=== PATIENT | female | born 1975 | race Caucasian/White ===

== ENCOUNTER 2021-01-15 18:28 | Inpatient (IN) | payer OTHER, SELFPAY ==
[2021-01-15] VITALS (7 sets, daily range): BP systolic 90–118; BP diastolic 48–59; PULSE 102–110; RESP 16–25; TEMP 36.6; O2SAT 89–99; BMI 31.6
--- NOTE | ~2021-01-15 | XR_ITS ---
EXAMINATION: XR CHEST CLINICAL INFORMATION: Cough COMPARISON: CT abdomen pelvis 10/16/2019 TECHNIQUE: 2 views of the chest were obtained. FINDINGS: Patchy infiltration is present in the left lung as well as in the right perihilar region. Unfortunately, no prior chest radiographs are available for comparison. However, on the prior CT abdomen of the upper portion of the chest was included on the exam as well as a vessel liner radiograph which appeared normal at that time. XR/XR chest 2V IMPRESSION: Commonly reported imaging features of Covid 19 or viral pneumonia are present with multifocal infiltrates. Other processes such as influenza pneumonia or organizing pneumonia, as can be seen with drug toxicity and connective tissue disease, can cause a similar imaging pattern.
--- NOTE | ~2021-01-15 | CT_ITS ---
EXAMINATION: CT ANGIOGRAM OF THE CHEST WITH AND WITHOUT CONTRAST (CT PULMONARY ANGIOGRAM FOR PE) CLINICAL INFORMATION: Reason for Exam hypoxia COMPARISON: Same-day chest radiograph. TECHNIQUE: Prior to contrast administration, noncontrast localization images were obtained. Subsequently, multidetector volumetric imaging was performed from the thoracic inlet to below the diaphragms following the administration of 80 mL Omnipaque 350 intravenous contrast. No contrast reaction reported Sagittal, coronal, and MIP oblique sagittal reformatted images were obtained on the CT workstation, uploaded to PACS, and reviewed. This CT examination was performed using dose optimization techniques as appropriate, variously including the following: *Automated exposure control *Adjustment of mA and/or kV according to patient size (this includes techniques or standardized protocols for targeted exams where dose is matched to indication/reason for exam; i.e. extremities or head) *Use of iterative reconstruction technique Total exam dose-length product 423 mGy-cm FINDINGS: QUALITY OF STUDY/CONTRAST BOLUS: Satisfactory. PULMONARY ARTERIES: No central or segmental pulmonary emboli. THORACIC AORTA: No aneurysm or dissection. LUNG: Mild asymmetric hypertrophy of the right lung relative to the left. Ground glass opacification throughout the left upper and left lower lobe and right upper lobe suspicious for infectious process. No nodules or masses. PLEURA: No pleural effusion or pneumothorax. MEDIASTINUM: Normal heart size. No pericardial effusion. No hilar or mediastinal lymphadenopathy. No evidence of septal bowing or right heart strain. CHEST WALL/AXILLA: No axillary or internal mammary lymphadenopathy. OSSEOUS STRUCTURES: No acute or suspicious osseous abnormality. T7 bone island. UPPER ABDOMEN: Unremarkable. No reflux of contrast into the hepatic veins to suggest elevated right heart pressures. Visualized liver, spleen, adrenal glands, and pancreas. Gallbladder is surgically absent. CT/CT angio chest PE protocol IMPRESSION: 1. No pulmonary embolus. 2. Groundglass opacification in the left upper and lower lobe and right upper lobe presumed infectious in etiology. 3. Cholecystectomy. VTE: negative
--- NOTE | 2021-01-15 19:41 | ED_ITS ---
HPI - URI/Sore Throat General Chief Complaint: Upper Respiratory Symptoms Stated Complaint: cough Time Seen by Provider: 01/15/21 18:36 Source: patient Mode of arrival: ambulatory Limitations: no limitations History of Present Illness MD elicited complaint: cough Pertinent past history: asthma Onset (ago): day(s) (2) Consistency: progressively worsening Severity: moderate Able to tolerate fluids by mouth: Yes Exacerbating factors: exertion and speaking Relieving factors: nothing Associated symptoms: chills, myalgias, sore throat, cough and shortness of breath Treatments prior to arrival: other (bactrim for UTI completed 3 day course) Related Data Home Medications Medication Instructions Recorded Confirmed acetaminophen 1 tab PO Q6H PRN 01/15/21 01/15/21 albuterol sulfate INHALATION 01/15/21 albuterol sulfate [ProAir HFA] INHALATION 01/15/21 budesonide-formoterol [Symbicort] 2 puff INHALATION BID 01/15/21 01/15/21 diclofenac sodium TOPICAL 01/15/21 ethynodiol diac-eth estradiol 1 tab PO DAILY 01/15/21 01/15/21 [Kelnor (28)] fluticasone propionate [Flovent 2 puff INHALATION BID 01/15/21 01/15/21 HFA] levothyroxine 1 tab PO DAILY 01/15/21 01/15/21 morphine tab PO 01/15/21 omeprazole 1 cap PO DAILY 01/15/21 01/15/21 oxazepam cap PO 01/15/21 risperidone 1 tab PO BEDTIME 01/15/21 01/15/21 sodium bicarbonate tab PO 01/15/21 tiotropium bromide [Spiriva 2 puff INHALATION DAILY 01/15/21 01/15/21 Respimat] topiramate tab PO 01/15/21 Previous Rx's Medication Instructions Recorded omeprazole magnesium 20 mg 20 mg PO DAILY 90 Days #90 cap 09/13/20 capsule,delayed release Allergies Allergy/AdvReac Type Severity Reaction Status Date / Time wheat [WHEAT] Allergy Intermediate DIARRHEA Unverified 03/11/20 16:09 sulfamethoxazole Allergy Shortness Verified 01/15/21 21:46 [From Bactrim] of Breath trimethoprim [From Bactrim] Allergy Shortness Verified 01/15/21 21:46 of Breath Review of Systems Review of Systems: Constitutional : No Fever, pos Chills ENT/Mouth : No sore throat, No Rhinorrhea, No Swallowing Difficulty Eyes: No Eye Pain, No Swelling, No Redness Cardiovascular : No Chest Pain, positive SOB, No Orthopnea, no Edema Respiratory : pos Cough, No Sputum, No Wheezing, positive dyspnea Gastrointestinal : No Nausea, No Vomiting, No Diarrhea, No abdominal Pain, No Hematochezia, No Melena Genitourinary : No Dysuria, No Urinary Frequency, No Hematuria Musculoskeletal : No joint pain, pos Myalgias Skin : No Skin Lesions, No rash Neuro : pos Weakness, No Numbness, No Dizziness, No Headache Psych : No Anxiety/Panic, No Depression Heme/Lymph: No Bruising, No Lymphadenopathy Endocrine : No Polyuria, No Polydipsia All other systems reviewed and are negative [facility] Past Medical History Attestation statement: The following information was validated with the patient. Medical History Asthma Marcus's thyroiditis Social History Social History (Updated 01/15/21 @ 20:18 by Zoey Russ DO) Alcohol intake: never Patient Tobacco Use Status: Never used Tobacco Use of substances other than those prescribed or required for medical reasons: No Advance Directives: No Patient : No Physical Exam Vital Signs: Vital Signs: Last Vital Signs Temp 97.9 F 01/15/21 18:31 Pulse 100 01/16/21 00:12 Resp 23 H 01/16/21 00:12 BP 106/47 L 01/16/21 00:12 Pulse Ox 96 01/16/21 00:12 Body Mass Index 31.6 Appearance: Alert. Oriented X3. Mild acute distress. Anxious Eyes: Pupils equal, round and reactive to light. ENT: Pharynx normal. Neck: Normal inspection. Neck supple. CVS: Normal heart rate and rhythm. Pulses normal. Respiratory: Mild respiratory distress tachypnea and retractions. Breath sounds diminished and wheezes noted posteriorly Abdomen: Soft and nontender. Skin: Skin warm and dry. Normal skin color. Normal skin turgor. Extremities: No lower extremity edema. No calf ttp Neuro: Oriented X 3. No motor deficit. No sensory deficit. Course Course Course Narrative: 30cc/kg bolus held until COVID status confirmed given possibility of causing ARDS in setting of COVID with fluid resuscitation 93% on RA, placed on 2L NC empiric antibiotics ordered, added on resp pathogen panel and PCR covid 30cc/kg bolus ordered planned admit MDM - URI/Sore Throat MDM Narrative Medical decision making narrative: 45 yo female with hx of GERD, complex regional pain syndrome, bronchial asthma here with c/o 2 to 3 days of cough, diff breathing, feels short of breath - had her Moderna vaccines a few months ago, was just treated for UTI 3 days ago completed bactrim, went camping denies smoke exposure or sick contacts, at this time labs, COVID swab, cultures, neb treatment, IV steroids, dispo per results and findings. Lab Data Result diagrams: 01/15/21 20:15 01/15/21 20:15 Labs: Lab Results 01/15/21 01/15/21 01/15/21 Range/Units 20:15 20:15 20:15 WBC 17.8 H (4.8-10.8) X10*3/uL RBC 3.90 L (4.20-5.50) X10*6/uL Hgb 11.7 L (12.0-16.0) g/dl Hct 34.6 L (37-47) % MCV 88.7 (80-98) fL MCH 30.0 (27.0-33.0) pg MCHC 33.8 (31.0-35.0) g/dl RDW 12.5 (11.0-16.0) % Plt Count 206 (160-400) X10*3/uL MPV 10.1 (9.4-12.3) fL Immature Gran % (Auto) 0.7 H (0.0-0.4) % Neut % (Auto) 88.9 H (45-73) % Lymph % (Auto) 6.0 L (20-40) % [place] % (Auto) 3.9 (2-11) % Eos % (Auto) 0.2 (0-4) % Baso % (Auto) 0.3 (0-2) % Lymph # (Auto) 1.1 L (1.2-4.9) X10*3/uL [place] # (Auto) 0.7 (0.1-1.2) X10*3/uL Eos # (Auto) 0.0 (0.0-0.4) X10*3/uL Baso # (Auto) 0.1 (0.0-0.2) X10*3/uL Abs Immat Gran (auto) 0.13 H (0.00-0.03) X10*3/uL Absolute Neuts (auto) 15.8 H (2.0-8.3) X10*3/uL Absolute Nucleated RBC 0.000 (0.0-0.012) X10*3/uL Nucleated RBC % (auto) 0.0 (0.0-0.2) /100WBC PT 11.9 (9.9-13.0) SEC INR 1.0 (0.9-1.1) APTT 28.2 (24.1-38.0) SEC D-Dimer 631 NG/ML Sodium 131 L (135-145) mmol/L Potassium 3.7 (3.3-5.1) mmol/L Chloride 103 (96-108) mmol/L Carbon Dioxide 18 L (22-29) mmol/L Anion Gap 14 (12-20) BUN 3 L (9-16) mg/dL Creatinine 0.87 (0.5-1.4) mg/dL Estim Creat Clear Calc 87.6 Estimated GFR > 60 Random Glucose 116 H (60-115) mg/dL Lactic Acid (0.5-2.0) mmol/L Calcium 8.5 (8.4-10.2) mg/dL Magnesium 1.8 (1.6-2.6) mg/dL Ferritin 114 (10-250) ng/mL Total Bilirubin 0.5 (0.0-1.0) mg/dL Direct Bilirubin 0.3 (0.0-0.5) mg/dL AST 13 (5-31) U/L ALT 18 (0-31) U/L Alkaline Phosphatase 78 (39-117) U/L Lactate Dehydrogenase 176 (122-220) U/L Total Creatine Kinase 42 (26-140) U/L C-Reactive Protein 19.96 H (< or = 0.50) mg/dL Total Protein 6.5 (6.5-8.0) g/dL Albumin 3.7 (3.5-5.0) g/dL Procalcitonin ng/mL Coronavirus (PCR) (Negative) COVID-19 (MARTINE) (Negative) COVID-19 Clin Com Influenza Type A (PCR) (Negative) Influenza Type B (PCR) (Negative) RSV RNA Qual (PCR) (Negative) 01/15/21 01/15/21 01/15/21 Range/Units 20:15 20:15 20:17 WBC (4.8-10.8) X10*3/uL RBC (4.20-5.50) X10*6/uL Hgb (12.0-16.0) g/dl Hct (37-47) % MCV (80-98) fL MCH (27.0-33.0) pg MCHC (31.0-35.0) g/dl RDW (11.0-16.0) % Plt Count (160-400) X10*3/uL MPV (9.4-12.3) fL Immature Gran % (Auto) (0.0-0.4) % Neut % (Auto) (45-73) % Lymph % (Auto) (20-40) % [place] % (Auto) (2-11) % Eos % (Auto) (0-4) % Baso % (Auto) (0-2) % Lymph # (Auto) (1.2-4.9) X10*3/uL [place] # (Auto) (0.1-1.2) X10*3/uL Eos # (Auto) (0.0-0.4) X10*3/uL Baso # (Auto) (0.0-0.2) X10*3/uL Abs Immat Gran (auto) (0.00-0.03) X10*3/uL Absolute Neuts (auto) (2.0-8.3) X10*3/uL Absolute Nucleated RBC (0.0-0.012) X10*3/uL Nucleated RBC % (auto) (0.0-0.2) /100WBC PT (9.9-13.0) SEC INR (0.9-1.1) APTT (24.1-38.0) SEC D-Dimer NG/ML Sodium (135-145) mmol/L Potassium (3.3-5.1) mmol/L Chloride (96-108) mmol/L Carbon Dioxide (22-29) mmol/L Anion Gap (12-20) BUN (9-16) mg/dL Creatinine (0.5-1.4) mg/dL Estim Creat Clear Calc Estimated GFR Random Glucose (60-115) mg/dL Lactic Acid 0.8 (0.5-2.0) mmol/L Calcium (8.4-10.2) mg/dL Magnesium (1.6-2.6) mg/dL Ferritin (10-250) ng/mL Total Bilirubin (0.0-1.0) mg/dL Direct Bilirubin (0.0-0.5) mg/dL AST (5-31) U/L ALT (0-31) U/L Alkaline Phosphatase (39-117) U/L Lactate Dehydrogenase (122-220) U/L Total Creatine Kinase (26-140) U/L C-Reactive Protein (< or = 0.50) mg/dL Total Protein (6.5-8.0) g/dL Albumin (3.5-5.0) g/dL Procalcitonin 0.04 ng/mL Coronavirus (PCR) (Negative) COVID-19 (MARTINE) Negative (Negative) COVID-19 Clin Com See Note Influenza Type A (PCR) (Negative) Influenza Type B (PCR) (Negative) RSV RNA Qual (PCR) (Negative) 01/15/21 Range/Units 21:00 WBC (4.8-10.8) X10*3/uL RBC (4.20-5.50) X10*6/uL Hgb (12.0-16.0) g/dl Hct (37-47) % MCV (80-98) fL MCH (27.0-33.0) pg MCHC (31.0-35.0) g/dl RDW (11.0-16.0) % Plt Count (160-400) X10*3/uL MPV (9.4-12.3) fL Immature Gran % (Auto) (0.0-0.4) % Neut % (Auto) (45-73) % Lymph % (Auto) (20-40) % [place] % (Auto) (2-11) % Eos % (Auto) (0-4) % Baso % (Auto) (0-2) % Lymph # (Auto) (1.2-4.9) X10*3/uL [place] # (Auto) (0.1-1.2) X10*3/uL Eos # (Auto) (0.0-0.4) X10*3/uL Baso # (Auto) (0.0-0.2) X10*3/uL Abs Immat Gran (auto) (0.00-0.03) X10*3/uL Absolute Neuts (auto) (2.0-8.3) X10*3/uL Absolute Nucleated RBC (0.0-0.012) X10*3/uL Nucleated RBC % (auto) (0.0-0.2) /100WBC PT (9.9-13.0) SEC INR (0.9-1.1) APTT (24.1-38.0) SEC D-Dimer NG/ML Sodium (135-145) mmol/L Potassium (3.3-5.1) mmol/L Chloride (96-108) mmol/L Carbon Dioxide (22-29) mmol/L Anion Gap (12-20) BUN (9-16) mg/dL Creatinine (0.5-1.4) mg/dL Estim Creat Clear Calc Estimated GFR Random Glucose (60-115) mg/dL Lactic Acid (0.5-2.0) mmol/L Calcium (8.4-10.2) mg/dL Magnesium (1.6-2.6) mg/dL Ferritin (10-250) ng/mL Total Bilirubin (0.0-1.0) mg/dL Direct Bilirubin (0.0-0.5) mg/dL AST (5-31) U/L ALT (0-31) U/L Alkaline Phosphatase (39-117) U/L Lactate Dehydrogenase (122-220) U/L Total Creatine Kinase (26-140) U/L C-Reactive Protein (< or = 0.50) mg/dL Total Protein (6.5-8.0) g/dL Albumin (3.5-5.0) g/dL Procalcitonin ng/mL Coronavirus (PCR) NEGATIVE (Negative) COVID-19 (MARTINE) (Negative) COVID-19 Clin Com Influenza Type A (PCR) NEGATIVE (Negative) Influenza Type B (PCR) NEGATIVE (Negative) RSV RNA Qual (PCR) NEGATIVE (Negative) Critical Care Time Critical Care Time Critical Care Time: Yes Total Critical Care Time: 35 Attestation: IVF, neb treatment, IV steroids, IV abx I attest to this time spent taking care of the patient Discharge Plan Discharge Clinical Impression: CRP elevated, Multifocal pneumonia Leukocytosis Qualifiers: Leukocytosis type: unspecified Qualified Code(s): D72.829 - Elevated white blood cell count, unspecified Patient Disposition: Admitted As Inpatient
[2021-01-15] MEDS: Albuterol Sulfate (0.083%) 2.5 MG/3 ML VIAL.NEB INHALE (20:17)
[2021-01-15 20:22] LABS: MANUAL DIFF FLAG NO
[2021-01-15 20:26] LABS: Basophils Absolute Auto 0.1 X10*3/uL (0.0-0.2); Basophils Percent Auto 0.3 % (0-2); Eosinophils Percent Auto 0.2 % (0-4); Hematocrit 34.6 % (37-47); Hemoglobin 11.7 g/dl (12.0-16.0); Imm Gran Abs Auto 0.13 X10*3/uL (0.00-0.03); Imm Gran Pct Auto 0.7 % (0.0-0.4); Lymphocytes Absolute Auto 1.1 X10*3/uL (1.2-4.9); Mean Corpuscular HGB Conc 33.8 g/dl (31.0-35.0); Mean Corpuscular Volume 88.7 fL (80-98); Mean Platelet Volume 10.1 fL (9.4-12.3); Monocytes Absolute Auto 0.7 X10*3/uL (0.1-1.2); Monocytes Percent Auto 3.9 % (2-11); Neutrophils Absolute Auto 15.8 X10*3/uL (2.0-8.3); Neutrophils Percent Auto 88.9 % (45-73); Platelet Count 206 X10*3/uL (160-400); Red Cell Distribution Width 12.5 % (11.0-16.0); White Blood Count 17.8 X10*3/uL (4.8-10.8)
[2021-01-15 20:32] LABS: Prothrombin Time 11.9 SEC (9.9-13.0)
[2021-01-15 20:35] LABS: D Dimer 631 NG/ML; Partial Thromboplastin Time 28.2 SEC (24.1-38.0)
[2021-01-15 20:43] LABS: Lactic Acid 0.8 mmol/L (0.5-2.0)
[2021-01-15 20:46] LABS: COVID-19 Test Negative (Negative); IDNOW Serial# 9DD0AD1C
[2021-01-15 20:52] LABS: Alanine Aminotransferase 18 U/L (0-31); Albumin Level 3.7 g/dL (3.5-5.0); Alkaline Phosphatase 78 U/L (39-117); Anion Gap 14 (12-20); Aspartate Amino Transferase 13 U/L (5-31); Bilirubin Direct 0.3 mg/dL (0.0-0.5); Bilirubin Total 0.5 mg/dL (0.0-1.0); Blood Urea Nitrogen 3 mg/dL (9-16); C Reactive Protein 19.96 mg/dL (< or = 0.50); Calcium 8.5 mg/dL (8.4-10.2); Carbon Dioxide 18 mmol/L (22-29); Chloride 103 mmol/L (96-108); Creatinine Clr Calc Pharmacy 87.6; Estimated Glomerular Filt Rate > 60; Glucose Random 116 mg/dL (60-115); Magnesium 1.8 mg/dL (1.6-2.6); Potassium 3.7 mmol/L (3.3-5.1); Sodium 131 mmol/L (135-145); Total Protein 6.5 g/dL (6.5-8.0)
[2021-01-15 21:02] LABS: Lactate Dehydrogenase 176 U/L (122-220)
[2021-01-15] MEDS: dexAMETHasone sod phosphate 4 MG/ML VIAL 6 MG IVPUSH (21:07)
[2021-01-15] MEDS: Benzonatate 100 MG CAPSULE PO (21:08)
[2021-01-15] MEDS: HYDROcodone/Homat 5/1.5/5 ML 5 ML SYRUP PO (21:08)
[2021-01-15] MEDS: cefTRIAXone sodium 1 GM in 0.9 % Sodium Chloride 50 ML IV (21:08)
[2021-01-15 21:10] LABS: Ferritin 114 ng/mL (10-250)
[2021-01-15] MEDS: 0.9 % Sodium Chloride 1,000 ML 999 ML IVCONT (21:22)
[2021-01-15] MEDS: Azithromycin 500 MG in 0.9 % Sodium Chloride 250 ML 125 MG IV (21:22)
--- NOTE | 2021-01-15 21:26 | P.HPHOSP_ITS ---
History of Present Illness Date of Service: 01/15/21 Chief Complaint: SOB 45-year-old female with a past medical history of GERD, complex regional pain syndrome, history of asthma presented to the hospital with a chief complaint of shortness of breath. Patient reported that over the past 3-4 days she has been having shortness of breath and cough. Dyspnea on exertion. Denies any chest pain or palpitations. Patient reports that she recently went to the [facility]; denies any sick contacts. Denies any excessive smoke inhalation. Denies going into the caves; or bird exposure. Patient denies any GI or symptoms. Patient reported that she recently had UTI and finished a course of Bactrim. Review of all other systems is negative except mentioned above ER course: Per ER team patient noted to be short of breath, saturating 90-92%, placed on supplemental oxygen, noted diffuse wheezing and diminished breath sounds; COVID- 19 was negative chest x-ray showed multifocal pneumonia; patient was given IV antibiotics. Noted to elevated D-dimer, CRP. Admitted to the hospital for further management. [facility] Medical History (Updated 01/17/21 @ 12:46 by Erich Turner MD) Asthma Asthma exacerbation Marcus's thyroiditis Pneumonitis Social History (Updated 01/15/21 @ 20:18 by Zoey Russ DO) Household Members: Spouse Housing: House Do you presently have visiting nurse or other home services: No Alcohol intake: never Patient Tobacco Use Status: Never used Tobacco service: No Current occupational status: unemployed Meds Allergies Allergy/AdvReac Type Severity Reaction Status Date / Time wheat [WHEAT] Allergy Intermediate DIARRHEA Verified 01/16/21 03:14 sulfamethoxazole Allergy Shortness Verified 01/15/21 21:46 [From Bactrim] of Breath trimethoprim [From Bactrim] Allergy Shortness Verified 01/15/21 21:46 of Breath Active Medications: Current Medications Generic Name Dose Route Start Last Admin Trade Name Freq PRN Reason Stop Dose Admin Albuterol/Ipratropium 3 ml 01/15/21 21:18 Albuterol/Iprat 2.5/0.5mg 3 Ml Ampul.Neb INHALE RQ4H PRN Shortness of Breath/Wheezing Azithromycin 500 mg 01/15/21 21:30 Azithromycin 500 Mg Tablet PO Q24H AKIDEN Enoxaparin Sodium 40 mg 01/15/21 21:30 Enoxaparin Sodium 40 Mg/0.4 Ml Syringe SUBCUT Q24H [facility] Azithromycin 500 mg/ Sodium 250 mls @ 125 mls/hr 01/15/21 20:30 01/15/21 21:22 Chloride IV 01/15/21 22:29 125 mls/hr ONCE ONE Administration Sodium Chloride 2,585.49 mls @ 2,585.49 mls/hr 01/15/21 20:53 Ns 30 ml/kg infuse over 1 hr (2585.49 ml) 01/15/21 21:52 IV .Q1H ONE Dextrose/Sodium Chloride 1,000 mls @ 50 mls/hr 01/15/21 21:30 D5ns IVCONT .Q20H [facility] Ceftriaxone Sodium 1 gm/ 100 mls @ 200 mls/hr 01/15/21 21:30 Sodium Chloride IV Q24H [facility] Magnesium Hydroxide 30 ml 01/15/21 21:18 Milk Of Magnesia 30 Ml Oral.Susp PO DAILY PRN Constipation Melatonin 6 mg 01/15/21 21:18 Melatonin 3 Mg Tablet PO BEDTIME PRN Insomnia Methylprednisolone Sodium Succinate 40 mg 01/15/21 21:30 Methylprednisolone Sod Succ 40 Mg/Ml Vial IVPUSH Q6H [facility] Morphine Sulfate 1 mg 01/15/21 21:18 Morphine Sulfate 4 Mg/Ml Cartridge IVPUSH Q6H PRN Shortness of Breath Sodium Chloride 3 ml 01/16/21 00:00 0.9 % Sodium Chloride Flush 3 Ml Syringe IVFLUSH QSHIFT [facility] Home Medications Medication Instructions Recorded Confirmed Last Taken Type acetaminophen 500 mg tablet 1 tab PO Q6H PRN 01/15/21 01/15/21 Unknown History albuterol sulfate 90 mcg/actuation INHALATION 01/15/21 01/15/21 17:00 History aerosol inhaler albuterol sulfate 90 mcg/actuation INHALATION 01/15/21 Unknown History aerosol inhaler (ProAir HFA) budesonide-formoterol HFA 160 2 puff INHALATION BID 01/15/21 01/15/21 Unknown History mcg-4.5 mcg/actuation aerosol inhaler (Symbicort) diclofenac sodium 1 % topical gel TOPICAL 01/15/21 Unknown History ethynodiol diacetate-ethinyl 1 tab PO DAILY 01/15/21 01/15/21 Unknown History estradiol 1 mg-35 mcg tablet (Kelnor) fluticasone propionate 220 2 puff INHALATION BID 01/15/21 01/15/21 Unknown History mcg/actuation HFA aerosol inhaler (Flovent HFA) levothyroxine 88 mcg tablet 1 tab PO DAILY 01/15/21 01/15/21 Unknown History morphine 30 mg immediate release 60 mg PO Q4-5H PRN 01/15/21 01/16/21 Unknown History tablet oxazepam 10 mg capsule 2 - 3 cap PO Q3-4H PRN 01/15/21 01/16/21 Unknown History risperidone 1 mg tablet 1 tab PO BEDTIME 01/15/21 01/15/21 Unknown History sodium bicarbonate 650 mg tablet tab PO 01/15/21 Unknown History tiotropium bromide 2.5 2 puff INHALATION DAILY 01/15/21 01/15/21 Unknown History mcg/actuation mist for inhalation (Spiriva Respimat) topiramate 200 mg tablet tab PO 01/15/21 Unknown History fluticasone propionate 50 2 spray INTRANASAL BID 01/17/21 01/17/21 3 Days Ago History mcg/actuation nasal ~01/14/21 spray,suspension montelukast 10 mg tablet 10 mg PO BEDTIME 01/17/21 01/17/21 3 Days Ago History (Maximeulair) ~01/14/21 Physical Exam Vital Signs and Narrative: Vital Signs: Last Vital Signs Temp 97.9 F 01/15/21 18:31 Pulse 102 H 01/15/21 20:18 Resp 25 H 01/15/21 20:02 BP 103/48 L 01/15/21 20:16 Pulse Ox 91 L 01/15/21 20:02 Body Mass Index 31.6 Gen: Appears be in no acute distress; patient not in respiratory distress. Speaks in full sentences. HEENT: NCAT, Moist mucosa. Pulmonary: Diffuse wheezing noted. Breath sounds are slightly diminished. CVS: Normal S1-S2 Abdomen: BS+, Soft, Nontender Extremities: Warm well perfused Neuro: Alert and awake. Results Labs CBC and Chem 7: 01/16/21 07:17 01/16/21 07:17 Labs: Laboratory Results - last 24 hr 01/15/21 01/15/21 01/15/21 20:15 20:15 20:15 MCV 88.7 MCH 30.0 MCHC 33.8 RDW 12.5 Plt Count 206 MPV 10.1 Immature Gran % (Auto) 0.7 H Neut % (Auto) 88.9 H Lymph % (Auto) 6.0 L [place] % (Auto) 3.9 Eos % (Auto) 0.2 Baso % (Auto) 0.3 Lymph # (Auto) 1.1 L [place] # (Auto) 0.7 Eos # (Auto) 0.0 Baso # (Auto) 0.1 Abs Immat Gran (auto) 0.13 H Absolute Neuts (auto) 15.8 H Absolute Nucleated RBC 0.000 Nucleated RBC % (auto) 0.0 PT 11.9 INR 1.0 APTT 28.2 D-Dimer 631 Anion Gap 14 Estim Creat Clear Calc 87.6 Estimated GFR > 60 Random Glucose 116 H Lactic Acid Calcium 8.5 Magnesium 1.8 Ferritin 114 Total Bilirubin 0.5 Direct Bilirubin 0.3 AST 13 ALT 18 Alkaline Phosphatase 78 Lactate Dehydrogenase 176 Total Creatine Kinase 42 C-Reactive Protein 19.96 H Total Protein 6.5 Albumin 3.7 COVID-19 (MARTINE) COVID-19 Clin Com 01/15/21 01/15/21 20:15 20:17 MCV MCH MCHC RDW Plt Count MPV Immature Gran % (Auto) Neut % (Auto) Lymph % (Auto) [place] % (Auto) Eos % (Auto) Baso % (Auto) Lymph # (Auto) [place] # (Auto) Eos # (Auto) Baso # (Auto) Abs Immat Gran (auto) Absolute Neuts (auto) Absolute Nucleated RBC Nucleated RBC % (auto) PT INR APTT D-Dimer Anion Gap Estim Creat Clear Calc Estimated GFR Random Glucose Lactic Acid 0.8 Calcium Magnesium Ferritin Total Bilirubin Direct Bilirubin AST ALT Alkaline Phosphatase Lactate Dehydrogenase Total Creatine Kinase C-Reactive Protein Total Protein Albumin COVID-19 (MARTINE) Negative COVID-19 Clin Com See Note Imaging Radiologist's Impressions: Impressions Chest X-Ray 01/15/21 18:36 IMPRESSION: Commonly reported imaging features of Covid 19 or viral pneumonia are present with multifocal infiltrates. Other processes such as influenza pneumonia or organizing pneumonia, as can be seen with drug toxicity and connective tissue disease, can cause a similar imaging pattern. Assessment and Plan (1) Multifocal pneumonia: Status: Acute 45-year-old female with a past medical history of GERD, asthma presented to the hospital with a chief complaint of cough and shortness of breath. Noted to have multifocal pneumonia. Multifocal pneumonia: Continue ceftriaxone and azithromycin. Patient COVID-19 negative. Patient received COVID-19 MRNA vaccine. Patient noted to be mildly [id number] positive; CT chest : No PE but noted GGO/PNA Will consult ID and pulmonology for further recommendations Will send for urine Legionella, strep pneumo, mycoplasma; Throat discomfort: Will obtain throat culture Acute asthma exacerbation: Continue DuoNebs standing and p.r.n.. Solu-Medrol 40 mg IV q.6h. Supplemental oxygen p.r.n. History of complex regional pain syndrome: Patient on morphine and Topamax at h ome. History of hypothyroidism: Continue levothyroxine GI prophylaxis: Pepcid DVT prophylaxis: Lovenox Code status: Full code Quality Stroke Does the patient have a stroke diagnosis?: No VTE Prior VTE?: No VTE Risk Level:: Medical - moderate - high VTE Device Contraindication: Treatment Not Indicated VTE Drug Contraindication: N/A - Med Ordered
--- NOTE | 2021-01-15 21:32 | PC.NURSE ---
pt getting first liter fluids, has gotten first antibiotic and second running at this time. She reports pain but states she has a chronic pain condition so her pain is not new.
[2021-01-15 21:53] LABS: Influenza A PCR NEGATIVE (Negative); Influenza B PCR NEGATIVE (Negative); Resp Syncy Virus RNA Qual PCR NEGATIVE (Negative); SARS COV2 PCR INHOUSE NEGATIVE (Negative)
[2021-01-15] MEDS: 0.9 % Sodium Chloride 2,585.49 ML 2585.49 ML IV (22:17)
[2021-01-15 22:19] LABS: Procalcitonin 0.04 ng/mL
--- NOTE | 2021-01-15 22:33 | PC.NURSE ---
pt's IV fluids have been running with interruption for blood draw and for CT scan. Can only use right arm, pt states she cannot have any proceedure to left arm
[2021-01-15] MEDS: iohexoL 350 MG/ML 100 ML INFUS..BTL IV (22:50)
[2021-01-16] VITALS (7 sets, daily range): BP systolic 105–158; BP diastolic 47–76; PULSE 63–100; RESP 18–23; TEMP 36.4–36.6; O2SAT 93–96; BMI 31.6
[2021-01-16] MEDS: Enoxaparin Sodium 40 MG/0.4 ML SYRINGE SUBCUT ×2 (00:06→22:07)
[2021-01-16] MEDS: cefTRIAXone sodium 1 GM in 0.9 % Sodium Chloride 100 ML IV ×2 (00:06→22:20)
[2021-01-16] MEDS: methylPREDNISolone Sod Succ 40 MG/ML VIAL IVPUSH ×5 (00:06→22:09)
[2021-01-16] MEDS: Morphine Sulfate 4 MG/ML CARTRIDGE 1 MG IVPUSH (03:00)
[2021-01-16] MEDS: Dextrose 5 % and 0.9 % NaCl 1,000 ML 50 ML IVCONT ×2 (03:04→16:47)
[2021-01-16] MEDS: HYDROmorphone HCl 2 MG TABLET 1 MG PO (06:17)
--- NOTE | 2021-01-16 07:15 | PC.NURSE ---
Pt sitting in recliner in room eating her breakfast tray at this time. Pt offers no complaints. Awaiting bed assignment. Will continue to monitor.
[2021-01-16 07:26] LABS: Basophils Percent Auto 0.1 % (0-2); Hematocrit 34.9 % (37-47); Hemoglobin 11.6 g/dl (12.0-16.0); Imm Gran Abs Auto 0.08 X10*3/uL (0.00-0.03); Imm Gran Pct Auto 0.8 % (0.0-0.4); Lymphocytes Absolute Auto 0.6 X10*3/uL (1.2-4.9); Lymphocytes Percent Auto 6.1 % (20-40); MANUAL DIFF FLAG SCAN; Mean Corpuscular HGB Conc 33.2 g/dl (31.0-35.0); Mean Corpuscular Hemoglobin 30.1 pg (27.0-33.0); Mean Corpuscular Volume 90.6 fL (80-98); Mean Platelet Volume 10.3 fL (9.4-12.3); Monocytes Absolute Auto 0.2 X10*3/uL (0.1-1.2); Monocytes Percent Auto 1.8 % (2-11); Neutrophils Absolute Auto 9.5 X10*3/uL (2.0-8.3); Neutrophils Percent Auto 91.2 % (45-73); Platelet Count 212 X10*3/uL (160-400); Red Blood Count 3.85 X10*6/uL (4.20-5.50); Red Cell Distribution Width 12.6 % (11.0-16.0); SCAN SMEAR FLAG 1; White Blood Count 10.4 X10*3/uL (4.8-10.8)
[2021-01-16 07:55] LABS: SLIDE REVIEW VERIFIED
[2021-01-16 08:05] LABS: Alanine Aminotransferase 17 U/L (0-31); Albumin Level 3.6 g/dL (3.5-5.0); Alkaline Phosphatase 77 U/L (39-117); Anion Gap 12 (12-20); Aspartate Amino Transferase 11 U/L (5-31); Bilirubin Total 0.2 mg/dL (0.0-1.0); Blood Urea Nitrogen 4 mg/dL (9-16); Calcium 8.1 mg/dL (8.4-10.2); Carbon Dioxide 16 mmol/L (22-29); Chloride 113 mmol/L (96-108); Creatinine Clr Calc Pharmacy 102.9; Estimated Glomerular Filt Rate > 60; Glucose Random 167 mg/dL (60-115); Potassium 3.9 mmol/L (3.3-5.1); Sodium 137 mmol/L (135-145); Total Protein 6.4 g/dL (6.5-8.0)
[2021-01-16] MEDS: Levothyroxine Sodium 88 MCG TABLET PO (08:30)
[2021-01-16] MEDS: Topiramate 100 MG TABLET 200 MG PO (08:30)
[2021-01-16 08:32] LABS: Adenovirus PCR Not Detected (Not Detect.); Bordetella parapertussis PCR Not Detected (Not Detect.); Bordetella pertussis PCR Not Detected (Not Detect.); Chlamydia pneumoniae PCR Not Detected (Not Detect.); Coronavirus 229E PCR Not Detected (Not Detect.); Coronavirus HKU1 PCR Not Detected (Not Detect.); Coronavirus NL63 PCR Not Detected (Not Detect.); Coronavirus OC43 PCR Not Detected (Not Detect.); Human metapneumovirus PCR Not Detected (Not Detect.); Influenza A PCR Not Detected (Not Detect.); Influenza B PCR Not Detected (Not Detect.); Mycoplasma pneumoniae PCR Not Detected (Not Detect.); Parainfluenza 1 PCR Not Detected (Not Detect.); Parainfluenza 2 PCR Not Detected (Not Detect.); Parainfluenza 3 PCR Not Detected (Not Detect.); Parainfluenza 4 PCR Not Detected (Not Detect.); RSV PCR Not Detected (Not Detect.); Rhino/Enterovirus PCR Not Detected (Not Detect.); SARS-CoV-2 PCR Not Detected (Not Detect.)
[2021-01-16] MEDS: Fluticasone/Vilanterol 200/25 BLST.W.DEV 1 PUFF INHALE (09:43)
[2021-01-16] MEDS: Morphine Sulfate Immed Release 15 MG TABLET 60 MG PO ×3 (10:30→22:09)
[2021-01-16] MEDS: Benzonatate 100 MG CAPSULE PO ×2 (11:11→22:13)
--- NOTE | 2021-01-16 12:17 | HO.PM.IMPN ---
Subjective Subjective Date of Service: 01/16/21 Interval History: Seen in f/u for PNA, better than yesterday, but still sob, cough Review of Systems Gen: no fever Resp: + sob, n+cough CV: no chest, no COTTO, no leg edema GI: No n/v, no abd pain Neuro: No confusion Physical Exam Vital Signs: Vital Signs: Last Vital Signs Temp 97.9 F 01/15/21 18:31 Pulse 99 01/16/21 09:48 Resp 23 H 01/16/21 00:12 BP 115/74 01/16/21 01:05 Pulse Ox 96 01/16/21 00:12 Oxygen Flow Rate 3 01/15/21 21:27 Body Mass Index 31.6 Const: Other: General: AO X 3, no acute distress Resp: rhonchi CVS: S1,S2,RRR GI: +BS, NT, no distention Skin: No rash Neuro: motor grossly intact Psych: appropriate affect Objective Data Current Medications Generic Name Dose Route Start Last Admin Trade Name Freq PRN Reason Stop Dose Admin Albuterol/Ipratropium 3 ml 01/15/21 21:18 Albuterol/Iprat 2.5/0.5mg 3 Ml Ampul.Neb INHALE Q4H PRN Shortness of Breath/Wheezing Azithromycin 500 mg 01/16/21 21:00 Azithromycin 500 Mg Tablet PO Q24H KAIDEN Benzonatate 100 mg 01/16/21 02:38 01/16/21 11:11 Benzonatate 100 Mg Capsule PO 100 mg TID PRN Administration Cough Enoxaparin Sodium 40 mg 01/15/21 21:30 01/16/21 00:06 Enoxaparin Sodium 40 Mg/0.4 Ml Syringe SUBCUT 40 mg Q24H KAIDEN Administration Fluticasone Propionate 2 puff 01/16/21 20:00 Fluticasone Propionate 250 Mcg Blst.W.Dev INHALE RBID KAIDEN Fluticasone/Vilanterol 1 puff 01/16/21 09:00 01/16/21 09:43 Fluticasone/Vilanterol 200/25 Blst.W.Dev INHALE 1 puff DAILY KAIDEN Administration Hydromorphone HCl 1 mg 01/16/21 02:38 01/16/21 06:17 Hydromorphone Hcl 2 Mg Tablet PO 1 mg Q6H PRN Administration Breakthrough Pain Dextrose/Sodium Chloride 1,000 mls @ 50 mls/hr 01/15/21 21:30 01/16/21 03:04 D5ns IVCONT 50 mls/hr .Q20H KAIDEN Administration Ceftriaxone Sodium 1 gm/ 100 mls @ 200 mls/hr 01/15/21 22:00 01/16/21 03:18 Sodium Chloride IV Infused Q24H KAIDEN Infusion Levothyroxine Sodium 88 mcg 01/16/21 09:00 01/16/21 08:30 Levothyroxine Sodium 88 Mcg Tablet PO 88 mcg DAILY KAIDEN Administration Magnesium Hydroxide 30 ml 01/15/21 21:18 Milk Of Magnesia 30 Ml Oral.Susp PO DAILY PRN Constipation Melatonin 6 mg 01/15/21 21:18 Melatonin 3 Mg Tablet PO BEDTIME PRN Insomnia Methylprednisolone Sodium Succinate 40 mg 01/15/21 22:00 01/16/21 10:30 Methylprednisolone Sod Succ 40 Mg/Ml Vial IVPUSH 40 mg Q6H KAIDEN Administration Morphine Sulfate 1 mg 01/15/21 21:18 01/16/21 03:00 Morphine Sulfate 4 Mg/Ml Cartridge IVPUSH 1 mg Q6H PRN Administration Shortness of Breath Morphine Sulfate 60 mg 01/16/21 10:10 01/16/21 10:30 Morphine Sulfate Immed Release 15 Mg Tablet PO 60 mg Q4H PRN Administration Pain Non-Formulary Medication 2 - 3 cap 01/16/21 10:01 Oxazepam PO Q3H PRN Pain Risperidone 1 mg 01/16/21 21:00 Risperidone 1 Mg Tablet PO BEDTIME KAIDEN Sodium Chloride 3 ml 01/16/21 00:00 01/16/21 09:14 0.9 % Sodium Chloride Flush 3 Ml Syringe IVFLUSH Not Given QSHIFT [facility] Tiotropium [place] 2 puff 01/17/21 08:00 Tiotropium [place] 18 Mcg Cap.W.Dev INHALE RDAILY [facility] Topiramate 200 mg 01/16/21 09:00 01/16/21 08:30 Topiramate 100 Mg Tablet PO 200 mg DAILY KAIDEN Administration Labs CBC & Chem 7: 01/16/21 07:17 01/16/21 07:17 Quality Stroke Does the patient have a stroke diagnosis?: No VTE Prior VTE?: No VTE Risk Level:: Medical - moderate - high VTE Device Contraindication: Treatment Not Indicated VTE Drug Contraindication: N/A - Med Ordered Assessment and Plan (1) Multifocal pneumonia: Status: Acute Assessment and Plan: 45-year-old female with a past medical history of GERD, asthma presented to the hospital with a chief complaint of cough and shortness of breath. Noted to have multifocal pneumonia. CAP with Multifocal pneumonia with acute hypoxic resp failure now improved, CT showed PE but PNA Continue ceftriaxone and azithromycin. Urine mycoplasma and legionella Abx ID, pulmonary consult Throat discomfort: Will obtain throat culture Acute asthma exacerbation: Continue DuoNebs standing and p.r.n.. Solu-Medrol 40 mg IV q.6h. Supplemental oxygen p.r.n. History of complex regional pain syndrome: Patient on morphine and Topamax at home--continue History of hypothyroidism: Continue levothyroxine GI prophylaxis: Pepcid DVT prophylaxis: Lovenox Code status: Full code
--- NOTE | 2021-01-16 12:52 | MHC.CM.PN ---
Met with pt and spouse to discuss d/c planning: pt resides with spouse: is independent with all care needs: drives, no medical devices used: no services. Pt anxious about hospitalization: worried about needing O2 at home when d/c'd. Explained goals of d/c would be to have weaned off O2 but is this was required at home, [facility] [place] supplier. No HCP on file: pt states she's anxious in the ED and would like to wait until she's settled in a hospital room before she considers one. D/C plan: home: no services - spouse to transport: ? reapproaching for HCP completion when pt more calm
--- NOTE | 2021-01-16 14:28 | PC.NURSE ---
called [facility] [place] nurse [place], floor nurse will call back for report.
[2021-01-16] MEDS: Azithromycin 500 MG TABLET PO (22:07)
[2021-01-16] MEDS: risperiDONE 1 MG TABLET PO (22:07)
[2021-01-16] MEDS: 0.9 % Sodium Chloride Flush 3 ML SYRINGE IVFLUSH (22:09)
[2021-01-16] MEDS: Melatonin 3 MG TABLET 6 MG PO (22:09)
[2021-01-17] VITALS (9 sets, daily range): BP systolic 111–150; BP diastolic 60–70; PULSE 49–88; RESP 18–20; TEMP 36.2–36.9; O2SAT 90–98
[2021-01-17] MEDS: methylPREDNISolone Sod Succ 40 MG/ML VIAL IVPUSH ×2 (02:21→07:50)
[2021-01-17] MEDS: Morphine Sulfate Immed Release 15 MG TABLET 60 MG PO ×3 (02:21→20:58)
[2021-01-17] MEDS: Fluticasone/Vilanterol 200/25 BLST.W.DEV 1 PUFF INHALE (07:31)
[2021-01-17] MEDS: Fluticasone Propionate 250 MCG BLST.W.DEV 2 PUFF INHALE (07:31)
[2021-01-17] MEDS: Topiramate 100 MG TABLET 200 MG PO (07:50)
[2021-01-17] MEDS: Levothyroxine Sodium 88 MCG TABLET PO (07:50)
[2021-01-17] MEDS: 0.9 % Sodium Chloride Flush 3 ML SYRINGE IVFLUSH ×2 (07:50→16:06)
[2021-01-17] MEDS: Docusate Sodium 100 MG CAPSULE PO ×2 (09:19→20:26)
[2021-01-17] MEDS: Benzonatate 100 MG CAPSULE PO ×2 (09:19→14:00)
[2021-01-17] MEDS: methylPREDNISolone Sod Succ 40 MG/ML VIAL 80 MG IVPUSH ×3 (10:56→21:55)
--- NOTE | 2021-01-17 11:03 | P.PNIM_ITS ---
Assessment and Plan (1) Multifocal pneumonia: Status: Acute Assessment and Plan: 45-year-old female with a past medical history of GERD, asthma presented to the hospital with a chief complaint of cough and shortness of breath. Noted to have multifocal pneumonia. CAP with Multifocal pneumonia with acute hypoxic resp failure now resolved, CT showed NO PE but PNA Continue ceftriaxone and azithromycin D3, change to oral Ceftin by tomorrow if better Urine mycoplasma and legionella Abx--pending ID, pulmonary consult--pending Throat discomfort: Culture negative Acute asthma exacerbation: Continue DuoNebs standing and p.r.n.. Solu-Medrol 40 mg IV q.6h. Supplemental oxygen p.r.n. History of complex regional pain syndrome: Patient on morphine and Topamax at home--continue History of hypothyroidism: Continue levothyroxine Constipation: colate, miralax, fiber GI prophylaxis: Pepcid DVT prophylaxis: Lovenox Code status: Full code Subjective Subjective Date of Service: 01/17/21 Interval History: Seen in f/u for PNA, still with cough, sob especially with activity Review of Systems Gen: no fever Resp: + sob, n+cough CV: no chest, no COTTO, no leg edema GI: No n/v, no abd pain Neuro: No confusion Physical Exam Vital Signs: Vital Signs: Last Vital Signs Temp 98.4 F 01/17/21 07:29 Pulse 61 01/17/21 07:36 Resp 20 01/17/21 07:29 BP 131/69 01/17/21 07:29 Pulse Ox 93 01/17/21 07:29 Oxygen Flow Rate 3 01/15/21 21:27 Body Mass Index 31.6 Const: Other: General: AO X 3, no acute distress Resp: rhonchi CVS: S1,S2,RRR GI: +BS, NT, no distention Skin: No rash Neuro: motor grossly intact Psych: appropriate affect Objective Data Current Medications Generic Name Dose Route Start Last Admin Trade Name Freq PRN Reason Stop Dose Admin Albuterol/Ipratropium 3 ml 01/15/21 21:18 Albuterol/Iprat 2.5/0.5mg 3 Ml Ampul.Neb INHALE Q4H PRN Shortness of Breath/Wheezing Azithromycin 500 mg 01/16/21 21:00 01/16/21 22:07 Azithromycin 500 Mg Tablet PO 500 mg Q24H KAIDEN Administration Benzonatate 100 mg 01/16/21 02:38 01/17/21 09:19 Benzonatate 100 Mg Capsule PO 100 mg TID PRN Administration Cough Docusate Sodium 100 mg 01/17/21 09:00 01/17/21 09:19 Docusate Sodium 100 Mg Capsule PO 100 mg BID KAIDEN Administration Enoxaparin Sodium 40 mg 01/15/21 21:30 01/16/21 22:07 Enoxaparin Sodium 40 Mg/0.4 Ml Syringe SUBCUT 40 mg Q24H KAIDEN Administration Fluticasone/Vilanterol 1 puff 01/16/21 09:00 01/17/21 07:31 Fluticasone/Vilanterol 200/25 Blst.W.Dev INHALE 1 puff DAILY KAIDEN Administration Hydromorphone HCl 1 mg 01/16/21 02:38 01/16/21 06:17 Hydromorphone Hcl 2 Mg Tablet PO 1 mg Q6H PRN Administration Breakthrough Pain Dextrose/Sodium Chloride 1,000 mls @ 50 mls/hr 01/15/21 21:30 01/16/21 16:47 D5ns IVCONT 50 mls/hr .Q20H KAIDEN Administration Ceftriaxone Sodium 1 gm/ 100 mls @ 200 mls/hr 01/15/21 22:00 01/16/21 23:31 Sodium Chloride IV Infused Q24H KAIDEN Infusion Levothyroxine Sodium 88 mcg 01/16/21 09:00 01/17/21 07:50 Levothyroxine Sodium 88 Mcg Tablet PO 88 mcg DAILY KAIDEN Administration Magnesium Hydroxide 30 ml 01/15/21 21:18 Milk Of Magnesia 30 Ml Oral.Susp PO DAILY PRN Constipation Melatonin 6 mg 01/15/21 21:18 01/16/21 22:09 Melatonin 3 Mg Tablet PO 6 mg BEDTIME PRN Administration Insomnia Methylprednisolone Sodium Succinate 80 mg 01/17/21 09:54 01/17/21 10:56 Methylprednisolone Sod Succ 40 Mg/Ml Vial IVPUSH 80 mg Q6H KAIDEN Administration Morphine Sulfate 1 mg 01/15/21 21:18 01/16/21 03:00 Morphine Sulfate 4 Mg/Ml Cartridge IVPUSH 1 mg Q6H PRN Administration Shortness of Breath Morphine Sulfate 60 mg 01/16/21 10:10 01/17/21 02:21 Morphine Sulfate Immed Release 15 Mg Tablet PO 60 mg Q4H PRN Administration Pain Patient Own Med ( 2 - 3 each 01/16/21 12:17 01/16/21 22:10 Oxazepam 10mg Cap) PO 2 each Q3H PRN Administration Pain Polyethylene Glycol 17 gm 01/17/21 08:43 Polyethylene Glycol 3350 17 Gm Powd.Pack PO DAILY PRN Constipation Risperidone 1 mg 01/16/21 21:00 01/16/21 22:07 Risperidone 1 Mg Tablet PO 1 mg BEDTIME KAIDEN Administration Sodium Chloride 3 ml 01/16/21 00:00 01/17/21 07:50 0.9 % Sodium Chloride Flush 3 Ml Syringe IVFLUSH 3 ml QSHIFT KAIDEN Administration Tiotropium [place] 1 puff 01/17/21 08:00 01/17/21 07:31 Tiotropium [place] 18 Mcg Cap.W.Dev INHALE 1 puff RDAILY KAIDEN Administration Topiramate 200 mg 01/16/21 09:00 01/17/21 07:50 Topiramate 100 Mg Tablet PO 200 mg DAILY KAIDEN Administration Labs CBC & Chem 7: 01/16/21 07:17 01/16/21 07:17 Microbiology Microbiology Results: Microbiology 01/16/21 09:22 Throat Culture - Preliminary Throat No Group A Beta-hemolytic Streptococci isolated to date. 01/15/21 21:00 Blood Culture - Preliminary Blood - Venous No growth after 24 hours. 01/15/21 20:15 Blood Culture - Preliminary Blood - Venous No growth after 24 hours. Quality Stroke Does the patient have a stroke diagnosis?: No VTE Prior VTE?: No VTE Risk Level:: Medical - moderate - high VTE Device Contraindication: Treatment Not Indicated VTE Drug Contraindication: N/A - Med Ordered
[2021-01-17 11:20] LABS: Adenovirus PCR Not Detected (Not Detect.); Bordetella parapertussis PCR Not Detected (Not Detect.); Bordetella pertussis PCR Not Detected (Not Detect.); Chlamydia pneumoniae PCR Not Detected (Not Detect.); Coronavirus 229E PCR Not Detected (Not Detect.); Coronavirus HKU1 PCR Not Detected (Not Detect.); Coronavirus NL63 PCR Not Detected (Not Detect.); Coronavirus OC43 PCR Not Detected (Not Detect.); Human metapneumovirus PCR Not Detected (Not Detect.); Influenza A PCR Not Detected (Not Detect.); Influenza B PCR Not Detected (Not Detect.); Mycoplasma pneumoniae PCR Not Detected (Not Detect.); Parainfluenza 1 PCR Not Detected (Not Detect.); Parainfluenza 2 PCR Not Detected (Not Detect.); Parainfluenza 3 PCR Not Detected (Not Detect.); Parainfluenza 4 PCR Not Detected (Not Detect.); RSV PCR Not Detected (Not Detect.); Rhino/Enterovirus PCR Not Detected (Not Detect.); SARS-CoV-2 PCR Not Detected (Not Detect.)
--- NOTE | 2021-01-17 11:40 | MHC.CM.PN ---
per multi dis rounds pt to be dcd in 1 to 2 days plan remains home no servceis
[2021-01-17 11:59] LABS: Erythrocyte Sedimentation Rate 32 MM/HR (0-20)
--- NOTE | 2021-01-17 12:39 | PM.CNPUL ---
Assessment and Plan (1) Acute hypoxemic respiratory failure: Status: Acute (2) Multifocal pneumonia: Status: Acute (3) Pneumonitis: Status: Acute (4) Asthma exacerbation: Qualifiers: Asthma severity: moderate Asthma persistence: persistent Qualified Code(s): J45.41 - Moderate persistent asthma with (acute) exacerbation Status: Acute The patient appears to have evidence of pneumonitis in airspace disease in the CT scan. This could be both infectious or noninfectious in etiology. The pattern of distribution is more consistent with a hyper sensitivity reaction. At this point treat the patient with additional steroids in the patient will continue with the broad-spectrum antibiotics. If no better a bronchoscopy to biopsy may be warranted. Of note she has a history wheat allergy bringing up the possibility of celiac disease and pascale-Mendoza syndrome which his a type of vasculitis. Increase Solu-Medrol 80 mg Q 6 Continue nebulized therapy Continue Breo Daily Respiratory viral panel Laboratory data Continue oxygen to maintain a pulse ox above 90% History of Present Illness History of Present Illness Consult date: 01/17/21 Chief complaint: PNA Narrative: 45-year-old female with a past medical history of GERD, complex regional pain syndrome, history of asthma presented to the hospital with a chief complaint of shortness of breath. Patient reported that over the past 3-4 days she has been having shortness of breath and cough. Dyspnea on exertion. Denies any chest pain or palpitations. Patient reports that she recently went to the [facility]; denies any sick contacts. Recently she was placed on Bactrim for UTI. Her respiratory symptoms continued to worsen decided to come into the emergency department. For there she was noted to be hypoxic. Her chest x-ray demonstrated bilateral pneumonia. Therefore, she did have a CT scan of the chest demonstrating ground-glass opacities primarily the left upper lung zone as well as areas of consolidations. The patient is placed on antibiotics and also on Solu-Medrol for her significant wheezing. On further questioning she denies any recreational drugs. [place] is been significantly dust in the area. Review of Systems Constitutional: Constitutional: Denies night sweats ENT: Denies change in voice, Reports dysphagia, Denies lip swelling, Denies mouth pain, Reports nasal congestion, Reports nasal discharge and Denies tongue swelling Cardiovascular: Cardiovascular: Denies chest pain and Reports dyspnea Respiratory: Respiratory: Reports cough, Denies pain with cough, Reports dyspnea and Reports wheezing Gastrointestinal: Gastrointestinal: Reports abdominal pain and Reports dysphagia Musculoskeletal: Musculoskeletal: Denies no additional musculoskeletal complaints Neurologic: Denies Neuro-related abnormal movements Psychiatric: Psychiatric: Denies no additional psychiatric complaints Hematologic/Lymphatic: Hematologic/Lymphatic: Denies easy bleeding and Denies lymphadenopathy Allergic/Immunologic: Allergic/Immunologic: Denies lip swelling, Denies tongue swelling and Reports wheezing PMFSH Past Medical History Medical History (Updated 01/17/21 @ 12:46 by Erich Turner MD) Asthma Asthma exacerbation Marcus's thyroiditis Pneumonitis Social History Social History (Updated 01/15/21 @ 20:18 by Zoey Russ DO) Household Members: Spouse Housing: House Do you presently have visiting nurse or other home services: No Alcohol intake: never Patient Tobacco Use Status: Never used Tobacco Use of substances other than those prescribed or required for medical reasons: No Substance Use Type Other:: CBD edibles Substance Use Frequency: Daily Last Used Substance: Weeks (ago) Currently Displaying Signs/Symptoms of Drug Intoxication Withdrawal: No Any prior treatment program specific to substance use: No Have you been hit, kicked, punched, or otherwise hurt by someone within the past year? If so, by whom?: No Do you feel safe in your current relationship?: Yes Is there a partner from a previous relationship who is making you feel unsafe now?: No Are you made to feel afraid or neglected: No Advance Directives: No Do you have thoughts of harming others: None Do you have a plan to hurt others: No Plan Recently lost weight without trying: No Eating poorly because of decreased appetite: No Nutrition Risks: No Nutritional Risk Patient : No : No Poor oral hygiene: No service: No Current occupational status: unemployed Meds Allergies Allergy/AdvReac Type Severity Reaction Status Date / Time wheat [WHEAT] Allergy Intermediate DIARRHEA Verified 01/16/21 03:14 sulfamethoxazole Allergy Shortness Verified 01/15/21 21:46 [From Bactrim] of Breath trimethoprim [From Bactrim] Allergy Shortness Verified 01/15/21 21:46 of Breath Active Medications: Current Medications Generic Name Dose Route Start Last Admin Trade Name Freq PRN Reason Stop Dose Admin Albuterol/Ipratropium 3 ml 01/15/21 21:18 Albuterol/Iprat 2.5/0.5mg 3 Ml Ampul.Neb INHALE Q4H PRN Shortness of Breath/Wheezing Azithromycin 500 mg 01/16/21 21:00 01/16/21 22:07 Azithromycin 500 Mg Tablet PO 500 mg Q24H KAIDEN Administration Benzonatate 100 mg 01/16/21 02:38 01/17/21 09:19 Benzonatate 100 Mg Capsule PO 100 mg TID PRN Administration Cough Docusate Sodium 100 mg 01/17/21 09:00 01/17/21 09:19 Docusate Sodium 100 Mg Capsule PO 100 mg BID KAIDEN Administration Enoxaparin Sodium 40 mg 01/15/21 21:30 01/16/21 22:07 Enoxaparin Sodium 40 Mg/0.4 Ml Syringe SUBCUT 40 mg Q24H KAIDEN Administration Fluticasone/Vilanterol 1 puff 01/16/21 09:00 01/17/21 07:31 Fluticasone/Vilanterol 200/25 Blst.W.Dev INHALE 1 puff DAILY KAIDEN Administration Hydromorphone HCl 1 mg 01/16/21 02:38 01/16/21 06:17 Hydromorphone Hcl 2 Mg Tablet PO 1 mg Q6H PRN Administration Breakthrough Pain Dextrose/Sodium Chloride 1,000 mls @ 50 mls/hr 01/15/21 21:30 01/16/21 16:47 D5ns IVCONT 50 mls/hr .Q20H KAIDEN Administration Ceftriaxone Sodium 1 gm/ 100 mls @ 200 mls/hr 01/15/21 22:00 01/16/21 23:31 Sodium Chloride IV Infused Q24H KAIDEN Infusion Levothyroxine Sodium 88 mcg 01/16/21 09:00 01/17/21 07:50 Levothyroxine Sodium 88 Mcg Tablet PO 88 mcg DAILY KAIDEN Administration Magnesium Hydroxide 30 ml 01/15/21 21:18 Milk Of Magnesia 30 Ml Oral.Susp PO DAILY PRN Constipation Melatonin 6 mg 01/15/21 21:18 01/16/21 22:09 Melatonin 3 Mg Tablet PO 6 mg BEDTIME PRN Administration Insomnia Methylprednisolone Sodium Succinate 80 mg 01/17/21 09:54 01/17/21 10:56 Methylprednisolone Sod Succ 40 Mg/Ml Vial IVPUSH 80 mg Q6H KAIDEN Administration Morphine Sulfate 1 mg 01/15/21 21:18 01/16/21 03:00 Morphine Sulfate 4 Mg/Ml Cartridge IVPUSH 1 mg Q6H PRN Administration Shortness of Breath Morphine Sulfate 60 mg 01/16/21 10:10 01/17/21 02:21 Morphine Sulfate Immed Release 15 Mg Tablet PO 60 mg Q4H PRN Administration Pain Patient Own Med ( 2 - 3 each 01/16/21 12:17 01/16/21 22:10 Oxazepam 10mg Cap) PO 2 each Q3H PRN Administration Pain Polyethylene Glycol 17 gm 01/17/21 08:43 Polyethylene Glycol 3350 17 Gm Powd.Pack PO DAILY PRN Constipation Risperidone 1 mg 01/16/21 21:00 01/16/21 22:07 Risperidone 1 Mg Tablet PO 1 mg BEDTIME KAIDEN Administration Sodium Chloride 3 ml 01/16/21 00:00 01/17/21 07:50 0.9 % Sodium Chloride Flush 3 Ml Syringe IVFLUSH 3 ml QSHIFT KAIDEN Administration Tiotropium [place] 1 puff 01/17/21 08:00 01/17/21 07:31 Tiotropium [place] 18 Mcg Cap.W.Dev INHALE 1 puff RDAILY KAIDEN Administration Topiramate 200 mg 01/16/21 09:00 01/17/21 07:50 Topiramate 100 Mg Tablet PO 200 mg DAILY KAIDEN Administration Home Medications Medication Instructions Recorded Confirmed Last Taken Type acetaminophen 1 tab PO Q6H PRN 01/15/21 01/15/21 Unknown History albuterol sulfate INHALATION 01/15/21 01/15/21 17:00 History albuterol sulfate [ProAir HFA] INHALATION 01/15/21 Unknown History budesonide-formoterol [Symbicort] 2 puff INHALATION BID 01/15/21 01/15/21 Unknown History diclofenac sodium TOPICAL 01/15/21 Unknown History ethynodiol diac-eth estradiol 1 tab PO DAILY 01/15/21 01/15/21 Unknown History [Kevin (27)] fluticasone propionate [Flovent 2 puff INHALATION BID 01/15/21 01/15/21 Unknown History HFA] levothyroxine 1 tab PO DAILY 01/15/21 01/15/21 Unknown History morphine 60 mg PO Q4-5H PRN 01/15/21 01/16/21 Unknown History omeprazole 1 cap PO DAILY 01/15/21 01/15/21 Unknown History oxazepam 2 - 3 cap PO Q3-4H PRN 01/15/21 01/16/21 Unknown History risperidone 1 tab PO BEDTIME 01/15/21 01/15/21 Unknown History sodium bicarbonate tab PO 01/15/21 Unknown History tiotropium bromide [Spiriva 2 puff INHALATION DAILY 01/15/21 01/15/21 Unknown History Respimat] topiramate tab PO 01/15/21 Unknown History Physical Exam Vital Signs: Vital Signs: Last Vital Signs Temp 97.1 F 01/17/21 11:25 Pulse 65 01/17/21 11:25 Resp 20 01/17/21 11:25 BP 111/66 01/17/21 11:25 Pulse Ox 92 01/17/21 11:25 Oxygen Flow Rate 3 01/15/21 21:27 Body Mass Index 31.6 Const: General: alert HENMT: Mouth: Normal oral and palatal mucosa present Neck: Neck: Yes normal visual inspection, Yes full ROM and Yes no lymphadenopathy Chest: Chest palpation & inspection: normal inspection of the chest Resp: Auscultation: diminished lung sounds Cardio: Rate: regular rate Rhythm: regular rhythm Heart sounds: S1 normal heart sound present and S2 normal heart sound present GI: Palpation (GI): Soft to palpation and nontender Auscultation: normal bowel sounds : General: Yes no CVA tenderness Back/Spine/Pelvis: Back: no CVA tenderness Skin: General skin exam: rashes and/or lesions noted Results Laboratory Findings CBC and BMP: 01/16/21 07:17 01/16/21 07:17 ABG, PT/INR, D-dimer: PT/INR, D-dimer PT 11.9 SEC (9.9-13.0) 01/15/21 20:15 INR 1.0 (0.9-1.1) 01/15/21 20:15 D-Dimer 631 NG/ML 01/15/21 20:15 Abnormal lab findings: Abnormal Labs 01/15/21 01/15/21 01/16/21 20:15 20:15 07:17 WBC 17.8 H RBC 3.90 L 3.85 L Hgb 11.7 L 11.6 L Hct 34.6 L 34.9 L Immature Gran % (Auto) 0.7 H 0.8 H Neut % (Auto) 88.9 H 91.2 H Lymph % (Auto) 6.0 L 6.1 L [place] % (Auto) 1.8 L Lymph # (Auto) 1.1 L 0.6 L Abs Immat Gran (auto) 0.13 H 0.08 H Absolute Neuts (auto) 15.8 H 9.5 H ESR Sodium 131 L Chloride Carbon Dioxide 18 L BUN 3 L Random Glucose 116 H Calcium C-Reactive Protein 19.96 H Total Protein 01/16/21 01/17/21 07:17 10:01 WBC RBC Hgb Hct Immature Gran % (Auto) Neut % (Auto) Lymph % (Auto) [place] % (Auto) Lymph # (Auto) Abs Immat Gran (auto) Absolute Neuts (auto) ESR 32 H Sodium Chloride 113 H Carbon Dioxide 16 L BUN 4 L Random Glucose 167 H D Calcium 8.1 L C-Reactive Protein Total Protein 6.4 L Microbiology: Microbiology 01/15/21 21:27 Sputum - Expectorated Gram Stain - Final 01/15/21 21:27 Sputum - Expectorated Sputum Culture - Final 01/16/21 09:22 Throat Throat Culture - Preliminary No Group A Beta-hemolytic Streptococci isolated to date. 01/15/21 21:00 Blood - Venous Blood Culture - Preliminary No growth after 24 hours. 01/15/21 20:15 Blood - Venous Blood Culture - Preliminary No growth after [address] scan - chest: image reviewed Additional studies: Procedures Date of Service Date of Service: 01/17/21
[2021-01-17] MEDS: Dextrose 5 % and 0.9 % NaCl 1,000 ML 50 ML IVCONT (13:05)
[2021-01-17] MEDS: Omeprazole 20 MG CAPSULE.DR PO (14:00)
[2021-01-17] MEDS: Sodium Bicarbonate 650 MG TABLET 325 MG PO ×2 (14:00→20:26)
[2021-01-17] MEDS: Albuterol/Iprat 2.5/0.5MG 3 ML AMPUL.NEB INHALE ×2 (18:13→22:18)
[2021-01-17] MEDS: risperiDONE 1 MG TABLET PO (20:26)
[2021-01-17] MEDS: Azithromycin 500 MG TABLET PO (20:26)
[2021-01-17] MEDS: cefTRIAXone sodium 1 GM in 0.9 % Sodium Chloride 100 ML IV (21:43)
[2021-01-17] MEDS: Enoxaparin Sodium 40 MG/0.4 ML SYRINGE SUBCUT (21:45)
[2021-01-17] MEDS: Fluticasone Propionate Nasal 16 GM SPRAY 2 SPRAY NOSTRIL-B (21:45)
[2021-01-18] VITALS (9 sets, daily range): BP systolic 143–174; BP diastolic 68–81; PULSE 58–90; RESP 18–20; TEMP 36.4–36.9; O2SAT 92–96
[2021-01-18] MEDS: methylPREDNISolone Sod Succ 40 MG/ML VIAL 80 MG IVPUSH ×4 (03:29→21:12)
[2021-01-18] MEDS: Morphine Sulfate Immed Release 15 MG TABLET 60 MG PO ×3 (06:14→22:04)
[2021-01-18] MEDS: Omeprazole 20 MG CAPSULE.DR PO (06:14)
[2021-01-18] MEDS: Sodium Bicarbonate 650 MG TABLET 325 MG PO ×2 (08:18→21:12)
[2021-01-18] MEDS: Topiramate 100 MG TABLET 200 MG PO (08:18)
[2021-01-18] MEDS: Levothyroxine Sodium 88 MCG TABLET PO (08:18)
[2021-01-18] MEDS: Docusate Sodium 100 MG CAPSULE PO ×2 (08:19→21:14)
[2021-01-18] MEDS: Fluticasone Propionate Nasal 16 GM SPRAY 2 SPRAY NOSTRIL-B ×2 (08:22→21:13)
[2021-01-18] MEDS: Acetaminophen 325 MG TABLET 650 MG PO ×2 (08:22→18:05)
[2021-01-18] MEDS: Fluticasone/Vilanterol 200/25 BLST.W.DEV 1 PUFF INHALE (08:28)
--- NOTE | 2021-01-18 11:55 | P.PNPL_ITS ---
Subjective Subjective Date of Service: 01/18/21 Interval history: The patient was seen on exam. Feeling little better. Trying to wean down the oxygen supplementation. Her respiratory viral panel was negative. Still waiting inflammatory workup. Objective Data Labs CBC & Chem 7: 01/16/21 07:17 01/16/21 07:17 Labs: Laboratory Results - last 24 hr 01/17/21 01/17/21 10:01 10:58 ESR 32 H Respiratory Panel [place] See Note Adenovirus (Rapid PCR) Not Detected B.pert (TEM-PCR) Not Detected B.parapertussis DNA PCR Not Detected C. pneumoniae DNA (PCR) Not Detected Coronavirus OC43 (PCR) Not Detected Coronavirus HKU1 (PCR) Not Detected Coronavirus 229E (PCR) Not Detected Coronavirus NL63 (PCR) Not Detected Human Metapneumovir PCR Not Detected Influenza A (RT-PCR) Not Detected Influenza B (RT-PCR) Not Detected M. pneumoniae (PCR) Not Detected Parainfluenza 1 (PCR) Not Detected Parainfluenza 2 (PCR) Not Detected Parainfluenza 3 (PCR) Not Detected Parainfluenza 4 (PCR) Not Detected RSV (PCR) Not Detected Entero/Rhino (PCR) Not Detected SARS-CoV-2 RNA (RT-PCR) Not Detected Microbiology Microbiology Results: Microbiology 01/16/21 09:22 Throat Throat Culture - Final No Group A Beta-hemolytic Streptococci isolated. 01/15/21 21:00 Blood - Venous Blood Culture - Preliminary No growth after 48 hours. 01/15/21 20:15 Blood - Venous Blood Culture - Preliminary No growth after 48 hours. 01/15/21 21:27 Sputum - Expectorated Gram Stain - Final 01/15/21 21:27 Sputum - Expectorated Sputum Culture - Final Review of Systems Constitutional: Denies night sweats Denies change in voice, Reports dysphagia, Denies lip swelling, Denies mouth kristy n, Reports nasal congestion, Reports nasal discharge and Denies tongue swelling Cardiovascular: Denies chest pain and Reports dyspnea Respiratory: Reports cough, Denies pain with cough, Reports dyspnea and Reports wheezing Gastrointestinal: Reports abdominal pain and Reports dysphagia Musculoskeletal: Denies no additional musculoskeletal complaints Denies Neuro-related abnormal movements Psychiatric: Denies no additional psychiatric complaints Hematologic/Lymphatic: Denies easy bleeding and Denies lymphadenopathy Allergic/Immunologic: Denies lip swelling, Denies tongue swelling and Reports wheezing Physical Exam Vital Signs: Vital Signs: Last Vital Signs Temp 98.2 F 01/18/21 11:25 Pulse 63 01/18/21 11:25 Resp 20 01/18/21 11:25 BP 170/81 H 01/18/21 11:25 Pulse Ox 96 01/18/21 11:25 Oxygen Flow Rate 3 01/15/21 21:27 Body Mass Index 31.6 Const: General: alert Eyes: Pupils: Equal, round and reactive pupils present Neck: Neck: Yes normal visual inspection, Yes full ROM and Yes no lymphadenopathy Chest: Chest palpation & inspection: normal inspection of the chest Resp: Auscultation: diminished lung sounds Cardio: Rate: regular rate Rhythm: regular rhythm Heart sounds: S1 normal heart sound present and S2 normal heart sound present GI: Palpation (GI): Soft to palpation and nontender Auscultation: normal bowel sounds Skin: General skin exam: rashes and/or lesions noted Neuro: Cranial nerves: Yes Equal, round and reactive pupils present Procedures Date of Service Date of Service: 01/18/21 Assessment and Plan Assessment and plan (1) Acute hypoxemic respiratory failure: Status: Acute (2) Asthma exacerbation: Status: Acute (3) Pneumonitis: Status: Acute (4) Multifocal pneumonia: Status: Acute Assessment and Plan: Continue high-dose Solu-Medrol for another day them start weaning Continue respiratory therapy Titrate oxygen supplementation to keep pulse ox above 92% Repeat chest x-ray to more woman Awaiting blood work She will need outpatient follow-up with Pulmonary to address the possibility of a hyper sensitivity reaction versus allergic reactions Time Spent With Patient Time: Total time spent is greater than 50% in coordination of care (as docume nted) at patient's floor/unit and/or counseling patient: Time with patient: 15 - 24 minutes Progress Note: Quality Stroke Does the patient have a stroke diagnosis?: No
[2021-01-18 13:35] LABS: Anti Nuclear Antibody Screen NEGATIVE (NEGATIVE)
[2021-01-18] MEDS: Benzonatate 100 MG CAPSULE PO ×2 (14:31→22:04)
[2021-01-18] MEDS: 0.9 % Sodium Chloride Flush 3 ML SYRINGE IVFLUSH ×2 (14:32→21:12)
[2021-01-18] MEDS: Ondansetron ODT 4 MG TAB.RAPDIS TRANSLINGU (18:05)
[2021-01-18] MEDS: Albuterol/Iprat 2.5/0.5MG 3 ML AMPUL.NEB INHALE (18:10)
[2021-01-18] MEDS: cefTRIAXone sodium 1 GM in 0.9 % Sodium Chloride 100 ML IV (21:11)
[2021-01-18] MEDS: Enoxaparin Sodium 40 MG/0.4 ML SYRINGE SUBCUT (21:12)
[2021-01-18] MEDS: Azithromycin 500 MG TABLET PO (21:12)
[2021-01-18] MEDS: risperiDONE 1 MG TABLET PO (21:13)
[2021-01-18] MEDS: Melatonin 3 MG TABLET 6 MG PO (22:04)
[2021-01-19] VITALS (9 sets, daily range): BP systolic 135–170; BP diastolic 65–80; PULSE 65–75; RESP 18–20; TEMP 36.6–37; O2SAT 92–96
[2021-01-19] MEDS: methylPREDNISolone Sod Succ 40 MG/ML VIAL 80 MG IVPUSH ×4 (02:52→20:22)
[2021-01-19] MEDS: Acetaminophen 325 MG TABLET 650 MG PO (02:52)
[2021-01-19 05:45] LABS: Immunoglobulin E 86 kU/L (<OR=114)
[2021-01-19] MEDS: Omeprazole 20 MG CAPSULE.DR PO (06:14)
[2021-01-19] MEDS: Morphine Sulfate Immed Release 15 MG TABLET 60 MG PO ×4 (06:16→22:47)
[2021-01-19] MEDS: Fluticasone/Vilanterol 200/25 BLST.W.DEV 1 PUFF INHALE (07:25)
[2021-01-19] MEDS: Sodium Bicarbonate 650 MG TABLET 325 MG PO ×2 (08:23→20:22)
[2021-01-19] MEDS: 0.9 % Sodium Chloride Flush 3 ML SYRINGE IVFLUSH ×3 (08:23→20:23)
[2021-01-19] MEDS: Docusate Sodium 100 MG CAPSULE PO ×2 (08:24→20:21)
[2021-01-19] MEDS: Topiramate 100 MG TABLET 200 MG PO (08:24)
[2021-01-19] MEDS: Levothyroxine Sodium 88 MCG TABLET PO (08:24)
[2021-01-19] MEDS: Fluticasone Propionate Nasal 16 GM SPRAY 2 SPRAY NOSTRIL-B ×2 (08:28→20:21)
--- NOTE | 2021-01-19 09:25 | HO.PM.IMPN ---
Subjective Subjective Date of Service: 01/19/21 Interval History: Seen in f/u for PNA, still with cough, sob, better today for sure and weaning off O2 Physical Exam Vital Signs: Vital Signs: Last Vital Signs Temp 98.2 F 01/19/21 07:07 Pulse 65 01/19/21 07:26 Resp 18 01/19/21 07:07 BP 135/65 01/19/21 07:07 Pulse Ox 92 01/19/21 07:07 Oxygen Flow Rate 3 01/15/21 21:27 Body Mass Index 31.6 Const: Other: General: AO X 3, no acute distress Resp: rhonchi CVS: S1,S2,RRR GI: +BS, NT, no distention Skin: No rash Neuro: motor grossly intact Psych: appropriate affect Objective Data Current Medications Generic Name Dose Route Start Last Admin Trade Name Freq PRN Reason Stop Dose Admin Acetaminophen 650 mg 01/17/21 18:16 01/19/21 02:52 Acetaminophen 325 Mg Tablet PO 650 mg Q6H PRN Administration pain Albuterol/Ipratropium 3 ml 01/15/21 21:18 01/18/21 18:10 Albuterol/Iprat 2.5/0.5mg 3 Ml Ampul.Neb INHALE 3 ml Q4H PRN Administration Shortness of Breath/Wheezing Azithromycin 500 mg 01/16/21 21:00 01/18/21 21:12 Azithromycin 500 Mg Tablet PO 500 mg Q24H KAIDEN Administration Benzonatate 100 mg 01/16/21 02:38 01/18/21 22:04 Benzonatate 100 Mg Capsule PO 100 mg TID PRN Administration Cough Docusate Sodium 100 mg 01/17/21 09:00 01/19/21 08:24 Docusate Sodium 100 Mg Capsule PO 100 mg BID KAIDEN Administration Enoxaparin Sodium 40 mg 01/15/21 21:30 01/18/21 21:12 Enoxaparin Sodium 40 Mg/0.4 Ml Syringe SUBCUT 40 mg Q24H KAIDEN Administration Fluticasone Propionate 2 spray 01/17/21 21:00 01/19/21 08:28 Fluticasone Propionate Nasal 16 Gm [place] NOSTRIL-B 2 spray BID KAIDEN Administration Fluticasone/Vilanterol 1 puff 01/16/21 09:00 01/19/21 07:25 Fluticasone/Vilanterol 200/25 Blst.W.Dev INHALE 1 puff DAILY KAIDEN Administration Hydromorphone HCl 1 mg 01/16/21 02:38 01/16/21 06:17 Hydromorphone Hcl 2 Mg Tablet PO 1 mg Q6H PRN Administration Breakthrough Pain Ceftriaxone Sodium 1 gm/ 100 mls @ 200 mls/hr 01/15/21 22:00 01/18/21 22:07 Sodium Chloride IV Infused Q24H KAIDEN Infusion Levothyroxine Sodium 88 mcg 01/16/21 09:00 01/19/21 08:24 Levothyroxine Sodium 88 Mcg Tablet PO 88 mcg DAILY KAIDEN Administration Magnesium Hydroxide 30 ml 01/15/21 21:18 Milk Of Magnesia 30 Ml Oral.Susp PO DAILY PRN Constipation Melatonin 6 mg 01/15/21 21:18 01/18/21 22:04 Melatonin 3 Mg Tablet PO 6 mg BEDTIME PRN Administration Insomnia Methylprednisolone Sodium Succinate 80 mg 01/17/21 09:54 01/19/21 08:25 Methylprednisolone Sod Succ 40 Mg/Ml Vial IVPUSH 80 mg Q6H KAIDEN Administration Morphine Sulfate 1 mg 01/15/21 21:18 01/16/21 03:00 Morphine Sulfate 4 Mg/Ml Cartridge IVPUSH 1 mg Q6H PRN Administration Shortness of Breath Morphine Sulfate 60 mg 01/16/21 10:10 01/19/21 06:16 Morphine Sulfate Immed Release 15 Mg Tablet PO 60 mg Q4H PRN Administration Pain Patient Own Med ( 2 - 3 each 01/16/21 12:17 01/18/21 13:27 Oxazepam 10mg Cap) PO 1 each Q3H PRN Administration Pain Omeprazole 20 mg 01/17/21 13:30 01/19/21 06:14 Omeprazole 20 Mg Capsule.Dr PO 20 mg DAILY@0630 KAIDEN Administration Ondansetron HCl 4 mg 01/18/21 17:43 01/18/21 18:05 Ondansetron Odt 4 Mg Tab.Rapdis TRANSLINGU 4 mg Q8H PRN Administration Nausea and Vomiting Polyethylene Glycol 17 gm 01/17/21 08:43 01/18/21 22:04 Polyethylene Glycol 3350 17 Gm Powd.Pack PO 17 gm DAILY PRN Administration Constipation Risperidone 1 mg 01/16/21 21:00 01/18/21 21:13 Risperidone 1 Mg Tablet PO 1 mg BEDTIME KAIDEN Administration Sodium Bicarbonate 325 mg 01/17/21 13:30 01/19/21 08:23 Sodium Bicarbonate 650 Mg Tablet PO 325 mg BID KAIDEN Administration Sodium Chloride 3 ml 01/16/21 00:00 01/19/21 08:23 0.9 % Sodium Chloride Flush 3 Ml Syringe IVFLUSH 3 ml QSHIFT KAIDEN Administration Tiotropium [place] 1 puff 01/17/21 08:00 01/19/21 07:25 Tiotropium [place] 18 Mcg Cap.W.Dev INHALE 1 puff RDAILY KAIDEN Administration Topiramate 200 mg 01/16/21 09:00 01/19/21 08:24 Topiramate 100 Mg Tablet PO 200 mg DAILY KAIDEN Administration Labs CBC & Chem 7: 01/16/21 07:17 01/16/21 07:17 Labs: Laboratory Results - last 24 hr 01/17/21 01/17/21 14:54 14:54 IgE 86 DARLIN Screen NEGATIVE DARLIN Titer TNP DARLIN Titer 2 TNP DARLIN Titer 3 TNP DARLIN Pattern TNP DALRIN Pattern 2 TNP DARLIN Pattern 3 TNP Microbiology Microbiology Results: Microbiology 01/16/21 09:22 Throat Culture - Final Throat No Group A Beta-hemolytic Streptococci isolated. Assessment and Plan (1) Multifocal pneumonia: Status: Acute Assessment and Plan: 45-year-old female with a past medical history of GERD, asthma presented to the hospital with a chief complaint of cough and shortness of breath. Noted to have multifocal pneumonia. CAP with Multifocal pneumonia with acute hypoxic resp failure now resolved, CT showed NO PE but PNA Continue ceftriaxone and azithromycin D4, change to oral Ceftin and PO Azithro todayu Urine Strep and legionella Abx--pending Pulmonary work up for hypersentivity penumonitis Throat discomfort: Culture negative Acute asthma exacerbation: Continue DuoNebs standing and p.r.n.. Change Solumedrol to Prednisone History of complex regional pain syndrome: Patient on morphine and Topamax at home--continue History of hypothyroidism: Continue levothyroxine Constipation: colate, miralax, fiber GI prophylaxis: Pepcid DVT prophylaxis: Lovenox Code status: Full code Probable discharge tomorrow Quality Stroke Does the patient have a stroke diagnosis?: No VTE Prior VTE?: No VTE Risk Level:: Medical - moderate - high VTE Device Contraindication: Treatment Not Indicated VTE Drug Contraindication: N/A - Med Ordered
--- NOTE | 2021-01-19 12:16 | P.PNPL_ITS ---
Subjective Subjective Date of Service: 01/19/21 Interval history: The patient was seen on exam. Overall the patient is feeling better. I did remove her from the oxygen and while sitting she maintain a pulse ox between 92-93%. The patient will need a 6 minutes walk test prior to discharge. Her respiratory status is better and she is feeling better. The patient will need close follow-up with Pulmonary as an outpatient. I will make arrangements for that. Objective Data Labs CBC & Chem 7: 01/16/21 07:17 01/16/21 07:17 Labs: Laboratory Results - last 24 hr 01/17/21 01/17/21 14:54 14:54 IgE 86 DARLIN Screen NEGATIVE DARLIN Titer TNP DARLIN Titer 2 TNP DARLIN Titer 3 TNP DARLIN Pattern TNP DARLIN Pattern 2 TNP DARLIN Pattern 3 TNP Microbiology Microbiology Results: Microbiology 01/16/21 09:22 Throat Throat Culture - Final No Group A Beta-hemolytic Streptococci isolated. 01/15/21 21:00 Blood - Venous Blood Culture - Preliminary No growth after 48 hours. 01/15/21 20:15 Blood - Venous Blood Culture - Preliminary No growth after 48 hours. 01/15/21 21:27 Sputum - Expectorated Gram Stain - Final 01/15/21 21:27 Sputum - Expectorated Sputum Culture - Final Review of Systems Constitutional: Denies night sweats Denies change in voice, Reports dysphagia, Denies lip swelling, Denies mouth pain, Reports nasal congestion, Reports nasal discharge and Denies tongue swelling Cardiovascular: Denies chest pain and Reports dyspnea Respiratory: Reports cough, Denies pain with cough, Reports dyspnea and Reports wheezing Gastrointestinal: Reports abdominal pain and Reports dysphagia Musculoskeletal: Denies no additional musculoskeletal complaints Denies Neuro-related abnormal movements Psychiatric: Denies no additional psychiatric complaints Hematologic/Lymphatic: Denies easy bleeding and Denies lymphadenopathy Allergic/Immunologic: Denies lip swelling, Denies tongue swelling and Reports wheezing Physical Exam 2 Vital Signs: Vital Signs: Last Vital Signs Temp 98.4 F 01/19/21 11:20 Pulse 70 01/19/21 11:20 Resp 20 01/19/21 11:20 BP 145/70 H 01/19/21 11:20 Pulse Ox 95 01/19/21 11:20 Oxygen Flow Rate 3 01/15/21 21:27 Body Mass Index 31.6 Const: General: alert HENMT: General nose exam: Abnormal external nose present and Nasal discharge present Eyes: Pupils: Equal, round and reactive pupils present Neck: Neck: Yes normal visual inspection, Yes full ROM and Yes no lymphadenopathy Chest: Chest palpation & inspection: normal inspection of the chest Resp: Auscultation: diminished lung sounds Cardio: Rate: regular rate Rhythm: regular rhythm Heart sounds: S1 normal heart sound present and S2 normal heart sound present GI: Palpation (GI): Soft to palpation and nontender Auscultation: normal bowel sounds : General: Yes no CVA tenderness Back/Spine/Pelvis: Back: no CVA tenderness Skin: General skin exam: rashes and/or lesions noted Neuro: Cranial nerves: Yes Equal, round and reactive pupils present Procedures Date of Service Date of Service: 01/19/21 Assessment and Plan Assessment and plan (1) Acute hypoxemic respiratory failure: Status: Acute (2) Asthma exacerbation: Status: Acute (3) Pneumonitis: Status: Acute Assessment and Plan: Okay to switch to p.o. prednisone with slow taper Continue respiratory therapy upon discharge Walking oximetry test prior to discharge make sure she does not qualify for oxygen with activity I will make arrangements for her to have follow-up as an outpatient 1-2 weeks upon discharge Time Spent With Patient Time: Total time spent is greater than 50% in coordination of care (as do cumented) at patient's floor/unit and/or counseling patient: Time with patient: 15 - 24 minutes Progress Note: Quality Stroke Does the patient have a stroke diagnosis?: No
[2021-01-19] MEDS: risperiDONE 1 MG TABLET PO (20:22)
[2021-01-19] MEDS: Enoxaparin Sodium 40 MG/0.4 ML SYRINGE SUBCUT (20:23)
[2021-01-19] MEDS: Azithromycin 500 MG TABLET PO (20:24)
[2021-01-20] VITALS (7 sets, daily range): BP systolic 132–170; BP diastolic 63–76; PULSE 59–88; RESP 18; TEMP 36.3–37; O2SAT 93–98
[2021-01-20 01:31] LABS: Strep Pneumo Ag urine Not Detected (Not Detected)
[2021-01-20] MEDS: methylPREDNISolone Sod Succ 40 MG/ML VIAL 80 MG IVPUSH (02:55)
[2021-01-20] MEDS: Omeprazole 20 MG CAPSULE.DR PO (05:35)
[2021-01-20] MEDS: Fluticasone/Vilanterol 200/25 BLST.W.DEV 1 PUFF INHALE (07:44)
[2021-01-20] MEDS: Sodium Bicarbonate 650 MG TABLET 325 MG PO (07:50)
[2021-01-20] MEDS: 0.9 % Sodium Chloride Flush 3 ML SYRINGE IVFLUSH (07:50)
[2021-01-20] MEDS: Topiramate 100 MG TABLET 200 MG PO (07:52)
[2021-01-20] MEDS: Levothyroxine Sodium 88 MCG TABLET PO (07:52)
[2021-01-20] MEDS: Docusate Sodium 100 MG CAPSULE PO (07:52)
[2021-01-20] MEDS: Fluticasone Propionate Nasal 16 GM SPRAY 2 SPRAY NOSTRIL-B (07:54)
[2021-01-20] MEDS: Morphine Sulfate Immed Release 15 MG TABLET 60 MG PO (07:59)
--- NOTE | 2021-01-20 09:35 | P.DS_ITS ---
DS: Providers Provider Date of Service: 01/20/21 Date of admission: 01/15/21 21:18 Primary care physician: MARITZA Pandey Consults: 01/15/21 21:18 Consult to Pulmonology Routine Consulting Provider: Abimael Hodges Reason for consultation: multifocal pna after camping 01/15/21 21:24 Consult to Infectious Diseases Routine Consulting Provider: Shae Reddy Reason for consultation: multifocal PNA DS: Diagnosis Discharge Diagnosis (1) Acute hypoxemic respiratory failure: Status: Acute (2) Asthma exacerbation: Status: Acute (3) Pneumonitis: Status: Acute DS: Medications Discharge Medications Home Medications: Home Medications Medication Instructions Recorded Confirmed acetaminophen 500 mg tablet 1 tab PO Q6H PRN 01/15/21 01/15/21 albuterol sulfate 90 mcg/actuation INHALATION 01/15/21 aerosol inhaler albuterol sulfate 90 mcg/actuation INHALATION 01/15/21 aerosol inhaler (ProAir HFA) budesonide-formoterol HFA 160 2 puff INHALATION BID 01/15/21 01/15/21 mcg-4.5 mcg/actuation aerosol inhaler (Symbicort) diclofenac sodium 1 % topical gel TOPICAL 01/15/21 ethynodiol diacetate-ethinyl 1 tab PO DAILY 01/15/21 01/15/21 estradiol 1 mg-35 mcg tablet (Kelnor) fluticasone propionate 220 2 puff INHALATION BID 01/15/21 01/15/21 mcg/actuation HFA aerosol inhaler (Flovent HFA) levothyroxine 88 mcg tablet 1 tab PO DAILY 01/15/21 01/15/21 morphine 30 mg immediate release 60 mg PO Q4-5H PRN 01/15/21 01/16/21 tablet oxazepam 10 mg capsule 2 - 3 cap PO Q3-4H PRN 01/15/21 01/16/21 risperidone 1 mg tablet 1 tab PO BEDTIME 01/15/21 01/15/21 sodium bicarbonate 650 mg tablet tab PO 01/15/21 tiotropium bromide 2.5 2 puff INHALATION DAILY 01/15/21 01/15/21 mcg/actuation mist for inhalation (Spiriva Respimat) topiramate 200 mg tablet tab PO 01/15/21 fluticasone propionate 50 2 spray INTRANASAL BID 01/17/21 01/17/21 mcg/actuation nasal spray,suspension montelukast 10 mg tablet 10 mg PO BEDTIME 01/17/21 01/17/21 ([place]) Previous Rx's Medication Instructions Recorded omeprazole magnesium 20 mg 20 mg PO DAILY 90 Days #90 cap 09/13/20 capsule,delayed release DS: Summary Hospital Course Hospital Course: Chief Complaint: SOB 45-year-old female with a past medical history of GERD, complex regional pain syndrome, history of asthma presented to the hospital with a chief complaint of shortness of breath. Patient reported that over the past 3-4 days she has been having shortness of breath and cough.? Dyspnea on exertion.? Denies any chest pain or palpitations. Patient reports that she recently went to the [facility]; denies any sick contacts.? Denies any excessive smoke inhalation. Denies going into the caves; or bird exposure. Patient denies any GI or symptoms. Patient reported that she recently had UTI and finished a course of Bactrim. Review of all other systems is negative except mentioned above ER course: Per ER team patient noted to be short of breath, saturating 90-92%, placed on supplemental oxygen, noted diffuse wheezing and diminished breath sounds; COVID- 19 was negative chest x-ray showed multifocal pneumonia; patient was given IV antibiotics.? Noted to elevated D-dimer, CRP. Admitted to the hospital for further management. Hospital course: Patient was admitted for acute hypoxic respiratory failure and found to have h Multifocal pneumonia as demonstrated on CT and CXR, there was no PE. She has been treated with IV Ceftriaxone and Azithromycin and oxygen and has gradually being weaned of oxgyen. She was seen by Pulmonology Dr. Turner and there is concern for possible hypersentitivity pneumonitis and therefore will have further work up possibly bronchoscopy on outpatient basisi. 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 She qualify for home O2 at 1 L by nasal cannula due to hypoxia. Acute asthma exacerbation:? Treted with IV Corticosteroid and bronchodilators by Neb, she is dong better. Will discharge with Prednisone tierra as above. History of complex regional pain syndrome:? Patient on morphine and Topamax at home--continue History of hypothyroidism:? Continue levothyroxine Final Diagnosis: Acue hypoxic respiratoryh Failure community acquired pneumonia Asthm exacerbation Time Spent with Patient Time attestation: Total time spent providing and/or coordinating discharge services: Discharge coordination time: Greater than 30 minutes Quality: Stroke Does the patient have a stroke diagnosis?: No Physical Exam Vital Signs: Vital Signs: Last Vital Signs Temp 97.4 F 01/20/21 07:25 Pulse 64 01/20/21 07:44 Resp 18 01/20/21 07:25 BP 141/75 H 01/20/21 07:25 Pulse Ox 94 01/20/21 07:25 Oxygen Flow Rate 3 01/15/21 21:27 Body Mass Index 31.6 Const: Other: Constitutional Awake and Alert, No apparent distress Neck Supple, No lymphadenopathy Cardiovascular RRR, No M/R/G, S1 S2, No S3 S4, No pedal edema Respiratory Lungs clear, No respiratory distress Gastrointestinal Non tender, Non-distended Skin No rash Neurological Alert & oriented x3 Psychological Appropriate affect DS: Data Data Completed and Pending Labs on day of discharge: Laboratory Results - last 24 hr 01/16/21 09:05 Ur Strep pneumoniae Ag Not Detected Preliminary micro results at discharge 01/15/21 21:00 Blood Culture - Preliminary Blood - Venous No growth after 48 hours. 01/15/21 20:15 Blood Culture - Preliminary Blood - Venous No growth after 48 hours. Discharge Plan Discharge Anticipated Discharge Date/Time: 01/20/21 11:32 Patient Disposition: Home, Self-Care Discharge Diagnosis: Acute Hypoxic respiratory failure due to pneumo Referrals: Sreedhar Sharma PA [Primary Care Provider] - 1 Week Discharge Medications: New cefuroxime axetil 500 mg Tablet 500 mg PO BID Qty: 10 RF: 0 prednisone 10 mg tablet See Taper mg PO DAILY Qty: 20 RF: 0 Continued omeprazole magnesium 20 mg capsule,delayed release(DR/EC) 20 mg PO DAILY 90 Days Qty: 90 RF: 3 oxazepam 10 mg capsule 2 - 3 cap PO Q3-4H PRN (Reason: Pain) RF: 0 ethynodiol diac-eth estradiol [Kelnor ()] 1-35 mg-mcg tablet 1 tab PO DAILY RF: 0 acetaminophen 500 mg tablet 1 tab PO Q6H PRN (Reason: pain) RF: 0 levothyroxine 88 mcg tablet 1 tab PO DAILY RF: 0 sodium bicarbonate 650 mg tablet PO RF: 0 morphine 30 mg tablet 60 mg PO Q4-5H PRN (Reason: Pain) RF: 0 Flovent HFA 220 mcg/actuation HFA aerosol inhaler 2 puff inhalation BID RF: 0 topiramate 200 mg tablet PO RF: 0 albuterol sulfate 90 mcg/actuation HFA aerosol inhaler inhalation RF: 0 albuterol sulfate [ProAir HFA] 90 mcg/actuation HFA aerosol inhaler inhalation RF: 0 risperidone 1 mg tablet 1 tab PO BEDTIME RF: 0 budesonide-formoterol [Symbicort] 160-4.5 mcg/actuation HFA aerosol inhaler 2 puff inhalation BID RF: 0 diclofenac sodium 1 % gel topical RF: 0 Spiriva Respimat 2.5 mcg/actuation mist 2 puff inhalation DAILY RF: 0 montelukast [Singulair] 10 mg Tablet 10 mg PO BEDTIME RF: 0 fluticasone propionate 50 mcg/actuation [place],Suspension 2 spray INTRANASAL BID RF: 0 Discharge Orders: Discharge Order (Routine); Ordered 01/20/21 Ordered By: Francisco Medellin Diet: advance to usual diet Activity on Discharge: As tolerated Stand Alone Forms: Patient Portal Discharge page Care Plan Goals: Full recovery from pneumonia. Health Concerns: Pneumonia, pneumonitis, asthma. Plan of Treatment: Take cefuroxime, prednisone as recommended and follow up with Dr. Chuck Turner Use oxygen as recommended. Assessment: as above
--- NOTE | 2021-01-20 12:03 | P.PNPL_ITS ---
Subjective Subjective Date of Service: 01/20/21 Interval history: The the patient was seen on exam. She was fine during the day on room air. However during the nighttime she started having shortness of breath and was noted to be hypoxic. She has been on oxygen ever since. At this point the patient is on oral medications. Will make arrangements for her to go home on the oral medications and the prednisone taper as well as the oxygen to take home with her. Will make her an appointment to be seen at the pulmonary clinic in the next week or so. 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 In addition to that the patient continues to have changes of pneumonitis with unclear etiology then we will discuss further semi-invasive or invasive diagnostic interventions. Objective Data Labs CBC & Chem 7: 01/16/21 07:17 01/16/21 07:17 Labs: Laboratory Results - last 24 hr 01/16/21 09:05 Ur Strep pneumoniae Ag Not Detected Microbiology Microbiology Results: Microbiology 01/16/21 09:22 Throat Throat Culture - Final No Group A Beta-hemolytic Streptococci isolated. 01/15/21 21:00 Blood - Venous Blood Culture - Preliminary No growth after 48 hours. 01/15/21 20:15 Blood - Venous Blood Culture - Preliminary No growth after 48 hours. 01/15/21 21:27 Sputum - Expectorated Gram Stain - Final 01/15/21 21:27 Sputum - Expectorated Sputum Culture - Final Review of Systems Constitutional: Denies night sweats Denies change in voice, Reports dysphagia, Denies lip swelling, Denies mouth pain, Reports nasal congestion, Reports nasal discharge and Denies tongue swelling Cardiovascular: Denies chest pain and Reports dyspnea Respiratory: Reports cough, Denies pain with cough, Reports dyspnea and Reports wheezing Gastrointestinal: Reports abdominal pain and Reports dysphagia Musculoskeletal: Denies no additional musculoskeletal complaints Denies Neuro-related abnormal movements Psychiatric: Denies no additional psychiatric complaints Hematologic/Lymphatic: Denies easy bleeding and Denies lymphadenopathy Allergic/Immunologic: Denies lip swelling, Denies tongue swelling and Reports wheezing Physical Exam Vital Signs: Vital Signs: Last Vital Signs Temp 97.3 F 01/20/21 10:56 Pulse 62 01/20/21 10:56 Resp 18 01/20/21 10:56 BP 135/63 01/20/21 10:56 Pulse Ox 94 01/20/21 10:56 Oxygen Flow Rate 3 01/15/21 21:27 Body Mass Index 31.6 Const: General: alert Eyes: Pupils: Equal, round and reactive pupils present Neck: Neck: Yes normal visual inspection, Yes full ROM and Yes no lymphade nopathy Chest: Chest palpation & inspection: normal inspection of the chest Resp: Auscultation: diminished lung sounds Cardio: Rate: regular rate Rhythm: regular rhythm Heart sounds: S1 normal heart sound present and S2 normal heart sound present GI: Palpation (GI): Soft to palpation and nontender Auscultation: normal bowel sounds : General: Yes no CVA tenderness Back/Spine/Pelvis: Back: no CVA tenderness Skin: General skin exam: rashes and/or lesions noted Neuro: Cranial nerves: Yes Equal, round and reactive pupils present Procedures Date of Service Date of Service: 01/20/21 Assessment and Plan Assessment and plan (1) Acute hypoxemic respiratory failure: Status: Acute (2) Asthma exacerbation: Status: Acute (3) Pneumonitis: Status: Acute (4) Multifocal pneumonia: Status: Acute Assessment and Plan: Okay to go home on oxygen 2 L Prednisone taper Continue with her home respiratory regimen: Symbicort, Spiriva and albuterol Continue nebulized therapy as needed Follow-up with Pulmonary in 1-2 weeks Time Spent With Patient Time: Total time spent is greater than 50% in coordination of care (as documented) at patient's floor/unit and/or counseling patient: Time with patient: 15 - 24 minutes Progress Note: Quality Stroke Does the patient have a stroke diagnosis?: No
--- NOTE | 2021-01-20 12:14 | MHC.CM.PN ---
PT CLEARED TO DC HOME TODAY WITH NO SERVICES. SPOUSE TO TRANSPORT
[2021-01-20 13:01] LABS: Mycoplasma Pneumoniae - IgG 2.45 (<=0.90); Mycoplasma Pneumoniae - IgM 104 U/mL (<770)
[2021-01-25 04:02] LABS: Legionella Ag Urine Not Detected (Not Detected)
== END 2021-01-20 12:47 | disposition home or self-care (01) | DRG 139 ==
LOC: HO.ED 20:56 → HO.EDOVER 21:30 → HO.IMC 01-16 14:13
PROVIDERS: Hospitalist; Admitting Provider Hospitalist; Emergency Provider Emergency Medicine; PCP Physician Assistant; Visit Provider Internal Medicine
DX: J18.9 Pneumonia, unspecified organism (principal); J96.01 Acute respiratory failure with hypoxia; G56.40 Causalgia of unspecified upper limb; E03.9 Hypothyroidism, unspecified; J45.41 Moderate persistent asthma with (acute) exacerbation; D72.829 Elevated white blood cell count, unspecified; K59.00 Constipation, unspecified; K21.9 Gastro-esophageal reflux disease without esophagitis; Z20.822 Contact with and (suspected) exposure to COVID-19; Z88.2 Allergy status to sulfonamides; Z79.51 Long term (current) use of inhaled steroids; Z79.890 Hormone replacement therapy; Z79.891 Long term (current) use of opiate analgesic; Z79.899 Other long term (current) drug therapy
CPT/HCPCS: 0241U; 11104; 36415; 71046; 71275; 80048; 80053; 80076; 82550; 82728; 82785; 83605; 83615; 83735; 84145; 85025; 85379; 85610; 85652; 85730; 86038; 86039; 86140; 86738; 87040; 87071; 87449; 87633; 87635; 87899; 94640; 99285; J0456; J0696; J1100; J1650; J2270; J2920; Q9967

== ENCOUNTER 2021-02-07 10:44 | Outpatient (REF) | payer OTHER, SELFPAY ==
[2021-02-07 13:17] LABS: Baso%MD 1.1 %; Eos%MD 2.8 %; Hematocrit 42.1 % (37-47); Hemoglobin 13.6 g/dl (12.0-16.0); IG%MD 0.3 %; Lymph%MD 30.7 %; Mean Corpuscular HGB Conc 32.3 g/dl (31.0-35.0); Mean Corpuscular Hemoglobin 29.4 pg (27.0-33.0); Mean Corpuscular Volume 91.1 fL (80-98); Mean Platelet Volume 10.7 fL (9.4-12.3); Mono%MD 8.3 %; Neut%MD 56.8 %; Platelet Count 286 X10*3/uL (160-400); Red Blood Count 4.62 X10*6/uL (4.20-5.50); Red Cell Distribution Width 12.4 % (11.0-16.0)
[2021-02-07 15:38] LABS: Basophils Abs Manual 0.1 X10*3/uL (0.0-0.3); Basophils Percent Manual 2 % (0-1); Eosinophils Absolute Manual 0.2 X10*3/UL (0.0-0.8); Eosinophils Percent Manual 3 % (0-4); Lymphocytes Absolute Manual 1.2 X10*3/uL (0.6-4.8); Lymphocytes Percent Manual 17 % (20-40); Monocytes Absolute Manual 0.3 X10*3/uL (0.0-1.2); Monocytes Percent Manual 4 % (2-11); Neutrophils Percent Manual 74 % (45-73)
[2021-02-07 15:39] LABS: Neutrophils Absolute Manual 5.2 X10*3/uL (2.2-7.9); Platelet Estimate NORMAL (NORMAL); Platelet Morphology Comment NORMAL; RBC Morphology NORMAL
[2021-02-09 03:11] LABS: Immunoglobulin E 46 kU/L (<OR=114)
[2021-02-09 13:47] LABS: IgA 166 mg/dL (47-310); IgG 1178 mg/dL (600-1640); IgM 199 mg/dL (50-300)
== END 2021-02-07 10:45 | disposition home or self-care (01) ==
LOC: HO.LAB 10:44
PROVIDERS: PCP Physician Assistant; Visit Provider Internal Medicine
DX: J96.01 Acute respiratory failure with hypoxia (principal); J18.9 Pneumonia, unspecified organism; J45.909 Unspecified asthma, uncomplicated; Z79.899 Other long term (current) drug therapy; Z87.891 Personal history of nicotine dependence
CPT/HCPCS: 36415; 82784; 82785; 85007; 85027

== ENCOUNTER → 2021-03-10 14:02 | Outpatient (BNVA) | payer OTHER, SELFPAY | PROVIDERS: PCP Physician Assistant; Visit Provider Internal Medicine ==

== ENCOUNTER 2021-03-23 11:54 | Outpatient (REF) | payer OTHER, SELFPAY ==
--- NOTE | ~2021-03-23 | XR_ITS ---
EXAMINATION: XR CHEST CLINICAL INFORMATION: History of pneumonia. COMPARISON: CT chest dated from 01/15/2021. Chest radiograph dated from 01/15/2021. TECHNIQUE: 2 views of the chest were obtained. FINDINGS: Normal appearance of the cardiomediastinal silhouette. Previously described patchy airspace opacities are resolved. No new focal airspace opacities, pleural effusions or pneumothorax. No acute osseous findings. Right upper quadrant surgical clips. XR/XR chest 2V IMPRESSION: Multifocal patchy airspace opacities visualized in December are resolved. No acute cardiopulmonary findings.
== END 2021-03-23 11:55 | disposition home or self-care (01) ==
LOC: HO.XRAY 11:54
PROVIDERS: PCP Physician Assistant; Visit Provider Internal Medicine
DX: J18.9 Pneumonia, unspecified organism (principal)
CPT/HCPCS: 71046

== ENCOUNTER 2021-04-15 13:27 | Inpatient (IN) | payer OTHER, SELFPAY ==
[2021-04-15] VITALS (7 sets, daily range): BP systolic 94–115; BP diastolic 59–76; PULSE 76–108; RESP 12–20; TEMP 36.7–37.3; O2SAT 94–98; BMI 32.3
--- NOTE | ~2021-04-15 | CT_ITS ---
EXAMINATION: CT ANGIOGRAM OF THE CHEST WITH AND WITHOUT CONTRAST (CT PULMONARY ANGIOGRAM FOR PE) CLINICAL INFORMATION: Reason for Exam SOB, cough, fever, recent long travel r/o PE COMPARISON: None TECHNIQUE: Prior to contrast administration, noncontrast localization images were obtained. Subsequently, multidetector volumetric imaging was performed from the thoracic inlet to below the diaphragms following the administration of 71 mL Omnipaque 350 intravenous contrast. No contrast reaction reported Sagittal, coronal, and MIP oblique sagittal reformatted images were obtained on the CT workstation, uploaded to PACS, and reviewed. This CT examination was performed using dose optimization techniques as appropriate, variously including the following: *Automated exposure control *Adjustment of mA and/or kV according to patient size (this includes techniques or standardized protocols for targeted exams where dose is matched to indication/reason for exam; i.e. extremities or head) *Use of iterative reconstruction technique Total exam dose-length product 312 mGy-cm FINDINGS: QUALITY OF STUDY/CONTRAST BOLUS: Satisfactory. PULMONARY ARTERIES: No central or segmental pulmonary emboli. THORACIC AORTA: No aneurysm or dissection. LUNG: Central airways are patent. No significant bronchial wall thickening is seen. No bronchiectasis. No changes to suggest emphysema. No confluent parenchymal disease identified. There are a few sub-4 mm densities present. There are noted to be some dependent bibasilar densities which may be related to atelectasis. PLEURA: No pleural effusion or pneumothorax. MEDIASTINUM: Normal heart size. No pericardial effusion. No hilar or mediastinal lymphadenopathy. No evidence of septal bowing or right heart strain. CHEST WALL/AXILLA: No axillary or internal mammary lymphadenopathy. OSSEOUS STRUCTURES: There is a bone island on the left side of the T7 vertebral body. No destructive bony lesion is appreciated. There is a bone island within the left second rib. UPPER ABDOMEN: Unremarkable. No reflux of contrast into the hepatic veins to suggest elevated right heart pressures. CT/CT angio chest PE protocol IMPRESSION: No acute pulmonary artery embolus. No thoracic aortic aneurysm or dissection. VTE: negative
--- NOTE | ~2021-04-15 | XR_ITS ---
EXAMINATION: XR CHEST CLINICAL INFORMATION: Shortness of breath COMPARISON: March 23, 2021 TECHNIQUE: AP portable view of the chest was obtained. FINDINGS: No significant abnormality is noted involving the heart, lungs, mediastinum, bony thorax or soft tissues. XR/XR chest 1V IMPRESSION: No acute disease.
--- NOTE | 2021-04-15 14:08 | ECG_ITS ---
Test Reason : SHORTNESS OF BREATH Blood Pressure : / mmHG Vent. Rate : 085 BPM Atrial Rate : 085 BPM P-R Int : 146 ms QRS Dur : 076 ms QT Int : 370 ms P-R-T Axes : 022 006 016 degrees QTc Int : 440 ms Normal sinus rhythm Normal ECG No significant changes seen Referred By: Angelica Cantrell Electronically Signed By:TOBY HARRIS MD
--- NOTE | 2021-04-15 14:28 | PHA.MEDREC ---
Pharmacy Consult ? Medication Reconciliation Pharmacy has completed the medication reconciliation. There are no remarkable issues for provider's attention. Pt reports her pain medications was switch from morphine to hydromorphone. She reports using all her inhalers Flovent, Symbicort and Sprivia. Jessica Soto, AdebayoD
[2021-04-15 14:32] LABS: MANUAL DIFF FLAG NO
[2021-04-15 14:34] LABS: Basophils Percent Auto 0.3 % (0-2); Eosinophils Percent Auto 0.2 % (0-4); Hemoglobin 13.5 g/dl (12.0-16.0); Imm Gran Abs Auto 0.08 X10*3/uL (0.00-0.03); Imm Gran Pct Auto 0.7 % (0.0-0.4); Lymphocytes Percent Auto 9.2 % (20-40); Mean Corpuscular HGB Conc 32.1 g/dl (31.0-35.0); Mean Corpuscular Hemoglobin 29.7 pg (27.0-33.0); Mean Corpuscular Volume 92.3 fL (80-98); Mean Platelet Volume 9.6 fL (9.4-12.3); Monocytes Absolute Auto 0.5 X10*3/uL (0.1-1.2); Monocytes Percent Auto 4.6 % (2-11); Neutrophils Absolute Auto 9.3 X10*3/uL (2.0-8.3); Platelet Count 273 X10*3/uL (160-400); Red Blood Count 4.55 X10*6/uL (4.20-5.50); Red Cell Distribution Width 13.5 % (11.0-16.0)
--- NOTE | 2021-04-15 14:37 | ED.SOB ---
HPI - SOB/Dyspnea General Chief Complaint: Upper Respiratory Symptoms Stated Complaint: SOB Time Seen by Provider: 04/15/21 13:48 Source: patient and family Mode of arrival: ambulatory Limitations: no limitations History of Present Illness HPI Narrative: 46 y/o female history of eosinophilic asthma, multifocal pneumonia in December 2020 on chronic prednisone 10 mg daily, history of Marcus's thyroiditis, history of chronic pain syndrome on chronic opiates for the last twenty years, who presents to the ER with worsening shortness of breath and chest pains for the last 1 day. She reports driving to [place] on April 02 for a camping trip and just returned 2 days ago. While she was in [place] she started having increased cough and shortness of breath with difficulty breathing. She was using her oxygen more frequently there. At baseline she only uses oxygen as needed. She reports yesterday her breathing got significantly worse. She is having difficult time talking and has recurrent coughing fits. She is bringing up clear sputum which is new for her. She has been compliant with all of her pulmonary medications using her nebulizers every 4 hours at home. She has been taking her prednisone as directed. She saw Dr. Hodges from pulmonology about 1 month ago, plan is to repeat CT scan and possible bronchoscopy for evaluation of possible hypersensitivity pneumonitis. MD elicited complaint: shortness of breath, cough and chest pain Pertinent past history: asthma Onset (ago): day(s) (1) Context: recent illness Timing: constant Severity: moderate Exacerbating factors: exertion, coughing, talking and deep breaths Relieving factors: oxygen, rest and bronchodilators Known history of: asthma Associated symptoms: chest pain, pain with inspiration, cough, wheezing and sputum production Related Data Home oxygen amount: other (As needed 2 L) Home Medications Medication Instructions Recorded Confirmed acetaminophen 500 mg tablet 1 tab PO Q6H PRN 01/15/21 04/15/21 albuterol sulfate 90 mcg/actuation 2 puff INHALATION Q4H PRN 01/15/21 04/15/21 aerosol inhaler (ProAir HFA) budesonide-formoterol HFA 160 2 puff INHALATION BID 01/15/21 04/15/21 mcg-4.5 mcg/actuation aerosol inhaler (Symbicort) diclofenac sodium 1 % topical gel 4 g TOPICAL DAILY PRN 01/15/21 04/15/21 ethynodiol diacetate-ethinyl 1 tab PO DAILY 01/15/21 04/15/21 estradiol 1 mg-35 mcg tablet (Kelnor) fluticasone propionate 220 2 puff INHALATION BID 01/15/21 04/15/21 mcg/actuation HFA aerosol inhaler (Flovent HFA) levothyroxine 88 mcg tablet 1 tab PO DAILY 01/15/21 04/15/21 oxazepam 10 mg capsule 2 - 3 cap PO Q3-4H PRN 01/15/21 04/15/21 risperidone 1 mg tablet 1 tab PO BEDTIME 01/15/21 04/15/21 sodium bicarbonate 650 mg tablet 1 tab PO TID 01/15/21 04/15/21 tiotropium bromide 2.5 2 puff INHALATION DAILY 01/15/21 04/15/21 mcg/actuation mist for inhalation (Spiriva Respimat) topiramate 200 mg tablet 300 mg PO DAILY 01/15/21 04/15/21 fluticasone propionate 50 2 spray INTRANASAL BID 01/17/21 04/15/21 mcg/actuation nasal spray,suspension guaifenesin 600 mg tablet, 600 mg PO BID 02/07/21 04/15/21 extended release 12 hr (Mucinex) magnesium 250 mg tablet 500 mg PO DAILY tab 02/07/21 04/15/21 hydromorphone 8 mg tablet 8 mg PO Q4H 04/15/21 04/15/21 psyllium husk 0.4 gram capsule 0.4 g PO BID 04/15/21 04/15/21 (Metamucil) topiramate 200 mg tablet 200 mg PO BEDTIME 04/15/21 04/15/21 Previous Rx's Medication Instructions Recorded omeprazole magnesium 20 mg 20 mg PO DAILY 90 Days #90 cap 09/13/20 capsule,delayed release albuterol sulfate 2.5 mg INHALATION Q4H PRN 30 Days 01/20/21 #360 ml montelukast 10 mg tablet 10 mg PO BEDTIME #30 tab 03/30/21 (Singulair) prednisone 10 mg tablet 10 mg PO DAILY 30 Days #30 tab 04/11/21 Allergies Allergy/AdvReac Type Severity Reaction Status Date / Time sulfamethoxazole Allergy Severe Shortness Verified 03/10/21 14:21 [From Bactrim] of Breath trimethoprim [From Bactrim] Allergy Severe Shortness Verified 03/10/21 14:21 of Breath wheat [WHEAT] Allergy Intermediate DIARRHEA Verified 03/10/21 14:21 Review of Systems Review of Systems: Constitutional: + Fever (99 here, reports baseline temp is 95), + Chills ENT/Mouth: No sore throat, No Rhinorrhea, No Swallowing Difficulty Eyes: No Eye Pain, No Swelling, No Redness Cardiovascular: + Chest Pain, + SOB, + Orthopnea, + Edema Respiratory: + Cough, + Sputum, + Wheezing, + dyspnea Gastrointestinal: + Nausea, No Vomiting, No Diarrhea, No abdominal Pain, No Hematochezia, No Melena Genitourinary: No Dysuria, No Urinary Frequency, No Hematuria Musculoskeletal: No joint pain, No Myalgias Skin: No Skin Lesions, No rash Neuro: No Weakness, No Numbness, No Dizziness, No Headache Psych: No Anxiety/Panic, No Depression Heme/Lymph: No Bruising, No Lymphadenopathy Endocrine: No Polyuria, No Polydipsia [facility] Past Medical History Medical History Asthma Asthma Asthma exacerbation Marcus's thyroiditis Pneumonitis Social History Social History Household Members: Spouse Housing: House Do you presently have visiting nurse or other home services: No Alcohol intake: never Patient Tobacco Use Status: Former Tobacco user Cigarette Packs Per Day: 1.5 Cigarettes Per Day: 30 Years Smoked: 12 Use of substances other than those prescribed or required for medical reasons: No Advance Directives: Yes Advance Directives Information Provided: Yes Advance Directives on File: No service: No Current occupational status: unemployed Physical Exam Vital Signs: Vital Signs: Last Vital Signs Temp 99.2 F 04/15/21 14:01 Pulse 76 04/15/21 16:40 Resp 16 04/15/21 14:01 BP 114/76 04/15/21 14:01 Pulse Ox 98 04/15/21 14:05 Body Mass Index 32.3 Appearance: Alert. Oriented X3. No acute distress. Eyes: Pupils equal, round and reactive to light. ENT: Pharynx normal. Left external auditory canal with mild erythema and swelling. Normal tympanic membranes bilaterally. Neck: Normal inspection. Neck supple. No lymphadenopathy. CVS: Normal heart rate and rhythm. Pulses normal. Respiratory: Mild respiratory distress with dry coughing episodes. Right lung is clear throughout left lung is coarse, diminished at the left base. No wheezing or rhonchi. Abdomen: Soft and nontender. +BS x4 Skin: Skin warm and dry. Normal skin color. Normal skin turgor. No rashes. Extremities: No lower extremity edema. Mild edema of the bilateral feet. No calf tenderness. Neuro: Oriented X 3. No motor deficit. No sensory deficit. Course Course Course Narrative: 46-year-old female with longstanding pulmonary history including is eosinophilic asthma, multifocal pneumonia, possible hypersensitivity pneumonitis, on chronic prednisone and as needed oxygen presents to the ER with worsening shortness of breath and chest pains in addition to productive cough after another camping trip. She drove to and from [place]. She has chest pains and shortness of breath. Will need to rule out PE. She was due for CT scan as an outpatient any how but was having insurance issues. Will get a CTA of the chest for further evaluation. She is requiring 3 L nasal cannula while in the ER with sats in the mid to high 90s. She is otherwise hemodynamically stable with a low-grade fever of 99. Labs and cultures ordered, including sputum culture. Anticipate admission. Reevaluation(s) Reevaluation #1: Chest x-ray is unremarkable. Mild leukocytosis noted however she is on chronic steroids. She is not on Bactrim for PCP prophylaxis, she is allergic to sulfa. CT scan is pending, doubt PCP at this time with normal chest x-ray. Reevaluation #2: CT a did not show any PE, some subcentimeter scattered pulmonary nodules and mild bibasilar atelectasis, however there is no focal infiltrate or ground-glass opacities to suggest pneumonitis at this time. Spoke with Dr. Turner from Pulmonology, he will see the patient when she is admitted and perform a bronchoscopy. Consultations Consultation #1: Dr. Turner - Pulmonology. MDM - SOB/Dyspnea Lab Data Result diagrams: 04/15/21 14:26 04/15/21 14:26 Labs: Lab Results 04/15/21 04/15/21 04/15/21 Range/Units 14:26 14:26 14:26 WBC 11.0 H (4.8-10.8) X10*3/uL RBC 4.55 (4.20-5.50) X10*6/uL Hgb 13.5 (12.0-16.0) g/dl Hct 42.0 (37-47) % MCV 92.3 (80-98) fL MCH 29.7 (27.0-33.0) pg MCHC 32.1 (31.0-35.0) g/dl RDW 13.5 (11.0-16.0) % Plt Count 273 (160-400) X10*3/uL MPV 9.6 (9.4-12.3) fL Immature Gran % (Auto) 0.7 H (0.0-0.4) % Neut % (Auto) 85.0 H (45-73) % Lymph % (Auto) 9.2 L (20-40) % Grady % (Auto) 4.6 (2-11) % Eos % (Auto) 0.2 (0-4) % Baso % (Auto) 0.3 (0-2) % Lymph # (Auto) 1.0 L (1.2-4.9) X10*3/uL Grady # (Auto) 0.5 (0.1-1.2) X10*3/uL Eos # (Auto) 0.0 (0.0-0.4) X10*3/uL Baso # (Auto) 0.0 (0.0-0.2) X10*3/uL Abs Immat Gran (auto) 0.08 H (0.00-0.03) X10*3/uL Absolute Neuts (auto) 9.3 H (2.0-8.3) X10*3/uL Absolute Nucleated RBC 0.000 (0.0-0.012) X10*3/uL Nucleated RBC % (auto) 0.0 (0.0-0.2) /100WBC Sodium 138 (135-145) mmol/L Potassium 3.9 (3.3-5.1) mmol/L Chloride 110 H (96-108) mmol/L Carbon Dioxide 20 L (22-29) mmol/L Anion Gap 12 (12-20) BUN 11 D (9-16) mg/dL Creatinine 0.77 (0.5-1.4) mg/dL Estim Creat Clear Calc 102.4 Estimated GFR > 60 Random Glucose 109 (60-115) mg/dL Lactic Acid 1.1 (0.5-2.0) mmol/L Calcium 8.9 D (8.4-10.2) mg/dL Magnesium 2.1 (1.6-2.6) mg/dL Total Bilirubin 0.2 (0.0-1.0) mg/dL Direct Bilirubin < 0.2 (0.0-0.5) mg/dL AST 12 (5-31) U/L ALT 12 (0-31) U/L Alkaline Phosphatase 58 D (39-117) U/L Lactate Dehydrogenase 198 (122-220) U/L Troponin I High Sens (<3.5-17.0) ng/L B-Natriuretic Peptide (<100) pg/mL Total Protein 7.1 (6.5-8.0) g/dL Albumin 4.1 (3.5-5.0) g/dL Procalcitonin ng/mL Urine Color Urine Appearance Urine pH (5.0-8.0) Ur Specific [place] (1.005-1.025) Urine Protein (NEG-TRACE) MG/DL Urine Glucose (UA) (NEG) MG/DL Urine Ketones (NEG) MG/DL Urine Blood (NEG) Urine Nitrite (NEG) Ur Leukocyte Esterase (NEG) Urine RBC (0) /HPF Urine WBC (0-4) /HPF Ur Squamous Epith Cells /LPF Urine Bacteria /LPF COVID-19 ([facility]INE) (Negative) COVID-19 Clin Com 04/15/21 04/15/21 04/15/21 Range/Units 14:26 14:26 15:06 WBC (4.8-10.8) X10*3/uL RBC (4.20-5.50) X10*6/uL Hgb (12.0-16.0) g/dl Hct (37-47) % MCV (80-98) fL MCH (27.0-33.0) pg MCHC (31.0-35.0) g/dl RDW (11.0-16.0) % Plt Count (160-400) X10*3/uL MPV (9.4-12.3) fL Immature Gran % (Auto) (0.0-0.4) % Neut % (Auto) (45-73) % Lymph % (Auto) (20-40) % Grady % (Auto) (2-11) % Eos % (Auto) (0-4) % Baso % (Auto) (0-2) % Lymph # (Auto) (1.2-4.9) X10*3/uL Grady # (Auto) (0.1-1.2) X10*3/uL Eos # (Auto) (0.0-0.4) X10*3/uL Baso # (Auto) (0.0-0.2) X10*3/uL Abs Immat Gran (auto) (0.00-0.03) X10*3/uL Absolute Neuts (auto) (2.0-8.3) X10*3/uL Absolute Nucleated RBC (0.0-0.012) X10*3/uL Nucleated RBC % (auto) (0.0-0.2) /100WBC Sodium (135-145) mmol/L Potassium (3.3-5.1) mmol/L Chloride (96-108) mmol/L Carbon Dioxide (22-29) mmol/L Anion Gap (12-20) BUN (9-16) mg/dL Creatinine (0.5-1.4) mg/dL Estim Creat Clear Calc Estimated GFR Random Glucose (60-115) mg/dL Lactic Acid (0.5-2.0) mmol/L Calcium (8.4-10.2) mg/dL Magnesium (1.6-2.6) mg/dL Total Bilirubin (0.0-1.0) mg/dL Direct Bilirubin (0.0-0.5) mg/dL AST (5-31) U/L ALT (0-31) U/L Alkaline Phosphatase (39-117) U/L Lactate Dehydrogenase (122-220) U/L Troponin I High Sens < 3.5 (<3.5-17.0) ng/L B-Natriuretic Peptide 40 (<100) pg/mL Total Protein (6.5-8.0) g/dL Albumin (3.5-5.0) g/dL Procalcitonin < 0.02 ng/mL Urine Color Urine Appearance Urine pH (5.0-8.0) Ur Specific [place] (1.005-1.025) Urine Protein (NEG-TRACE) MG/DL Urine Glucose (UA) (NEG) MG/DL Urine Ketones (NEG) MG/DL Urine Blood (NEG) Urine Nitrite (NEG) Ur Leukocyte Esterase (NEG) Urine RBC (0) /HPF Urine WBC (0-4) /HPF Ur Squamous Epith Cells /LPF Urine Bacteria /LPF COVID-19 ([facility]INE) Negative (Negative) COVID-19 Clin Com See Note 04/15/21 Range/Units 15:06 WBC (4.8-10.8) X10*3/uL RBC (4.20-5.50) X10*6/uL Hgb (12.0-16.0) g/dl Hct (37-47) % MCV (80-98) fL MCH (27.0-33.0) pg MCHC (31.0-35.0) g/dl RDW (11.0-16.0) % Plt Count (160-400) X10*3/uL MPV (9.4-12.3) fL Immature Gran % (Auto) (0.0-0.4) % Neut % (Auto) (45-73) % Lymph % (Auto) (20-40) % Grady % (Auto) (2-11) % Eos % (Auto) (0-4) % Baso % (Auto) (0-2) % Lymph # (Auto) (1.2-4.9) X10*3/uL Grady # (Auto) (0.1-1.2) X10*3/uL Eos # (Auto) (0.0-0.4) X10*3/uL Baso # (Auto) (0.0-0.2) X10*3/uL Abs Immat Gran (auto) (0.00-0.03) X10*3/uL Absolute Neuts (auto) (2.0-8.3) X10*3/uL Absolute Nucleated RBC (0.0-0.012) X10*3/uL Nucleated RBC % (auto) (0.0-0.2) /100WBC Sodium (135-145) mmol/L Potassium (3.3-5.1) mmol/L Chloride (96-108) mmol/L Carbon Dioxide (22-29) mmol/L Anion Gap (12-20) BUN (9-16) mg/dL Creatinine (0.5-1.4) mg/dL Estim Creat Clear Calc Estimated GFR Random Glucose (60-115) mg/dL Lactic Acid (0.5-2.0) mmol/L Calcium (8.4-10.2) mg/dL Magnesium (1.6-2.6) mg/dL Total Bilirubin (0.0-1.0) mg/dL Direct Bilirubin (0.0-0.5) mg/dL AST (5-31) U/L ALT (0-31) U/L Alkaline Phosphatase (39-117) U/L Lactate Dehydrogenase (122-220) U/L Troponin I High Sens (<3.5-17.0) ng/L B-Natriuretic Peptide (<100) pg/mL Total Protein (6.5-8.0) g/dL Albumin (3.5-5.0) g/dL Procalcitonin ng/mL Urine Color STRAW Urine Appearance CLEAR Urine pH 7.0 (5.0-8.0) Ur Specific [place] <= 1.005 (1.005-1.025) Urine Protein NEG (NEG-TRACE) MG/DL Urine Glucose (UA) NEG (NEG) MG/DL Urine Ketones NEG (NEG) MG/DL Urine Blood NEG (NEG) Urine Nitrite NEG (NEG) Ur Leukocyte Esterase TRACE H (NEG) Urine RBC 0-2 (0) /HPF Urine WBC 0-2 (0-4) /HPF Ur Squamous Epith Cells TRACE /LPF Urine Bacteria TRACE /LPF COVID-19 ([facility]) (Negative) COVID-19 Clin Com Critical Care Time Critical Care Time Critical Care Time: Yes Total Critical Care Time: 38 Attestation: I have personally provided critical care time exclusive of time spent on separately billable procedures. Time includes review of lab data, radiology results, discussion with consultants, and monitoring for potential decompensation. Intervention performed as documented. Discharge Plan Discharge Clinical Impression: Asthma, Bronchitis, Acute respiratory failure with hypoxia Patient Disposition: Admitted As Inpatient
[2021-04-15 14:47] LABS: Lactic Acid 1.1 mmol/L (0.5-2.0)
[2021-04-15 14:51] LABS: Alanine Aminotransferase 12 U/L (0-31); Albumin Level 4.1 g/dL (3.5-5.0); Alkaline Phosphatase 58 U/L (39-117); Anion Gap 12 (12-20); Aspartate Amino Transferase 12 U/L (5-31); Bilirubin Direct < 0.2 mg/dL (0.0-0.5); Bilirubin Total 0.2 mg/dL (0.0-1.0); Blood Urea Nitrogen 11 mg/dL (9-16); Calcium 8.9 mg/dL (8.4-10.2); Carbon Dioxide 20 mmol/L (22-29); Chloride 110 mmol/L (96-108); Creatinine Clr Calc Pharmacy 102.4; Estimated Glomerular Filt Rate > 60; Glucose Random 109 mg/dL (60-115); Lactate Dehydrogenase 198 U/L (122-220); Magnesium 2.1 mg/dL (1.6-2.6); Potassium 3.9 mmol/L (3.3-5.1); Sodium 138 mmol/L (135-145); Total Protein 7.1 g/dL (6.5-8.0)
[2021-04-15 14:56] LABS: B Type Natriuretic Peptide 40 pg/mL (<100); Troponin-I High Sensitivity < 3.5 ng/L (<3.5-17.0)
[2021-04-15 15:12] LABS: Procalcitonin < 0.02 ng/mL
[2021-04-15 15:15] LABS: Appearance Urine CLEAR; Color Urine STRAW; Glucose Urine UA NEG (NEG); Leukocyte Esterase Urine TRACE (NEG); Nitrite Urine NEG (NEG); Specific Gravity - Urine <= 1.005 (1.005-1.025); UACC Culture Trigger YES; Urine Blood NEG (NEG); Urine Ketones NEG (NEG); Urine Protein NEG (NEG-TRACE)
[2021-04-15 15:27] LABS: Bacteria Urine TRACE /LPF; RBC Urine 0-2 /HPF (0); Squamous Epithelial Cell Urine TRACE /LPF; WBC Urine 0-2 /HPF (0-4)
[2021-04-15 15:30] LABS: COVID-19 Test Negative (Negative)
[2021-04-15] MEDS: iohexoL 350 MG/ML 100 ML INFUS..BTL IV (15:38)
[2021-04-15] MEDS: cefTRIAXone sodium 1 GM in 0.9 % Sodium Chloride 50 ML IV (15:45)
[2021-04-15] MEDS: Azithromycin 500 MG in 0.9 % Sodium Chloride 250 ML 125 MG IV (16:25)
[2021-04-15] MEDS: Albuterol Sulfate (0.083%) 2.5 MG/3 ML VIAL.NEB 5 MG INHALE (16:37)
[2021-04-15] MEDS: guaiFEN/Codeine SF 200/20/10ML 10 ML LIQUID PO (16:59)
[2021-04-15] MEDS: NeoMYCIN/Polymyxin/HC Otic Sol BOTTLE 4 DROP EAR-LEFT (16:59)
[2021-04-15] MEDS: methylPREDNISolone Sod Succ 40 MG/ML VIAL IVPUSH ×2 (16:59→20:41)
--- NOTE | 2021-04-15 17:32 | PM.IMHP ---
History of Present Illness Date of Service: 04/15/21 Attending physician on admission: Joon Jurado Chief Complaint: asthma /pneumonitis 46-year-old female who has history of acute hypoxemic respiratory failure secondary to multifocal pneumonia/possible hypersensitivity pneumonitis for which she she was treated with antibiotics and steroids in December 2020: And outpatient follows up with Dr. Hodges. She said she went to camping on [place] a week back-she started having shortness of breath and worsening cough over there and she came few days back since then she is having progressive worsening of shortness of breath and cough and has pleuritic discomfort when she coughs. She said her shortness of breath worsen with exertion now also. She tried her home medications inhalers, nebs-which did not help so decided to come to the hospital. Cough centeno she brings up clear thick sputum. At baseline she uses oxygen only as needed but she said she was bumped up to 3 L even with little activity. She is also on p.o. prednisone 10 mg at baseline. ?She saw Dr. Hodges from pulmonology about 1 month ago, plan is to repeat CT scan and possible bronchoscopy for evaluation of possible hypersensitivity pneumonitis. She denies any sick contacts. She feels little nauseous. Generalized weak. Denies any new complaint of chest pain or abdominal pain or fever or chills or vomiting Denies any weakness or numbness. pmhx:asthma, multifocal pneumonia in December 2020 on chronic prednisone 10 mg daily, history of Marcus's thyroiditis, history of chronic pain syndrome on chronic opiates for the last twenty years. Past surgical history: Has history of cholecystectomy and appendectomy. Social history: She said she quit smoking 20 years ago, no recreational drugs or alcohol use. Review of Systems Review of Systems: As above. Yes all other systems are reviewed and are negative [facility] Medical History Asthma Asthma Asthma exacerbation Marcus's thyroiditis Pneumonitis Pertinent family history: Denies any similar symptoms or disease in the family. Said her mother has diabetes. Social History Household Members: Spouse Housing: House Do you presently have visiting nurse or other home services: No Alcohol intake: never Patient Tobacco Use Status: Former Tobacco user Cigarette Packs Per Day: 1.5 Cigarettes Per Day: 30 Years Smoked: 12 Use of substances other than those prescribed or required for medical reasons: No Advance Directives: Yes Advance Directives Information Provided: Yes Advance Directives on File: No service: No Current occupational status: unemployed Meds Allergies Allergy/AdvReac Type Severity Reaction Status Date / Time sulfamethoxazole Allergy Severe Shortness Verified 03/10/21 14:21 [From Bactrim] of Breath trimethoprim [From Bactrim] Allergy Severe Shortness Verified 03/10/21 14:21 of Breath wheat [WHEAT] Allergy Intermediate DIARRHEA Verified 03/10/21 14:21 Active Medications: Current Medications Albuterol/Ipratropium (Albuterol/Iprat 2.5/0.5mg 3 Ml Ampul.Neb) 3 ml INHALE Q3H PRN PRN Reason: sob Albuterol/Ipratropium (Albuterol/Iprat 2.5/0.5mg 3 Ml Ampul.Neb) 3 ml INHALE RQ4H [facility] Docusate Sodium (Docusate Sodium 100 Mg Capsule) 100 mg PO BEDTIME [facility] Fluticasone Propionate (Fluticasone Propionate Nasal 16 Gm Jud) 2 spray NOSTRIL-B BID [facility] Guaifenesin (Guaifenesin La 600 Mg Tab.Er.12h) 600 mg PO BID [facility] Ceftriaxone Sodium 1 gm/ (Sodium Chloride) 50 mls @ 100 mls/hr IV Q24H [facility] Azithromycin 500 mg/ Sodium (Chloride) 250 mls @ 125 mls/hr IV Q24H [facility] Levothyroxine Sodium (Levothyroxine Sodium 88 Mcg Tablet) 88 mcg PO DAILY [facility] Methylprednisolone Sodium Succinate (Methylprednisolone Sod Succ 40 Mg/Ml Vial) 40 mg IVPUSH BID [facility] Montelukast Sodium (Montelukast Sodium 10 Mg Tablet) 10 mg PO BEDTIME [facility] Neomycin/Polymyxin/Hydrocortisone (Neomycin/Polymyxin/Hc Otic Terri Bottle) 4 drop EAR-LEFT BID [facility] Last Admin: 04/15/21 16:59 Dose: 4 drop Documented by: Non-Formulary Medication (Diclofenac Sodium) 4 gm TOPICAL DAILY PRN PRN Reason: Pain Non-Formulary Medication (Acetaminophen) 1 tab PO Q6H PRN PRN Reason: pain Non-Formulary Medication (Budesonide-Formoterol [Symbicort]) 2 puff INHALE BID [facility] Non-Formulary Medication (Fluticasone Propionate [Flovent Hfa]) 2 puff INHALE BID [facility] Non-Formulary Medication (Hydromorphone) 8 mg PO Q4H [facility] Non-Formulary Medication (Magnesium) 500 mg PO DAILY [facility] Non-Formulary Medication (Oxazepam) 2 - 3 cap PO Q3-4H PRN PRN Reason: Pain Non-Formulary Medication (Tiotropium [place] [Spiriva Respimat]) 2 puff INHALE DAILY [facility] Omeprazole (Omeprazole 20 Mg Capsule.Dr) 20 mg PO DAILY [facility] Pharmacy Consult (Consult Rx Perform Med Rec) 1 each MISCELLANE ONCE PRN PRN Reason: Consult order Prednisone (Prednisone 10 Mg Tablet) 10 mg PO DAILY [facility] Risperidone (Risperidone 1 Mg Tablet) 1 mg PO BEDTIME [facility] Senna (Sennosides 8.6 Mg Tablet) 17.2 mg PO BEDTIME [facility] Sodium Bicarbonate (Sodium Bicarbonate 650 Mg Tablet) 650 mg PO TID [facility] Sodium Chloride (0.9 % Sodium Chloride Flush 3 Ml Syringe) 3 ml IVFLUSH QSHIFT [facility] Topiramate (Topiramate 100 Mg Tablet) 200 mg PO BEDTIME [facility] Topiramate (Topiramate 100 Mg Tablet) 300 mg PO DAILY [facility] Home Medications Medication Instructions Recorded Confirmed Last Taken Type acetaminophen 500 mg tablet 1 tab PO Q6H PRN 01/15/21 04/15/21 Unknown History albuterol sulfate 90 mcg/actuation 2 puff INHALATION Q4H PRN 01/15/21 04/15/21 Unknown History aerosol inhaler (ProAir HFA) budesonide-formoterol HFA 160 2 puff INHALATION BID 01/15/21 04/15/21 04/15/21 History mcg-4.5 mcg/actuation aerosol inhaler (Symbicort) diclofenac sodium 1 % topical gel 4 g TOPICAL DAILY PRN 01/15/21 04/15/21 Unknown History ethynodiol diacetate-ethinyl 1 tab PO DAILY 01/15/21 04/15/21 04/15/21 History estradiol 1 mg-35 mcg tablet ([place]) fluticasone propionate 220 2 puff INHALATION BID 01/15/21 04/15/21 04/15/21 History mcg/actuation HFA aerosol inhaler (Flovent HFA) levothyroxine 88 mcg tablet 1 tab PO DAILY 01/15/21 04/15/21 04/15/21 History oxazepam 10 mg capsule 2 - 3 cap PO Q3-4H PRN 01/15/21 04/15/21 04/15/21 History risperidone 1 mg tablet 1 tab PO BEDTIME 01/15/21 04/15/21 04/14/21 History sodium bicarbonate 650 mg tablet 1 tab PO TID 01/15/21 04/15/21 04/15/21 History tiotropium bromide 2.5 2 puff INHALATION DAILY 01/15/21 04/15/21 04/15/21 History mcg/actuation mist for inhalation (Spiriva Respimat) topiramate 200 mg tablet 300 mg PO DAILY 01/15/21 04/15/21 04/15/21 History fluticasone propionate 50 2 spray INTRANASAL BID 01/17/21 04/15/21 04/15/21 History mcg/actuation nasal spray,suspension guaifenesin 600 mg tablet, 600 mg PO BID 02/07/21 04/15/21 04/15/21 History extended release 12 hr (Mucinex) magnesium 250 mg tablet 500 mg PO DAILY tab 02/07/21 04/15/21 04/15/21 History hydromorphone 8 mg tablet 8 mg PO Q4H 04/15/21 04/15/21 04/15/21 History psyllium husk 0.4 gram capsule 0.4 g PO BID 04/15/21 04/15/21 04/15/21 History (Metamucil) topiramate 200 mg tablet 200 mg PO BEDTIME 04/15/21 04/15/21 04/14/21 History Physical Exam Vital Signs and Narrative: Vital Signs: Last Vital Signs Temp 99.2 F 04/15/21 14:01 Pulse 76 04/15/21 16:40 Resp 16 04/15/21 14:01 BP 114/76 04/15/21 14:01 Pulse Ox 98 04/15/21 14:05 Body Mass Index 32.3 Results Labs CBC and Chem 7: 04/15/21 14:26 04/15/21 14:26 Labs: Laboratory Results - last 24 hr 04/15/21 04/15/21 04/15/21 14:26 14:26 14:26 MCV 92.3 MCH 29.7 MCHC 32.1 RDW 13.5 Plt Count 273 MPV 9.6 Immature Gran % (Auto) 0.7 H Neut % (Auto) 85.0 H Lymph % (Auto) 9.2 L [place] % (Auto) 4.6 Eos % (Auto) 0.2 Baso % (Auto) 0.3 Lymph # (Auto) 1.0 L [place] # (Auto) 0.5 Eos # (Auto) 0.0 Baso # (Auto) 0.0 Abs Immat Gran (auto) 0.08 H Absolute Neuts (auto) 9.3 H Absolute Nucleated RBC 0.000 Nucleated RBC % (auto) 0.0 Anion Gap 12 Estim Creat Clear Calc 102.4 Estimated GFR > 60 Random Glucose 109 Lactic Acid 1.1 Calcium 8.9 D Magnesium 2.1 Total Bilirubin 0.2 Direct Bilirubin < 0.2 AST 12 ALT 12 Alkaline Phosphatase 58 D Lactate Dehydrogenase 198 Troponin I High Sens B-Natriuretic Peptide Total Protein 7.1 Albumin 4.1 Procalcitonin Urine Color Urine Appearance Urine pH Ur Specific [place] Urine Protein Urine Glucose (UA) Urine Ketones Urine Blood Urine Nitrite Ur Leukocyte Esterase Urine RBC Urine WBC Ur Squamous Epith Cells Urine Bacteria COVID-19 (MARTINE) COVID-19 Clin Com 04/15/21 04/15/21 04/15/21 14:26 14:26 15:06 MCV MCH MCHC RDW Plt Count MPV Immature Gran % (Auto) Neut % (Auto) Lymph % (Auto) [place] % (Auto) Eos % (Auto) Baso % (Auto) Lymph # (Auto) [place] # (Auto) Eos # (Auto) Baso # (Auto) Abs Immat Gran (auto) Absolute Neuts (auto) Absolute Nucleated RBC Nucleated RBC % (auto) Anion Gap Estim Creat Clear Calc Estimated GFR Random Glucose Lactic Acid Calcium Magnesium Total Bilirubin Direct Bilirubin AST ALT Alkaline Phosphatase Lactate Dehydrogenase Troponin I High Sens < 3.5 B-Natriuretic Peptide 40 Total Protein Albumin Procalcitonin < 0.02 Urine Color Urine Appearance Urine pH Ur Specific [place] Urine Protein Urine Glucose (UA) Urine Ketones Urine Blood Urine Nitrite Ur Leukocyte Esterase Urine RBC Urine WBC Ur Squamous Epith Cells Urine Bacteria COVID-19 (MARTINE) Negative COVID-19 Clin Com See Note 04/15/21 15:06 MCV MCH MCHC RDW Plt Count MPV Immature Gran % (Auto) Neut % (Auto) Lymph % (Auto) [place] % (Auto) Eos % (Auto) Baso % (Auto) Lymph # (Auto) [place] # (Auto) Eos # (Auto) Baso # (Auto) Abs Immat Gran (auto) Absolute Neuts (auto) Absolute Nucleated RBC Nucleated RBC % (auto) Anion Gap Estim Creat Clear Calc Estimated GFR Random Glucose Lactic Acid Calcium Magnesium Total Bilirubin Direct Bilirubin AST ALT Alkaline Phosphatase Lactate Dehydrogenase Troponin I High Sens B-Natriuretic Peptide Total Protein Albumin Procalcitonin Urine Color STRAW Urine Appearance CLEAR Urine pH 7.0 Ur Specific [place] <= 1.005 Urine Protein NEG Urine Glucose (UA) NEG Urine Ketones NEG Urine Blood NEG Urine Nitrite NEG Ur Leukocyte Esterase TRACE H Urine RBC 0-2 Urine WBC 0-2 Ur Squamous Epith Cells TRACE Urine Bacteria TRACE COVID-19 (MARTINE) COVID-19 Clin Com Imaging Radiologist's Impressions: Impressions Chest X-Ray 04/15/21 13:48 IMPRESSION: No acute disease. Chest CTA 04/15/21 14:34 IMPRESSION: No acute pulmonary artery embolus. No thoracic aortic aneurysm or dissection. VTE: negative Assessment and Plan (1) Acute respiratory failure with hypoxia: Status: Acute (2) Asthma: Qualifiers: Asthma complication type: unspecified Asthma persistence: unspecified Asthma severity: unspecified severity Qualified Code(s): J45.909 - Unspecified asthma, uncomplicated Status: Acute (3) Pneumonitis: Status: Acute (4) Bronchitis: Status: Acute 45-year-old female with a past medical history of GERD, asthma presented to the hospital with a chief complaint of cough and shortness of breath.? Noted to have multifocal pneumonia. Acute hypoxemic respiratory failure secondary to possible hypersensitivity pneumonitis, ? possible acute bronchitis Lab imaging reviewed and personally interpreted-WBC count of 11, mild tachycardia, lactic acid normal CT showed? NO PE but PNA Blood cultures sent Procalcitonin level Strep and Legionella antigen Continue ceftriaxone and azithromycin ED physician discussed the case with Dr. Turner- Pulmonary evaluation for possible bronchoscopy. Acute asthma exacerbation:? Continue DuoNebs standing and p.r.n.,iv Solumedrol History of complex regional pain syndrome:? Patient on dilaudid and Topamax at home--continue History of hypothyroidism:? Continue levothyroxine Constipation: colate, miralax, fiber obesity: Encouraged for weight lost, nutrition, consider outpatient bariatric evaluation. GI prophylaxis:? pepcid DVT prophylaxis:? Lovenox Quality Stroke Does the patient have a stroke diagnosis?: No VTE Prior VTE?: No VTE Risk Level:: Medical - moderate - high VTE Device Contraindication: N/A - Device Ordered VTE Drug Contraindication: N/A - Med Ordered
[2021-04-15] MEDS: Enoxaparin Sodium 40 MG/0.4 ML SYRINGE SUBCUT (18:24)
--- NOTE | 2021-04-15 18:52 | MHC.CM.PN ---
CM met with admitted patient with bed assignment pending. A&Ox3. Independent. IMM not necessary. Lives with . Pt has home oxygen provided by [facility]. Home O2 at 2L prn normally. Fully vaccinated with Moderna. No HCP on file. Copy requested. HCP/ Matty Ríos ([phone]) and alternate Wendy Boomjonnafelixroxana (mother) ([phone]). D/C plan is home without services. Transportation provided by family. CM to follow for d/c needs.
[2021-04-15] MEDS: Benzonatate 100 MG CAPSULE PO (19:11)
--- NOTE | 2021-04-15 19:35 | PC.NURSE ---
nurse to nurse report given to Sosa SANTANA
[2021-04-15] MEDS: Docusate Sodium 100 MG CAPSULE PO (20:41)
[2021-04-15] MEDS: Sodium Bicarbonate 650 MG TABLET PO (20:41)
[2021-04-15] MEDS: polyethylene glycoL 3350 17 GM POWD.PACK PO (20:41)
[2021-04-15] MEDS: guaiFENesin LA 600 MG TAB.ER.12H PO (20:42)
[2021-04-15] MEDS: Montelukast Sodium 10 MG TABLET PO (20:42)
[2021-04-15] MEDS: Famotidine 20 MG TABLET PO (20:42)
[2021-04-15] MEDS: risperiDONE 1 MG TABLET PO (20:42)
[2021-04-15] MEDS: 0.9 % Sodium Chloride Flush 3 ML SYRINGE IVFLUSH (20:44)
[2021-04-15] MEDS: Topiramate 100 MG TABLET 200 MG PO (20:44)
[2021-04-15] MEDS: Fluticasone Propionate Nasal 16 GM SPRAY 2 SPRAY NOSTRIL-B (22:40)
[2021-04-15] MEDS: Acetaminophen 325 MG TABLET 650 MG PO (22:42)
[2021-04-15] MEDS: Albuterol/Iprat 2.5/0.5MG 3 ML AMPUL.NEB INHALE (23:02)
[2021-04-15] MEDS: Fluticasone Propionate 250 MCG BLST.W.DEV 2 PUFF INHALE (23:02)
[2021-04-16] VITALS (8 sets, daily range): BP systolic 96–121; BP diastolic 52–70; PULSE 71–94; RESP 18–20; TEMP 35.5–36.6; O2SAT 5–98
[2021-04-16 04:00] LABS: Glucose, Whole Blood 122 mg/dL (60-115)
[2021-04-16] MEDS: Levothyroxine Sodium 88 MCG TABLET PO (06:01)
[2021-04-16] MEDS: Benzonatate 100 MG CAPSULE PO ×2 (06:01→17:58)
[2021-04-16 06:58] LABS: Estimated Average Glucose 105 mg/dL; Hemoglobin A1c % 5.3 %
[2021-04-16 07:23] LABS: MANUAL DIFF FLAG NO
[2021-04-16 07:32] LABS: Basophils Percent Auto 0.1 % (0-2); Hematocrit 41.6 % (37-47); Hemoglobin 13.2 g/dl (12.0-16.0); Imm Gran Abs Auto 0.09 X10*3/uL (0.00-0.03); Imm Gran Pct Auto 0.6 % (0.0-0.4); Lymphocytes Absolute Auto 1.8 X10*3/uL (1.2-4.9); Lymphocytes Percent Auto 11.7 % (20-40); Mean Corpuscular HGB Conc 31.7 g/dl (31.0-35.0); Mean Corpuscular Hemoglobin 29.1 pg (27.0-33.0); Mean Corpuscular Volume 91.8 fL (80-98); Mean Platelet Volume 10.3 fL (9.4-12.3); Monocytes Absolute Auto 0.7 X10*3/uL (0.1-1.2); Monocytes Percent Auto 4.6 % (2-11); Neutrophils Absolute Auto 12.8 X10*3/uL (2.0-8.3); Platelet Count 315 X10*3/uL (160-400); Red Blood Count 4.53 X10*6/uL (4.20-5.50); Red Cell Distribution Width 13.4 % (11.0-16.0); White Blood Count 15.4 X10*3/uL (4.8-10.8)
[2021-04-16 07:53] LABS: Anion Gap 14 (12-20); Blood Urea Nitrogen 8 mg/dL (9-16); Calcium 9.2 mg/dL (8.4-10.2); Carbon Dioxide 19 mmol/L (22-29); Chloride 108 mmol/L (96-108); Creatinine Clr Calc Pharmacy 114.3; Estimated Glomerular Filt Rate > 60; Glucose Random 95 mg/dL (60-115); Sodium 137 mmol/L (135-145)
[2021-04-16] MEDS: Albuterol/Iprat 2.5/0.5MG 3 ML AMPUL.NEB INHALE ×4 (08:01→20:08)
[2021-04-16] MEDS: Fluticasone/Vilanterol 200/25 BLST.W.DEV 1 PUFF INHALE ×3 (08:01→08:07)
[2021-04-16] MEDS: Acetaminophen 325 MG TABLET 650 MG PO (09:24)
[2021-04-16] MEDS: 0.9 % Sodium Chloride Flush 3 ML SYRINGE IVFLUSH ×2 (10:18→16:08)
[2021-04-16] MEDS: LORazepam 1 MG TABLET PO ×2 (10:19→22:11)
[2021-04-16] MEDS: Famotidine 20 MG TABLET PO ×2 (10:19→21:02)
[2021-04-16] MEDS: Magnesium Oxide 400 MG TABLET PO (10:19)
[2021-04-16] MEDS: Topiramate 100 MG TABLET 300 MG PO (10:19)
[2021-04-16] MEDS: guaiFENesin LA 600 MG TAB.ER.12H PO ×2 (10:20→21:02)
[2021-04-16] MEDS: Sodium Bicarbonate 650 MG TABLET PO ×3 (10:20→21:01)
[2021-04-16] MEDS: methylPREDNISolone Sod Succ 40 MG/ML VIAL IVPUSH ×2 (10:21→21:01)
[2021-04-16] MEDS: NeoMYCIN/Polymyxin/HC Otic Sol BOTTLE 4 DROP EAR-LEFT ×2 (10:23→21:01)
[2021-04-16] MEDS: Fluticasone Propionate Nasal 16 GM SPRAY 2 SPRAY NOSTRIL-B ×2 (10:24→21:01)
--- NOTE | 2021-04-16 10:31 | HO.PM.IMPN ---
Subjective Subjective Date of Service: 04/16/21 Interval History: Acute hypoxemic respiratory failure secondary to possible hypersensitivity pneumonitis, bronchitis. Review of Systems Shortness of breath is somewhat better than yesterday. Still has cough Denies any new complaint of chest pain or abdominal pain or fever or chills or nausea or vomiting Denies any cough Denies any weakness or numbness. Physical Exam Vital Signs: Vital Signs: Last Vital Signs Temp 96 F L 04/16/21 07:11 Pulse 75 04/16/21 08:05 Resp 20 04/16/21 07:11 BP 115/62 04/16/21 07:11 Pulse Ox 98 04/16/21 07:11 Body Mass Index 32.3 Physical exam: Appearance: Alert.? Oriented X3.? not in distress.? Eyes: Pupils equal, round and reactive to light.? Sclera nonicteric.? ENT: Pharynx normal.? Moist mucous membranes. cvs: rrr, [id number] , no murmur res: has b/l wheezing abd: no rebound or guarding ,nt, bs present. ext pulses present , no cyanosis ,Gait well balanced well coordinated.trace edema neuro: axo3 , nonfocal. Objective Data Active Medications Acetaminophen (Acetaminophen 325 Mg Tablet) 650 mg PO Q6H PRN PRN Reason: Pain, Moderate (Pain Scale 4-6 Last Admin: 04/16/21 09:24 Dose: 650 mg Documented by: NATASHA Albuterol/Ipratropium (Albuterol/Iprat 2.5/0.5mg 3 Ml Ampul.Neb) 3 ml INHALE Q3H PRN PRN Reason: sob Albuterol/Ipratropium (Albuterol/Iprat 2.5/0.5mg 3 Ml Ampul.Neb) 3 ml INHALE RQ4H [facility] Last Admin: 04/16/21 08:20 Dose: Not Given Documented by: NATASHA Non-Admin Reason: Patient Asleep Benzonatate (Benzonatate 100 Mg Capsule) 100 mg PO TID PRN PRN Reason: Cough Last Admin: 04/16/21 06:01 Dose: 100 mg Documented by: MICHAEL Docusate Sodium (Docusate Sodium 100 Mg Capsule) 100 mg PO BEDTIME [facility] Last Admin: 04/15/21 20:41 Dose: 100 mg Documented by: MICHAEL Enoxaparin Sodium (Enoxaparin Sodium 40 Mg/0.4 Ml Syringe) 40 mg SUBCUT Q24H [facility] Last Admin: 04/15/21 18:24 Dose: 40 mg Documented by: TJ Famotidine (Famotidine 20 Mg Tablet) 20 mg PO BID [facility] Last Admin: 04/16/21 10:19 Dose: 20 mg Documented by: NATASHA Fluticasone Propionate (Fluticasone Propionate 250 Mcg Blst.W.Dev) 2 puff INHALE RBID [facility] Last Admin: 04/16/21 08:08 Dose: Not Given Documented by: QUAN Non-Admin Reason: wrong dose Fluticasone Propionate (Fluticasone Propionate Nasal 16 Gm [place]) 2 spray NOSTRIL-B BID [facility] Last Admin: 04/16/21 10:24 Dose: 2 spray Documented by: NATASHA Fluticasone/Vilanterol (Fluticasone/Vilanterol 200/25 Blst.W.Dev) 1 puff INHALE RDAILY [facility] Last Admin: 04/16/21 08:07 Dose: 1 puff Documented by: QUAN Guaifenesin (Guaifenesin [place] 600 Mg Tab.Er.12h) 600 mg PO BID [facility] Last Admin: 04/16/21 10:20 Dose: 600 mg Documented by: NATASHA Hydromorphone HCl (Hydromorphone Hcl 4 Mg Tablet) 8 mg PO Q4H PRN PRN Reason: pain Last Admin: 04/16/21 06:01 Dose: 8 mg Documented by: MICHAEL Ceftriaxone Sodium 1 gm/ (Sodium Chloride) 50 mls @ 100 mls/hr IV Q24H [facility] Azithromycin 500 mg/ Sodium (Chloride) 250 mls @ 125 mls/hr IV Q24H [facility] Levothyroxine Sodium (Levothyroxine Sodium 88 Mcg Tablet) 88 mcg PO DAILY@0600 [facility] Last Admin: 04/16/21 06:01 Dose: 88 mcg Documented by: MICHAEL Magnesium Oxide (Magnesium Oxide 400 Mg Tablet) 400 mg PO DAILY [facility] Last Admin: 04/16/21 10:19 Dose: 400 mg Documented by: NATASHA Methylprednisolone Sodium Succinate (Methylprednisolone Sod Succ 40 Mg/Ml Vial) 40 mg IVPUSH BID [facility] Last Admin: 04/16/21 10:21 Dose: 40 mg Documented by: NATASHA Montelukast Sodium (Montelukast Sodium 10 Mg Tablet) 10 mg PO BEDTIME [facility] Last Admin: 04/15/21 20:42 Dose: 10 mg Documented by: MICHAEL Neomycin/Polymyxin/Hydrocortisone (Neomycin/Polymyxin/Hc Otic Terri Bottle) 4 drop EAR-LEFT BID [facility] Last Admin: 04/16/21 10:23 Dose: 4 drop Documented by: NATASHA Pharmacy Consult (Consult Rx Perform Med Rec) 1 each MISCELLANE ONCE PRN PRN Reason: Consult order Polyethylene Glycol (Polyethylene Glycol 3350 17 Gm Powd.Pack) 17 gm PO BID [facility] Last Admin: 04/16/21 10:20 Dose: Not Given Documented by: NATASHA Non-Admin Reason: Patient Refused Risperidone (Risperidone 1 Mg Tablet) 1 mg PO BEDTIME [facility] Last Admin: 04/15/21 20:42 Dose: 1 mg Documented by: MICHAEL Sodium Bicarbonate (Sodium Bicarbonate 650 Mg Tablet) 650 mg PO TID [facility] Last Admin: 04/16/21 10:20 Dose: 650 mg Documented by: NATASHA Sodium Chloride (0.9 % Sodium Chloride Flush 3 Ml Syringe) 3 ml IVFLUSH QSHIFT [facility] Last Admin: 04/16/21 10:18 Dose: 3 ml Documented by: NATASHA Tiotropium [place] (Tiotropium [place] 18 Mcg Cap.W.Dev) 2 puff INHALE RDAILY [facility] Last Admin: 04/16/21 08:07 Dose: 2 puff Documented by: QUAN Topiramate (Topiramate 100 Mg Tablet) 200 mg PO BEDTIME [facility] Last Admin: 04/15/21 20:44 Dose: 200 mg Documented by: MICHAEL Topiramate (Topiramate 100 Mg Tablet) 300 mg PO DAILY [facility] Last Admin: 04/16/21 10:19 Dose: 300 mg Documented by: NATASHA Labs CBC & Chem 7: 04/16/21 06:19 04/16/21 06:19 Labs: Laboratory Results - last 24 hr 10/22/21 10/22/21 10/22/21 14:22 14:26 14:26 MCV 92.3 MCH 29.7 MCHC 32.1 RDW 13.5 Plt Count 273 MPV 9.6 Immature Gran % (Auto) 0.7 H Neut % (Auto) 85.0 H Lymph % (Auto) 9.2 L [place] % (Auto) 4.6 Eos % (Auto) 0.2 Baso % (Auto) 0.3 Lymph # (Auto) 1.0 L [place] # (Auto) 0.5 Eos # (Auto) 0.0 Baso # (Auto) 0.0 Abs Immat Gran (auto) 0.08 H Absolute Neuts (auto) 9.3 H Absolute Nucleated RBC 0.000 Nucleated RBC % (auto) 0.0 Anion Gap 12 Estim Creat Clear Calc 102.4 Estimated GFR > 60 POC Glucose Random Glucose 109 Estimat Average Glucose 105 Hemoglobin A1c % 5.3 Lactic Acid Calcium 8.9 D Magnesium 2.1 Total Bilirubin 0.2 Direct Bilirubin < 0.2 AST 12 ALT 12 Alkaline Phosphatase 58 D Lactate Dehydrogenase 198 Troponin I High Sens B-Natriuretic Peptide Total Protein 7.1 Albumin 4.1 Procalcitonin Urine Color Urine Appearance Urine pH Ur Specific [place] Urine Protein Urine Glucose (UA) Urine Ketones Urine Blood Urine Nitrite Ur Leukocyte Esterase Urine RBC Urine WBC Ur Squamous Epith Cells Urine Bacteria COVID-19 (MARTINE) COVID-19 Clin Com 04/15/21 04/15/21 04/15/21 14:26 14:26 14:26 MCV MCH MCHC RDW Plt Count MPV Immature Gran % (Auto) Neut % (Auto) Lymph % (Auto) [place] % (Auto) Eos % (Auto) Baso % (Auto) Lymph # (Auto) [place] # (Auto) Eos # (Auto) Baso # (Auto) Abs Immat Gran (auto) Absolute Neuts (auto) Absolute Nucleated RBC Nucleated RBC % (auto) Anion Gap Estim Creat Clear Calc Estimated GFR POC Glucose Random Glucose Estimat Average Glucose Hemoglobin A1c % Lactic Acid 1.1 Calcium Magnesium Total Bilirubin Direct Bilirubin AST ALT Alkaline Phosphatase Lactate Dehydrogenase Troponin I High Sens < 3.5 B-Natriuretic Peptide 40 Total Protein Albumin Procalcitonin < 0.02 Urine Color Urine Appearance Urine pH Ur Specific [place] Urine Protein Urine Glucose (UA) Urine Ketones Urine Blood Urine Nitrite Ur Leukocyte Esterase Urine RBC Urine WBC Ur Squamous Epith Cells Urine Bacteria COVID-19 (MARTINE) COVID-19 Clin Com 04/15/21 04/15/21 04/16/21 15:06 15:06 03:55 MCV MCH MCHC RDW Plt Count MPV Immature Gran % (Auto) Neut % (Auto) Lymph % (Auto) [place] % (Auto) Eos % (Auto) Baso % (Auto) Lymph # (Auto) [place] # (Auto) Eos # (Auto) Baso # (Auto) Abs Immat Gran (auto) Absolute Neuts (auto) Absolute Nucleated RBC Nucleated RBC % (auto) Anion Gap Estim Creat Clear Calc Estimated GFR POC Glucose 122 H Random Glucose Estimat Average Glucose Hemoglobin A1c % Lactic Acid Calcium Magnesium Total Bilirubin Direct Bilirubin AST ALT Alkaline Phosphatase Lactate Dehydrogenase Troponin I High Sens B-Natriuretic Peptide Total Protein Albumin Procalcitonin Urine Color STRAW Urine Appearance CLEAR Urine pH 7.0 Ur Specific [place] <= 1.005 Urine Protein NEG Urine Glucose (UA) NEG Urine Ketones NEG Urine Blood NEG Urine Nitrite NEG Ur Leukocyte Esterase TRACE H Urine RBC 0-2 Urine WBC 0-2 Ur Squamous Epith Cells TRACE Urine Bacteria TRACE COVID-19 (MARTINE) Negative COVID-19 Clin Com See Note 04/16/21 04/16/21 06:19 06:19 MCV 91.8 MCH 29.1 MCHC 31.7 RDW 13.4 Plt Count 315 MPV 10.3 Immature Gran % (Auto) 0.6 H Neut % (Auto) 83.0 H Lymph % (Auto) 11.7 L [place] % (Auto) 4.6 Eos % (Auto) 0.0 Baso % (Auto) 0.1 Lymph # (Auto) 1.8 [place] # (Auto) 0.7 Eos # (Auto) 0.0 Baso # (Auto) 0.0 Abs Immat Gran (auto) 0.09 H Absolute Neuts (auto) 12.8 H Absolute Nucleated RBC 0.000 Nucleated RBC % (auto) 0.0 Anion Gap 14 Estim Creat Clear Calc 114.3 Estimated GFR > 60 POC Glucose Random Glucose 95 Estimat Average Glucose Hemoglobin A1c % Lactic Acid Calcium 9.2 Magnesium Total Bilirubin Direct Bilirubin AST ALT Alkaline Phosphatase Lactate Dehydrogenase Troponin I High Sens B-Natriuretic Peptide Total Protein Albumin Procalcitonin Urine Color Urine Appearance Urine pH Ur Specific [place] Urine Protein Urine Glucose (UA) Urine Ketones Urine Blood Urine Nitrite Ur Leukocyte Esterase Urine RBC Urine WBC Ur Squamous Epith Cells Urine Bacteria COVID-19 (MARTINE) COVID-19 Clin Com Assessment and Plan (1) Acute respiratory failure with hypoxia: Status: Acute (2) Pneumonitis: Status: Acute Assessment and Plan: ?45-year-old female with a past medical history of GERD, asthma presented to the hospital with a chief complaint of cough and shortness of breath.? Noted to have multifocal pneumonia. Acute hypoxemic respiratory failure secondary to possible hypersensitivity pneumonitis, ? possible acute? bronchitis Lab imaging reviewed and personally interpreted-WBC count of 11, mild tachycardia, lactic acid normal CT showed? NO PE or clear cut pneumonia Procalcitonin level low 0.02,Blood cultures pending,Strep and Legionella antigen, res panel sob some improving Continue ceftriaxone and azithromycin day2, Pulmonary evaluation for possible bronchoscopy. Acute asthma exacerbation:? Continue DuoNebs standing and p.r.n.,iv? Solumedrol History of complex regional pain syndrome:? Patient on dilaudid and Topamax at home--continue History of hypothyroidism:? Continue levothyroxine Constipation: colate, miralax, fiber obesity:? Encouraged for weight lost, nutrition, consider outpatient bariatric evaluation. GI prophylaxis:? pepcid DVT prophylaxis:? Lovenox Quality Stroke Does the patient have a stroke diagnosis?: No VTE Prior VTE?: No VTE Risk Level:: Medical - moderate - high VTE Device Contraindication: N/A - Device Ordered VTE Drug Contraindication: N/A - Med Ordered
[2021-04-16 12:05] LABS: Adenovirus PCR Not Detected (Not Detect.); Bordetella parapertussis PCR Not Detected (Not Detect.); Bordetella pertussis PCR Not Detected (Not Detect.); Chlamydia pneumoniae PCR Not Detected (Not Detect.); Coronavirus 229E PCR Not Detected (Not Detect.); Coronavirus HKU1 PCR Not Detected (Not Detect.); Coronavirus NL63 PCR Not Detected (Not Detect.); Coronavirus OC43 PCR Not Detected (Not Detect.); Human metapneumovirus PCR Not Detected (Not Detect.); Influenza A PCR Not Detected (Not Detect.); Influenza B PCR Not Detected (Not Detect.); Mycoplasma pneumoniae PCR Not Detected (Not Detect.); Parainfluenza 1 PCR Not Detected (Not Detect.); Parainfluenza 2 PCR Not Detected (Not Detect.); Parainfluenza 3 PCR Not Detected (Not Detect.); Parainfluenza 4 PCR Not Detected (Not Detect.); RSV PCR Not Detected (Not Detect.); Rhino/Enterovirus PCR Not Detected (Not Detect.); SARS-CoV-2 PCR Not Detected (Not Detect.)
[2021-04-16] MEDS: cefTRIAXone sodium 1 GM in 0.9 % Sodium Chloride 50 ML IV (16:07)
[2021-04-16] MEDS: Azithromycin 500 MG in 0.9 % Sodium Chloride 250 ML 125 MG IV (17:02)
[2021-04-16] MEDS: ondansetron HCL 4 MG/2 ML VIAL IVPUSH (17:57)
[2021-04-16] MEDS: Enoxaparin Sodium 40 MG/0.4 ML SYRINGE SUBCUT (17:57)
[2021-04-16] MEDS: Fluticasone Propionate 250 MCG BLST.W.DEV 2 PUFF INHALE (20:09)
[2021-04-16] MEDS: Topiramate 100 MG TABLET 200 MG PO (21:01)
[2021-04-16] MEDS: risperiDONE 1 MG TABLET PO (21:01)
[2021-04-16] MEDS: Docusate Sodium 100 MG CAPSULE PO (21:02)
[2021-04-16] MEDS: Montelukast Sodium 10 MG TABLET PO (21:02)
[2021-04-17] VITALS (15 sets, daily range): BP systolic 102–118; BP diastolic 57–63; PULSE 64–140; RESP 18–20; TEMP 35.5–37.2; O2SAT 87–98
[2021-04-17] MEDS: Levothyroxine Sodium 88 MCG TABLET PO (05:46)
[2021-04-17] MEDS: Fluticasone Propionate 250 MCG BLST.W.DEV 2 PUFF INHALE ×2 (07:47→20:01)
[2021-04-17] MEDS: Albuterol/Iprat 2.5/0.5MG 3 ML AMPUL.NEB INHALE ×4 (07:47→20:01)
--- NOTE | 2021-04-17 08:30 | PC.NURSE ---
In am took pt off o2 as was 98% on 2L, when pt was up and moving desat to 84% , mild SOB with activity. Pt placed back on her 2L o2 now sating 91% at this time. MD treviño
[2021-04-17] MEDS: methylPREDNISolone Sod Succ 40 MG/ML VIAL IVPUSH ×2 (08:50→21:20)
[2021-04-17] MEDS: ondansetron HCL 4 MG/2 ML VIAL IVPUSH (08:51)
[2021-04-17] MEDS: LORazepam 1 MG TABLET PO ×3 (08:51→21:20)
[2021-04-17] MEDS: Sodium Bicarbonate 650 MG TABLET PO ×3 (08:51→21:20)
[2021-04-17] MEDS: NeoMYCIN/Polymyxin/HC Otic Sol BOTTLE 4 DROP EAR-LEFT ×2 (08:51→21:17)
[2021-04-17] MEDS: Magnesium Oxide 400 MG TABLET PO (08:51)
[2021-04-17] MEDS: Fluticasone Propionate Nasal 16 GM SPRAY 2 SPRAY NOSTRIL-B ×2 (08:51→21:17)
[2021-04-17] MEDS: guaiFENesin LA 600 MG TAB.ER.12H PO ×2 (08:51→21:19)
[2021-04-17] MEDS: 0.9 % Sodium Chloride Flush 3 ML SYRINGE IVFLUSH ×2 (08:51→14:19)
[2021-04-17] MEDS: Famotidine 20 MG TABLET PO ×2 (08:52→21:19)
[2021-04-17] MEDS: Topiramate 100 MG TABLET 300 MG PO (08:52)
[2021-04-17] MEDS: polyethylene glycoL 3350 17 GM POWD.PACK PO ×2 (09:41→21:17)
--- NOTE | 2021-04-17 10:43 | P.CONPL_ITS ---
History of Present Illness History of Present Illness Consult date: 04/16/21 Chief complaint: pneumonitis/asthma exacerbation Narrative: 46-year-old female who has history of acute hypoxemic respiratory failure secondary to multifocal pneumonia/possible hypersensitivity pneumonitis for which she she was treated with antibiotics and steroids in December 2020:? And outpatient follows up with Dr. Hodges. She said she went to camping on [place] a week back-she started having shortness of breath and worsening cough over there and she came few days back since then she is having progressive worsening of shortness of breath and cough and has pleuritic discomfort when she coughs. She said her shortness of breath worsen with exertion now also.? She tried her home medications inhalers, nebs-which did not help so decided to come to the hospital. At baseline she uses oxygen only as needed but she said she was bumped up to 3 L even with little activity.? She is also on p.o. prednisone 10 mg at baseline. ?She saw Dr. Hodges from pulmonology about 1 month ago, plan is to repeat CT scan and possible bronchoscopy for evaluation of possible hypersensitivity pneumonitis. pmhx:asthma, multifocal pneumonia in December 2020 on chronic prednisone 10 mg daily, history of Marcus's thyroiditis, history of chronic pain syndrome on chronic opiates for the last twenty years. Past surgical history:? Has history of cholecystectomy and appendectomy. Social history:? She said she quit smoking 20 years ago, no recreational drugs or alcohol use. Review of Systems Constitutional: Constitutional: Denies body ache(s), Denies chills, Denies fever(s) and Denies night sweats ENT: Denies change in voice, Denies lip swelling, Denies mouth pain, Reports nasal congestion, Reports nasal discharge and Denies tongue swelling Cardiovascular: Cardiovascular: Denies chest pain and Reports dyspnea Respiratory: Respiratory: Reports cough, Reports dyspnea and Reports wheezing Gastrointestinal: Gastrointestinal: Denies abdominal pain Musculoskeletal: Musculoskeletal: Denies no additional musculoskeletal complaints Neurologic: Denies Neuro-related abnormal movements Psychiatric: Psychiatric: Denies no additional psychiatric complaints Hematologic/Lymphatic: Hematologic/Lymphatic: Denies easy bleeding and Denies lymphadenopathy Allergic/Immunologic: Allergic/Immunologic: Denies lip swelling, Denies tongue swelling and Reports wheezing PMFSH Past Medical History Medical History Asthma Asthma Asthma exacerbation Marcus's thyroiditis Pneumonitis Social History Social History Household Members: Spouse Housing: House Do you presently have visiting nurse or other home services: No Alcohol intake: never Patient Tobacco Use Status: Former Tobacco user Cigarette Packs Per Day: 1.5 Cigarettes Per Day: 30 Years Smoked: 12 Advance Directives Date on File: 04/15/21 service: No Current occupational status: unemployed Meds Allergies Allergy/AdvReac Type Severity Reaction Status Date / Time sulfamethoxazole Allergy Severe Shortness Verified 03/10/21 14:21 [From Bactrim] of Breath trimethoprim [From Bactrim] Allergy Severe Shortness Verified 03/10/21 14:21 of Breath wheat [WHEAT] Allergy Intermediate DIARRHEA Verified 03/10/21 14:21 Active Medications: Current Medications Acetaminophen (Acetaminophen 325 Mg Tablet) 650 mg PO Q6H PRN PRN Reason: Pain, Moderate (Pain Scale 4-6 Last Admin: 04/16/21 09:24 Dose: 650 mg Documented by: Albuterol/Ipratropium (Albuterol/Iprat 2.5/0.5mg 3 Ml Ampul.Neb) 3 ml INHALE Q3H PRN PRN Reason: sob Albuterol/Ipratropium (Albuterol/Iprat 2.5/0.5mg 3 Ml Ampul.Neb) 3 ml INHALE RQ4H [facility] Last Admin: 04/17/21 07:47 Dose: 3 ml Documented by: Benzonatate (Benzonatate 100 Mg Capsule) 100 mg PO TID PRN PRN Reason: Cough Last Admin: 04/16/21 17:58 Dose: 100 mg Documented by: Docusate Sodium (Docusate Sodium 100 Mg Capsule) 100 mg PO BEDTIME [facility] Last Admin: 04/16/21 21:02 Dose: 100 mg Documented by: Enoxaparin Sodium (Enoxaparin Sodium 40 Mg/0.4 Ml Syringe) 40 mg SUBCUT Q24H [facility] Last Admin: 04/16/21 17:57 Dose: 40 mg Documented by: Famotidine (Famotidine 20 Mg Tablet) 20 mg PO BID [facility] Last Admin: 04/17/21 08:52 Dose: 20 mg Documented by: Fluticasone Propionate (Fluticasone Propionate 250 Mcg Blst.W.Dev) 2 puff INHALE RBID [facility] Last Admin: 04/17/21 07:47 Dose: 2 puff Documented by: Fluticasone Propionate (Fluticasone Propionate Nasal 16 Gm [place]) 2 spray NOSTRIL-B BID [facility] Last Admin: 04/17/21 08:51 Dose: 2 spray Documented by: Fluticasone/Vilanterol (Fluticasone/Vilanterol 200/25 Blst.W.Dev) 1 puff INHALE RDAILY [facility] Last Admin: 04/16/21 08:07 Dose: 1 puff Documented by: Guaifenesin (Guaifenesin [place] 600 Mg Tab.Er.12h) 600 mg PO BID [facility] Last Admin: 04/17/21 08:51 Dose: 600 mg Documented by: Hydromorphone HCl (Hydromorphone Hcl 4 Mg Tablet) 8 mg PO Q4H PRN PRN Reason: pain Last Admin: 04/17/21 05:46 Dose: 8 mg Documented by: Ceftriaxone Sodium 1 gm/ (Sodium Chloride) 50 mls @ 100 mls/hr IV Q24H [facility] Last Infusion: 04/16/21 17:32 Dose: Infused Documented by: Azithromycin 500 mg/ Sodium (Chloride) 250 mls @ 125 mls/hr IV Q24H [facility] Last Infusion: 04/16/21 19:53 Dose: Infused Documented by: Levothyroxine Sodium (Levothyroxine Sodium 88 Mcg Tablet) 88 mcg PO DAILY@0600 [facility] Last Admin: 04/17/21 05:46 Dose: 88 mcg Documented by: Lorazepam (Lorazepam 1 Mg Tablet) 1 mg PO Q6H PRN PRN Reason: Anxiety Last Admin: 04/17/21 08:51 Dose: 1 mg Documented by: Magnesium Oxide (Magnesium Oxide 400 Mg Tablet) 400 mg PO DAILY [facility] Last Admin: 04/17/21 08:51 Dose: 400 mg Documented by: Methylprednisolone Sodium Succinate (Methylprednisolone Sod Succ 40 Mg/Ml Vial) 40 mg IVPUSH BID [facility] Last Admin: 04/17/21 08:50 Dose: 40 mg Documented by: Montelukast Sodium (Montelukast Sodium 10 Mg Tablet) 10 mg PO BEDTIME [facility] Last Admin: 04/16/21 21:02 Dose: 10 mg Documented by: Neomycin/Polymyxin/Hydrocortisone (Neomycin/Polymyxin/Hc Otic Terri Bottle) 4 drop EAR-LEFT BID [facility] Last Admin: 04/17/21 08:51 Dose: 4 drop Documented by: Ondansetron HCl (Ondansetron Hcl 4 Mg/2 Ml Vial) 4 mg IVPUSH Q8H PRN PRN Reason: Nausea Last Admin: 04/17/21 08:51 Dose: 4 mg Documented by: Pharmacy Consult (Consult Rx Perform Med Rec) 1 each MISCELLANE ONCE PRN PRN Reason: Consult order Polyethylene Glycol (Polyethylene Glycol 3350 17 Gm Powd.Pack) 17 gm PO BID [facility] Last Admin: 04/17/21 09:41 Dose: 17 gm Documented by: Risperidone (Risperidone 1 Mg Tablet) 1 mg PO BEDTIME [facility] Last Admin: 04/16/21 21:01 Dose: 1 mg Documented by: Sodium Bicarbonate (Sodium Bicarbonate 650 Mg Tablet) 650 mg PO TID [facility] Last Admin: 04/17/21 08:51 Dose: 650 mg Documented by: Sodium Chloride (0.9 % Sodium Chloride Flush 3 Ml Syringe) 3 ml IVFLUSH QSHIFT [facility] Last Admin: 04/17/21 08:51 Dose: 3 ml Documented by: Tiotropium [place] (Tiotropium [place] 18 Mcg Cap.W.Dev) 2 puff INHALE RDAILY [facility] Last Admin: 04/17/21 07:48 Dose: 2 puff Documented by: Topiramate (Topiramate 100 Mg Tablet) 200 mg PO BEDTIME [facility] Last Admin: 04/16/21 21:01 Dose: 200 mg Documented by: Topiramate (Topiramate 100 Mg Tablet) 300 mg PO DAILY [facility] Last Admin: 04/17/21 08:52 Dose: 300 mg Documented by: Home Medications Medication Instructions Recorded Confirmed Last Taken Type acetaminophen 500 mg tablet 1 tab PO Q6H PRN 01/15/21 04/15/21 Unknown History albuterol sulfate 90 mcg/actuation 2 puff INHALATION Q4H PRN 01/15/21 04/15/21 Unknown History aerosol inhaler (ProAir HFA) budesonide-formoterol HFA 160 2 puff INHALATION BID 01/15/21 04/15/21 04/15/21 History mcg-4.5 mcg/actuation aerosol inhaler (Symbicort) diclofenac sodium 1 % topical gel 4 g TOPICAL DAILY PRN 01/15/21 04/15/21 Unknown History ethynodiol diacetate-ethinyl 1 tab PO DAILY 01/15/21 04/15/21 04/15/21 History estradiol 1 mg-35 mcg tablet ([place]) fluticasone propionate 220 2 puff INHALATION BID 01/15/21 04/15/21 04/15/21 History mcg/actuation HFA aerosol inhaler (Flovent HFA) levothyroxine 88 mcg tablet 1 tab PO DAILY 01/15/21 04/15/21 04/15/21 History oxazepam 10 mg capsule 2 - 3 cap PO Q3-4H PRN 01/15/21 04/15/21 04/15/21 History risperidone 1 mg tablet 1 tab PO BEDTIME 01/15/21 04/15/21 04/14/21 History sodium bicarbonate 650 mg tablet 1 tab PO TID 01/15/21 04/15/21 04/15/21 History tiotropium bromide 2.5 2 puff INHALATION DAILY 01/15/21 04/15/21 04/15/21 History mcg/actuation mist for inhalation (Spiriva Respimat) topiramate 200 mg tablet 300 mg PO DAILY 01/15/21 04/15/21 04/15/21 History fluticasone propionate 50 2 spray INTRANASAL BID 01/17/21 04/15/21 04/15/21 History mcg/actuation nasal spray,suspension guaifenesin 600 mg tablet, 600 mg PO BID 02/07/21 04/15/21 04/15/21 History extended release 12 hr (Mucinex) magnesium 250 mg tablet 500 mg PO DAILY tab 02/07/21 04/15/21 04/15/21 History hydromorphone 8 mg tablet 8 mg PO Q4H 04/15/21 04/15/21 04/15/21 History psyllium husk 0.4 gram capsule 0.4 g PO BID 04/15/21 04/15/21 04/15/21 History (Metamucil) topiramate 200 mg tablet 200 mg PO BEDTIME 04/15/21 04/15/21 04/14/21 History Physical Exam Vital Signs: Vital Signs: Last Vital Signs Temp 98 F 04/17/21 07:02 Pulse 75 04/17/21 07:49 Resp 18 04/17/21 07:02 BP 115/59 L 04/17/21 07:02 Pulse Ox 96 04/17/21 07:02 Body Mass Index 32.3 Const: General: alert Neck: Neck: Yes normal visual inspection, Yes full ROM and Yes no lymphadenopathy Chest: Chest palpation & inspection: normal inspection of the chest Resp: Auscultation: wheezes and diminished lung sounds Cardio: Rate: regular rate Rhythm: regular rhythm Heart sounds: S1 normal heart sound present and S2 normal heart sound present GI: Palpation (GI): Soft to palpation and nontender Auscultation: normal bowel sounds Skin: General skin exam: rashes and/or lesions noted Results Laboratory Findings CBC and BMP: 04/16/21 06:19 04/16/21 06:19 Abnormal lab findings: Abnormal Labs 04/15/21 04/15/21 04/15/21 14:26 14:26 15:06 WBC 11.0 H Immature Gran % (Auto) 0.7 H Neut % (Auto) 85.0 H Lymph % (Auto) 9.2 L Lymph # (Auto) 1.0 L Abs Immat Gran (auto) 0.08 H Absolute Neuts (auto) 9.3 H Chloride 110 H Carbon Dioxide 20 L BUN POC Glucose Ur Leukocyte Esterase TRACE H 04/16/21 04/16/21 04/16/21 03:55 06:19 06:19 WBC 15.4 H Immature Gran % (Auto) 0.6 H Neut % (Auto) 83.0 H Lymph % (Auto) 11.7 L Lymph # (Auto) Abs Immat Gran (auto) 0.09 H Absolute Neuts (auto) 12.8 H Chloride Carbon Dioxide 19 L BUN 8 L POC Glucose 122 H Ur Leukocyte Esterase Microbiology: Microbiology 04/15/21 15:06 Urine clean catch - Urine andrews top Urine Culture - Final 04/16/21 08:08 Sputum - Expectorated Gram Stain - Final 04/16/21 08:08 Sputum - Expectorated Sputum Culture - Final 04/15/21 15:06 Blood - Venous Blood Culture - Preliminary No growth after 24 hours. 04/15/21 14:26 Blood - Venous Blood Culture - Preliminary No growth after [address] scan - chest: image reviewed Assessment and Plan (1) Acute respiratory failure with hypoxia: Status: Acute (2) Asthma: Qualifiers: Asthma complication type: unspecified Asthma persistence: unspecified Asthma severity: unspecified severity Qualified Code(s): J45.909 - Unspecified asthma, uncomplicated Status: Acute The patient is presenting with an asthma exacerbation. No evidence of pneumonitis or pneumonia on most recent CT chest. Therefore no need for bronchocopy at this time. REC: OK to de-escalate antibiotics to PO Continue IV solumedrol until better Awaiting bloodwork Titrate oxygen to keep pox >90% CPT with flutter valve add mucinex Likely will go home soon, will need f/u 1-2 weeks with outpt pulmonary Procedures Date of Service Date of Service: 04/16/21
--- NOTE | 2021-04-17 11:55 | P.PNIM_ITS ---
Subjective Subjective Date of Service: 04/17/21 Interval History: Possible hypersensitivity pneumonitis Review of Systems Patient still short of breath and has significant cough but otherwise breathing seems improving than yesterday. Denies any fever or chills or abdominal pain or nausea or vomiting. Physical Exam Vital Signs: Vital Signs: Last Vital Signs Temp 96 F L 04/17/21 11:12 Pulse 93 04/17/21 11:12 Resp 18 04/17/21 11:12 BP 118/57 L 04/17/21 11:12 Pulse Ox 96 04/17/21 11:12 Body Mass Index 32.3 Alert.? Oriented X3.? not in distress.? Eyes: Pupils equal, round and reactive to light.? Sclera nonicteric.? ENT: Pharynx normal.? Moist mucous membranes. cvs: rrr, [id number] , no murmur res: has b/l wheezing abd: no rebound or guarding ,nt, bs present. ext pulses present , no cyanosis ,Gait well balanced well coordinated.trace edema neuro: axo3 , nonfocal. Objective Data Active Medications Acetaminophen (Acetaminophen 325 Mg Tablet) 650 mg PO Q6H PRN PRN Reason: Pain, Moderate (Pain Scale 4-6 Last Admin: 04/16/21 09:24 Dose: 650 mg Documented by: NATASHA Albuterol/Ipratropium (Albuterol/Iprat 2.5/0.5mg 3 Ml Ampul.Neb) 3 ml INHALE Q3H PRN PRN Reason: sob Albuterol/Ipratropium (Albuterol/Iprat 2.5/0.5mg 3 Ml Ampul.Neb) 3 ml INHALE RQ4H [facility] Last Admin: 04/17/21 10:54 Dose: 3 ml Documented by: BLANAGI Benzonatate (Benzonatate 100 Mg Capsule) 100 mg PO TID PRN PRN Reason: Cough Last Admin: 04/16/21 17:58 Dose: 100 mg Documented by: NATASHA Docusate Sodium (Docusate Sodium 100 Mg Capsule) 100 mg PO BEDTIME [facility] Last Admin: 04/16/21 21:02 Dose: 100 mg Documented by: ARNULFO Enoxaparin Sodium (Enoxaparin Sodium 40 Mg/0.4 Ml Syringe) 40 mg SUBCUT Q24H [facility] Last Admin: 04/16/21 17:57 Dose: 40 mg Documented by: NATASHA Famotidine (Famotidine 20 Mg Tablet) 20 mg PO BID [facility] Last Admin: 04/17/21 08:52 Dose: 20 mg Documented by: NATASHA Fluticasone Propionate (Fluticasone Propionate 250 Mcg Blst.W.Dev) 2 puff INHALE RBID [facility] Last Admin: 04/17/21 07:47 Dose: 2 puff Documented by: QUAN Fluticasone Propionate (Fluticasone Propionate Nasal 16 Gm [place]) 2 spray NOSTRIL-B BID [facility] Last Admin: 04/17/21 08:51 Dose: 2 spray Documented by: NATASHA Fluticasone/Vilanterol (Fluticasone/Vilanterol 200/25 Blst.W.Dev) 1 puff INHALE RDAILY [facility] Last Admin: 04/16/21 08:07 Dose: 1 puff Documented by: QUAN Guaifenesin (Guaifenesin [place] 600 Mg Tab.Er.12h) 600 mg PO BID [facility] Last Admin: 04/17/21 08:51 Dose: 600 mg Documented by: NATASHA Hydromorphone HCl (Hydromorphone Hcl 4 Mg Tablet) 8 mg PO Q4H PRN PRN Reason: pain Last Admin: 04/17/21 11:25 Dose: 8 mg Documented by: NATASHA Ceftriaxone Sodium 1 gm/ (Sodium Chloride) 50 mls @ 100 mls/hr IV Q24H [facility] Last Infusion: 04/16/21 17:32 Dose: 0 mls/hr Documented by: VERONICA Azithromycin 500 mg/ Sodium (Chloride) 250 mls @ 125 mls/hr IV Q24H [facility] Last Infusion: 04/16/21 19:53 Dose: 0 mls/hr Documented by: ARNULFO Levothyroxine Sodium (Levothyroxine Sodium 88 Mcg Tablet) 88 mcg PO DAILY@0600 [facility] Last Admin: 04/17/21 05:46 Dose: 88 mcg Documented by: ARNULFO Lorazepam (Lorazepam 1 Mg Tablet) 1 mg PO Q6H PRN PRN Reason: Anxiety Last Admin: 04/17/21 08:51 Dose: 1 mg Documented by: NATASHA Magnesium Oxide (Magnesium Oxide 400 Mg Tablet) 400 mg PO DAILY [facility] Last Admin: 04/17/21 08:51 Dose: 400 mg Documented by: NATASHA Methylprednisolone Sodium Succinate (Methylprednisolone Sod Succ 40 Mg/Ml Vial) 40 mg IVPUSH BID [facility] Last Admin: 04/17/21 08:50 Dose: 40 mg Documented by: NATASHA Montelukast Sodium (Montelukast Sodium 10 Mg Tablet) 10 mg PO BEDTIME [facility] Last Admin: 04/16/21 21:02 Dose: 10 mg Documented by: ARNULFO Neomycin/Polymyxin/Hydrocortisone (Neomycin/Polymyxin/Hc Otic Terri Bottle) 4 d rop EAR-LEFT BID [facility] Last Admin: 04/17/21 08:51 Dose: 4 drop Documented by: NATASHA Ondansetron HCl (Ondansetron Hcl 4 Mg/2 Ml Vial) 4 mg IVPUSH Q8H PRN PRN Reason: Nausea Last Admin: 04/17/21 08:51 Dose: 4 mg Documented by: NATASHA Pharmacy Consult (Consult Rx Perform Med Rec) 1 each MISCELLANE ONCE PRN PRN Reason: Consult order Polyethylene Glycol (Polyethylene Glycol 3350 17 Gm Powd.Pack) 17 gm PO BID [facility] Last Admin: 04/17/21 09:41 Dose: 17 gm Documented by: NATASHA Risperidone (Risperidone 1 Mg Tablet) 1 mg PO BEDTIME [facility] Last Admin: 04/16/21 21:01 Dose: 1 mg Documented by: ARNULFO Sodium Bicarbonate (Sodium Bicarbonate 650 Mg Tablet) 650 mg PO TID [facility] Last Admin: 04/17/21 08:51 Dose: 650 mg Documented by: NATASHA Sodium Chloride (0.9 % Sodium Chloride Flush 3 Ml Syringe) 3 ml IVFLUSH QSHIFT [facility] Last Admin: 04/17/21 08:51 Dose: 3 ml Documented by: NATASHA Tiotropium [place] (Tiotropium [place] 18 Mcg Cap.W.Dev) 2 puff INHALE RDAILY [facility] Last Admin: 04/17/21 07:48 Dose: 2 puff Documented by: QUAN Topiramate (Topiramate 100 Mg Tablet) 200 mg PO BEDTIME [facility] Last Admin: 10/23/21 21:01 Dose: 200 mg Documented by: ARNULFO Topiramate (Topiramate 100 Mg Tablet) 300 mg PO DAILY [facility] Last Admin: 04/17/21 08:52 Dose: 300 mg Documented by: NATASHA Labs CBC & Chem 7: 04/16/21 06:19 04/16/21 06:19 Labs: Laboratory Results - last 24 hr 04/16/21 04/16/21 09:05 11:36 Respiratory Panel [place] See Note Adenovirus (Rapid PCR) Not Detected B.pert (TEM-PCR) Not Detected B.parapertussis DNA PCR Not Detected C. pneumoniae DNA (PCR) Not Detected Coronavirus OC43 (PCR) Not Detected Coronavirus HKU1 (PCR) Not Detected Coronavirus 229E (PCR) Not Detected Coronavirus NL63 (PCR) Not Detected Human Metapneumovir PCR Not Detected Influenza A (RT-PCR) Not Detected Influenza B (RT-PCR) Not Detected Ur L.pneumophila Ag Cancelled M. pneumoniae (PCR) Not Detected Parainfluenza 1 (PCR) Not Detected Parainfluenza 2 (PCR) Not Detected Parainfluenza 3 (PCR) Not Detected Parainfluenza 4 (PCR) Not Detected RSV (PCR) Not Detected Entero/Rhino (PCR) Not Detected SARS-CoV-2 RNA (RT-PCR) Not Detected Microbiology Microbiology Results: Microbiology 04/15/21 15:06 Urine Culture - Final Urine clean catch - Urine andrews top 04/16/21 08:08 Gram Stain - Final Sputum - Expectorated Sputum Culture - Final 04/15/21 15:06 Blood Culture - Preliminary Blood - Venous No growth after 24 hours. 04/15/21 14:26 Blood Culture - Preliminary Blood - Venous No growth after 24 hours. Assessment and Plan (1) Bronchitis: Status: Acute (2) Acute respiratory failure with hypoxia: Status: Acute Assessment and Plan: 45-year-old female with a past medical history of GERD, asthma presented to the hospital with a chief complaint of cough and shortness of breath.? Noted to have multifocal pneumonia. Acute hypoxemic respiratory failure secondary to possible hypersensitivity pneumonitis, ? possible acute? bronchitis Lab imaging reviewed and personally interpreted-WBC count of 11, mild tachycardia, lactic acid normal CT showed? NO PE or clear cut pneumonia Procalcitonin level low 0.02,Blood cultures preliminaries negative at 24 hour, sputum culture resent, thought culture also pending., and Legionella antigen, res panel neg T. candidius, T. vulgaris, aspergillosis, microscope serology pending sob some improving Continue ceftriaxone and azithromycin day2, Pulmonary evaluation for possible bronchoscopy. Acute asthma exacerbation:? Continue DuoNebs standing and p.r.n.,iv? Solumedrol History of complex regional pain syndrome:? Patient on dilaudid and Topamax at home--continue History of hypothyroidism:? Continue levothyroxine Constipation: colate, miralax, fiber obesity:? Encouraged for weight lost, nutrition, consider outpatient bariatric evaluation. GI prophylaxis:? pepcid DVT prophylaxis:? Lovenox Quality Stroke Does the patient have a stroke diagnosis?: No VTE Prior VTE?: No VTE Risk Level:: Medical - moderate - high VTE Device Contraindication: N/A - Device Ordered VTE Drug Contraindication: N/A - Med Ordered
[2021-04-17] MEDS: Azithromycin 500 MG TABLET PO (12:30)
[2021-04-17] MEDS: Lactated Ringers 1,000 ML 80 ML IVCONT (14:10)
[2021-04-17] MEDS: Acetaminophen 325 MG TABLET 650 MG PO (14:55)
[2021-04-17] MEDS: Enoxaparin Sodium 40 MG/0.4 ML SYRINGE SUBCUT (16:17)
[2021-04-17] MEDS: Docusate Sodium 100 MG CAPSULE PO (21:19)
[2021-04-17] MEDS: Topiramate 100 MG TABLET 200 MG PO (21:19)
[2021-04-17] MEDS: risperiDONE 1 MG TABLET PO (21:19)
[2021-04-17] MEDS: Montelukast Sodium 10 MG TABLET PO (21:19)
[2021-04-18] VITALS (10 sets, daily range): BP systolic 110–123; BP diastolic 57–75; PULSE 71–129; RESP 18; TEMP 36.6–37.1; O2SAT 94–100
[2021-04-18] MEDS: Lactated Ringers 1,000 ML 80 ML IVCONT ×2 (03:19→14:03)
[2021-04-18] MEDS: Levothyroxine Sodium 88 MCG TABLET PO (05:15)
[2021-04-18 07:43] LABS: Anion Gap 13 (12-20); Blood Urea Nitrogen 10 mg/dL (9-16); Calcium 9.3 mg/dL (8.4-10.2); Carbon Dioxide 21 mmol/L (22-29); Chloride 110 mmol/L (96-108); Creatinine Clr Calc Pharmacy 112.7; Estimated Glomerular Filt Rate > 60; Glucose Random 105 mg/dL (60-115); Potassium 4.2 mmol/L (3.3-5.1); Sodium 140 mmol/L (135-145)
[2021-04-18] MEDS: Albuterol/Iprat 2.5/0.5MG 3 ML AMPUL.NEB INHALE ×4 (07:43→19:09)
[2021-04-18] MEDS: Fluticasone Propionate 250 MCG BLST.W.DEV 2 PUFF INHALE ×2 (07:44→19:09)
[2021-04-18] MEDS: Fluticasone/Vilanterol 200/25 BLST.W.DEV 1 PUFF INHALE (07:44)
[2021-04-18 07:45] LABS: Thyroid Stimulating Hormone 0.27 uIU/mL (0.32-4.0)
[2021-04-18] MEDS: polyethylene glycoL 3350 17 GM POWD.PACK PO ×2 (08:34→22:04)
[2021-04-18] MEDS: 0.9 % Sodium Chloride Flush 3 ML SYRINGE IVFLUSH (08:34)
[2021-04-18] MEDS: Famotidine 20 MG TABLET PO ×2 (08:35→22:03)
[2021-04-18] MEDS: Magnesium Oxide 400 MG TABLET PO (08:35)
[2021-04-18] MEDS: Topiramate 100 MG TABLET 300 MG PO (08:35)
[2021-04-18] MEDS: Fluticasone Propionate Nasal 16 GM SPRAY 2 SPRAY NOSTRIL-B ×2 (08:35→22:11)
[2021-04-18] MEDS: guaiFENesin LA 600 MG TAB.ER.12H PO ×2 (08:35→22:03)
[2021-04-18] MEDS: NeoMYCIN/Polymyxin/HC Otic Sol BOTTLE 4 DROP EAR-LEFT ×2 (08:35→22:11)
[2021-04-18] MEDS: Sodium Bicarbonate 650 MG TABLET PO ×3 (08:35→22:03)
[2021-04-18] MEDS: methylPREDNISolone Sod Succ 40 MG/ML VIAL IVPUSH ×2 (08:35→22:04)
[2021-04-18] MEDS: ondansetron HCL 4 MG/2 ML VIAL IVPUSH ×2 (09:39→17:39)
--- NOTE | 2021-04-18 11:14 | HO.PM.IMPN ---
Subjective Subjective Date of Service: 04/18/21 Interval History: Possible hypersensitivity pneumonitis Review of Systems still sob but seems imptoving , has cough Denies any new complaint of chest pain or abdominal pain or fever or chills or nausea or vomiting Denies any weakness or numbness. Physical Exam Vital Signs: Vital Signs: Last Vital Signs Temp 98.0 F 04/18/21 07:59 Pulse 79 04/18/21 07:59 Resp 18 04/18/21 07:59 BP 119/75 04/18/21 07:59 Pulse Ox 96 04/18/21 07:59 Body Mass Index 32.3 Alert.? Oriented X3.? not in distress.? Eyes: Pupils equal, round and reactive to light.? Sclera nonicteric.? ENT: Pharynx normal.? Moist mucous membranes. cvs: rrr, [id number] , no murmur res: has b/l wheezing abd: no rebound or guarding ,nt, bs present. ext pulses present , no cyanosis ,Gait well balanced well coordinated.trace edema neuro: axo3 , nonfocal. Objective Data Active Medications Acetaminophen/Butalbital/Caffeine (Butalb/Acetamin/Caff 50/325/40 Tablet) 1 tab PO Q4H PRN PRN Reason: Headache Albuterol/Ipratropium (Albuterol/Iprat 2.5/0.5mg 3 Ml Ampul.Neb) 3 ml INHALE Q3H PRN PRN Reason: sob Albuterol/Ipratropium (Albuterol/Iprat 2.5/0.5mg 3 Ml Ampul.Neb) 3 ml INHALE RQ4H [facility] Last Admin: 04/18/21 11:14 Dose: 3 ml Documented by: NOÉ Azithromycin (Azithromycin 500 Mg Tablet) 500 mg PO Q24H [facility] Last Admin: 04/17/21 12:30 Dose: 500 mg Documented by: NATASHA Benzonatate (Benzonatate 100 Mg Capsule) 100 mg PO TID PRN PRN Reason: Cough Last Admin: 04/16/21 17:58 Dose: 100 mg Documented by: NATASHA Cefuroxime Axetil (Cefuroxime Axetil 500 Mg Tablet) 500 mg PO Q12H [facility] Last Admin: 04/18/21 00:30 Dose: 500 mg Documented by: SANIYA Docusate Sodium (Docusate Sodium 100 Mg Capsule) 100 mg PO BEDTIME [facility] Last Admin: 04/17/21 21:19 Dose: 100 mg Documented by: SANIYA Enoxaparin Sodium (Enoxaparin Sodium 40 Mg/0.4 Ml Syringe) 40 mg SUBCUT Q24H [facility] Last Admin: 04/17/21 16:17 Dose: 40 mg Documented by: NATASHA Famotidine (Famotidine 20 Mg Tablet) 20 mg PO BID [facility] Last Admin: 04/18/21 08:35 Dose: 20 mg Documented by: LORRI Fluticasone Propionate (Fluticasone Propionate 250 Mcg Blst.W.Dev) 2 puff INHALE RBID [facility] Last Admin: 04/18/21 07:44 Dose: 2 puff Documented by: NOÉ Fluticasone Propionate (Fluticasone Propionate Nasal 16 Gm [place]) 2 spray NOSTRIL-B BID [facility] Last Admin: 04/18/21 08:35 Dose: 2 spray Documented by: LORRI Fluticasone/Vilanterol (Fluticasone/Vilanterol 200/25 Blst.W.Dev) 1 puff INHALE RDAILY [facility] Last Admin: 04/18/21 07:44 Dose: 1 puff Documented by: NOÉ Guaifenesin (Guaifenesin [place] 600 Mg Tab.Er.12h) 600 mg PO BID [facility] Last Admin: 04/18/21 08:35 Dose: 600 mg Documented by: LORRI Hydromorphone HCl (Hydromorphone Hcl 4 Mg Tablet) 8 mg PO Q4H PRN PRN Reason: pain Last Admin: 04/18/21 08:37 Dose: 8 mg Documented by: LORRI Lactated Ringer's (Lr) 1,000 mls @ 80 mls/hr IVCONT .[id number] [facility] Last Admin: 04/18/21 03:19 Dose: 80 mls/hr Documented by: SANIYA Levothyroxine Sodium (Levothyroxine Sodium 88 Mcg Tablet) 88 mcg PO DAILY@0600 [facility] Last Admin: 04/18/21 05:15 Dose: 88 mcg Documented by: SANIYA Lorazepam (Lorazepam 1 Mg Tablet) 1 mg PO Q6H PRN PRN Reason: Anxiety Last Admin: 04/17/21 21:20 Dose: 1 mg Documented by: SANIYA Magnesium Oxide (Magnesium Oxide 400 Mg Tablet) 400 mg PO DAILY [facility] Last Admin: 04/18/21 08:35 Dose: 400 mg Documented by: LORRI Methylprednisolone Sodium Succinate (Methylprednisolone Sod Succ 40 Mg/Ml Vial) 40 mg IVPUSH BID [facility] Last Admin: 04/18/21 08:35 Dose: 40 mg Documented by: LORRI Montelukast Sodium (Montelukast Sodium 10 Mg Tablet) 10 mg PO BEDTIME [facility] Last Admin: 04/17/21 21:19 Dose: 10 mg Documented by: SANIYA Neomycin/Polymyxin/Hydrocortisone (Neomycin/Polymyxin/Hc Otic [place] Bottle) 4 drop EAR-LEFT BID [facility] Last Admin: 04/18/21 08:35 Dose: 4 drop Documented by: LORRI Ondansetron HCl (Ondansetron Hcl 4 Mg/2 Ml Vial) 4 mg IVPUSH Q8H PRN PRN Reason: Nausea Last Admin: 04/18/21 09:39 Dose: 4 mg Documented by: LORRI Pharmacy Consult (Consult Rx Perform Med Rec) 1 each MISCELLANE ONCE PRN PRN Reason: Consult order Polyethylene Glycol (Polyethylene Glycol 3350 17 Gm Powd.Pack) 17 gm PO BID [facility] Last Admin: 04/18/21 08:34 Dose: 17 gm Documented by: LORRI Risperidone (Risperidone 1 Mg Tablet) 1 mg PO BEDTIME [facility] Last Admin: 04/17/21 21:19 Dose: 1 mg Documented by: SANIYA Sodium Bicarbonate (Sodium Bicarbonate 650 Mg Tablet) 650 mg PO TID [facility] Last Admin: 04/18/21 08:35 Dose: 650 mg Documented by: LORRI Sodium Chloride (0.9 % Sodium Chloride Flush 3 Ml Syringe) 3 ml IVFLUSH QSHIFT [facility] Last Admin: 04/18/21 08:34 Dose: 3 ml Documented by: LORRI Tiotropium [place] (Tiotropium [place] 18 Mcg Cap.W.Dev) 2 puff INHALE RDAILY [facility] Last Admin: 04/18/21 07:43 Dose: 2 puff Documented by: NOÉ Topiramate (Topiramate 100 Mg Tablet) 200 mg PO BEDTIME [facility] Last Admin: 04/17/21 21:19 Dose: 200 mg Documented by: SANIYA Topiramate (Topiramate 100 Mg Tablet) 300 mg PO DAILY [facility] Last Admin: 04/18/21 08:35 Dose: 300 mg Documented by: LUCASL Labs CBC & Chem 7: 04/16/21 06:19 04/18/21 06:09 Labs: Laboratory Results - last 24 hr 04/18/21 06:09 Anion Gap 13 Estim Creat Clear Calc 112.7 Estimated GFR > 60 Random Glucose 105 Calcium 9.3 TSH 0.27 L Microbiology Microbiology Results: Microbiology 04/17/21 17:22 Gram Stain - Final Sputum - Expectorated Sputum Culture - Final 04/16/21 08:08 Throat Culture - Final Throat No Group A Beta-hemolytic Streptococci isolated. 04/15/21 15:06 Blood Culture - Preliminary Blood - Venous No growth after 48 hours. 04/15/21 14:26 Blood Culture - Preliminary Blood - Venous No growth after 48 hours. 04/15/21 15:06 Urine Culture - Final Urine clean catch - Urine andrews top 04/16/21 08:08 Gram Stain - Final Sputum - Expectorated Sputum Culture - Final Assessment and Plan (1) Acute respiratory failure with hypoxia: Status: Acute (2) Bronchitis: Status: Acute (3) Tachycardia: Status: Acute Assessment and Plan: 45-year-old female with a past medical history of GERD, asthma presented to the hospital with a chief complaint of cough and shortness of breath.? Noted to have multifocal pneumonia. Acute hypoxemic respiratory failure secondary to possible hypersensitivity pneumonitis, ? possible acute? bronchitis Lab imaging reviewed and personally interpreted-WBC count of 11, mild tachycardia, lactic acid normal CT showed? NO PE or clear cut pneumonia Procalcitonin level low 0.02,Blood cultures preliminaries negative at 48 hour, sputum culture resent, thought culture also pending., ? and Legionella antigen, res panel neg T. candidius, T. vulgaris, aspergillosis, microscope serology pending sob some improving Continue ceftriaxone and azithromycin day3, Pulmonary evaluation for possible bronchoscopy. Acute asthma exacerbation:? Continue DuoNebs standing and p.r.n.,iv? Solumedrol History of complex regional pain syndrome:? Patient on dilaudid and Topamax at home--continue History of hypothyroidism:? Continue levothyroxine Constipation: colate, miralax, fiber obesity:? Encouraged for weight lost, nutrition, consider outpatient bariatric evaluation. Tachycardia : sinus tachy,seems multifactorial -sob, dehydration anxiety: Added TSH pending seems improvinf , continue gentle hydration , anxiety meds GI prophylaxis:? pepcid DVT prophylaxis:? Lovenox Quality Stroke Does the patient have a stroke diagnosis?: No VTE Prior VTE?: No VTE Risk Level:: Medical - moderate - high VTE Device Contraindication: N/A - Device Ordered VTE Drug Contraindication: N/A - Med Ordered
[2021-04-18 11:36] LABS: Alanine Aminotransferase 15 U/L (0-31); Alkaline Phosphatase 53 U/L (39-117); Aspartate Amino Transferase 10 U/L (5-31); Bilirubin Direct < 0.2 mg/dL (0.0-0.5); Bilirubin Total 0.3 mg/dL (0.0-1.0); Total Protein 6.8 g/dL (6.5-8.0)
[2021-04-18 11:56] LABS: Free T4 (Free Thyroxine) 1.01 ng/dL (0.71-1.85)
[2021-04-18] MEDS: Azithromycin 500 MG TABLET PO (12:04)
[2021-04-18] MEDS: Butalb/Acetamin/Caff 50/325/40 TABLET 1 TAB PO (12:08)
[2021-04-18] MEDS: Enoxaparin Sodium 40 MG/0.4 ML SYRINGE SUBCUT (16:46)
[2021-04-18] MEDS: LORazepam 1 MG TABLET PO (17:49)
[2021-04-18] MEDS: Montelukast Sodium 10 MG TABLET PO (22:03)
[2021-04-18] MEDS: risperiDONE 1 MG TABLET PO (22:03)
[2021-04-18] MEDS: Docusate Sodium 100 MG CAPSULE PO (22:03)
[2021-04-18] MEDS: Topiramate 100 MG TABLET 200 MG PO (22:03)
[2021-04-19] MEDS: LORazepam 1 MG TABLET PO
[2021-04-19] MEDS: Lactated Ringers 1,000 ML 80 ML IVCONT (02:31)
[2021-04-19 04:00] VITALS: BP 106/59; PULSE 108; RESP 20; TEMP 37.1; O2SAT 91
[2021-04-19] MEDS: Levothyroxine Sodium 88 MCG TABLET PO (05:03)
[2021-04-19 06:54] LABS: Hematocrit 41.5 % (37-47); Hemoglobin 13.4 g/dl (12.0-16.0); Mean Corpuscular HGB Conc 32.3 g/dl (31.0-35.0); Mean Corpuscular Hemoglobin 29.9 pg (27.0-33.0); Mean Corpuscular Volume 92.6 fL (80-98); Mean Platelet Volume 10.1 fL (9.4-12.3); Platelet Count 285 X10*3/uL (160-400); Red Blood Count 4.48 X10*6/uL (4.20-5.50); Red Cell Distribution Width 13.4 % (11.0-16.0)
[2021-04-19 07:06] LABS: Anion Gap 13 (12-20); Blood Urea Nitrogen 9 mg/dL (9-16); Calcium 8.9 mg/dL (8.4-10.2); Carbon Dioxide 20 mmol/L (22-29); Chloride 109 mmol/L (96-108); Creatinine Clr Calc Pharmacy 106.6; Estimated Glomerular Filt Rate > 60; Glucose Random 109 mg/dL (60-115); Sodium 138 mmol/L (135-145)
[2021-04-19] MEDS: NeoMYCIN/Polymyxin/HC Otic Sol BOTTLE 4 DROP EAR-LEFT (07:49)
[2021-04-19] MEDS: Fluticasone Propionate Nasal 16 GM SPRAY 2 SPRAY NOSTRIL-B (07:49)
[2021-04-19] MEDS: methylPREDNISolone Sod Succ 40 MG/ML VIAL IVPUSH (07:51)
[2021-04-19] MEDS: Sodium Bicarbonate 650 MG TABLET PO (07:52)
[2021-04-19] MEDS: Topiramate 100 MG TABLET 300 MG PO (07:52)
[2021-04-19] MEDS: Famotidine 20 MG TABLET PO (07:52)
[2021-04-19] MEDS: Magnesium Oxide 400 MG TABLET PO (07:53)
[2021-04-19] MEDS: guaiFENesin LA 600 MG TAB.ER.12H PO (07:53)
[2021-04-19 07:55] VITALS: BP 109/62; PULSE 82; RESP 20; TEMP 36.9; O2SAT 95
[2021-04-19] MEDS: Albuterol/Iprat 2.5/0.5MG 3 ML AMPUL.NEB INHALE ×2 (08:13→11:10)
[2021-04-19] MEDS: Fluticasone Propionate 250 MCG BLST.W.DEV 2 PUFF INHALE (08:13)
[2021-04-19 08:17] VITALS: PULSE 107; O2SAT 99
[2021-04-19 11:13] VITALS: PULSE 12; O2SAT 98
--- NOTE | 2021-04-19 11:25 | MHC.CM.PN ---
pt dcd home no skilled servdsies ordered by
[2021-04-19] MEDS: Azithromycin 500 MG TABLET PO (12:14)
--- NOTE | 2021-04-19 14:21 | PM.DS ---
DS: Providers Provider Date of Service: 04/19/21 Date of admission: 04/15/21 17:19 Primary care physician: MARITZA Pandey Consults: 04/15/21 17:06 Consult to Pulmonology Stat Consulting Provider: Erich Turner Reason for consultation: pneumonitis, asthma 04/15/21 18:47 Consult to Pulmonology Routine Consulting Provider: Erich Turner Reason for consultation: Acute hypoxemic respiratory failure secondary to possible hypersensitivity Has provider been notified: No DS: Diagnosis Discharge Diagnosis (1) Acute respiratory failure with hypoxia: Status: Acute (2) Bronchitis: Status: Acute (3) Tachycardia: Status: Acute DS: Summary Hospital Course Hospital Course: Chief Complaint: asthma /pneumonitis 46-year-old female who has history of acute hypoxemic respiratory failure secondary to multifocal pneumonia/possible hypersensitivity pneumonitis for which she she was treated with antibiotics and steroids in December 2020:? And outpatient follows up with Dr. Hodges. She said she went to camping on [address] a week back-she started having shortness of breath and worsening cough over there and she came few days back since then she is having progressive worsening of shortness of breath and cough and has pleuritic discomfort when she coughs. She said her shortness of breath worsen with exertion now also.? She tried her home medications inhalers, nebs-which did not help so decided to come to the hospital. Cough centeno she brings up clear thick sputum. At baseline she uses oxygen only as needed but she said she was bumped up to 3 L even with little activity.? She is also on p.o. prednisone 10 mg at baseline. ?She saw Dr. Hodges from pulmonology about 1 month ago, plan is to repeat CT scan and possible bronchoscopy for evaluation of possible hypersensitivity pneumonitis. She denies any sick contacts. She feels little nauseous.? Generalized weak. Denies any new complaint of chest pain? or abdominal pain or fever or chills or vomiting Denies any weakness or numbness. 45-year-old female with a past medical history of GERD, asthma presented to the hospital with a chief complaint of cough and shortness of breath and diagnosed to have acute hypoxic respiratory failure secondary to asthma exacerbation ,CT chest showed?no PE or pneumonia, Procalcitonin level low 0.02,Blood cultures negative x 48 hour, respiratory viral panel neg. Patient treated with steroids, updraft treatment and antibiotics with good response, shortness of breath has improved she complains of chest pain with coughing recommended cough syrup and Deep breathing. Patient seen by Dr. Turner he reviewed imaging studies and found no evidence of pneumonitis or pneumonia therefore no further intervention was required. She noted to have tachycardia likely related to updraft treatment and low TSH therefore dose of Synthroid has been lowered to 75 mcg daily. In regard to chronic medical issues including history of complex regional pain syndrome she has been recommended to continue home medication In regard to obesity encourage weight loss/low-calorie diet Time Spent with Patient Time attestation: Total time spent providing and/or coordinating discharge services: Discharge coordination time: Greater than 30 minutes Quality: Stroke Does the patient have a stroke diagnosis?: No Physical Exam Vital Signs: Vital Signs: Last Vital Signs Temp 98.4 F 04/19/21 07:55 Pulse 12 L 04/19/21 11:13 Resp 20 04/19/21 07:55 BP 109/62 04/19/21 07:55 Pulse Ox 95 04/19/21 07:55 Body Mass Index 32.3 General alert oriented x3,no acute distress. Neck supple, no JVD. CVS regular rate rhythm, Respiratory lungs clear to auscultation, no respiratory distress, no wheeze, no rhonchi. Gastrointestinal abdomen soft, nontender, bowel sounds audible, no guarding , no rigidity. Extremities no edema. Neuro nonfocal ,speech clear. Skin no rash Psych appropriate affect DS: Data Data Completed and Pending Labs on day of discharge: Laboratory Results - last 24 hr 04/19/21 04/19/21 05:59 05:59 WBC 11.0 H RBC 4.48 Hgb 13.4 Hct 41.5 MCV 92.6 MCH 29.9 MCHC 32.3 RDW 13.4 Plt Count 285 MPV 10.1 Absolute Nucleated RBC 0.000 Nucleated RBC % (auto) 0.0 Sodium 138 Potassium 4.0 Chloride 109 H Carbon Dioxide 20 L Anion Gap 13 BUN 9 Creatinine 0.74 Estim Creat Clear Calc 106.6 Estimated GFR > 60 Random Glucose 109 Calcium 8.9 Preliminary micro results at discharge 04/15/21 15:06 Blood Culture - Preliminary Blood - Venous No growth after 48 hours. 04/15/21 14:26 Blood Culture - Preliminary Blood - Venous No growth after 48 hours. Discharge Plan Discharge Patient Disposition: Home, Self-Care Discharge Diagnosis: Acute asthma exacerbation Acute on chronic respiratory failure Referrals: Sreedhar Sharma PA [Primary Care Provider] - 1 Week Discharge Medications: New levothyroxine 75 mcg capsule 75 mcg PO DAILY Qty: 30 RF: 0 azithromycin 500 mg Tablet 500 mg PO Q24H Qty: 2 RF: 0 Continued omeprazole magnesium 20 mg capsule,delayed release(DR/EC) 20 mg PO DAILY 90 Days Qty: 90 RF: 3 albuterol sulfate 2.5 mg /3 mL (0.083 %) solution for nebulization 2.5 mg inhalation Q4H PRN (Reason: shortness of breath or wheezing) 30 Days Qty: 360 RF: 11 montelukast [Singulair] 10 mg tablet 10 mg PO BEDTIME Qty: 30 RF: 3 prednisone 10 mg tablet 10 mg PO DAILY 30 Days Qty: 30 RF: 3 oxazepam 10 mg capsule 2 - 3 cap PO Q3-4H PRN (Reason: Pain) RF: 0 ethynodiol diac-eth estradiol [[place] (28)] 1-35 mg-mcg tablet 1 tab PO DAILY RF: 0 acetaminophen 500 mg tablet 1 tab PO Q6H PRN (Reason: pain) RF: 0 sodium bicarbonate 650 mg tablet 1 tab PO TID RF: 0 topiramate 200 mg tablet 300 mg PO DAILY RF: 0 albuterol sulfate [ProAir HFA] 90 mcg/actuation HFA aerosol inhaler 2 puff inhalation Q4H PRN (Reason: Wheezing) RF: 0 risperidone 1 mg tablet 1 tab PO BEDTIME RF: 0 budesonide-formoterol [Symbicort] 160-4.5 mcg/actuation HFA aerosol inhaler 2 puff inhalation BID RF: 0 diclofenac sodium 1 % gel 4 g topical DAILY PRN (Reason: Pain) RF: 0 Spiriva Respimat 2.5 mcg/actuation mist 2 puff inhalation DAILY RF: 0 fluticasone propionate 50 mcg/actuation [place],Suspension 2 spray INTRANASAL BID RF: 0 hydromorphone 8 mg tablet 8 mg PO Q4H RF: 0 topiramate 200 mg tablet 200 mg PO BEDTIME RF: 0 psyllium husk [Metamucil] 0.4 gram Capsule 0.4 g PO BID RF: 0 magnesium 250 mg tablet 500 mg PO DAILY RF: 0 guaifenesin [Mucinex] 600 mg tablet extended release 12hr 600 mg PO BID RF: 0 Discontinued levothyroxine 88 mcg tablet 1 tab PO DAILY RF: 0 Flovent HFA 220 mcg/actuation HFA aerosol inhaler 2 puff inhalation BID RF: 0 Discharge Orders: Discharge Order (Routine); Ordered 04/19/21 Ordered By: Nathan Ramirez Diet: low fat, low cholesterol Activity on Discharge: As tolerated Stand Alone Forms: Patient Portal Discharge page Care Plan Goals: stop Flovent since on Symbicort, reduce dose of Synthroid to 75 mcg likely contributing to tachycardia, take DuoNeb updraft 4 times a day for next couple days, and then as needed as before continue home oxygen as before Health Concerns: Wean narcotics Plan of Treatment: Outpatient follow-up with primary care physician and pulmonology in 1-2 weeks Assessment: As above Discharge Date/Time: 04/19/21 12:56
[2021-04-20 20:26] LABS: Strep Pneumo Ag urine Not Detected (Not Detected)
[2021-04-21 11:47] LABS: Legionella Ag Urine Not Detected (Not Detected)
[2021-04-21 11:47] LABS: Legionella Ag Urine Not Detected (Not Detected)
[2021-04-22 20:05] LABS: Asperg fumigatus Precip Abs NEGATIVE (NEGATIVE); Micropoly faeni Abs NEGATIVE (NEGATIVE); Pigeon serum Abs NEGATIVE (NEGATIVE); Saccharo pora viridis Abs NEGATIVE (NEGATIVE); Thermo candidus Abs NEGATIVE (NEGATIVE); Thermoa vulgaris #1 NEGATIVE (NEGATIVE)
== END 2021-04-19 12:56 | disposition home or self-care (01) | DRG 142 ==
LOC: HO.ED 14:15 → HO.EDOVER 17:25 → HO.IMC 19:23
PROVIDERS: Hospitalist; Physician Assistant; Admitting Provider Internal Medicine; Emergency Provider Emergency Medicine; PCP Physician Assistant; Visit Provider Hospitalist
DX: J67.9 Hypersensitivity pneumonitis due to unspecified organic dust (principal); J96.01 Acute respiratory failure with hypoxia; J45.901 Unspecified asthma with (acute) exacerbation; J20.9 Acute bronchitis, unspecified; Z20.822 Contact with and (suspected) exposure to COVID-19; E66.9 Obesity, unspecified; K21.9 Gastro-esophageal reflux disease without esophagitis; Z68.32 Body mass index [BMI] 32.0-32.9, adult; R00.0 Tachycardia, unspecified; G89.4 Chronic pain syndrome; E03.9 Hypothyroidism, unspecified; K59.00 Constipation, unspecified; Z79.51 Long term (current) use of inhaled steroids; Z87.891 Personal history of nicotine dependence; Z88.2 Allergy status to sulfonamides; Z79.890 Hormone replacement therapy; Z79.899 Other long term (current) drug therapy
CPT/HCPCS: 36415; 71045; 71275; 80048; 80076; 81001; 82947; 83036; 83605; 83615; 83735; 83880; 84145; 84439; 84443; 84484; 85025; 85027; 86331; 86606; 86609; 87040; 87070; 87071; 87086; 87205; 87449; 87633; 87635; 87899; 93005; 94640; 94644; 96365; 96367; 96375; 99285; 99291; J0456; J0696; J1650; J2405; J2920; Q9967

== ENCOUNTER → 2021-04-27 13:51 | Outpatient (BNVA) | payer OTHER, SELFPAY | PROVIDERS: PCP Physician Assistant; Visit Provider Internal Medicine ==

== ENCOUNTER → 2021-06-28 14:26 | Outpatient (BNVA) | payer OTHER, SELFPAY | PROVIDERS: PCP Physician Assistant; Visit Provider Internal Medicine ==

== ENCOUNTER 2021-07-22 12:41 | Outpatient (REF) | payer OTHER, SELFPAY ==
--- NOTE | 2021-07-22 17:38 | PFT_ITS ---
Forced vital capacity 82%, FEV1 of 82%, FEV1/FVC ratio is 80%, FEF 25-75 is 77% and MVV 76%. Postbronchodilator therapy, there is a slight improvement in FEF 25-75 and MVV. Total lung capacity 96 and residual volume 109, both normal. Diffusion capacity 75%, normal. IMPRESSION: Normal pulmonary function test. There is no evidence of any obstructive or restrictive pulmonary disorder. MD OLYA Bray/[place] / [id number]
== END 2021-07-22 12:42 | disposition home or self-care (01) ==
LOC: HO.RESP 12:41
PROVIDERS: PCP Physician Assistant; Visit Provider Internal Medicine
DX: J44.9 Chronic obstructive pulmonary disease, unspecified (principal); R06.00 Dyspnea, unspecified
CPT/HCPCS: 94060; 94727; 94729

== ENCOUNTER → 2021-08-09 13:54 | Outpatient (BNVA) | payer OTHER, SELFPAY | PROVIDERS: PCP Physician Assistant; Visit Provider Internal Medicine ==

== ENCOUNTER 2021-11-18 14:59 | Inpatient (IN) | payer OTHER, SELFPAY ==
--- NOTE | ~2021-11-18 | XR_ITS ---
EXAMINATION: XR CHEST CLINICAL INFORMATION: Cough, shortness of breath, rule out pneumonia COMPARISON: Chest CT on 04/15/21 TECHNIQUE: 2 views of the chest were obtained. FINDINGS: The cardiac silhouette is normal. There is mild diffuse bronchial wall thickening. There are no areas of consolidation. There are no pleural effusions or pneumothoraces. The bones and soft tissues are unremarkable for the patient's age. XR/XR chest 2V IMPRESSION: Bronchial wall thickening which may be infectious/inflammatory in etiology.
[2021-11-18 15:52] VITALS: BP 123/49; PULSE 92; RESP 22; TEMP 36.9; O2SAT 98
--- NOTE | 2021-11-18 16:54 | ED.SOB ---
HPI - SOB/Dyspnea General Chief Complaint: Dyspnea Stated Complaint: SOB/on oxygen Time Seen by Provider: 11/18/21 16:52 Source: patient Mode of arrival: ambulatory Limitations: no limitations History of Present Illness HPI Narrative: 46-year-old female who presents emergency department for evaluation shortness of breath, dyspnea on exertion, chest pain and a nonproductive cough. The patient states that she went to [place] for vacation and return 3 days prior. She states that they broke up the return car trip into 2 legs, the 1st leg was 9 hours and the 2nd leg was 7 hours. She states that they stopped every 2 hours to move around since she has chronic right-sided body pain secondary to reflex sympathetic dystrophy and cannot stand car for more than 2 hours. She states that approximately 5 days ago, while she was in [place], she started to feel short of breath. She does have a history of asthma and COPD and has oxygen to 3 L p.r.n. She states that 5 days prior she had to wear her oxygen continually. She states that it was very hot and humid in [place]. She states that over the past 5 days she has had intermittent chest pressure, she points to her anterior chest, she states that the pain is 5/10 at its worst, the pain is worse with breathing with lying down flat. She states that she is short of breath at rest. She also has significant dyspnea on exertion and can walk only about 10-15 feet before she gets winded. She has a persistent, dry, nonproductive cough that causes her to vomit. She did have a subjective fever at home but did not take her temperature. She denied chills. She states that she has noted symmetric swelling of her lower extremities but she states this is not unusual for her. She states that she has significant viral mental allergies and this is caused her to have rhinorrhea. The patient had a similar presentation and was hospitalized 04/15/21 until 04/19/2021 with shortness of breath, dyspnea exertion cough after returning from [place]. She was diagnosed with acute respiratory failure with hypoxia, bronchitis and tachycardia. At that time was felt that she had either acute hypersensitivity pneumonitis versus acute bronchitis is the cause for symptoms. She is currently not taking steroids. MD elicited complaint: shortness of breath, cough, pain with inspiration and chest pain Pertinent past history: COPD and asthma Onset (ago): day(s) (5) Context: occurred during exertion, allergen exposure and recent travel Timing: intermittent and progressively worsening Severity: severe Exacerbating factors: lying flat, exertion, coughing, inspiration, warm air and humidity Relieving factors: nothing Known history of: COPD and asthma Associated symptoms: chest pain, pain with inspiration, cough, nausea/vomiting and other (Rhinorrhea) Treatment prior to arrival: oxygen and bronchodilator Related Data Home oxygen amount: 3 liters (Usually p.r.n. but is now wearing 3 L continuously) Home Medications Medication Instructions Recorded Confirmed acetaminophen 500 mg tablet 1 tab PO Q6H PRN 01/15/21 04/27/21 albuterol sulfate 90 mcg/actuation 2 puff INHALATION Q4H PRN 01/15/21 04/27/21 aerosol inhaler (ProAir HFA) diclofenac sodium 1 % topical gel 4 g TOPICAL DAILY PRN 01/15/21 04/27/21 ethynodiol diacetate-ethinyl 1 tab PO DAILY 01/15/21 04/27/21 estradiol 1 mg-35 mcg tablet (Kelnor) oxazepam 10 mg capsule 2 - 3 cap PO Q3-4H PRN 01/15/21 04/27/21 risperidone 1 mg tablet 1 tab PO BEDTIME 01/15/21 04/27/21 sodium bicarbonate 650 mg tablet 1 tab PO TID 01/15/21 04/27/21 topiramate 200 mg tablet 300 mg PO DAILY 01/15/21 04/27/21 fluticasone propionate 50 2 spray INTRANASAL BID 01/17/21 04/27/21 mcg/actuation nasal spray,suspension guaifenesin 600 mg tablet, 600 mg PO BID 02/07/21 04/27/21 extended release 12 hr (Mucinex) magnesium 250 mg tablet 500 mg PO DAILY tab 02/07/21 04/27/21 psyllium husk 0.4 gram capsule 0.4 g PO BID 04/15/21 04/27/21 (Metamucil) topiramate 200 mg tablet 200 mg PO BEDTIME 04/15/21 04/27/21 morphine 30 mg immediate release 30 mg PO Q4H PRN tab 06/28/21 tablet fluticasone fur. 200 mcg-umeclid 1 inh INHALATION DAILY 08/09/21 62.5 mcg-vilant 25 mcg inhalat.powder (Trelegy Ellipta) Previous Rx's Medication Instructions Recorded omeprazole magnesium 20 mg 20 mg PO DAILY 90 Days #90 cap 09/13/20 capsule,delayed release levothyroxine 75 mcg capsule 75 mcg PO DAILY #30 cap 04/19/21 montelukast 10 mg tablet 10 mg PO BEDTIME #90 tab 06/27/21 albuterol sulfate 2.5 mg (3 mL) INHALATION Q4H PRN 06/28/21 30 Days #360 ml Allergies Allergy/AdvReac Type Severity Reaction Status Date / Time sulfamethoxazole Allergy Severe Shortness Verified 11/18/21 15:52 [From Bactrim] of Breath trimethoprim [From Bactrim] Allergy Severe Shortness Verified 11/18/21 15:52 of Breath wheat [WHEAT] Allergy Intermediate DIARRHEA Verified 11/18/21 15:52 Review of Systems Review of Systems: Yes all other systems are reviewed and are negative FORMERLY [facility], [facility] Past Medical History FOR[facility]LY [facility], [facility] Narrative: Social history: She denies tobacco use. She is a former smoker. She stop smoking in 1998. She smoked up to 2 packs per day for 20 years. She states she rarely drinks alcohol. She denies drug use. Medical History Allergic rhinitis Asthma Asthma Asthma Asthma exacerbation COPD (chronic obstructive pulmonary disease) Marcus's thyroiditis Hypoxemia Social History Social History Household Members: Spouse Housing: House Do you presently have visiting nurse or other home services: No Alcohol intake: never Patient Tobacco Use Status: Former Tobacco user Cigarette Packs Per Day: 1.5 Cigarettes Per Day: 30 Years Smoked: 12 Advance Directives: Yes Advance Directives on File: Yes Advance Directives Date on File: 04/15/21 service: No Current occupational status: unemployed Physical Exam Vital Signs: Vital Signs: Last Vital Signs Temp 98 F 11/18/21 20:06 Pulse 126 H 11/18/21 20:06 Resp 16 11/18/21 20:06 BP 103/55 L 11/18/21 18:00 Pulse Ox 99 11/18/21 20:06 BMI result Body Mass Index 30.0 Course Course Course Narrative: 46-year-old female who presents emergency department for evaluation of pleuritic chest pressure, dry, nonproductive cough shortness of breath dyspnea on exertion, rhinorrhea and lower extremity swelling. The patient's symptoms started 5 days prior while she was vacationing in [place]. She returned 3 days later (this was a 16 hour trip broken up to 2 legs). The patient had similar symptoms 04/15/2021 when she went to [place] and was hospitalized for 4 days with respiratory failure with hypoxia, pneumonitis verses acute bronchitis. Initial vital signs did reveal an elevated respiratory rate of 22 otherwise was unremarkable. Lung exam was clear to auscultation. I did order laboratory evaluation to include CBC, CMP, CRP, ESR, procalcitonin, blood cultures x2, PT/INR, PTT and D-dimer. Based on the D-dimer I will either obtain a CT pulmonary angiogram PE protocol or a chest x-ray. Patient was ordered to get Solu-Medrol 125 mg IV and morphine 4 mg IV for pain. 1844: CBC was normal. Chemistries need to be redrawn secondary to hemolysis. D-dimer was not elevated therefore I will obtain a chest x-ray. The patient was ordered to get an albuterol nebulizer 5 mg and I will treat the patient with antibiotics-ceftriaxone 1 g IV and azithromycin 5 mg IV. 2048: I did discuss the patient over tiger text with the covering hospitalist, Dr. Teran and the patient will be admitted for further management. MDM - SOB/Dyspnea Lab Data Result diagrams: 11/18/21 17:46 11/18/21 19:20 Labs: Lab Results 11/18/21 11/18/21 11/18/21 Range/Units 17:45 17:45 17:45 WBC (4.8-10.8) X10*3/uL RBC (4.20-5.50) X10*6/uL Hgb (12.0-16.0) g/dl Hct (37.0-47.0) % MCV (80.0-98.0) fL MCH (27.0-33.0) pg MCHC (31.0-35.0) g/dl RDW (11.0-16.0) % Plt Count (160-400) X10*3/uL MPV (9.4-12.3) fL Immature Gran % (Auto) (0.0-0.4) % Neut % (Auto) (45-73) % Lymph % (Auto) (20-40) % [place] % (Auto) (2-11) % Eos % (Auto) (0-4) % Baso % (Auto) (0-2) % Lymph # (Auto) (1.2-4.9) X10*3/uL [place] # (Auto) (0.1-1.2) X10*3/uL Eos # (Auto) (0.0-0.4) X10*3/uL Baso # (Auto) (0.0-0.2) X10*3/uL Abs Immat Gran (auto) (0.00-0.03) X10*3/uL Absolute Neuts (auto) (2.0-8.3) x10*3/uL Absolute Nucleated RBC (0.0-0.012) X10*3/uL Nucleated RBC % (auto) (0.0-0.2) /100WBC ESR (0-20) MM/HR PT 10.8 (9.9-13.0) SEC INR 1.0 (0.9-1.1) APTT 32.3 (24.1-38.0) SEC D-Dimer High Sensitivty 194 NG/ML Sodium (135-145) mmol/L Potassium (3.3-5.1) mmol/L Chloride (96-108) mmol/L Carbon Dioxide (22-29) mmol/L Anion Gap (12-20) BUN (9-16) mg/dL Creatinine (0.5-1.4) mg/dL Estim Creat Clear Calc Estimated GFR Random Glucose (60-115) mg/dL Calcium (8.4-10.2) mg/dL Total Bilirubin (0.0-1.0) mg/dL AST (5-31) U/L ALT (0-31) U/L Alkaline Phosphatase (39-117) U/L Troponin I High Sens < 3.5 (<3.5-17.0) ng/L C-Reactive Protein (< or = 0.50) mg/dL B-Natriuretic Peptide 32 (<100) pg/mL Total Protein (6.5-8.0) g/dL Albumin (3.5-5.0) g/dL Procalcitonin ng/mL COVID-19 (MARTINE) (Negative) COVID-19 Clin Com Influenza Type A (MAIN) Negative (Negative) Influenza Type B (MAIN) Negative (Negative) Influenza A & B Note See Note 11/18/21 11/18/21 11/18/21 Range/Units 17:45 17:46 17:46 WBC 5.1 (4.8-10.8) X10*3/uL RBC 4.46 (4.20-5.50) X10*6/uL Hgb 12.9 (12.0-16.0) g/dl Hct 39.7 (37.0-47.0) % MCV 89.0 (80.0-98.0) fL MCH 28.9 (27.0-33.0) pg MCHC 32.5 (31.0-35.0) g/dl RDW 13.2 (11.0-16.0) % Plt Count 229 (160-400) X10*3/uL MPV 10.1 (9.4-12.3) fL Immature Gran % (Auto) 0.4 (0.0-0.4) % Neut % (Auto) 57.1 (45-73) % Lymph % (Auto) 28.8 (20-40) % [place] % (Auto) 13.3 H (2-11) % Eos % (Auto) 0.0 (0-4) % Baso % (Auto) 0.4 (0-2) % Lymph # (Auto) 1.5 (1.2-4.9) X10*3/uL [place] # (Auto) 0.7 (0.1-1.2) X10*3/uL Eos # (Auto) 0.0 (0.0-0.4) X10*3/uL Baso # (Auto) 0.0 (0.0-0.2) X10*3/uL Abs Immat Gran (auto) 0.02 (0.00-0.03) X10*3/uL Absolute Neuts (auto) 2.9 (2.0-8.3) x10*3/uL Absolute Nucleated RBC 0.000 (0.0-0.012) X10*3/uL Nucleated RBC % (auto) 0.0 (0.0-0.2) /100WBC ESR 10 (0-20) MM/HR PT (9.9-13.0) SEC INR (0.9-1.1) APTT (24.1-38.0) SEC D-Dimer High Sensitivty NG/ML Sodium (135-145) mmol/L Potassium (3.3-5.1) mmol/L Chloride (96-108) mmol/L Carbon Dioxide (22-29) mmol/L Anion Gap (12-20) BUN (9-16) mg/dL Creatinine (0.5-1.4) mg/dL Estim Creat Clear Calc Estimated GFR Random Glucose (60-115) mg/dL Calcium (8.4-10.2) mg/dL Total Bilirubin (0.0-1.0) mg/dL AST (5-31) U/L ALT (0-31) U/L Alkaline Phosphatase (39-117) U/L Troponin I High Sens (<3.5-17.0) ng/L C-Reactive Protein (< or = 0.50) mg/dL B-Natriuretic Peptide (<100) pg/mL Total Protein (6.5-8.0) g/dL Albumin (3.5-5.0) g/dL Procalcitonin ng/mL COVID-19 (MARTINE) Negative (Negative) COVID-19 Clin Com See Note Influenza Type A (MAIN) (Negative) Influenza Type B (MAIN) (Negative) Influenza A & B Note 11/18/21 11/18/21 Range/Units 19:20 19:20 WBC (4.8-10.8) X10*3/uL RBC (4.20-5.50) X10*6/uL Hgb (12.0-16.0) g/dl Hct (37.0-47.0) % MCV (80.0-98.0) fL MCH (27.0-33.0) pg MCHC (31.0-35.0) g/dl RDW (11.0-16.0) % Plt Count (160-400) X10*3/uL MPV (9.4-12.3) fL Immature Gran % (Auto) (0.0-0.4) % Neut % (Auto) (45-73) % Lymph % (Auto) (20-40) % [place] % (Auto) (2-11) % Eos % (Auto) (0-4) % Baso % (Auto) (0-2) % Lymph # (Auto) (1.2-4.9) X10*3/uL [place] # (Auto) (0.1-1.2) X10*3/uL Eos # (Auto) (0.0-0.4) X10*3/uL Baso # (Auto) (0.0-0.2) X10*3/uL Abs Immat Gran (auto) (0.00-0.03) X10*3/uL Absolute Neuts (auto) (2.0-8.3) x10*3/uL Absolute Nucleated RBC (0.0-0.012) X10*3/uL Nucleated RBC % (auto) (0.0-0.2) /100WBC ESR (0-20) MM/HR PT (9.9-13.0) SEC INR (0.9-1.1) APTT (24.1-38.0) SEC D-Dimer High Sensitivty NG/ML Sodium 135 (135-145) mmol/L Potassium 3.8 (3.3-5.1) mmol/L Chloride 107 (96-108) mmol/L Carbon Dioxide 20 L (22-29) mmol/L Anion Gap 12 (12-20) BUN 5 L (9-16) mg/dL Creatinine 0.76 (0.5-1.4) mg/dL Estim Creat Clear Calc 93.2 Estimated GFR > 60 Random Glucose 98 (60-115) mg/dL Calcium 9.2 (8.4-10.2) mg/dL Total Bilirubin 0.5 (0.0-1.0) mg/dL AST 22 D (5-31) U/L ALT 24 (0-31) U/L Alkaline Phosphatase 75 D (39-117) U/L Troponin I High Sens (<3.5-17.0) ng/L C-Reactive Protein 2.72 H (< or = 0.50) mg/dL B-Natriuretic Peptide (<100) pg/mL Total Protein 7.0 (6.5-8.0) g/dL Albumin 3.9 (3.5-5.0) g/dL Procalcitonin 0.11 ng/mL COVID-19 (MARTINE) (Negative) COVID-19 Clin Com Influenza Type A (MAIN) (Negative) Influenza Type B (MAIN) (Negative) Influenza A & B Note ECG Data Attestation: I personally reviewed and interpreted this ECG as follows: Interpretation: 1814: Normal sinus rhythm with a rate of 83, normal MO, QRS and QTC intervals, no ST segment elevation, no ST segment depression, no PACs, no PVCs, no significant T-wave abnormalities, this is a normal EKG. Discharge Plan Discharge Clinical Impression: Acute exacerbation of chronic obstructive pulmonary disease Acute bronchitis Qualifiers: Bronchitis organism: unspecified organism Qualified Code(s): J20.9 - Acute bronchitis, unspecified Prescriptions: No Action omeprazole magnesium 20 mg capsule,delayed release(DR/EC) 20 mg PO DAILY 90 Days Qty: 90 3RF montelukast 10 mg tablet 10 mg PO BEDTIME Qty: 90 1RF oxazepam 10 mg capsule 2 - 3 cap PO Q3-4H PRN (Reason: Pain) 0RF ethynodiol diac-eth estradiol [Kelnor (28)] 1-35 mg-mcg tablet 1 tab PO DAILY 0RF acetaminophen 500 mg tablet 1 tab PO Q6H PRN (Reason: pain) 0RF sodium bicarbonate 650 mg tablet 1 tab PO TID 0RF topiramate 200 mg tablet 300 mg PO DAILY 0RF albuterol sulfate [ProAir HFA] 90 mcg/actuation HFA aerosol inhaler 2 puff inhalation Q4H PRN (Reason: Wheezing) 0RF risperidone 1 mg tablet 1 tab PO BEDTIME 0RF diclofenac sodium 1 % gel 4 g topical DAILY PRN (Reason: Pain) 0RF fluticasone propionate 50 mcg/actuation [place],Suspension 2 spray INTRANASAL BID 0RF topiramate 200 mg tablet 200 mg PO BEDTIME 0RF psyllium husk [Metamucil] 0.4 gram Capsule 0.4 g PO BID 0RF levothyroxine 75 mcg capsule 75 mcg PO DAILY Qty: 30 0RF magnesium 250 mg tablet 500 mg PO DAILY 0RF guaifenesin [Mucinex] 600 mg tablet extended release 12hr 600 mg PO BID 0RF morphine 30 mg tablet 30 mg PO Q4H PRN0RF Rx Instructions: 1-2 tabs every 4 hours albuterol sulfate 2.5 mg /3 mL (0.083 %) solution for nebulization 2.5 mg inhalation Q4H PRN (Reason: shortness of breath or wheezing) 30 Days Qty: 360 2RF Trelegy Ellipta 200-62.5-25 mcg blister with device 1 inh inhalation DAILY 0RF
--- NOTE | 2021-11-18 17:11 | ECG_ITS ---
Test Reason : SOB Blood Pressure : / mmHG Vent. Rate : 083 BPM Atrial Rate : 083 BPM P-R Int : 154 ms QRS Dur : 080 ms QT Int : 372 ms P-R-T Axes : 014 009 000 degrees QTc Int : 437 ms Normal sinus rhythm Normal ECG When compared with ECG of 15-APR-2021 15:01, No significant change was found Referred By: Huey Fan Electronically Signed By:Luis Miguel Ochoa
[2021-11-18] MEDS: methylPREDNISolone Sod Succ 125 MG/2 ML VIAL IVPUSH (17:52)
[2021-11-18] MEDS: Morphine Sulfate 4 MG/ML CARTRIDGE IVPUSH (17:52)
[2021-11-18 17:53] LABS: MANUAL DIFF FLAG NO
[2021-11-18 17:55] LABS: Basophils Percent Auto 0.4 % (0-2); Hematocrit 39.7 % (37.0-47.0); Hemoglobin 12.9 g/dl (12.0-16.0); Imm Gran Abs Auto 0.02 X10*3/uL (0.00-0.03); Imm Gran Pct Auto 0.4 % (0.0-0.4); Lymphocytes Absolute Auto 1.5 X10*3/uL (1.2-4.9); Lymphocytes Percent Auto 28.8 % (20-40); Mean Corpuscular HGB Conc 32.5 g/dl (31.0-35.0); Mean Corpuscular Hemoglobin 28.9 pg (27.0-33.0); Mean Platelet Volume 10.1 fL (9.4-12.3); Monocytes Absolute Auto 0.7 X10*3/uL (0.1-1.2); Monocytes Percent Auto 13.3 % (2-11); Neutrophils Absolute Auto 2.9 x10*3/uL (2.0-8.3); Neutrophils Percent Auto 57.1 % (45-73); Platelet Count 229 X10*3/uL (160-400); Red Blood Count 4.46 X10*6/uL (4.20-5.50); Red Cell Distribution Width 13.2 % (11.0-16.0); White Blood Count 5.1 X10*3/uL (4.8-10.8)
[2021-11-18 18:00] VITALS: BP 103/55; PULSE 84; RESP 81; O2SAT 99
[2021-11-18 18:04] LABS: Prothrombin Time 10.8 SEC (9.9-13.0)
[2021-11-18 18:06] LABS: D Dimer High Sensitivity 194 NG/ML; Partial Thromboplastin Time 32.3 SEC (24.1-38.0)
[2021-11-18 18:15] LABS: Influenza A Negative (Negative); Influenza B2 Negative (Negative)
[2021-11-18 18:16] LABS: COVID-19 Test Negative (Negative); IDNOW Serial# 55D5AD1C
[2021-11-18 18:26] LABS: B Type Natriuretic Peptide 32 pg/mL (<100); Troponin-I High Sensitivity < 3.5 ng/L (<3.5-17.0)
[2021-11-18 18:30] LABS: Erythrocyte Sedimentation Rate 10 MM/HR (0-20)
[2021-11-18] MEDS: Albuterol Sulfate (0.083%) 2.5 MG/3 ML VIAL.NEB 5 MG INHALE (18:58)
[2021-11-18] MEDS: cefTRIAXone sodium 1 GM in 0.9 % Sodium Chloride 50 ML IV (19:08)
[2021-11-18 19:15] VITALS: PULSE 90; RESP 14; O2SAT 100
[2021-11-18 19:45] LABS: Alanine Aminotransferase 24 U/L (0-31); Albumin Level 3.9 g/dL (3.5-5.0); Alkaline Phosphatase 75 U/L (39-117); Anion Gap 12 (12-20); Aspartate Amino Transferase 22 U/L (5-31); Bilirubin Total 0.5 mg/dL (0.0-1.0); Blood Urea Nitrogen 5 mg/dL (9-16); C Reactive Protein 2.72 mg/dL (< or = 0.50); Calcium 9.2 mg/dL (8.4-10.2); Carbon Dioxide 20 mmol/L (22-29); Chloride 107 mmol/L (96-108); Creatinine Clr Calc Pharmacy 93.2; Estimated Glomerular Filt Rate > 60; Glucose Random 98 mg/dL (60-115); Potassium 3.8 mmol/L (3.3-5.1); Sodium 135 mmol/L (135-145)
[2021-11-18] MEDS: Azithromycin 500 MG in 0.9 % Sodium Chloride 250 ML 125 MG IV (19:48)
[2021-11-18] MEDS: LORazepam 2 MG/ML VIAL 1 MG IVPUSH (20:04)
[2021-11-18 20:06] VITALS: PULSE 126; RESP 16; TEMP 36.6; O2SAT 99
--- NOTE | 2021-11-18 20:28 | PM.IMHP ---
History of Present Illness Date of Service: 11/18/21 Chief Complaint: SOB [id number] with a past medical history of asthma / COPD on home oxygen as needed, Marcus's thyroiditis, anxiety, depression presented to the hospital today with a chief complaint of shortness of breath. patient reported that she has been having shortness of breath for the past 3 days, also noted worsening shortness of breath on exertion; reports cough with no sputum production. Denies any fevers. Mentioned that she recently came back from [place]; Patient reports that her chest pain worsens on coughing. denies any numbness tingling or focal weakness. Denies any GI symptoms. Review of all other systems is negative except mentioned above ER course: Per ER team patient noted to have bilateral wheezing; concern for COPD exacerbation; given nebulizations and steroids. Patient also received azithromycin. D-dimer was negative. EKG was nonischemic. Admitted to the hospital for further management. FORMERLY [facility] Medical History Allergic rhinitis Asthma Asthma Asthma Asthma exacerbation COPD (chronic obstructive pulmonary disease) Marcus's thyroiditis Hypoxemia Social History Household Members: Spouse Housing: House Do you presently have visiting nurse or other home services: No Alcohol intake: never Patient Tobacco Use Status: Former Tobacco user Cigarette Packs Per Day: 1.5 Cigarettes Per Day: 30 Years Smoked: 12 Advance Directives: Yes Advance Directives on File: Yes Advance Directives Date on File: 04/15/21 service: No Current occupational status: unemployed Meds Allergies Allergy/AdvReac Type Severity Reaction Status Date / Time sulfamethoxazole Allergy Severe Shortness Verified 11/18/21 15:52 [From Bactrim] of Breath trimethoprim [From Bactrim] Allergy Severe Shortness Verified 11/18/21 15:52 of Breath wheat [WHEAT] Allergy Intermediate DIARRHEA Verified 11/18/21 15:52 Active Medications: Current Medications Azithromycin 500 mg/ Sodium (Chloride) 250 mls @ 125 mls/hr IV ONCE STA Stop: 11/18/21 20:41 Last Admin: 11/18/21 19:48 Dose: 125 mls/hr Documented by: Azithromycin 500 mg/ Sodium (Chloride) 250 mls @ 125 mls/hr IV ONCE STA Stop: 11/18/21 22:04 Home Medications Medication Instructions Recorded Confirmed Last Taken Type acetaminophen 500 mg tablet 1 tab PO Q6H PRN 01/15/21 11/18/21 Unknown History albuterol sulfate 90 mcg/actuation 2 puff INHALATION Q4H PRN 01/15/21 11/18/21 Unknown History aerosol inhaler (ProAir HFA) diclofenac sodium 1 % topical gel 4 g TOPICAL DAILY PRN 01/15/21 11/18/21 Unknown History ethynodiol diacetate-ethinyl 1 tab PO DAILY 01/15/21 11/18/21 04/15/21 History estradiol 1 mg-35 mcg tablet (Kelnor) oxazepam 10 mg capsule 1 cap PO Q3-4H PRN 01/15/21 11/18/21 04/15/21 History sodium bicarbonate 650 mg tablet 1 tab PO TID 01/15/21 11/18/21 04/15/21 History topiramate 200 mg tablet 300 mg PO DAILY 01/15/21 11/18/21 04/15/21 History fluticasone propionate 50 2 spray INTRANASAL BID 01/17/21 11/18/21 04/15/21 History mcg/actuation nasal spray,suspension magnesium 250 mg tablet 500 mg PO DAILY tab 02/07/21 11/18/21 04/15/21 History topiramate 200 mg tablet 200 mg PO BEDTIME 04/15/21 11/18/21 04/14/21 History morphine 30 mg immediate release 60 mg PO 5XD PRN tab 06/28/21 11/18/21 Unknown History tablet fluticasone fur. 200 mcg-umeclid 1 inh INHALATION DAILY 08/09/21 11/18/21 Unknown History 62.5 mcg-vilant 25 mcg inhalat.powder (Trelegy Ellipta) levothyroxine 88 mcg tablet 1 tab PO DAILY 11/18/21 11/18/21 Unknown History Physical Exam Vital Signs and Narrative: Vital Signs: Last Vital Signs Temp 98 F 11/18/21 20:06 Pulse 126 H 11/18/21 20:06 Resp 16 11/18/21 20:06 BP 103/55 L 11/18/21 18:00 Pulse Ox 99 11/18/21 20:06 BMI result Body Mass Index 30.0 Gen: Appears be in no acute distress HEENT: NCAT, Moist mucosa. Pulmonary: Bilateral wheezing present, on supplemental oxygen, speaks in full sentences CVS: Normal S1-S2 Abdomen: BS+, Soft, Nontender Extremities: Warm well perfused Neuro: Alert and awake. Results Labs CBC and Chem 7: 11/18/21 17:46 11/18/21 19:20 Labs: Laboratory Results - last 24 hr 11/18/21 11/18/21 11/18/21 17:45 17:45 17:45 MCV MCH MCHC RDW Plt Count MPV Immature Gran % (Auto) Neut % (Auto) Lymph % (Auto) [place] % (Auto) Eos % (Auto) Baso % (Auto) Lymph # (Auto) [place] # (Auto) Eos # (Auto) Baso # (Auto) Abs Immat Gran (auto) Absolute Neuts (auto) Absolute Nucleated RBC Nucleated RBC % (auto) ESR PT 10.8 INR 1.0 APTT 32.3 D-Dimer High Sensitivty 194 Anion Gap Estim Creat Clear Calc Estimated GFR Random Glucose Calcium Total Bilirubin AST ALT Alkaline Phosphatase Troponin I High Sens < 3.5 C-Reactive Protein B-Natriuretic Peptide 32 Total Protein Albumin COVID-19 (MARTINE) COVID-19 Clin Com Influenza Type A (MAIN) Negative Influenza Type B (MAIN) Negative Influenza A & B Note See Note 11/18/21 11/18/21 11/18/21 17:45 17:46 17:46 MCV 89.0 MCH 28.9 MCHC 32.5 RDW 13.2 Plt Count 229 MPV 10.1 Immature Gran % (Auto) 0.4 Neut % (Auto) 57.1 Lymph % (Auto) 28.8 [place] % (Auto) 13.3 H Eos % (Auto) 0.0 Baso % (Auto) 0.4 Lymph # (Auto) 1.5 [place] # (Auto) 0.7 Eos # (Auto) 0.0 Baso # (Auto) 0.0 Abs Immat Gran (auto) 0.02 Absolute Neuts (auto) 2.9 Absolute Nucleated RBC 0.000 Nucleated RBC % (auto) 0.0 ESR 10 PT INR APTT D-Dimer High Sensitivty Anion Gap Estim Creat Clear Calc Estimated GFR Random Glucose Calcium Total Bilirubin AST ALT Alkaline Phosphatase Troponin I High Sens C-Reactive Protein B-Natriuretic Peptide Total Protein Albumin COVID-19 (MARTINE) Negative COVID-19 Clin Com See Note Influenza Type A (MAIN) Influenza Type B (MAIN) Influenza A & B Note 11/18/21 19:20 MCV MCH MCHC RDW Plt Count MPV Immature Gran % (Auto) Neut % (Auto) Lymph % (Auto) [place] % (Auto) Eos % (Auto) Baso % (Auto) Lymph # (Auto) [place] # (Auto) Eos # (Auto) Baso # (Auto) Abs Immat Gran (auto) Absolute Neuts (auto) Absolute Nucleated RBC Nucleated RBC % (auto) ESR PT INR APTT D-Dimer High Sensitivty Anion Gap 12 Estim Creat Clear Calc 93.2 Estimated GFR > 60 Random Glucose 98 Calcium 9.2 Total Bilirubin 0.5 AST 22 D ALT 24 Alkaline Phosphatase 75 D Troponin I High Sens C-Reactive Protein 2.72 H B-Natriuretic Peptide Total Protein 7.0 Albumin 3.9 COVID-19 (MARTINE) COVID-19 Clin Com Influenza Type A (MAIN) Influenza Type B (MAIN) Influenza A & B Note Imaging Radiologist's Impressions: Impressions Chest X-Ray 11/18/21 18:50 IMPRESSION: Bronchial wall thickening which may be infectious/inflammatory in etiology. Assessment and Plan (1) COPD (chronic obstructive pulmonary disease): Status: Acute Plan [id number] with a past medical history of asthma / COPD on home oxygen as needed, Marcus's thyroiditis,anxiety, depression presented to the hospital today with a chief complaint of shortness of breath/ dyspnea on exertion/ chest pain chest pain: Atypical in nature. Chest pain is reproducible. EKG nonischemic. Troponin negative. Repeat troponin pending COPD exacerbation: Will give the patient Solu-Medrol IV q.i.d. Nebulizations standing and p.r.n. Azithromycin Supplemental oxygen with goal oxygen saturation 93% History of anxiety / depression: Continue home medications History of hypothyroidism: Continue home levothyroxine DVT prophylaxis: Lovenox Code status: Full code Quality Stroke Does the patient have a stroke diagnosis?: No VTE Prior VTE?: No VTE Risk Level:: Medical - moderate - high VTE Device Contraindication: Treatment Not Indicated VTE Drug Contraindication: N/A - Med Ordered
[2021-11-18 20:29] LABS: Procalcitonin 0.11 ng/mL
--- NOTE | 2021-11-18 21:19 | PHA.MEDREC ---
Pharmacy Consult ? Medication Reconciliation Pharmacy has completed the medication reconciliation. PT no longer on risperidone. Morphine up to 10 tabs a day, and oxazepam up to 6/day
[2021-11-18 21:54] LABS: Troponin-I High Sensitivity < 3.5 ng/L (<3.5-17.0)
[2021-11-18 22:26] VITALS: BP 118/58; PULSE 111; RESP 18; TEMP 37.1; O2SAT 98
[2021-11-18] MEDS: Enoxaparin Sodium 40 MG/0.4 ML SYRINGE SUBCUT (23:00)
[2021-11-18] MEDS: Famotidine 20 MG TABLET PO (23:00)
[2021-11-18] MEDS: methylPREDNISolone Sod Succ 40 MG/ML VIAL IVPUSH (23:00)
[2021-11-18] MEDS: 0.9 % Sodium Chloride Flush 3 ML SYRINGE IVFLUSH (23:00)
[2021-11-18] MEDS: Acetaminophen 325 MG TABLET 650 MG PO (23:17)
[2021-11-18] MEDS: Melatonin 3 MG TABLET 6 MG PO (23:17)
[2021-11-19] VITALS (10 sets, daily range): BP systolic 100–127; BP diastolic 55–69; PULSE 82–103; RESP 16–19; TEMP 36.2–36.9; O2SAT 94–100
[2021-11-19] MEDS: methylPREDNISolone Sod Succ 40 MG/ML VIAL IVPUSH ×2 (05:53→17:47)
[2021-11-19] MEDS: Acetaminophen 325 MG TABLET 650 MG PO ×2 (05:56→15:43)
[2021-11-19 06:07] LABS: Hematocrit 39.9 % (37.0-47.0); Hemoglobin 12.8 g/dl (12.0-16.0); Red Blood Count 4.47 X10*6/uL (4.20-5.50)
[2021-11-19 06:08] LABS: Basophils Percent Auto 0.4 % (0-2); Imm Gran Abs Auto 0.01 X10*3/uL (0.00-0.03); Imm Gran Pct Auto 0.4 % (0.0-0.4); Lymphocytes Absolute Auto 0.4 X10*3/uL (1.2-4.9); Lymphocytes Percent Auto 17.7 % (20-40); MANUAL DIFF FLAG SCAN; Mean Corpuscular HGB Conc 32.1 g/dl (31.0-35.0); Mean Corpuscular Hemoglobin 28.6 pg (27.0-33.0); Mean Corpuscular Volume 89.3 fL (80.0-98.0); Mean Platelet Volume 10.2 fL (9.4-12.3); Monocytes Absolute Auto 0.1 X10*3/uL (0.1-1.2); Monocytes Percent Auto 2.8 % (2-11); Neutrophils Percent Auto 78.7 % (45-73); Platelet Count 259 X10*3/uL (160-400); Red Cell Distribution Width 13.1 % (11.0-16.0); SCAN SMEAR FLAG 1
[2021-11-19 06:10] LABS: White Blood Count 2.5 X10*3/uL (4.8-10.8)
[2021-11-19 06:29] LABS: Anion Gap 11 (12-20); Blood Urea Nitrogen 5 mg/dL (9-16); Calcium 9.4 mg/dL (8.4-10.2); Carbon Dioxide 19 mmol/L (22-29); Chloride 110 mmol/L (96-108); Creatinine Clr Calc Pharmacy 102.7; Estimated Glomerular Filt Rate > 60; Glucose Random 151 mg/dL (60-115); Potassium 4.1 mmol/L (3.3-5.1); Sodium 136 mmol/L (135-145)
[2021-11-19 06:44] LABS: SLIDE REVIEW VERIFIED
[2021-11-19] MEDS: Albuterol/Iprat 2.5/0.5MG 3 ML AMPUL.NEB INHALE ×4 (08:59→19:38)
[2021-11-19] MEDS: Loratadine 10 MG TABLET PO (10:42)
[2021-11-19] MEDS: Morphine Sulfate Immed Release 15 MG TABLET 60 MG PO ×3 (10:42→22:02)
[2021-11-19] MEDS: Omeprazole 20 MG CAPSULE.DR PO (10:42)
[2021-11-19] MEDS: Loperamide HCl 2 MG CAPSULE PO (10:42)
[2021-11-19] MEDS: Topiramate 100 MG TABLET 300 MG PO (10:42)
[2021-11-19] MEDS: Magnesium Oxide 400 MG TABLET PO (10:43)
[2021-11-19] MEDS: Levothyroxine Sodium 88 MCG TABLET PO (10:43)
[2021-11-19] MEDS: 0.9 % Sodium Chloride Flush 3 ML SYRINGE IVFLUSH ×3 (10:43→21:31)
--- NOTE | 2021-11-19 11:24 | P.PNIM_ITS ---
Subjective Subjective Date of Service: 11/19/21 Interval History: cc: sob interval history:diarrhea Cardiovascular Cardiovascular: Reports no additional cardiovascular complaints Respiratory Respiratory: Reports no additional respiratory complaints Physical Exam Vital Signs: Vital Signs: Last Vital Signs Temp 97.4 F 11/19/21 07:52 Pulse 82 11/19/21 09:00 Resp 16 11/19/21 09:00 BP 127/69 11/19/21 07:52 Pulse Ox 99 11/19/21 07:52 BMI result Body Mass Index 30.0 General: AO X 3, no acute distress Resp: CTA bilateral, no accessory muscles used CVS: S1,S2,RRR GI: soft, non tender, non distended Neuro: motor grossly intact, alert Psych: appropriate affect, appropriate insight Objective Data Active Medications Acetaminophen (Acetaminophen 325 Mg Tablet) 650 mg PO Q6H PRN PRN Reason: Pain, Mild (Pain Scale 1-3) Last Admin: 11/19/21 05:56 Dose: 650 mg Documented by: BEKAH Albuterol/Ipratropium (Albuterol/Iprat 2.5/0.5mg 3 Ml Ampul.Neb) 3 ml INHALE RQ4H WHILE AWAKE [facility] Last Admin: 11/19/21 08:59 Dose: 3 ml Documented by: VIKY Albuterol/Ipratropium (Albuterol/Iprat 2.5/0.5mg 3 Ml Ampul.Neb) 3 ml INHALE Q4H PRN PRN Reason: Shortness of Breath/Wheezing Enoxaparin Sodium (Enoxaparin Sodium 40 Mg/0.4 Ml Syringe) 40 mg SUBCUT Q24H [facility] Last Admin: 11/18/21 23:00 Dose: 40 mg Documented by: BEKAH Fluticasone Propionate (Fluticasone Propionate Nasal 16 Gm [place]) 2 spray NOSTRIL-B BID [facility] Levothyroxine Sodium (Levothyroxine Sodium 88 Mcg Tablet) 88 mcg PO DAILY@0600 [facility] Last Admin: 11/19/21 10:43 Dose: 88 mcg Documented by: ZHANE Loperamide HCl (Loperamide Hcl 2 Mg Capsule) 2 mg PO Q4H PRN PRN Reason: diarrhea Last Admin: 11/19/21 10:42 Dose: 2 mg Documented by: ZHANE Loratadine (Loratadine 10 Mg Tablet) 10 mg PO DAILY [facility] Last Admin: 11/19/21 10:42 Dose: 10 mg Documented by: ZHANE Magnesium Oxide (Magnesium Oxide 400 Mg Tablet) 400 mg PO DAILY [facility] Last Admin: 11/19/21 10:43 Dose: 400 mg Documented by: ZHANE Methylprednisolone Sodium Succinate (Methylprednisolone Sod Succ 40 Mg/Ml Vial) 40 mg IVPUSH Q12H KAIDEN Montelukast Sodium (Montelukast Sodium 10 Mg Tablet) 10 mg PO BEDTIME [facility] Morphine Sulfate (Morphine Sulfate 4 Mg/Ml Cartridge) 1 mg IVPUSH Q4H PRN; Protocol PRN Reason: Pain, SOB Morphine Sulfate (Morphine Sulfate Immed Release 15 Mg Tablet) 60 mg PO 5XD PRN PRN Reason: moderate Pain Last Admin: 11/19/21 10:42 Dose: 60 mg Documented by: ZHANE Non-Formulary Medication (Kzcheqofmat-Kpavxglbl-Dyifxtps [Trelegy Ellipta]) 1 inhalation INHALE DAILY [facility] Non-Formulary Medication (Ethynodiol Diac-Eth Estradiol [Kelnor ()]) 1 tab PO DAILY [facility] Non-Formulary Medication (Oxazepam) 1 cap PO Q3-4H PRN PRN Reason: anxiety Omeprazole (Omeprazole 20 Mg Capsule.Dr) 20 mg PO DAILY@0630 [facility] Last Admin: 11/19/21 10:42 Dose: 20 mg Documented by: ZHANE Pharmacy Consult (Consult Rx Perform Med Rec) 1 each MISCELLANE ONCE PRN PRN Reason: Consult order Senna (Sennosides 8.6 Mg Tablet) 17.2 mg PO BEDTIME PRN PRN Reason: Constipation Sodium Bicarbonate (Sodium Bicarbonate 650 Mg Tablet) 650 mg PO TID [facility] Sodium Chloride (0.9 % Sodium Chloride Flush 3 Ml Syringe) 3 ml IVFLUSH QSHIFT [facility] Last Admin: 11/19/21 10:43 Dose: 3 ml Documented by: ZHANE Topiramate (Topiramate 100 Mg Tablet) 300 mg PO DAILY [facility] Last Admin: 11/19/21 10:42 Dose: 300 mg Documented by: ZHANE Topiramate (Topiramate 100 Mg Tablet) 200 mg PO BEDTIME [facility] Labs CBC & Chem 7: 11/19/21 05:35 11/19/21 05:35 Labs: Laboratory Results - last 24 hr 11/18/21 11/18/21 11/18/21 17:45 17:45 17:45 MCV MCH MCHC RDW Plt Count MPV Immature Gran % (Auto) Neut % (Auto) Lymph % (Auto) [place] % (Auto) Eos % (Auto) Baso % (Auto) Lymph # (Auto) [place] # (Auto) Eos # (Auto) Baso # (Auto) Abs Immat Gran (auto) Absolute Neuts (auto) Absolute Nucleated RBC Nucleated RBC % (auto) Smear Tech's Comments ESR PT 10.8 INR 1.0 APTT 32.3 D-Dimer High Sensitivty 194 Anion Gap Estim Creat Clear Calc Estimated GFR Random Glucose Calcium Total Bilirubin AST ALT Alkaline Phosphatase Troponin I High Sens < 3.5 C-Reactive Protein B-Natriuretic Peptide 32 Total Protein Albumin Procalcitonin COVID-19 (MARTINE) COVID-19 Clin Com Influenza Type A (MAIN) Negative Influenza Type B (MAIN) Negative Influenza A & B Note See Note 11/18/21 11/18/21 11/18/21 17:45 17:46 17:46 MCV 89.0 MCH 28.9 MCHC 32.5 RDW 13.2 Plt Count 229 MPV 10.1 Immature Gran % (Auto) 0.4 Neut % (Auto) 57.1 Lymph % (Auto) 28.8 [place] % (Auto) 13.3 H Eos % (Auto) 0.0 Baso % (Auto) 0.4 Lymph # (Auto) 1.5 [place] # (Auto) 0.7 Eos # (Auto) 0.0 Baso # (Auto) 0.0 Abs Immat Gran (auto) 0.02 Absolute Neuts (auto) 2.9 Absolute Nucleated RBC 0.000 Nucleated RBC % (auto) 0.0 Smear Tech's Comments ESR 10 PT INR APTT D-Dimer High Sensitivty Anion Gap Estim Creat Clear Calc Estimated GFR Random Glucose Calcium Total Bilirubin AST ALT Alkaline Phosphatase Troponin I High Sens C-Reactive Protein B-Natriuretic Peptide Total Protein Albumin Procalcitonin COVID-19 (MARTINE) Negative COVID-19 Clin Com See Note Influenza Type A (MAIN) Influenza Type B (MAIN) Influenza A & B Note 11/18/21 11/18/21 11/18/21 19:20 19:20 21:29 MCV MCH MCHC RDW Plt Count MPV Immature Gran % (Auto) Neut % (Auto) Lymph % (Auto) [place] % (Auto) Eos % (Auto) Baso % (Auto) Lymph # (Auto) [place] # (Auto) Eos # (Auto) Baso # (Auto) Abs Immat Gran (auto) Absolute Neuts (auto) Absolute Nucleated RBC Nucleated RBC % (auto) Smear Tech's Comments ESR PT INR APTT D-Dimer High Sensitivty Anion Gap 12 Estim Creat Clear Calc 93.2 Estimated GFR > 60 Random Glucose 98 Calcium 9.2 Total Bilirubin 0.5 AST 22 D ALT 24 Alkaline Phosphatase 75 D Troponin I High Sens < 3.5 C-Reactive Protein 2.72 H B-Natriuretic Peptide Total Protein 7.0 Albumin 3.9 Procalcitonin 0.11 COVID-19 (MARTINE) COVID-19 Clin Com Influenza Type A (MAIN) Influenza Type B (MAIN) Influenza A & B Note 11/19/21 11/19/21 05:35 05:35 MCV 89.3 MCH 28.6 MCHC 32.1 RDW 13.1 Plt Count 259 MPV 10.2 Immature Gran % (Auto) 0.4 Neut % (Auto) 78.7 H Lymph % (Auto) 17.7 L [place] % (Auto) 2.8 Eos % (Auto) 0.0 Baso % (Auto) 0.4 Lymph # (Auto) 0.4 L [place] # (Auto) 0.1 Eos # (Auto) 0.0 Baso # (Auto) 0.0 Abs Immat Gran (auto) 0.01 Absolute Neuts (auto) 2.0 Absolute Nucleated RBC 0.000 Nucleated RBC % (auto) 0.0 Smear Tech's Comments VERIFIED ESR PT INR APTT D-Dimer High Sensitivty Anion Gap 11 L Estim Creat Clear Calc 102.7 Estimated GFR > 60 Random Glucose 151 H Calcium 9.4 Total Bilirubin AST ALT Alkaline Phosphatase Troponin I High Sens C-Reactive Protein B-Natriuretic Peptide Total Protein Albumin Procalcitonin COVID-19 (MARTINE) COVID-19 Clin Com Influenza Type A (MAIN) Influenza Type B (MAIN) Influenza A & B Note Assessment and Plan (1) Asthma: Status: Acute Plan 46F presented with sob severe persistent asthma with acute decompensation with chronic hypoxic respiratory failure solumedrol, bronchodilators dc azithro diarrhea azithro vs opiate withdrawal imodium, restart chornic opiates, dc azithro CRPS continue home pain meds hypothyroid synthroid dvt prophylaxis - lovenox full code reason for continued hospitalization: significant sob, diarrhea Quality Stroke Does the patient have a stroke diagnosis?: No VTE Prior VTE?: No VTE Risk Level:: Medical - moderate - high VTE Device Contraindication: Treatment Not Indicated VTE Drug Contraindication: N/A - Med Ordered
[2021-11-19] MEDS: Sodium Bicarbonate 650 MG TABLET PO ×2 (15:42→21:26)
[2021-11-19] MEDS: Enoxaparin Sodium 40 MG/0.4 ML SYRINGE SUBCUT (21:26)
[2021-11-19] MEDS: Topiramate 100 MG TABLET 200 MG PO (21:26)
[2021-11-19] MEDS: Montelukast Sodium 10 MG TABLET PO (21:26)
[2021-11-19] MEDS: Fluticasone Propionate Nasal 16 GM SPRAY 2 SPRAY NOSTRIL-B (22:02)
[2021-11-20] VITALS: BP 110/61; PULSE 98; RESP 18; TEMP 37.2; O2SAT 95
[2021-11-20 03:42] VITALS: BP 123/67; PULSE 87; RESP 18; TEMP 36.9; O2SAT 95
[2021-11-20] MEDS: Levothyroxine Sodium 88 MCG TABLET PO (05:59)
[2021-11-20] MEDS: Omeprazole 20 MG CAPSULE.DR PO (05:59)
[2021-11-20] MEDS: methylPREDNISolone Sod Succ 40 MG/ML VIAL IVPUSH (05:59)
[2021-11-20] MEDS: Morphine Sulfate Immed Release 15 MG TABLET 60 MG PO ×2 (06:03→11:07)
[2021-11-20 07:04] LABS: Hematocrit 39.6 % (37.0-47.0); Hemoglobin 12.9 g/dl (12.0-16.0); Mean Corpuscular HGB Conc 32.6 g/dl (31.0-35.0); Mean Corpuscular Hemoglobin 29.1 pg (27.0-33.0); Mean Corpuscular Volume 89.2 fL (80.0-98.0); Mean Platelet Volume 10.6 fL (9.4-12.3); Platelet Count 290 X10*3/uL (160-400); Red Blood Count 4.44 X10*6/uL (4.20-5.50); Red Cell Distribution Width 13.4 % (11.0-16.0); White Blood Count 11.5 X10*3/uL (4.8-10.8)
[2021-11-20 07:05] LABS: Anion Gap 11 (12-20); Blood Urea Nitrogen 5 mg/dL (9-16); Calcium 9.5 mg/dL (8.4-10.2); Carbon Dioxide 20 mmol/L (22-29); Chloride 110 mmol/L (96-108); Creatinine Clr Calc Pharmacy 101.2; Estimated Glomerular Filt Rate > 60; Glucose Fasting 100 mg/dL (60-99); Potassium 3.7 mmol/L (3.3-5.1); Sodium 137 mmol/L (135-145)
[2021-11-20 08:00] VITALS: BP 109/55; PULSE 65; RESP 17; TEMP 36.4; O2SAT 96
[2021-11-20] MEDS: Albuterol/Iprat 2.5/0.5MG 3 ML AMPUL.NEB INHALE (08:02)
[2021-11-20 08:05] VITALS: PULSE 67; RESP 18; O2SAT 96
[2021-11-20] MEDS: Loratadine 10 MG TABLET PO (09:16)
[2021-11-20] MEDS: Topiramate 100 MG TABLET 300 MG PO (09:16)
[2021-11-20] MEDS: Magnesium Oxide 400 MG TABLET PO (09:16)
[2021-11-20] MEDS: Acetaminophen 325 MG TABLET 650 MG PO (09:16)
[2021-11-20] MEDS: Sodium Bicarbonate 650 MG TABLET PO (09:16)
[2021-11-20] MEDS: 0.9 % Sodium Chloride Flush 3 ML SYRINGE IVFLUSH (09:17)
--- NOTE | 2021-11-20 09:20 | P.DS_ITS ---
DS: Providers Provider Date of Service: 11/20/21 Date of admission: 11/18/21 20:25 Primary care physician: MARITZA Pandey DS: Diagnosis Discharge Diagnosis (1) Asthma: Status: Acute DS: Summary Hospital Course Hospital Course: from initial hpi: Chief Complaint: SOB ? 46-year-old female with a past medical history of asthma / COPD on home oxygen as needed,? Marcus's thyroiditis, anxiety, depression presented to the hospital today with a chief complaint of shortness of breath. ?patient reported that she has been having shortness of breath for the past 3 days, also noted worsening shortness of breath on exertion; reports cough with no sputum production.? Denies any fevers.? Mentioned that she recently came back? from [place]; ? Patient reports that her chest pain worsens on coughing. ?denies any numbness tingling or focal weakness.? Denies any GI symptoms.? Review of all other systems is negative except mentioned above ER course: Per ER team? patient noted to have bilateral wheezing; concern for COPD exacerbation; given nebulizations and steroids.? Patient also received azithromycin.? D-dimer was negative.? EKG was nonischemic.? Admitted to the hospital for further management. hospital course: Patient was admitted for acute decompensation of severe persistent asthma with chronic hypoxic respiratory failure (she does not actually have COPD, as her pulmonary function tests are normal.) She was treated with steroids and broncho dilators. She was not hypoxic and her lung sounds are clear, patient is talking full sentences without use of accessory muscles. Course was complicated by diarrhea, this was either due to azithromycin versus opiate withdrawal. It resolved with discontinuing azithromycin and restarting chronic opiates. Patient has complex regional pain syndrome and is on high doses of opiates with opiate dependence, she should continue to follow with pain management as outpatient. For hypothyroidism she was continued on Synthroid. Patient is medically stable will be discharged on 5 more days of prednisone. Time Spent with Patient Time attestation: Total time spent providing and/or coordinating discharge services: Discharge coordination time: Greater than 30 minutes Quality: Safe Use of Opioids Does Pt have an Active Cancer Diagnosis on the Problem List?: No Quality: Stroke Does the patient have a stroke diagnosis?: No Physical Exam Vital Signs: Vital Signs: Last Vital Signs Temp 97.5 F 11/20/21 08:00 Pulse 67 11/20/21 08:05 Resp 18 11/20/21 08:05 BP 109/55 L 11/20/21 08:00 Pulse Ox 96 11/20/21 08:00 BMI result Body Mass Index 30.0 General: AO X 3, no acute distress Resp: CTA bilateral, no accessory muscles used CVS: S1,S2,RRR GI: soft, non tender, non distended Neuro: motor grossly intact, alert Psych: appropriate affect, appropriate insight DS: Data Data Completed and Pending Labs on day of discharge: Laboratory Results - last 24 hr 11/20/21 11/20/21 06:07 06:07 WBC 11.5 H RBC 4.44 Hgb 12.9 Hct 39.6 MCV 89.2 MCH 29.1 MCHC 32.6 RDW 13.4 Plt Count 290 MPV 10.6 Absolute Nucleated RBC 0.000 Nucleated RBC % (auto) 0.0 Sodium 137 Potassium 3.7 Chloride 110 H Carbon Dioxide 20 L Anion Gap 11 L BUN 5 L Creatinine 0.70 Estim Creat Clear Calc 101.2 Estimated GFR > 60 Fasting Glucose 100 H Calcium 9.5 Preliminary micro results at discharge 11/18/21 18:04 Blood Culture - Preliminary Blood - Venous No growth after 24 hours. 11/18/21 18:04 Blood Culture - Preliminary Blood - Venous No growth after 24 hours. Discharge Plan Discharge Patient Disposition: Home, Self-Care Discharge Diagnosis: asthma exacerbation Referrals: Sreedhar Sharma PA [Primary Care Provider] - 1 Week Discharge Medications: New prednisone 20 mg tablet 40 mg PO DAILY Qty: 10 0RF Continued omeprazole magnesium 20 mg capsule,delayed release(DR/EC) 20 mg PO DAILY 90 Days Qty: 90 3RF montelukast 10 mg tablet 10 mg PO BEDTIME Qty: 90 1RF oxazepam 10 mg capsule 1 cap PO Q3-4H PRN (Reason: Pain) 0RF ethynodiol diac-eth estradiol [Kelnor (28)] 1-35 mg-mcg tablet 1 tab PO DAILY 0RF acetaminophen 500 mg tablet 1 tab PO Q6H PRN (Reason: pain) 0RF sodium bicarbonate 650 mg tablet 1 tab PO TID 0RF topiramate 200 mg tablet 300 mg PO DAILY 0RF albuterol sulfate [ProAir HFA] 90 mcg/actuation HFA aerosol inhaler 2 puff inhalation Q4H PRN (Reason: Wheezing) 0RF diclofenac sodium 1 % gel 4 g topical DAILY PRN (Reason: Pain) 0RF fluticasone propionate 50 mcg/actuation [place],Suspension 2 spray INTRANASAL BID 0RF topiramate 200 mg tablet 200 mg PO BEDTIME 0RF levothyroxine 88 mcg tablet 1 tab PO DAILY 0RF magnesium 250 mg tablet 500 mg PO DAILY 0RF morphine 30 mg tablet 60 mg PO 5XD PRN (Reason: Pain) 0RF albuterol sulfate 2.5 mg /3 mL (0.083 %) solution for nebulization 2.5 mg inhalation Q4H PRN (Reason: shortness of breath or wheezing) 30 Days Qty: 360 2RF Trelegy Ellipta 200-62.5-25 mcg blister with device 1 inh inhalation DAILY 0RF Discharge Orders: Discharge Order (Routine); Ordered 11/20/21 Ordered By: Brandon Rader Diet: advance to usual diet Activity on Discharge: As tolerated Stand Alone Forms: Patient Portal Discharge page Care Plan Goals: recovery Health Concerns: asthma Plan of Treatment: 5 more days of prednisone Assessment: see above
--- NOTE | 2021-11-20 09:22 | MHC.CM.PN ---
PATIENT LIVES WITH SPOUSE/NEW HCP AGENT COPY TO BE PLACED IN CHART SHE USES HOME O2 (2-3 L) SUPPLIED BY [employer] PATIENT ALSO HAS A CANE IN THE HOME FAMILY PROVIDES MAJORITY OF TRANSPORT NEEDS. SHE HAS BEEN COVID VACCINATED X 2, DEVELOPED COVID-19 IN JUNE 2021, AND THEN RECEIVED ANTIBODY INFUSION APPROXIMATELY 1 WEEK AFTER WARDS. PATIENT REPORTS BEING NERVOUS ABOUT GOING BACK HOME AND IS CONSDERING VNA AND/OR PULOMONARY REHAB PLACEMENT. NO VNA CURRENTLY IN THE HOME CASE MANAGEMENT FOLLOWING
== END 2021-11-20 11:37 | disposition home or self-care (01) | DRG 141 ==
LOC: HO.ED 20:51 → HO.EDOVER 21:15 → HO.S3 21:26
PROVIDERS: Admitting Provider Hospitalist; Emergency Provider Emergency Medicine Emergency Medical Services; PCP Physician Assistant; Visit Provider Internal Medicine
DX: J45.51 Severe persistent asthma with (acute) exacerbation (principal); G90.522 Complex regional pain syndrome I of left lower limb; J96.11 Chronic respiratory failure with hypoxia; E06.3 Autoimmune thyroiditis; F41.9 Anxiety disorder, unspecified; R19.7 Diarrhea, unspecified; F32.A Depression, unspecified; F11.20 Opioid dependence, uncomplicated; Z20.822 Contact with and (suspected) exposure to COVID-19; Z87.891 Personal history of nicotine dependence; Z88.1 Allergy status to other antibiotic agents; Z88.2 Allergy status to sulfonamides; Z79.3 Long term (current) use of hormonal contraceptives; Z79.51 Long term (current) use of inhaled steroids; Z79.52 Long term (current) use of systemic steroids; Z79.890 Hormone replacement therapy; Z79.899 Other long term (current) drug therapy
CPT/HCPCS: 36415; 71046; 80048; 80053; 83880; 84145; 84484; 85025; 85027; 85379; 85610; 85652; 85730; 86140; 87040; 87502; 87635; 93005; 94640; 96365; 96367; 96375; 99285; J0456; J0696; J1650; J2060; J2270; J2920; J2930

== ENCOUNTER 2022-04-13 06:11 | Day surgery (SDC) | payer OTHER, SELFPAY ==
--- NOTE | 2022-04-12 09:54 | HO.ANESPROP2 ---
Documented by User: Cherrie Garcia NP 04/12/22 09:57 HPI - Anesthesia Eval Consult details Narrative: 47yo F for Bronchoscopy Fiberoptic Chronic high dose opioids ? Home O2 PMFSH Active Problems Active Problems: All Active Problems (Updated 04/09/22 @ 20:59 by Erich Turner MD) Pneumonitis (Acute) Complex regional pain syndrome i of left lower limb (Acute) Acute bronchitis (Acute) Asthma (Acute) Allergic rhinitis (Acute) Hypoxemia (Acute) Tachycardia (Acute) Past Medical History Medical History Allergic rhinitis Asthma Complex regional pain syndrome i of left lower limb COPD (chronic obstructive pulmonary disease) Marcus's thyroiditis Hypoxemia Surgical History Surgical History (Updated 04/13/22 @ 06:48 by Leonie Ramirez RN) Hx of appendectomy Hx of cholecystectomy Hx of colonoscopy Hx of laparoscopy Hx of tympanostomy tubes Social History Social History Household Members: Spouse Housing: House Do you presently have visiting nurse or other home services: No Alcohol intake: never Patient Tobacco Use Status: Former Tobacco user Quit Date: in ' Cigarette Packs Per Day: 1.5 Cigarettes Per Day: 30 Years Smoked: 12 Use of substances other than those prescribed or required for medical reasons: Yes Substance Use Frequency: Occasionally Are you DNR?: No Advance Directives: No Advance Directives Information Provided: Yes Advance Directives Date on File: 04/15/21 service: No Current occupational status: unemployed Meds Allergies Allergy/AdvReac Type Severity Reaction Status Date / Time sulfamethoxazole Allergy Severe Shortness Verified 04/07/22 14:03 [From Bactrim] of Breath trimethoprim [From Bactrim] Allergy Severe Shortness Verified 04/07/22 14:03 of Breath wheat [WHEAT] Allergy Intermediate DIARRHEA Verified 04/07/22 14:03 latex AdvReac Rash Verified 04/13/22 06:49 Home Medications Medication Instructions Recorded Confirmed Last Taken Type acetaminophen 500 mg tablet 1 tab PO Q6H PRN pain 01/15/21 11/18/21 Unknown History albuterol sulfate 90 mcg/actuation 2 puff inhalation Q4H PRN Wheezing 01/15/21 11/18/21 Unknown History aerosol inhaler (ProAir HFA) diclofenac sodium 1 % topical gel 4 g topical DAILY PRN Pain 01/15/21 11/18/21 Unknown History ethynodiol diacetate-ethinyl 1 tab PO DAILY 01/15/21 11/18/21 04/15/21 History estradiol 1 mg-35 mcg tablet (Kelnor) sodium bicarbonate 650 mg tablet 1 tab PO TID 01/15/21 11/18/21 04/15/21 History topiramate 200 mg tablet 300 mg PO DAILY 01/15/21 11/18/21 04/15/21 History fluticasone propionate 50 2 spray intranasal BID 01/17/21 11/18/21 04/15/21 History mcg/actuation nasal spray,suspension magnesium 250 mg tablet 500 mg PO DAILY 02/07/21 11/18/21 04/15/21 History topiramate 200 mg tablet 200 mg PO BEDTIME 04/15/21 11/18/21 04/14/21 History morphine 30 mg immediate release 60 mg PO 5XD PRN Pain 06/28/21 11/18/21 Unknown History tablet fluticasone fur. 200 mcg-umeclid 1 inh inhalation DAILY 08/09/21 11/18/21 Unknown History 62.5 mcg-vilant 25 mcg inhalat.powder (Trelegy Ellipta) levothyroxine 88 mcg tablet 1 tab PO DAILY 11/18/21 11/18/21 Unknown History lhrfwvx-aianlyeekjybf-ikszhrab 250 1 tab PO Q4-6H PRN Migraine 04/13/22 04/13/22 Unknown History mg-250 mg-65 mg tablet (Excedrin Headache Migraine) dhdrsgrqok-enprjemrwysla-ibhppwdq 2 tab PO Q4-6H PRN Migraine 04/13/22 04/13/22 Unknown History 50 mg-325 mg-40 mg tablet Headache diazepam 2 mg tablet tab PO 04/13/22 Unknown History fluticasone propionate 220 2 puff inhalation BID 04/13/22 04/13/22 Unknown History mcg/actuation HFA aerosol inhaler (Flovent HFA) guaifenesin 600 mg tablet, 600 mg PO BID 04/13/22 04/13/22 Unknown History extended release 12 hr hydromorphone 8 mg tablet tab PO 04/13/22 04/13/22 Unknown History lorazepam 0.5 mg tablet 1 tab PO BID-TID PRN anxiety 04/13/22 04/13/22 Unknown History meclizine 12.5 mg tablet 12.5 mg PO TID PRN Dizziness 04/13/22 04/13/22 Unknown History mupirocin 2 % topical ointment topical DAILY 04/13/22 Unknown History naloxone 4 mg/actuation nasal spray 1 spray intranasal Q2M PRN Opiate 04/13/22 04/13/22 Unknown History Reversal sumatriptan succinate 100 mg 100 mg PO Q2-4H PRN Migraine 04/13/22 04/13/22 Unknown History tablet (Imitrex) Headache Exam Exam Date and Time: April 12, 2022 0954 Pertinent Lab Results Pertinent Lab Results: Laboratory Tests 11/20/21 11/20/21 06:07 06:07 WBC 11.5 H Hgb 12.9 Hct 39.6 Plt Count 290 Sodium 137 Potassium 3.7 Chloride 110 H Carbon Dioxide 20 L BUN 5 L Creatinine 0.70 Assessment and Plan Assessment Anesthesia Assessment: Chart Reviewed Documented by User: Gary Pastrana MD 04/13/22 08:47 PMFSH Past Medical History Medical History Allergic rhinitis Asthma Complex regional pain syndrome i of left lower limb COPD (chronic obstructive pulmonary disease) Marcus's thyroiditis Hypoxemia Family History Family history of problems with anesthesia: No Surgical History Surgical History (Updated 04/13/22 @ 06:48 by Leonie Ramirez RN) Hx of appendectomy Hx of cholecystectomy Hx of colonoscopy Hx of laparoscopy Hx of tympanostomy tubes History of Problems with Anesthesia: No Social History Social History Household Members: Spouse Housing: House Do you presently have visiting nurse or other home services: No Alcohol intake: never Patient Tobacco Use Status: Former Tobacco user Quit Date: in Cigarette Packs Per Day: 1.5 Cigarettes Per Day: 30 Years Smoked: 12 Use of substances other than those prescribed or required for medical reasons: Yes Substance Use Frequency: Occasionally Are you DNR?: No Advance Directives: No Advance Directives Information Provided: Yes Advance Directives Date on File: 04/15/21 service: No Current occupational status: unemployed Meds Allergies Allergy/AdvReac Type Severity Reaction Status Date / Time sulfamethoxazole Allergy Severe Shortness Verified 04/07/22 14:03 [From Bactrim] of Breath trimethoprim [From Bactrim] Allergy Severe Shortness Verified 04/07/22 14:03 of Breath wheat [WHEAT] Allergy Intermediate DIARRHEA Verified 04/07/22 14:03 latex AdvReac Rash Verified 04/13/22 06:49 Home Medications Medication Instructions Recorded Confirmed Last Taken Type acetaminophen 500 mg tablet 1 tab PO Q6H PRN pain 01/15/21 11/18/21 Unknown History albuterol sulfate 90 mcg/actuation 2 puff inhalation Q4H PRN Wheezing 01/15/21 11/18/21 Unknown History aerosol inhaler (ProAir HFA) diclofenac sodium 1 % topical gel 4 g topical DAILY PRN Pain 01/15/21 11/18/21 Unknown History ethynodiol diacetate-ethinyl 1 tab PO DAILY 01/15/21 11/18/21 04/15/21 History estradiol 1 mg-35 mcg tablet (Kelnor) sodium bicarbonate 650 mg tablet 1 tab PO TID 01/15/21 11/18/21 04/15/21 History topiramate 200 mg tablet 300 mg PO DAILY 01/15/21 11/18/21 04/15/21 History fluticasone propionate 50 2 spray intranasal BID 01/17/21 11/18/21 04/15/21 History mcg/actuation nasal spray,suspension magnesium 250 mg tablet 500 mg PO DAILY 02/07/21 11/18/21 04/15/21 History topiramate 200 mg tablet 200 mg PO BEDTIME 04/15/21 11/18/21 04/14/21 History morphine 30 mg immediate release 60 mg PO 5XD PRN Pain 06/28/21 11/18/21 Unknown History tablet fluticasone fur. 200 mcg-umeclid 1 inh inhalation DAILY 08/09/21 11/18/21 Unknown History 62.5 mcg-vilant 25 mcg inhalat.powder (Trelegy Ellipta) levothyroxine 88 mcg tablet 1 tab PO DAILY 11/18/21 11/18/21 Unknown History vgppxhs-mcueeqjhwjirr-xaeqnnuj 250 1 tab PO Q4-6H PRN Migraine 04/13/22 04/13/22 Unknown History mg-250 mg-65 mg tablet (Excedrin Headache Migraine) fqdnztatsl-opwimnakpahtz-znjtgfjz 2 tab PO Q4-6H PRN Migraine 04/13/22 04/13/22 Unknown History 50 mg-325 mg-40 mg tablet Headache diazepam 2 mg tablet tab PO 04/13/22 Unknown History fluticasone propionate 220 2 puff inhalation BID 04/13/22 04/13/22 Unknown History mcg/actuation HFA aerosol inhaler (Flovent HFA) guaifenesin 600 mg tablet, 600 mg PO BID 04/13/22 04/13/22 Unknown History extended release 12 hr hydromorphone 8 mg tablet tab PO 04/13/22 04/13/22 Unknown History lorazepam 0.5 mg tablet 1 tab PO BID-TID PRN anxiety 04/13/22 04/13/22 Unknown History meclizine 12.5 mg tablet 12.5 mg PO TID PRN Dizziness 04/13/22 04/13/22 Unknown History mupirocin 2 % topical ointment topical DAILY 04/13/22 Unknown History naloxone 4 mg/actuation nasal spray 1 spray intranasal Q2M PRN Opiate 04/13/22 04/13/22 Unknown History Reversal sumatriptan succinate 100 mg 100 mg PO Q2-4H PRN Migraine 04/13/22 04/13/22 Unknown History tablet (Imitrex) Headache Exam Airway Mallampati Class: II TM Dist: >3cm Neck ROM: Full Loose/Missing/Broken Teeth: Yes Other: oral thrush and pharyngeal erythema - c/w baseline per patient Assessment and Plan Assessment Anesthesia Assessment: Anesthesia Plan Discussed Final Anesthetic Review Family History of Problems with Anesthesia: No History of Problems with Anesthesia: No NPO: Yes ASA Class: III Final Preanesthetic Review: No Changes in Pt Med Stat, Meds/Allgs Chart Reviewed, Consent Obtained/Reviewed and Anes Risks/Benef Reviewed Patient Risk: Intermediate Procedure Risk: Low Anesthetic Plan Anesthetic Plan: GA Disposition: Standard PACU
[2022-04-13] VITALS (8 sets, daily range): BP systolic 89–104; BP diastolic 48–58; PULSE 59–85; RESP 16–18; TEMP 36.1–36.3; O2SAT 92–98; BMI 29.2
--- NOTE | ~2022-04-13 | XR_ITS ---
EXAMINATION: XR CHEST CLINICAL INFORMATION: Post right lung biopsy COMPARISON: Previous chest x-ray October 2021 chest CTA March 2021 TECHNIQUE: Frontal view of the chest was obtained. FINDINGS: The cardiac and mediastinal contours are stable. The lungs are clear. There is no pleural effusion or pneumothorax. There is slight elevation of the right hemidiaphragm similar to previous exams. XR/XR chest 1V IMPRESSION: No evidence for acute disease in the chest.
[2022-04-13 06:38] LABS: UPreg QC Valid YES; Urine Pregnancy NEGATIVE (NEGATIVE)
[2022-04-13] MEDS: Lactated Ringers 1,000 ML 100 ML IVCONT (07:13)
--- NOTE | 2022-04-13 07:57 | MHC.SHP ---
Pre-Procedural Eval Section A Date of Service: 04/13/22 The patient is an INPATIENT: No Changes since office visit: No Cold of Flu in the past 2 weeks, No New Medical Problems, No Changes in Medication and No Patient answered all questions The History & Physical has been completed within 30 days and I have reviewed it.: Yes Section B Chief Complaint: Pneumonia, unspecified organism Allergies: Allergies Allergy/AdvReac Type Severity Reaction Status Date / Time sulfamethoxazole Allergy Severe Shortness Verified 04/07/22 14:03 [From Bactrim] of Breath trimethoprim [From Bactrim] Allergy Severe Shortness Verified 04/07/22 14:03 of Breath wheat [WHEAT] Allergy Intermediate DIARRHEA Verified 04/07/22 14:03 latex AdvReac Rash Verified 04/13/22 06:49 Plan I have reviewed the history and physical and performed a pertinent physical examination on my patient. No changes have occurred unless specified.
[2022-04-13] MEDS: Mag&Al/Sim/Diphenhyd/Lidocaine 10 ML ORAL.SUSP PO (09:42)
--- NOTE | 2022-04-13 10:09 | P.BOP_ITS ---
Brief Operative Note Date of Service: 04/13/22 Pre-op diagnosis: pneumonitis Post-op diagnosis: other (pneumonitis, pneumonia, thrush, tracheatis) Procedure: Bronchoscopy with BAL, brushings and RLL transbronchial biopsies Implants: Surgeon: Erich Turner MD Anesthesia: GLMA Was an Grassland Conservationist used for this Procedure?: No Estimated blood loss (mL): 0 Pathology: other (RLL transbronchial biopsies) Condition: stable Disposition: same day
[2022-04-13 11:53] LABS: Basophils Bronchial 0 %; Eosinophils Bronchial 0 %; Lymphocytes Bronchial 2 %; Monocytes Bronchial 5 %; Neutrophils Bronchial 78 %; Other Bronchial 15 %; RBC Bronchial Washing 4976 MM*3; WBC Bronchial Washing 398 MM*3
--- NOTE | 2022-04-13 14:22 | OP_ITS ---
SURGEON: Erich Turner MD PREOPERATIVE DIAGNOSIS: Pneumonitis. POSTOPERATIVE DIAGNOSIS: Pneumonitis, pneumonia, tracheitis, and thrush. PROCEDURE PERFORMED: Bronchoscopy with BAL, brushings, and right lower lobe transbronchial biopsies. ESTIMATED BLOOD LOSS: COMPLICATIONS: No apparent complications at this time. ANESTHESIA: LMA. ASSISTANTS: SPECIMENS: ASA CLASSIFICATION: 3. IMPRESSIONS: 1. Successful transbronchial biopsies of the right lower lobe, [address]. 2. BAL from the lingula. 3. Bilateral lung washings. 4. Brushings from the right lower lobe. BUMP GRADER OPERATOR: None. DESCRIPTION OF PROCEDURE: After the patient was adequately sedated, the flexible digital bronchoscope was inserted via the LMA to the level of the larynx. There was some thrush and some inflammation of the larynx. The patient also had some thick mucus colored brownish in color, also around the larynx in the vocal cords. After instilling lidocaine, a total of 12 mL. The bronchoscope was then navigated to the entire tracheobronchial tree, which is examined up to the subsegmental level. The patient also had inflammation of the trachea. It was friable also with some thick mucus, and furthermore there were increased friable airways. The left upper lobe in the lingula and the left mainstem bronchus along with some purulent secretions from the left lower lobe and also the left upper lobe, the right-sided airways were less inflamed, although there still has some purulent secretions, they were easily suctioned. No endobronchial lesions or masses noted. It was friable mucosa. The bronchoscope was navigated to the lingula where BAL was attempted with 50 cc of normal saline. The airways were very floppy and minimal return was collected. The sample was sent for cell count differential. Bilateral lung washings were collected and those were sent for both cytology and microbiology specimens. The bronchoscope was navigated to the right lower lobe were microscopic brush was introduced into the right lower lobe and also the nearby areas. Using forceps, the bronchoscope was brought to the right lower lobe where transbronchial biopsies were done in both the lateral and the posterior segments of the right lower lobe. Multiple specimens were collected and placed in formalin and no evidence of any bleeding, therefore epinephrine was not administered. Iced saline was used with good hemostasis. The bronchoscope was then removed. There was no active bleeding. At the end of the procedure, the LMA was removed. The patient was then transferred to PACU. There in the PACU, she did have a chest x-ray demonstrating no evidence of any pneumothorax. MD TORY Reynoso/[place] / [id number]
== END 2022-04-13 10:40 | disposition home or self-care (01) ==
PROVIDERS: Nurse Practitioner; PCP Physician Assistant; Visit Provider Hospitalist
PROC: 0BJ08ZZ Inspection of Tracheobronchial Tree, Via Natural or Artificial Opening Endoscopic (ICD-10-PCS; CPT 31622; principal; 2022-04-13 08:00)
DX: J18.9 Pneumonia, unspecified organism (principal); J04.10 Acute tracheitis without obstruction; B37.9 Candidiasis, unspecified; J30.9 Allergic rhinitis, unspecified; J44.9 Chronic obstructive pulmonary disease, unspecified; R09.02 Hypoxemia; E06.3 Autoimmune thyroiditis; G90.522 Complex regional pain syndrome I of left lower limb; Z88.2 Allergy status to sulfonamides; Z87.891 Personal history of nicotine dependence
CPT/HCPCS: 31628; 31624; 31623; 71045; 81025; 87070; 87102; 87106; 87116; 87205; 88112; 88305; 89051; J0171; J2250; J3010

== ENCOUNTER 2022-04-20 10:13 | Outpatient (REF) | payer OTHER, SELFPAY ==
--- NOTE | ~2022-04-20 | XR_ITS ---
EXAMINATION: XR CHEST CLINICAL INFORMATION: Uncomplicated asthma. COMPARISON: 04/13/2022 TECHNIQUE: 2 views of the chest were obtained. FINDINGS: The lungs are well expanded. No focal consolidation. No pleural effusion. Cardiac silhouette is within normal limits. Surgical clips project over the right upper quadrant. XR/XR chest 2V IMPRESSION: No acute abnormality.
== END 2022-04-20 10:14 | disposition home or self-care (01) ==
LOC: HO.XRAY 10:13
PROVIDERS: PCP Physician Assistant; Visit Provider Hospitalist
DX: J45.909 Unspecified asthma, uncomplicated (principal)
CPT/HCPCS: 71046

== ENCOUNTER 2022-05-04 11:38 | Outpatient (REF) | payer OTHER, SELFPAY ==
[2022-05-04 13:19] LABS: Erythrocyte Sedimentation Rate 2 MM/HR (0-20)
[2022-05-08 08:27] LABS: Anti Nuclear Antibody Screen NEGATIVE (NEGATIVE)
[2022-05-08 15:11] LABS: Cyclic Citrullinated Peptide <16 UNITS
[2022-05-10 05:27] LABS: Myeloperoxidase Antibody <1.0 AI; Proteinase 3 PR3 Antibodies <1.0 AI
[2022-05-10 05:31] LABS: Angiotensin Converting Enzyme 9 U/L (9-67)
[2022-05-11 11:55] LABS: Immunoglobulin E 77 kU/L (<OR=114)
[2022-05-15 16:02] LABS: Asperg fumigatus Precip Abs NEGATIVE (NEGATIVE); Micropoly faeni Abs NEGATIVE (NEGATIVE); Pigeon serum Abs NEGATIVE (NEGATIVE); Saccharo pora viridis Abs NEGATIVE (NEGATIVE); Thermo candidus Abs NEGATIVE (NEGATIVE); Thermoa vulgaris #1 NEGATIVE (NEGATIVE)
== END 2022-05-04 11:39 | disposition home or self-care (01) ==
LOC: HO.LAB 11:38
PROVIDERS: PCP Physician Assistant; Visit Provider Hospitalist
DX: Z23 Encounter for immunization (principal); R09.02 Hypoxemia; R91.8 Other nonspecific abnormal finding of lung field; J18.9 Pneumonia, unspecified organism
CPT/HCPCS: 36415; 82164; 82785; 85652; 86021; 86038; 86039; 86200; 86331; 86606; 86609; 90471; 90686

== ENCOUNTER → 2022-05-25 09:50 | Outpatient (BNVA) | payer OTHER, SELFPAY | PROVIDERS: PCP Physician Assistant; Visit Provider Hospitalist | DX: Z23 Encounter for immunization (principal); J45.909 Unspecified asthma, uncomplicated; J18.9 Pneumonia, unspecified organism | CPT/HCPCS: 90471; 90677 ==

== ENCOUNTER 2022-06-09 12:50 | Outpatient (REF) | payer OTHER, SELFPAY ==
--- NOTE | ~2022-06-09 | CT_ITS ---
EXAMINATION: CT CHEST WITHOUT CONTRAST CLINICAL INFORMATION: Pneumonia. COMPARISON: CTA chest 04/15/2021. TECHNIQUE: Multidetector volumetric CT imaging of the chest was done. Axial MIP volume rendering provided. Sagittal and coronal reformatted images were obtained. This CT examination was performed using dose optimization techniques as appropriate, variously including the following: *Automated exposure control *Adjustment of mA and/or kV according to patient size (this includes techniques or standardized protocols for targeted exams where dose is matched to indication/reason for exam; i.e. extremities or head) *Use of iterative reconstruction technique DLP: 156 mGy-cm FINDINGS: HANGER OFF: Unremarkable. LUNGS: The lungs are well expanded and clear of acute pneumonic process. There is a 3 mm nodular thickening along the right superior major fissure axial image 175/5 and axial image 182/5. There is a 2 mm nodule left upper lobe laterally on axial image 205/5. 2 mm calcified granuloma left lower lobe axial image 395/5. No additional nodules, mass or consolidation seen. There is trace atelectatic changes left lung base. MEDIASTINUM: The thyroid lobes are symmetrical and normal. The central trachea and the bronchi are widely patent. Heart size and the great vessels are normal caliber. No pericardial effusion seen. CORONARY ARTERY CALCIFICATION: None visualized on this study. PLEURA: There is no pleural effusion. No pleural mass or thickening. AXILLA: No lymphadenopathy. UPPER ABDOMEN: The visualized liver, spleen, pancreas, and bilateral adrenal glands are unremarkable. There are no radiopaque gallstones. OSSEOUS STRUCTURES: There is a sclerotic density mid T7 vertebra, likely a small bone island. There is mild superior endplate deformity of T7 vertebra. CT/CT chest wo IV con IMPRESSION: Nonspecific focal thickening left major fissure and calcified granuloma left lower lobe. No abnormal mediastinal or axillary adenopathy. Mild deformity of superior endplate T7 vertebra with central sclerotic lesion, question bone island. The sclerotic density is unchanged to previous CTA chest 04/15/2021. Guidelines were followed.
== END 2022-06-09 12:51 | disposition home or self-care (01) ==
LOC: HO.CT 12:50
PROVIDERS: PCP Physician Assistant; Visit Provider Hospitalist
DX: J18.9 Pneumonia, unspecified organism (principal)
CPT/HCPCS: 71250

== ENCOUNTER → 2022-07-21 10:10 | Outpatient (BNVA) | payer OTHER, SELFPAY | PROVIDERS: PCP Physician Assistant; Visit Provider Hospitalist | DX: Z13.89 Encounter for screening for other disorder (principal) ==

== ENCOUNTER → 2022-09-08 14:40 | Outpatient (BNVA) | payer OTHER, SELFPAY | PROVIDERS: PCP Physician Assistant; Visit Provider Hospitalist | DX: Z13.89 Encounter for screening for other disorder (principal) ==

== ENCOUNTER 2023-01-11 13:57 | Outpatient (AMB) | payer OTHER, SELFPAY ==
[2023-01-11 14:03] VITALS: BP 108/70; PULSE 94; O2SAT 99; BMI 26.1
--- NOTE | 2023-01-11 14:03 | A.OFFVIS_ITS ---
Intake Vital Signs 01/11/23 14:03 Height 5 ft 4 in Weight 152 lb 1.903 oz BMI 26.1 BP 108/70 Blood Pressure Location Rt brachial Position Sitting Pulse 94 Pulse Source Pulse Oximeter Pulse Oximetry (%) 99 Oxygen Delivery Method Room Air Intake Visit Reasons: Dyspnea Allergies sulfamethoxazole [From Bactrim] Allergy (Severe, Verified 09/08/22 14:45) Shortness of Breath trimethoprim [From Bactrim] Allergy (Severe, Verified 09/08/22 14:45) Shortness of Breath wheat [WHEAT] Allergy (Intermediate, Verified 09/08/22 14:45) DIARRHEA latex Adverse Reaction (Verified 09/08/22 14:45) Rash HPI HPI Comments History of Present Illness Details The patient is a 47 y/o woman with severe asthma. The patient apparently has been struggling with her breathing now for the last 4-6 weeks. She has started developing worsening cough and shortness of breath. She was evaluated by Allergy immunology do start her on a course of antibiotics. The patient was Also provided prednisone. However, the couple weeks of therapy she did not improved. Subsequently she was started on a 2nd course of steroids and did request a CT scan of the chest. The CT scan was done at [facility] which I personally reviewed. Extensive ground-glass opacities bilaterally concerning for significant amount of pneumonitis. 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 the patient had been admitted to [facility] in the past. During that admission she had an extensive workup for pneumonitis including a negative workup for connective tissue conditions, vasculitis in hypersensitivity pneumonitis. Therefore some clear the etiology of her pneumonitis. We talked about consider bronchoscopy to further assess for deep cultures for smoldering infections and also to potentially get some biopsies to try to the knee the etiology of the pneumonitis. Explained to her that the bronchoscopy biopsies were not always 100% specially because the size of the biopsies were small and sometimes does not provide enough architecture to make a proper that was a do believe is good option though at this time to further evaluate her recurrent symptoms. In the meantime explained to the patient that if she takes the Solu-Medrol may interact or interfere with the year with biopsies. She is going to try to hold off on it for now. I will send her course of doxycycline just to treat for atypical organisms in the meantime. If the patient's symptoms worsened and she needs to go back on the prednisone then that is okay. 04/20/2022 the patient is here for a pulmonary follow-up visit. She is status post bronchoscopy. The patient tolerated procedure well. She did have some post bronchoscopy hemoptysis from her transbronchial biopsies. Now she has had some scant blood in the sputum. For the most part start blood. No evidence of any active bleeding. She continues to have the pleuritic discomfort. She had the symptoms even prior to the bronchoscopy. We did review her microbiology only positive for Angela. Although she did have oral candidiasis on initial examination. Indeed the patient could have some further lower respiratory candidiasis well. Bronchial washings also demonstrated can the in high amounts. The rest of the cultures have been negative. During the bronchoscopy we did perform a bronchoalveolar lavage demonstrating a predominant amount of neutrophils. In addition to that her transbronchial biopsies demonstrated acute and chronic inflammation with some evidence of some eosinophils. I will review the biopsies with pathology to see the setting disease pattern. The patient was given a dose of Solu-Medrol yesterday at the suture winder hand. Will restart her on her Medrol to treat underlying pneumonitis. No evidence of any wheezing right now on examination. In view of her hemoptysis and chest discomfort I will have her get a chest x-ray as well. She continues use her oxygen regularly. Has been having hard time we discontinue the oxygen due to hypoxia. 05/04/2022 the patient is here for a pulmonary follow-up visit. She has recovered well after the bronchoscopy. She completed fluconazole for the Angela infection. She continues on the small dose of Medrol. Overall the patient is feeling better. However, she still requiring the oxygen supplementation. She also continues on her respiratory therapy. Denies any further hemoptysis. We did review her chest x-ray demonstrated no acute disease. The ground-glass opacities appear to have improved. All her cultures are negative except for the fungal infection. I will request additional blood work to assess for hypersensitivity reactions in addition to vasculitis and other inflammatory conditions. We did again talk about her biopsy results. It demonstrated some degree of eosinophilia bringing up the question of eosinophilic pneumonia. This may be also seen with hypersensitivity reactions. Patient has been on Fasenra. I will be reviewing the pathology results with the pathologist next week. 05/25/2022 the patient is here for a pulmonary follow-up visit. She is starting to feel better. Although she still has some shortness of breath. Does not feel like he has any wheezing at this time. Hard time exhaling overall. Moderate severity. She has been able to be off the oxygen for little bit more time which is reassuring. She does continue to take the Medrol at the 4 mg dose. In addition to that she did start the budesonide. I did review the pathology with the pathologist. Again, demonstrating the acute on chronic inflammatory changes with evidence of neutrophils and lymphocytes. She also has some scant eosinophils. Which is interesting because she has been on the Fasenra. Although she has only been a Fasenra for about 7 months. It may be that is already improving. No clear etiology for the inflammation. although, hypersensitivity pneumonitis due to mold is suspected. Will plan to repeat the CT scan at this time to assess her response to the Medrol. in the meantime will also try to titrate down her Medrol to 1 tablet every other day until she gets her CT scan. 07/21/2022 the patient is here for a pulmonary follow-up visit. The patient has been having more issues with difficulty sleeping and irritability. Likely the results of the Medrol. Will going to go ahead and see if we can wean her off. She did have a repeat CT scan demonstrating interval resolution of the ground-glass opacities completely. She has been having issues with reflux disease. Also some coughing. Likely does having some degree of pharyngeal laryngeal penetration from her gastric secretions. The patient also has a productive cough. Patient will benefit from starting azithromycin as a promotility agent and also to treat her chronic bronchitis. She continues on biologic therapy. I believe she was switched over to Nucala. Today in the office she is very drowsy and she is here with her . Apparently she did not sleep well last night and she took an additional melatonin. Patient is not driving and the patient's has been will be monitoring her closely. 09/08/2022 the patient is here for a pulmonary follow-up visit. Overall the patient is doing alot better. She is off the medrol. She did have a repeat CT scan demonstrating interval resolution of the ground-glass opacities completely. She has been having issues with reflux disease. Also some coughing. Likely does having some degree of pharyngeal laryngeal penetration from her gastric secretions. The patient also has a productive cough. Patient responding well to the azithromycin as a promotility agent and also to treat her chronic bronchitis. She continues on biologic therapy, back on Nucala. We need to simplify her respiratory therapy on multiple corticosteroids. 01/11/2023 the patient is here for a pulmonary follow-up visit. The patient recently went to the ER with chest pains and shortness of breath. She has also been having increasing heart rate daily. She did have an EKG in addition to a chest x-ray. Her blood work was reassuring. From a respiratory status the patient appears to be doing well on her current respiratory regimen. She is off all steroids which is reassuring. She does have chronic pain issues but did chest pain seemed to be worse. Appear to be epigastric in nature. Will go ahead and request a barium swallow to assess for any GI disease. Specially s gifty her pulmonary issues have been stabilized on the current regimen. In addition to that she does need to follow-up with cardiology for full cardiology evaluation including stress test and further evaluation for her palpitations and tachycardia. in the meantime the patient will continue her PPI in addition to her Pepcid and we cannot start sucralfate as needed for any worsening discomfort. Although she understands she needs to be careful to sucralfate not to take along with her other medications. [facility] Medical History (Updated 01/11/23 @ 14:34 by Erich Turner MD) Allergic rhinitis Asthma Chest pain Complex regional pain syndrome i of left lower limb COPD (chronic obstructive pulmonary disease) GERD (gastroesophageal reflux disease) Marcus's thyroiditis Hypoxemia Surgical History (Updated 04/13/22 @ 06:48 by Leonie Ramirez RN) Hx of appendectomy Hx of cholecystectomy Hx of colonoscopy Hx of laparoscopy Hx of tympanostomy tubes Social History Household Members: Spouse Housing: House Do you presently have visiting nurse or other home services: No Alcohol intake: never Patient Tobacco Use Status: Former Tobacco user Quit Date: in Cigarette Packs Per Day: 1.5 Cigarettes Per Day: 30 Years Smoked: 12 Advance Directives Date on File: 04/15/21 service: No Current occupational status: unemployed Review of Systems Const All systems reviewed & are unremarkable except as noted in HPI and below Denies fatigue and Denies fever(s) Eyes Reports no additional complaints ENT Reports nasal congestion (Mild intermittent) Card Reports no additional complaints, Reports chest pain and Reports dyspnea on exertion Resp Reports as per HPI, Reports cough, Denies hemoptysis, Reports dyspnea on exertion and Denies wheezing GI Reports dyspepsia and Reports heartburn Reports no additional complaints Musc Reports no additional complaints Skin/Breast Reports system reviewed and no additional complaints, except as documented Neuro Reports no additional complaints Psych Reports anxiety Endo Denies fatigue Aller/Immun Denies wheezing Physical Exam Vital Signs: Last Vital Signs Pulse 94 01/11/23 14:03 BP 108/70 01/11/23 14:03 Pulse Ox 99 01/11/23 14:03 Oxygen Delivery Method Room Air 01/11/23 14:03 BMI result Body Mass Index 26.1 Const General: comfortable, no acute distress and tired appearing HEENT Head: Yes normal to inspection Neck Neck: Yes supple Chest Chest palpation & inspection: normal inspection of the chest, localized rib tenderness with anteroposterior compression and tenderness Resp Effort & Inspection: normal respiratory effort Auscultation: no rales, no wheezes and diminished lung sounds Cardio Rate: regular rate Rhythm: regular rhythm Heart sounds: S1 normal heart sound present and S2 normal heart sound present GI Palpation (GI): Tenderness to palpation present (GI) in the epigastrum Auscultation: normal bowel sounds Extrem General: Yes no clubbing, cyanosis or edema Assessment & Plan Assessment & Plan (1) Asthma: Code(s): J45.909 - Unspecified asthma, uncomplicated (2) Allergic rhinitis: Code(s): J30.9 - Allergic rhinitis, unspecified (3) Pneumonitis: Comment: resolved Code(s): J18.9 - Pneumonia, unspecified organism (4) GERD (gastroesophageal reflux disease): Code(s): K21.9 - Gastro-esophageal reflux disease without esophagitis (5) Tachycardia: Code(s): R00.0 - Tachycardia, unspecified Plan continue Trelegy continue budesonide astelin nasal spray SHAY as needed. Continue Nucala continue Azithromycin MWF barium swallow reflux diet PPI Pepcid sucrafate as needed Cardiology evaluation for tachycardia Follow-up in 10-12 weeks Orders: Orders [place] barium swallow 01/11/23 K21.9 - Gastro-esophageal reflux disease without esophagitis Referrals Cardiology Referral R00.0 - Tachycardia, unspecified, R07.9 - Chest pain, unspecified Medications: New omeprazole 40 mg PO BID 30 caps 11RF famotidine (Pepcid) 40 mg PO BEDTIME 30 tabs 11RF 30 days sucralfate 1 g PO BID 60 tabs 3RF Discontinued omeprazole magnesium Discontinued Reason: Doctor's Order 20 mg PO DAILY 90 days 90 caps 3RF Coding Level of Care Code Est Pt Level 4 (44542) Diagnoses Asthma J45.909 Allergic rhinitis J30.9 Pneumonitis J18.9 GERD (gastroesophageal reflux disease) K21.9 Tachycardia R00.0 Time Spent (min) 19
== END 2023-01-11 14:33 | disposition home or self-care (01) ==
PROVIDERS: PCP Physician Assistant; Visit Provider Hospitalist
DX: J45.909 Unspecified asthma, uncomplicated (principal); J18.9 Pneumonia, unspecified organism; K21.9 Gastro-esophageal reflux disease without esophagitis; R00.0 Tachycardia, unspecified
CPT/HCPCS: 99214

== ENCOUNTER → 2023-01-11 13:57 | Outpatient (BNVA) | payer OTHER, SELFPAY | PROVIDERS: PCP Physician Assistant; Visit Provider Hospitalist ==

== ENCOUNTER 2023-03-22 14:15 | Outpatient (AMB) | payer OTHER, SELFPAY ==
[2023-03-22 14:37] VITALS: PULSE 92; O2SAT 96; BMI 27.5
--- NOTE | 2023-03-22 14:37 | MHC.OFFVIS ---
Intake Vital Signs 03/22/23 14:37 Height 5 ft 4 in Weight 160 lb BMI 27.5 Pulse 92 Pulse Source Pulse Oximeter Pulse Oximetry (%) 96 Oxygen Delivery Method Room Air Intake Visit Reasons: Dyspnea Scarifier Operator Required: No Allergies sulfamethoxazole [From Bactrim] Allergy (Severe, Verified 03/22/23 14:38) Shortness of Breath trimethoprim [From Bactrim] Allergy (Severe, Verified 03/22/23 14:38) Shortness of Breath wheat [WHEAT] Allergy (Intermediate, Verified 03/22/23 14:38) DIARRHEA latex Adverse Reaction (Verified 03/22/23 14:38) Rash HPI HPI Comments History of Present Illness Details The patient is a 47 y/o woman with severe asthma. The patient apparently has been struggling with her breathing now for the last 4-6 weeks. She has started developing worsening cough and shortness of breath. She was evaluated by Allergy immunology do start her on a course of antibiotics. The patient was Also provided prednisone. However, the couple weeks of therapy she did not improved. Subsequently she was started on a 2nd course of steroids and did request a CT scan of the chest. The CT scan was done at [facility] which I personally reviewed. Extensive ground-glass opacities bilaterally concerning for significant amount of pneumonitis. Therefore her usability strategist at call our office for an urgent visit. the patient had been admitted to [facility] in the past. During that admission she had an extensive workup for pneumonitis including a negative workup for connective tissue conditions, vasculitis in hypersensitivity pneumonitis. Therefore some clear the etiology of her pneumonitis. We talked about consider bronchoscopy to further assess for deep cultures for smoldering infections and also to potentially get some biopsies to try to the knee the etiology of the pneumonitis. Explained to her that the bronchoscopy biopsies were not always 100% specially because the size of the biopsies were small and sometimes does not provide enough architecture to make a proper that was a do believe is good option though at this time to further evaluate her recurrent symptoms. In the meantime explained to the patient that if she takes the Solu-Medrol may interact or interfere with the year with biopsies. She is going to try to hold off on it for now. I will send her course of doxycycline just to treat for atypical organisms in the meantime. If the patient's symptoms worsened and she needs to go back on the prednisone then that is okay. 04/20/2022 the patient is here for a pulmonary follow-up visit. She is status post bronchoscopy. The patient tolerated procedure well. She did have some post bronchoscopy hemoptysis from her transbronchial biopsies. Now she has had some scant blood in the sputum. For the most part start blood. No evidence of any active bleeding. She continues to have the pleuritic discomfort. She had the symptoms even prior to the bronchoscopy. We did review her microbiology only positive for Angela. Although she did have oral candidiasis on initial examination. Indeed the patient could have some further lower respiratory candidiasis well. Bronchial washings also demonstrated can the in high amounts. The rest of the cultures have been negative. During the bronchoscopy we did perform a bronchoalveolar lavage demonstrating a predominant amount of neutrophils. In addition to that her transbronchial biopsies demonstrated acute and chronic inflammation with some evidence of some eosinophils. I will review the biopsies with pathology to see the setting disease pattern. The patient was given a dose of Solu-Medrol yesterday at the usability strategist. Will restart her on her Medrol to treat underlying pneumonitis. No evidence of any wheezing right now on examination. In view of her hemoptysis and chest discomfort I will have her get a chest x-ray as well. She continues use her oxygen regularly. Has been having hard time we discontinue the oxygen due to hypoxia. 05/04/2022 the patient is here for a pulmonary follow-up visit. She has recovered well after the bronchoscopy. She completed fluconazole for the Angela infection. She continues on the small dose of Medrol. Overall the patient is feeling better. However, she still requiring the oxygen supplementation. She also continues on her respiratory therapy. Denies any further hemoptysis. We did review her chest x-ray demonstrated no acute disease. The ground-glass opacities appear to have improved. All her cultures are negative except for the fungal infection. I will request additional blood work to assess for hypersensitivity reactions in addition to vasculitis and other inflammatory conditions. We did again talk about her biopsy results. It demonstrated some degree of eosinophilia bringing up the question of eosinophilic pneumonia. This may be also seen with hypersensitivity reactions. Patient has been on Fasenra. I will be reviewing the pathology results with the pathologist next week. 05/25/2022 the patient is here for a pulmonary follow-up visit. She is starting to feel better. Although she still has some shortness of breath. Does not feel like he has any wheezing at this time. Hard time exhaling overall. Moderate severity. She has been able to be off the oxygen for little bit more time which is reassuring. She does continue to take the Medrol at the 4 mg dose. In addition to that she did start the budesonide. I did review the pathology with the pathologist. Again, demonstrating the acute on chronic inflammatory changes with evidence of neutrophils and lymphocytes. She also has some scant eosinophils. Which is interesting because she has been on the Fasenra. Although she has only been a Fasenra for about 7 months. It may be that is already improving. No clear etiology for the inflammation. although, hypersensitivity pneumonitis due to mold is suspected. Will plan to repeat the CT scan at this time to assess her response to the Medrol. in the meantime will also try to titrate down her Medrol to 1 tablet every other day until she gets her CT scan. 07/21/2022 the patient is here for a pulmonary follow-up visit. The patient has been having more issues with difficulty sleeping and irritability. Likely the results of the Medrol. Will going to go ahead and see if we can wean her off. She did have a repeat CT scan demonstrating interval resolution of the ground-glass opacities completely. She has been having issues with reflux disease. Also some coughing. Likely does having some degree of pharyngeal laryngeal penetration from her gastric secretions. The patient also has a productive cough. Patient will benefit from starting azithromycin as a promotility agent and also to treat her chronic bronchitis. She continues on biologic therapy. I believe she was switched over to Nucala. Today in the office she is very drowsy and she is here with her . Apparently she did not sleep well last night and she took an additional melatonin. Patient is not driving and the patient's has been will be monitoring her closely. 09/08/2022 the patient is here for a pulmonary follow-up visit. Overall the patient is doing alot better. She is off the medrol. She did have a repeat CT scan demonstrating interval resolution of the ground-glass opacities completely. She has been having issues with reflux disease. Also some coughing. Likely does having some degree of pharyngeal laryngeal penetration from her gastric secretions. The patient also has a productive cough. Patient responding well to the azithromycin as a promotility agent and also to treat her chronic bronchitis. She continues on biologic therapy, back on Nucala. We need to simplify her respiratory therapy on multiple corticosteroids. 01/11/2023 the patient is here for a pulmonary follow-up visit. The patient recently went to the ER with chest pains and shortness of breath. She has also been having increasing heart rate daily. She did have an EKG in addition to a chest x-ray. Her blood work was reassuring. From a respiratory status the patient appears to be doing well on her current respiratory regimen. She is off all steroids which is reassuring. She does have chronic pain issues but did chest pain seemed to be worse. Appear to be epigastric in nature. Will go ahead and request a barium swallow to assess for any GI disease. Specially since her pulmonary issues have been stabilized on the current regimen. In addition to that she does need to follow-up with cardiology for full cardiology evaluation including stress test and further evaluation for her palpitations and tachycardia. in the meantime the patient will continue her PPI in addition to her Pepcid and we cannot start sucralfate as needed for any worsening discomfort. Although she understands she needs to be careful to sucralfate not to take along with her other medications. 03/22/2023 the patient is here for a pulmonary follow-up. the patient overall is doing better. She is responding well to the current respiratory regimen. She got concerned because her pharmacy told her that the budesonide was not back order. I did send to different pharmacy in order for her to get it. She should continue but is okay for her to cut down to 1 treatment a day. The patient continues on the Nucala. She continues to have the chest discomfort but seems to be little bit more tolerable. She is already on pain medications. She continues with her GI therapy and will be undergoing a barium swallow soon. We have referred her to Cardiology during the last visit. She has not had the appointment yet but is pending. She continues to have tachycardia issues. Otherwise patient is doing well. Will follow-up in 4-6 months. She continue with current respiratory therapy. [facility] Medical History (Updated 03/22/23 @ 21:52 by Erich Turner MD) Chest pain GERD (gastroesophageal reflux disease) Complex regional pain syndrome i of left lower limb Allergic rhinitis Hypoxemia COPD (chronic obstructive pulmonary disease) Asthma Marcus's thyroiditis Surgical History (Updated 04/13/22 @ 06:48 by Leonie Ramirez RN) Hx of tympanostomy tubes Hx of colonoscopy Hx of appendectomy Hx of laparoscopy Hx of cholecystectomy Social History Household Members: Spouse Housing: House Do you presently have visiting nurse or other home services: No Alcohol intake: never Patient Tobacco Use Status: Former Tobacco user Quit Date: in ' Cigarette Packs Per Day: 1.5 Cigarettes Per Day: 30 Years Smoked: 12 Advance Directives Date on File: 04/15/21 service: No Current occupational status: unemployed Review of Systems Const All systems reviewed & are unremarkable except as noted in HPI and below Denies fatigue and Denies fever(s) Eyes Reports no additional complaints ENT Reports nasal congestion (Mild intermittent) Card Reports no additional complaints, Reports chest pain and Reports dyspnea on exertion Resp Reports as per HPI, Reports cough, Denies hemoptysis, Reports dyspnea on exertion and Denies wheezing GI Reports dyspepsia and Reports heartburn Reports no additional complaints Musc Reports no additional complaints Skin/Breast Reports system reviewed and no additional complaints, except as documented Neuro Reports no additional complaints Psych Reports anxiety Endo Denies fatigue Aller/Immun Denies wheezing Physical Exam Vital Signs: Last Vital Signs Pulse 92 03/22/23 14:37 Pulse Ox 96 03/22/23 14:37 Oxygen Delivery Method Room Air 03/22/23 14:37 BMI result Body Mass Index 27.5 Const General: comfortable, no acute distress and tired appearing HEENT Head: Yes normal to inspection Neck Neck: Yes supple Chest Chest palpation & inspection: normal inspection of the chest, localized rib tenderness with anteroposterior compression and tenderness Resp Effort & Inspection: normal respiratory effort Auscultation: no rales, no wheezes and diminished lung sounds Cardio Rate: regular rate Rhythm: regular rhythm Heart sounds: S1 normal heart sound present and S2 normal heart sound present GI Palpation (GI): Tenderness to palpation present (GI) in the epigastrum Auscultation: normal bowel sounds Extrem General: Yes no clubbing, cyanosis or edema Assessment & Plan Assessment & Plan (1) Asthma: Code(s): J45.909 - Unspecified asthma, uncomplicated Qualifiers: Asthma severity: severe Asthma persistence: persistent Asthma complication type: uncomplicated Qualified Code(s): J45.50 - Severe persistent asthma, uncomplicated (2) Allergic rhinitis: Code(s): J30.9 - Allergic rhinitis, unspecified Qualifiers: Allergic rhinitis trigger: other Allergic rhinitis seasonality: non-seasonal Qualified Code(s): J30.89 - Other allergic rhinitis (3) Pneumonitis: Comment: resolved Code(s): J18.9 - Pneumonia, unspecified organism (4) GERD (gastroesophageal reflux disease): Code(s): K21.9 - Gastro-esophageal reflux disease without esophagitis Qualifiers: Esophagitis presence: without esophagitis Qualified Code(s): K21.9 - Gastro-esophageal reflux disease without esophagitis (5) Tachycardia: Code(s): R00.0 - Tachycardia, unspecified Plan continue Trelegy continue budesonide astelin nasal spray SHAY as needed. Continue Nucala continue Azithromycin MWF barium swallow pending reflux diet PPI Pepcid sucrafate as needed Cardiology evaluation for tachycardia Follow-up in 4-6 months Medications: Refilled albuterol sulfate 2.5 mg (3 mL) inhalation Q4H 30 days PRN 360 mL 11RF shortness of breath or wheezing budesonide 0.5 mg (2 mL) inhalation BID 30 days 120 mL 11RF J44.9 - Chronic obstructive pulmonary disease, unspecified nystatin 500,000 units PO TID 14 days 42 tabs 2RF Coding Level of Care Code Est Pt Level 4 (90755) Diagnoses Severe persistent asthma without complication J45.50 Asthma severity: severe Asthma persistence: persistent Asthma complication type: uncomplicated Non-seasonal allergic rhinitis due to other allergic trigger J30.89 Allergic rhinitis trigger: other Allergic rhinitis seasonality: non-seasonal Pneumonitis J18.9 Gastroesophageal reflux disease without esophagitis K21.9 Esophagitis presence: without esophagitis Tachycardia R00.0 Time Spent (min) 17
== END 2023-03-22 14:56 | disposition home or self-care (01) ==
PROVIDERS: PCP Physician Assistant; Visit Provider Hospitalist
DX: J45.50 Severe persistent asthma, uncomplicated (principal); J30.89 Other allergic rhinitis; J18.9 Pneumonia, unspecified organism; K21.9 Gastro-esophageal reflux disease without esophagitis; R00.0 Tachycardia, unspecified
CPT/HCPCS: 99214

== ENCOUNTER → 2023-03-22 14:15 | Outpatient (BNVA) | payer OTHER, SELFPAY | PROVIDERS: PCP Physician Assistant; Visit Provider Hospitalist | DX: K21.9 Gastro-esophageal reflux disease without esophagitis (principal) ==

== ENCOUNTER 2023-04-10 14:43 | Outpatient (AMB) | payer OTHER, SELFPAY ==
[2023-04-10 14:58] VITALS: BP 104/64; PULSE 74; BMI 28.1
--- NOTE | 2023-04-10 14:58 | A.OFFVIS_ITS ---
Intake Vital Signs 04/10/23 14:58 Height 5 ft 4 in Weight 163 lb 9.328 oz BMI 28.1 BP 104/64 Blood Pressure Location Rt brachial Position Sitting Pulse 74 Intake Visit Reasons: IMAGING SCHEDULER/RANJITH/TACHYCARDIA+CP Intake Note: NPV w/ EKG Clinical Unit Coordinator Required: No Accompanied by: Spouse Allergies sulfamethoxazole [From Bactrim] Allergy (Severe, Verified 04/10/23 14:58) Shortness of Breath trimethoprim [From Bactrim] Allergy (Severe, Verified 04/10/23 14:58) Shortness of Breath wheat [WHEAT] Allergy (Intermediate, Verified 04/10/23 14:58) DIARRHEA latex Adverse Reaction (Verified 04/10/23 14:58) Rash Medication List - Last Reconciled 04/10/23 by Shane Tavera MD acetaminophen 1 tab PO Q6H PRN albuterol sulfate 90 mcg/actuation (ProAir HFA) 2 puffs inhalation Q4H PRN albuterol sulfate 2.5 mg (3 mL) inhalation Q4H PRN 30 days ycotpom-ergzfyzsvlbki-xyyieuii 250-250-65 mg (Excedrin Migraine) 1 tab PO Q4-6H PRN azelastine 2 sprays intranasal BID 30 days azithromycin 250 mg PO 3XW benzonatate 200 mg PO BID PRN 30 days budesonide 0.5 mg (2 mL) inhalation BID 30 days sbxhctklgf-izehxqulxdldm-ygvl 50-325-40 mg 2 tabs PO Q4-6H PRN diclofenac sodium 1% 4 grams topical DAILY PRN famotidine 40 mg PO BEDTIME fluconazole 100 mg PO DAILY 7 days fluticasone propionate 50 mcg/actuation 2 sprays intranasal BID fluticasone propionate 220 mcg/actuation (Flovent HFA) 2 puffs inhalation BID yxtejpdngai-jwaejjodd-hbsbojua 200-62.5-25 mcg (Trelegy Ellipta) 1 inh inhalation DAILY guaifenesin ER 600 mg PO BID PRN levothyroxine 1 tab PO DAILY magnesium 500 mg PO DAILY meclizine 12.5 mg PO TID PRN mepolizumab (Nucala) mg subcut montelukast 10 mg PO BEDTIME morphine 60 mg PO 5XD PRN mupirocin 2% topical DAILY naloxone 4 mg/actuation 1 spray intranasal Q2M PRN nebulizers As directed nystatin 1 mL PO BID 30 days nystatin 500,000 units PO TID 14 days omeprazole 40 mg PO BID oxazepam 10 mg PO sodium bicarbonate 1 tab PO TID sucralfate 1 g PO BID 90 days sumatriptan succinate (Imitrex) 100 mg PO Q2-4H PRN topiramate 200 mg PO BEDTIME topiramate 300 mg PO DAILY triamcinolone acetonide 0.1% 1 appl topical BID-TID HPI HPI Comments History of Present Illness Details Jo Ann is here for consultation regarding tachycardia. She seems to have asthma and other pulmonary issues and she states she has had issues going back since she was a child. However, no known cardiac issues. No history of any coronary disease, myocardial infarction or cardiomyopathy or in fact anything cardiac sounding. She states that she frequently feels her heart pounding and this can happen any time. With or without exertion. Sometimes when she is resting she can feel her heart racing. She also has random chest pains across the chest. These are rather pleuritic in nature and gets worse with breathing. Also has local tenderness to touch. Hence rather musculoskeletal/pleuritic but not cardiac. At times, she feels as though her lips turn blue. [facility] Medical History (Updated 04/10/23 @ 16:58 by Shane Tavera MD) Chest pain GERD (gastroesophageal reflux disease) Complex regional pain syndrome i of left lower limb Allergic rhinitis Hypoxemia COPD (chronic obstructive pulmonary disease) Asthma Marcus's thyroiditis Surgical History Hx of tympanostomy tubes Hx of colonoscopy Hx of appendectomy Hx of laparoscopy Hx of cholecystectomy Family History (Updated 04/10/23 @ 15:02 by Jania Sparks) Maternal Grandfather Heart problem Father Heart problem Mother HTN (hypertension) Hypercholesterolemia Social History Household Members: Spouse Housing: House Do you presently have visiting nurse or other home services: No Alcohol intake: never Patient Tobacco Use Status: Former Tobacco user Quit Date: in 's Cigarette Packs Per Day: 1.5 Cigarettes Per Day: 30 Years Smoked: 12 Advance Directives Date on File: 04/15/21 service: No Current occupational status: unemployed Review of Systems Const All systems reviewed & are unremarkable except as noted in HPI and below Reports as per HPI and Reports no additional complaints Eyes Reports as per HPI and Denies no additional complaints ENT Denies no additional complaints and Reports as per HPI Card Reports as per HPI, Reports no additional complaints, Denies acrocyanosis, Denies chest pain, Denies leg edema, Denies lightheadedness, Reports palpitations and Reports dyspnea Resp Reports as per HPI, Denies no additional complaints, Reports pain on inspiration and Reports dyspnea GI Reports as per HPI and Denies no additional complaints Reports as per HPI Musc Reports no additional complaints and Reports as per HPI Skin/Breast Reports system reviewed and no additional complaints, except as documented Neuro Reports no additional complaints and Reports as per HPI Psych Reports no additional complaints and Reports as per HPI Endo Reports no additional complaints, Reports as per HPI and Reports palpitations Ike/Lymph Reports no additional complaints and Reports as per HPI Aller/Immun Reports no additional complaints and Reports as per HPI Physical Exam Vital Signs: Last Vital Signs Pulse 74 04/10/23 14:58 BP 104/64 04/10/23 14:58 BMI result Body Mass Index 28.1 Const General: comfortable and no acute distress Orientation/consciousness: patient oriented x3 HEENT Other: Unremarkable Head: Yes normal to inspection Neck Neck: Yes normal visual inspection Chest Chest palpation & inspection: normal inspection of the chest Resp Auscultation: clear to auscultation bilaterally Cardio Palpation: normal PMI Heart sounds: S1 normal heart sound present, S2 normal heart sound present, no gallops, no murmurs and no rubs GI Palpation (GI): Soft to palpation Back/Spine/Pelvis Other: unremarkable Skin General skin exam: no rashes or lesions noted Neuro General: patient oriented x3 Extrem General: Yes normal to inspection Psych Mental Status: mental status grossly normal Office Procedures EKG Details: EKG shows sinus rhythm at 74/Min; no significant ST-T changes and otherwise unremarkable[place] [id number], Complete Assessment & Plan Assessment & Plan (1) Chest pain: Code(s): R07.9 - Chest pain, unspecified Qualifiers: Chest pain type: precordial pain Qualified Code(s): R07.2 - Precordial pain (2) Asthma: Code(s): J45.909 - Unspecified asthma, uncomplicated Qualifiers: Asthma complication type: uncomplicated Asthma persistence: persistent Asthma severity: severe Qualified Code(s): J45.50 - Severe persistent asthma, uncomplicated (3) Tachycardia: Code(s): R00.0 - Tachycardia, unspecified Plan In the chest CT scan from few months ago, heart size/great vessels described to be of normal caliber and no pericardial effusion. No coronary artery calcifications noted. The tachycardia she is describing could be all compensated tachycardia due to compromised respiratory status. In that regard, we will get a Holter monitor to ensure there is no other arrhythmia like atrial tachycardia, fibrillation extra. With regard to chest pain, likely or pleuritic or musculoskeletal as she is describing endurance even now while she touches her chest. Highly doubt that to be anginal. We will get echocardiogram anyway to ensure there is no cardiomyopathy or other significant structural findings. Because of her description of lips turning blue at times, will get a bubble study as well during the echo to look for shunting. However, there is still more likely to be a pulmonary issue. Discussed with significant other who came for appointment. Follow-up after testing. Orders: Orders 2 CA echo transthoracic complete Today R07.9 - Chest pain, unspecified ECG 14 day holter monitor Today R00.0 - Tachycardia, unspecified, R00.2 - Pal pitations Coding Level of Care Code New Pt Level 4 (85504) Diagnoses Precordial pain R07.2 Chest pain type: precordial pain Severe persistent asthma without complication J45.50 Asthma complication type: uncomplicated Asthma persistence: persistent Asthma severity: severe Tachycardia R00.0 CPT Codes EKG - CPT: 30399-[id number], Complete ([id number])
== END 2023-04-10 15:24 | disposition home or self-care (01) ==
PROVIDERS: PCP Physician Assistant; Visit Provider Internal Medicine
DX: R07.2 Precordial pain (principal); J45.50 Severe persistent asthma, uncomplicated; R00.0 Tachycardia, unspecified
CPT/HCPCS: 93010; 99204

== ENCOUNTER → 2023-04-10 14:43 | Outpatient (BNVA) | payer OTHER, SELFPAY | PROVIDERS: PCP Physician Assistant; Visit Provider Internal Medicine | DX: R07.2 Precordial pain (principal); J45.50 Severe persistent asthma, uncomplicated; R00.0 Tachycardia, unspecified | CPT/HCPCS: 93005 ==

== ENCOUNTER → 2023-05-09 08:50 | Outpatient (REF) | payer OTHER, SELFPAY ==
--- NOTE | 2023-05-09 08:59 | CA_ITS ---
Transthoracic Echocardiogram Patient (Last, First, Middle): Jo Ann Ríos, Gender: Female Date of : 1975 Age: 48 Procedure Date: 05/09/2023 Procedure Type: Transthoracic Echocardiogram Location: OP Height: 162.56 cm Weight: 72.58 kg BSA: 1.78 m2 Heart Rate: bpm BP: 115 / 70 mmHg Dope Maintenance Worker: DESTINY/IVÁN Referring MD: Shane Tavera MD Symptoms: R07.9 - Chest pain, unspecified Study Quality: Adequate ECG Rhythm: Sinus Conclusions: - The left ventricular systolic function is normal. The visually estimated ejection fraction is between 55-60%. - No obvious valvular pathology seen on this study. - There is no evidence of interatrial shunt by agitated saline. Findings Left Ventricle Normal left ventricular cavity size. There is normal left ventricular wall thickness. The left ventricular systolic function is normal. The visually estimated ejection fraction is between 55-60%. There is no evidence of regional wall motion abnormalities. Diastolic function is normal for age. LV peak GLS -19.9%. Right Ventricle Normal right ventricular cavity size and systolic function. Atria Both atria are normal in size. There is no evidence of interatrial shunt by agitated saline. (with rest and valsalva). Aortic Valve There is a normal trileaflet aortic valve. There is no aortic valve stenosis. There is no aortic valve regurgitation. Mitral Valve The mitral valve appears normal. There is trace mitral valve regurgitation. There is no mitral valve stenosis. Pulmonic Valve The pulmonic valve is likely normal. Tricuspid Valve There is mild tricuspid valve regurgitation. There is no evidence of pulmonary hypertension. Great Vessels The asc aorta is normal in size. Pericardium/Pleural There is no evidence of pericardial effusion. Prior Study Comparison No prior study available for comparison. Recommendations, Care & Conclusions No obvious valvular pathology seen on this study. Measurements 2D Linear Measurements IVSd: 0.75 0.6-0.9/0.6-1.0 cm LVIDd: 4.46 3.9-5.3/4.2-5.9 cm LVIDd Index: 2.51 2.4-3.2/2.2-3.1 cm/m2 LVIDs: 3.28 2.0-3.6 cm LVPWd: 0.87 0.7-1.1 cm LA Diam: 3.10 2.7-3.8/3.0-4.0 cm LAIDs Index: 1.74 1.5-2.3 cm/m2 LV Mass: 141.60 67-162/88-224 g LV Mass Index: 79.55 43-95/49-115 g/m2 LVOT Diam: 1.90 3.0+(-)1.3 cm 2D Systolic Function EF 4C: 63.70 >55% EF 2C: 63.40 >55% EF BiP: 62.70 >55% Mitral Valve MV Pk E: 1.05 MV PK A: 0.92 MV Decel Time: 172.00 E/A: 1.10 E'Lateral: 15.90 E'Medial: 8.38 E/E' Med: 12.50 E/E' Lat: 6.60 PHT: 51.00 MVA PHT: 4.31 Decel Darke: 6.10 Aortic Valve AoV Pk Ye: 1.45 AoV Mn Ye: 0.98 AoV VTI: 0.30 AoV Pk Grad: 8.00 Aov Mn Grad: 4.00 KYRA Cont.VTI: 2.11 LVOT LVOT Pk Ye: 0.93 LVOT Mn Ye: 0.63 LVOT VTI: 0.22 LVOT Pk Grad: 3.00 LVOT Mn Grad: 2.00 LVOT Diam: 1.90 LVOT Area: 2.84 Diastolic Function MV Pk E: 1.05 MV Pk A: 0.92 E/A: 1.10 E'Medial: 8.38 E/E' Med: 12.50 E' Laterial: 15.90 E/E' Lat: 6.60 Right Ventricle TAPSE (mm): 21.70 TVS' Ye: 11.20 Tricuspid Valve TR Pk Ye: 2.18 TR Pk Grad: 19.00 RA Press: 3.00 RVSP: 22.00 Great Vessels Aorta Sinus of Valsalva: 3.12 2.0-3.5 cm Ao Asc: 3.00 2.1-3.4 cm Updated in Other Vendor System with Status of Final Shane Tavera MD electronically signed on 05/11/2023 1:51:22 PM with status of Final
--- NOTE | 2023-05-09 08:59 | HM_ITS ---
Conclusion: 1. Patient was monitored for total period of 14 days 2. Baseline was normal sinus with average heart of 81 beats per minute 3. No significant pauses noted 4. No significant ectopy burden noted 5. Patient reported total of 33 events all of which were chest pain correlating with either sinus rhythm or sinus tachycardia MTDD
== END ==
LOC: HO.CARD 08:50
PROVIDERS: PCP Physician Assistant; Visit Provider Internal Medicine
DX: R07.9 Chest pain, unspecified (principal); R00.2 Palpitations; R00.0 Tachycardia, unspecified
CPT/HCPCS: 93246; 93306; 93356

== ENCOUNTER → 2023-05-09 08:59 | Outpatient (BNV) | payer OTHER, SELFPAY | PROVIDERS: PCP Physician Assistant; Visit Provider Internal Medicine | DX: R07.9 Chest pain, unspecified (principal) | CPT/HCPCS: 93248; 93306 ==

== ENCOUNTER 2023-06-06 08:23 | Outpatient (REF) | payer OTHER, SELFPAY ==
--- NOTE | ~2023-06-06 | FL_ITS ---
EXAMINATION: XR FLUOROSCOPY UPPER GI WITH AIR CLINICAL INFORMATION: GERD. Epigastric pain COMPARISON: None TECHNIQUE: Fluoroscopic air contrast upper GI examination was performed utilizing standard techniques with thin and thick barium and effervescent granules. Numerous spot images were obtained. FINDINGS: Surgical clips are present in the right upper quadrant, consistent with prior surgical cholecystectomy. Dual and single contrast images of the esophagus demonstrate normal caliber, contour, and mucosal pattern. No evidence of stricture, mass, or ulcerations identified. There is to and fro motion of the barium column present with nonpropulsive tertiary contractions in the distal esophagus, consistent with esophageal dysmotility. No evidence of hiatus hernia identified. No significant gastroesophageal reflux was seen during the course of the examination and on reflux views. Dual contrast and single contrast images of the stomach demonstrated normal contour and mucosal pattern without evidence of mass, ulceration, or other abnormality. Contrast freely passed into the gastric antrum and duodenal bulb without delay. Single and air-contrast images of the duodenal bulb demonstrate no abnormality. The duodenal sweep has a normal appearance, course, and mucosal fold appearance. The imaged proximal jejunum has a normal fold pattern and caliber. Cholecystectomy clips noted. FLUOROSCOPY TIME: 2 minutes 58 seconds Number of Spot Images: 10 Number of Cine: 9 DOSE AREA PRODUCT: 1617 uGy-m2 (microgray-meter squared) FL/FL barium swallow IMPRESSION: Presbyesophagus. Otherwise normal exam. This procedure was performed by Ayan Mathis PA-C, and supervised by Dr. López
== END 2023-06-06 08:24 | disposition home or self-care (01) ==
LOC: HO.XRAY 08:23
PROVIDERS: PCP Physician Assistant; Visit Provider Hospitalist
DX: K21.9 Gastro-esophageal reflux disease without esophagitis (principal)
CPT/HCPCS: 74220

== ENCOUNTER → 2023-06-06 08:23 | Outpatient (BNV) | payer OTHER, SELFPAY | PROVIDERS: PCP Physician Assistant; Visit Provider Radiology Diagnostic Radiology | DX: K21.9 Gastro-esophageal reflux disease without esophagitis (principal) | CPT/HCPCS: 74246 ==

== ENCOUNTER 2023-06-22 13:52 | Outpatient (AMB) | payer OTHER, SELFPAY ==
[2023-06-22 13:53] VITALS: BP 105/60; PULSE 83; BMI 27.8
--- NOTE | 2023-06-22 13:53 | A.OFFVIS_ITS ---
Intake Vital Signs 06/22/23 13:53 Height 5 ft 4 in Weight 161 lb 13.109 oz BMI 27.8 BP 105/60 Blood Pressure Location Rt brachial Position Sitting Pulse 83 Pulse Source Pulse Oximeter Intake Visit Reasons: fu holter/echo Intake Note: f/up holter/ echo pt its having some chest pain in the middle of the chest in the past few days. 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 Accompanied by: Spouse Allergies sulfamethoxazole [From Bactrim] Allergy (Severe, Verified 04/10/23 14:58) Shortness of Breath trimethoprim [From Bactrim] Allergy (Severe, Verified 04/10/23 14:58) Shortness of Breath wheat [WHEAT] Allergy (Intermediate, Verified 04/10/23 14:58) DIARRHEA latex Adverse Reaction (Verified 04/10/23 14:58) Rash Medication List - Last Reconciled 06/22/23 by Shane Tavera MD acetaminophen 1 tab PO Q6H PRN albuterol sulfate 90 mcg/actuation (ProAir HFA) 2 puffs inhalation Q4H PRN albuterol sulfate 2.5 mg (3 mL) inhalation Q4H PRN 30 days jfideit-nayulkyneodda-hzxqufkd 250-250-65 mg (Excedrin Migraine) 1 tab PO Q4-6H PRN azithromycin 250 mg PO 3XW benzonatate 200 mg PO BID PRN 30 days budesonide 0.5 mg (2 mL) inhalation BID 30 days ouhpryrgzf-nfdpauplfjiya-enpk 50-325-40 mg 2 tabs PO Q4-6H PRN diclofenac sodium 1% 4 grams topical DAILY PRN famotidine 40 mg PO BEDTIME fluconazole 100 mg PO DAILY 7 days fluticasone propionate 50 mcg/actuation 2 sprays intranasal BID fluticasone propionate 220 mcg/actuation (Flovent HFA) 2 puffs inhalation BID qswucaztxez-rxzqrbuvj-zxprrrwh 200-62.5-25 mcg (Trelegy Ellipta) 1 inh inhala tion DAILY guaifenesin ER 600 mg PO BID PRN levothyroxine 1 tab PO DAILY magnesium 500 mg PO DAILY meclizine 12.5 mg PO TID PRN mepolizumab (Nucala) mg subcut montelukast 10 mg PO BEDTIME morphine 60 mg PO 5XD PRN mupirocin 2% topical DAILY nebulizers As directed nystatin 1 mL PO BID 30 days nystatin 500,000 units PO TID 14 days omeprazole 40 mg PO BID oxazepam 10 mg PO sodium bicarbonate 1 tab PO TID sucralfate 1 g PO BID 90 days sumatriptan succinate (Imitrex) 100 mg PO Q2-4H PRN topiramate 200 mg PO BEDTIME topiramate 300 mg PO DAILY triamcinolone acetonide 0.1% 1 appl topical BID-TID HPI HPI Comments History of Present Illness Details Jo Ann returns for follow-up. Recently seen in consultation regarding tachycardia. She seems to have asthma and other pulmonary issues and she states she has had issues going back since she was a child. However, no known cardiac issues. No history of any coronary disease, myocardial infarction or cardiomyopathy or in fact anything cardiac sounding. She states that she frequently feels her heart pounding and this can happen any time. With or without exertion. Sometimes when she is resting she can feel her heart racing. She also has random chest pains across the chest. These are rather pleuritic in nature and gets worse with breathing. Also has local tenderness to touch. Hence rather musculoskeletal/pleuritic but not cardiac. At times, she feels as though her lips turn blue. Since last seen, she has completed an echocardiogram and Holter. [facility] Medical History (Updated 04/10/23 @ 16:58 by Shane Tavera MD) Chest pain GERD (gastroesophageal reflux disease) Complex regional pain syndrome i of left lower limb Allergic rhinitis Hypoxemia COPD (chronic obstructive pulmonary disease) Asthma Marcus's thyroiditis Surgical History Hx of tympanostomy tubes Hx of colonoscopy Hx of appendectomy Hx of laparoscopy Hx of cholecystectomy Family History Maternal Grandfather Heart problem Father Heart problem Mother HTN (hypertension) Hypercholesterolemia Social History Household Members: Spouse Housing: House Do you presently have visiting nurse or other home services: No Alcohol intake: never Patient Tobacco Use Status: Former Tobacco user Quit Date: in ' Cigarette Packs Per Day: 1.5 Cigarettes Per Day: 30 Years Smoked: 12 Advance Directives Date on File: 04/15/21 service: No Current occupational status: unemployed Review of Systems Const Reports chills, Reports fatigue, Reports fever(s), Reports frequent falls, Reports weakness, Reports weight gain and Reports weight loss ENT Reports dizziness Card Reports chest pain, Reports leg edema, Reports lightheadedness, Reports palpitations, Reports dyspnea and Reports dyspnea on exertion Resp Reports cough, Reports dyspnea and Reports dyspnea on exertion GI Reports hematochezia Musc Reports abnormal gait, Reports muscle weakness, Reports numbness, Reports radiating pain into limb and Reports tingling Neuro Reports abnormal gait, Reports dizziness, Reports frequent falls, Reports numbness, Reports tingling and Reports weakness Endo Reports fatigue and Reports palpitations Physical Exam Vital Signs: Last Vital Signs Pulse 83 06/22/23 13:53 BP 105/60 06/22/23 13:53 BMI result Body Mass Index 27.8 Const General: comfortable and no acute distress Orientation/consciousness: patient oriented x3 HEENT Other: Unremarkable Head: Yes normal to inspection Neck Neck: Yes normal visual inspection Chest Other: Tenderness to touch Chest palpation & inspection: normal inspection of the chest Resp Auscultation: clear to auscultation bilaterally Cardio Palpation: normal PMI Heart sounds: S1 normal heart sound present, S2 normal heart sound present, no gallops, no murmurs and no rubs GI Palpation (GI): Soft to palpation Back/Spine/Pelvis Other: unremarkable Skin General skin exam: no rashes or lesions noted Neuro General: patient oriented x3 Extrem General: Yes normal to inspection Psych Mental Status: mental status grossly normal Assessment & Plan Assessment & Plan (1) Chest pain: Code(s): R07.9 - Chest pain, unspecified Qualifiers: Chest pain type: precordial pain Qualified Code(s): R07.2 - Precordial pain (2) Asthma: Code(s): J45.909 - Unspecified asthma, uncomplicated Qualifiers: Asthma complication type: uncomplicated Asthma persistence: persistent Asthma severity: severe Qualified Code(s): J45.50 - Severe persistent asthma, uncomplicated (3) Tachycardia: Code(s): R00.0 - Tachycardia, unspecified Plan Pertinent studies reviewed. In the chest CT scan from few months ago, heart size/great vessels described to be of normal caliber and no pericardial effusion. No coronary artery calcifications noted. Holter shows underlying sinus rhythm with an average rate of 81/Min. Sinus tachycardia is noted but no other significant arrhythmias. No specific management for this. In the echocardiogram, LVEF 55-60%. Normal peak global longitudinal strain. No significant valvular issues. Negative bubble study. The sinus tachycardia is probably from compensated respiratory status. No specific management for this. Chest pain is noncardiac and part of for generalized pain syndrome. Again reassurance only for that. She will contact us with any concerns. Discussed with significant other. Coding Level of Care Code Est Pt Level 3 (66497) Diagnoses Precordial pain R07.2 Chest pain type: precordial pain Severe persistent asthma without complication J45.50 Asthma complication type: uncomplicated Asthma persistence: persistent Asthma severity: severe Tachycardia R00.0
== END 2023-06-22 14:12 | disposition home or self-care (01) ==
PROVIDERS: PCP Physician Assistant; Visit Provider Internal Medicine
DX: R07.2 Precordial pain (principal); J45.50 Severe persistent asthma, uncomplicated; R00.0 Tachycardia, unspecified
CPT/HCPCS: 99213

== ENCOUNTER → 2023-06-22 13:52 | Outpatient (BNVA) | payer OTHER, SELFPAY | PROVIDERS: PCP Physician Assistant; Visit Provider Internal Medicine ==

== ENCOUNTER 2023-09-20 14:08 | Outpatient (AMB) | payer OTHER, SELFPAY ==
[2023-09-20 14:15] VITALS: PULSE 83; O2SAT 98; BMI 29.3
--- NOTE | 2023-09-20 14:15 | A.OFFVIS_ITS ---
Intake Vital Signs 09/20/23 14:15 Height 5 ft 4 in Weight 171 lb BMI 29.3 Pulse 83 Pulse Source Pulse Oximeter Pulse Oximetry (%) 98 Oxygen Delivery Method Room Air Intake Visit Reasons: Dyspnea Pouncer Required: No Allergies sulfamethoxazole [From Bactrim] Allergy (Severe, Verified 09/20/23 14:16) Shortness of Breath trimethoprim [From Bactrim] Allergy (Severe, Verified 09/20/23 14:16) Shortness of Breath wheat [WHEAT] Allergy (Intermediate, Verified 09/20/23 14:16) DIARRHEA latex Adverse Reaction (Verified 09/20/23 14:16) Rash HPI HPI Comments History of Present Illness Details The patient is a 48 y/o woman with severe asthma. The patient apparently has been struggling with her breathing now for the last 4-6 weeks. She has started developing worsening cough and shortness of breath. She was evaluated by Allergy immunology do start her on a course of antibiotics. The patient was Also provided prednisone. However, the couple weeks of therapy she did not improved. Subsequently she was started on a 2nd course of steroids and did request a CT scan of the chest. The CT scan was done at [facility] which I personally reviewed. Extensive ground-glass opacities bilaterally concerning for significant amount of pneumonitis. Therefore her medical technical writer at call our office for an urgent visit. the patient had been admitted to [facility] in the past. During that admission she had an extensive workup for pneumonitis including a negative workup for connective tissue conditions, vasculitis in hypersensitivity pneumonitis. Therefore some clear the etiology of her pneumonitis. We talked about consider bronchoscopy to further assess for deep cultures for smoldering infections and also to potentially get some biopsies to try to the knee the etiology of the pneumonitis. Explained to her that the bronchoscopy biopsies were not always 100% specially because the size of the biopsies were small and sometimes does not provide enough architecture to make a proper that was a do believe is good option though at this time to further evaluate her recurrent symptoms. In the meantime explained to the patient that if she takes the Solu-Medrol may interact or interfere with the year with biopsies. She is going to try to hold off on it for now. I will send her course of doxycycline just to treat for atypical organisms in the meantime. If the patient's symptoms worsened and she needs to go back on the prednisone then that is okay. 07/21/2022 the patient is here for a pulm onary follow-up visit. The patient has been having more issues with difficulty sleeping and irritability. Likely the results of the Medrol. Will going to go ahead and see if we can wean her off. She did have a repeat CT scan demonstrating interval resolution of the ground- glass opacities completely. She has been having issues with reflux disease. Also some coughing. Likely does having some degree of pharyngeal laryngeal penetration from her gastric secretions. The patient also has a productive cough. Patient will benefit from starting azithromycin as a promotility agent and also to treat her chronic bronchitis. She continues on biologic therapy. I believe she was switched over to Nucala. Today in the office she is very drowsy and she is here with her . Apparently she did not sleep well last night and she took an additional melatonin. Patient is not driving and the patient's has been will be monitoring her closely. 09/08/2022 the patient is here for a pulm onary follow-up visit. Overall the patient is doing alot better. She is off the medrol. She did have a repeat CT scan demonstrating interval resolution of the ground-glass opacities completely. She has been having issues with reflux disease. Also some coughing. Likely does having some degree of pharyngeal laryngeal penetration from her gastric secretions. The patient also has a productive cough. Patient responding well to the azithromycin as a promotility agent and also to treat her chronic bronchitis. She continues on biologic therapy, back on Nucala. We need to simplify her respiratory therapy on multiple corticosteroids. 01/11/2023 the patient is here for a pulmonary follow-up visit. The patient recently went to the ER with chest pains and shortness of breath. She has also been having increasing heart rate daily. She did have an EKG in addition to a chest x-ray. Her blood work was reassuring. From a respiratory status the patient appears to be doing well on her current respiratory regimen. She is off all steroids which is reassuring. She does have chronic pain issues but did chest pain seemed to be worse. Appear to be epigastric in nature. Will go ahead and request a barium swallow to assess for any GI disease. Specially since her pulmonary issues have been stabilized on the current regimen. In addition to that she does need to follow-up with cardiology for full cardiology evaluation including stress test and further evaluation for her palpitations and tachycardia. in the meantime the patient will continue her PPI in addition to her Pepcid and we cannot start sucralfate as needed for any worsening discomfort. Although she understands she needs to be careful to sucralfate not to take along with her other medications. 03/22/2023 the patient is here for a pulmonary follow-up. the patient overall is doing better. She is responding well to the current respiratory regimen. She got concerned because her pharmacy told her that the budesonide was not back order. I did send to different pharmacy in order for her to get it. She should continue but is okay for her to cut down to 1 treatment a day. The pat jonatan continues on the Nucala. She continues to have the chest discomfort but seems to be little bit more tolerable. She is already on pain medications. She continues with her GI therapy and will be undergoing a barium swallow soon. We have referred her to Cardiology during the last visit. She has not had the appointment yet but is pending. She continues to have tachycardia issues. Otherwise patient is doing well. Will follow-up in 4-6 months. She continue with current respiratory therapy. 09/20/2023 the patient is here for a pulm onary follow-up visit. The patient continues to do well. Since we last spoke the patient did follow-up with cardiology and had a full cardiac workup. He reassuring that her chest pain and tachycardia do not have a cardiac etiology. Likely related to underlying pain syndrome. The patient also underwent a barium swallow which we did review. The patient does have evidence of dyspnea motility that also affects her swallow. She needs to be careful it make sure to drink water while eating food to make sure that goes down all the way. If the patient continues to have issues she may need to follow-up with GI. But currently she is feeling well. She continues on the Nucala injection which have been affecting beneficial. She also continues with respiratory therapy that also has been helpful. [facility] Medical History (Updated 09/20/23 @ 14:38 by Erich Turner MD) Chest pain GERD (gastroesophageal reflux disease) Complex regional pain syndrome i of left lower limb Allergic rhinitis Hypoxemia COPD (chronic obstructive pulmonary disease) Asthma Marcus's thyroiditis Surgical History Hx of tympanostomy tubes Hx of colonoscopy Hx of appendectomy Hx of laparoscopy Hx of cholecystectomy Family History Maternal Grandfather Heart problem Father Heart problem Mother HTN (hypertension) Hypercholesterolemia Social History Household Members: Spouse Housing: House Do you presently have visiting nurse or other home services: No Alcohol intake: never Patient Tobacco Use Status: Former Tobacco user Quit Date: in Cigarette Packs Per Day: 1.5 Cigarettes Per Day: 30 Years Smoked: 12 Advance Directives Date on File: 04/15/21 service: No Current occupational status: unemployed Review of Systems Const All systems reviewed & are unremarkable except as noted in HPI and below Denies fatigue and Denies fever(s) Eyes Reports no additional complaints ENT Reports nasal congestion (Mild intermittent) Card Reports no additional complaints, Reports chest pain and Reports dyspnea on exertion Resp Reports as per HPI, Reports cough, Denies hemoptysis, Reports dyspnea on exertion and Denies wheezing GI Reports dyspepsia and Reports heartburn Reports no additional complaints Musc Reports no additional complaints Skin/Breast Reports system reviewed and no additional complaints, except as documented Neuro Reports no additional complaints Psych Reports anxiety Endo Denies fatigue Aller/Immun Denies wheezing Physical Exam Vital Signs: Last Vital Signs Pulse 83 09/20/23 14:15 Pulse Ox 98 09/20/23 14:15 Oxygen Delivery Method Room Air 09/20/23 14:15 BMI result Body Mass Index 29.3 Const General: comfortable, no acute distress and tired appearing HEENT Head: Yes normal to inspection Neck Neck: Yes supple Chest Chest palpation & inspection: normal inspection of the chest, localized rib tenderness with anteroposterior compression and tenderness Resp Effort & Inspection: normal respiratory effort Auscultation: no rales, no wheezes and diminished lung sounds Cardio Rate: regular rate Rhythm: regular rhythm Heart sounds: S1 normal heart sound present and S2 normal heart sound present GI Palpation (GI): Tenderness to palpation present (GI) in the epigastrum Auscultation: normal bowel sounds Extrem General: Yes no clubbing, cyanosis or edema Assessment & Plan Assessment & Plan (1) Asthma: Code(s): J45.909 - Unspecified asthma, uncomplicated Qualifiers: Asthma complication type: uncomplicated Asthma persistence: persistent Asthma severity: severe Qualified Code(s): J45.50 - Severe persistent asthma, uncomplicated (2) Allergic rhinitis: Code(s): J30.9 - Allergic rhinitis, unspecified Qualifiers: Allergic rhinitis seasonality: non-seasonal Allergic rhinitis trigger: other Qualified Code(s): J30.89 - Other allergic rhinitis (3) Pneumonitis: Comment: resolved Code(s): J18.9 - Pneumonia, unspecified organism (4) GERD (gastroesophageal reflux disease): Code(s): K21.9 - Gastro-esophageal reflux disease without esophagitis Qualifiers: Esophagitis presence: without esophagitis Qualified Code(s): K21.9 - Gastro-esophageal reflux disease without esophagitis (5) Tachycardia: Code(s): R00.0 - Tachycardia, unspecified Plan continue Trelegy continue budesonide astelin nasal spray SHAY as needed. 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
== END 2023-09-20 14:42 | disposition home or self-care (01) ==
PROVIDERS: PCP Physician Assistant; Visit Provider Hospitalist
DX: J45.50 Severe persistent asthma, uncomplicated (principal); J30.89 Other allergic rhinitis; J18.9 Pneumonia, unspecified organism; K21.9 Gastro-esophageal reflux disease without esophagitis; R00.0 Tachycardia, unspecified
CPT/HCPCS: 99214

== ENCOUNTER → 2023-09-20 14:08 | Outpatient (BNVA) | payer OTHER, SELFPAY | PROVIDERS: PCP Physician Assistant; Visit Provider Hospitalist | DX: K21.9 Gastro-esophageal reflux disease without esophagitis (principal); J44.9 Chronic obstructive pulmonary disease, unspecified ==

== ENCOUNTER → 2023-11-13 09:54 | Outpatient (REF) | payer OTHER, SELFPAY ==
--- NOTE | ~2023-11-13 | NM_ITS ---
EXAMINATION: NM BONE SCAN OF THE WHOLE BODY CLINICAL INFORMATION: CT scan of the chest done on 06/09/2022 for reevaluation of pneumonia incidentally showed mild compression deformity at mid to anterior part of T7 vertebral body and subcentimeter focal area of sclerosis. The focal area of sclerosis appear unchanged since 01/15/2021 by compression deformity appear new. For follow-up. COMPARISON: CT of the chest done on 06/09/2022 and 01/15/2021. TECHNIQUE: Multiple gamma scintillation camera images of the whole body were performed 2.5 hours following the intravenous administration of 27 mCi Tc-99m MDP. The radiotracer was injected through right antecubital superficial vein without complications. FINDINGS: In the head, no focal suspicious abnormality. Note is however made of asymmetric increased tracer avidity projecting in the region of the right-sided maxillary floor and alveolar process of the mandible bilaterally (left greater than right) likely represent dental disease. Please correlate clinically and with follow-up radiographs as appropriate for further clarification. In the thoracic cage and upper extremities, unremarkable. In the spine, unremarkable. Specifically, in the region of the previously detected mild compression deformity and underlying subtle subcentimeter area of sclerosis at T7 vertebral body, there is no concordant scintigraphic abnormality identified. In the pelvis, unremarkable. In the lower extremities, nonspecific near symmetric bilateral increased tracer avidity is noted around both knees and both ankle and both elbows and both wrists and both shoulder likely represent nonspecific arthritic changes. These correlate clinically and with follow-up radiographs as appropriate for further clarification. No other definite bony abnormalities are noted. The urinary bladder and faint visualization of both kidneys are noted. NM/NM bone scan whole body IMPRESSION: * No definite scintigraphic correlate to previous CT detected mild mid to anterior compression deformity and underlying subcentimeter focal area of sclerosis at T7 vertebral body as was detected on the CT study dated 06/09/2022. * Nonspecific bilateral periarticular near symmetric increased tracer avidity around the large joints of the extremities, of indeterminate etiology. Please correlate clinically and with follow-up radiographs as appropriate for further clarification. * Nonspecific tracer avidity involving the floor of the right maxilla and the alveolar margin of the mandible bilaterally, likely dental in origin. Clinical correlation and radiographic correlation as appropriate is recommended.
== END ==
LOC: HO.NUCMED 09:54
PROVIDERS: Visit Provider Hospitalist
DX: Q78.2 Osteopetrosis (principal); S24.113A Complete lesion at T7-T10 level of thoracic spinal cord, initial encounter
CPT/HCPCS: 78306; A9503

== ENCOUNTER 2024-03-13 13:11 | Outpatient (AMB) | payer OTHER, SELFPAY ==
--- NOTE | 2024-03-13 13:16 | A.OFFVIS_ITS ---
Vital Signs 03/13/24 13:20 Height 5 ft 4 in Weight 189 lb 9.561 oz BMI 32.5 BP 100/68 Blood Pressure Location Rt brachial Position Sitting Pulse 82 Pulse Source Pulse Oximeter Pulse Oximetry (%) 99 Oxygen Delivery Method Room Air Intake Visit Reasons: dyspnea Allergies sulfamethoxazole [From Bactrim] Allergy (Severe, Verified 03/13/24 13:16) Shortness of Breath trimethoprim [From Bactrim] Allergy (Severe, Verified 03/13/24 13:16) Shortness of Breath wheat [WHEAT] Allergy (Intermediate, Verified 03/13/24 13:16) DIARRHEA latex Adverse Reaction (Verified 03/13/24 13:16) Rash HPI Comments Details: The patient is a 48 y/o woman with severe asthma. The patient apparently has been struggling with her breathing now for the last 4-6 weeks. She has started developing worsening cough and shortness of breath. She was evaluated by Allergy immunology do start her on a course of antibiotics. The patient was Also provided prednisone. However, the couple weeks of therapy she did not improved. Subsequently she was started on a 2nd course of steroids and did request a CT scan of the chest. The CT scan was done at [facility] which I personally reviewed. Extensive ground-glass opacities bilaterally concerning for significant amount of pneumonitis. Therefore her risk specialist at call our office for an urgent visit. the patient had been admitted to [facility] in the past. During that admission she had an extensive workup for pneumonitis including a negative workup for connective tissue conditions, vasculitis in hypersensitivity pneumonitis. Therefore some clear the etiology of her pneumonitis. We talked about consider bronchoscopy to further assess for deep cultures for smoldering infections and also to potentially get some biopsies to try to the knee the etiology of the pneumonitis. Explained to her that the bronchoscopy biopsies were not always 100% specially because the size of the biopsies were small and sometimes does not provide enough architecture to make a proper that was a do believe is good option though at this time to further evaluate her recurrent symptoms. In the meantime explained to the patient that if she takes the Solu-Medrol may interact or interfere with the year with biopsies. She is going to try to hold off on it for now. I will send her course of doxycycline just to treat for atypical organisms in the meantime. If the patient's symptoms worsened and she needs to go back on the prednisone then that is okay. 03/22/2023 the patient is here for a pulmonary follow-up. the patient overall is doing better. She is responding well to the current respiratory regimen. She got concerned because her pharmacy told her that the budesonide was not back order. I did send to different pharmacy in order for her to get it. She should continue but is okay for her to cut down to 1 treatment a day. The patient continues on the Nucala. She continues to have the chest discomfort but seems to be little bit more tolerable. She is already on pain medications. She continues with her GI therapy and will be undergoing a barium swallow soon. We have referred her to Cardiology during the last visit. She has not had the appointment yet but is pending. She continues to have tachycardia issues. Otherwise patient is doing well. Will follow-up in 4-6 months. She continue with current respiratory therapy. 09/20/2023 the patient is here for a pulmonary follow-up visit. The patient continues to do well. Since we last spoke the patient did follow-up with cardiology and had a full cardiac workup. He reassuring that her chest pain and tachycardia do not have a cardiac etiology. Likely related to underlying pain syndrome. The patient also underwent a barium swallow which we did review. The patient does have evidence of dyspnea motility that also affects her swallow. She needs to be careful it make sure to drink water while eating food to make sure that goes down all the way. If the patient continues to have issues she may need to follow-up with GI. But currently she is feeling well. She continues on the Nucala injection which have been affecting beneficial. She also continues with respiratory therapy that also has been helpful. 03/12/2024 the patient is here for pulmonary follow-up visit. Overall she is doing well. She did have 1 episode over the summer when she went to [place] cabin that [place] without a see and she started developing worsening shortness breath and wheezing. She had to restart all her nebulizer treatments was sick for little bit of time. However she did improve. She continues on the Nucala injections. She also continues on the Trelegy inhaler. She was able to hold off on the budesonide at this time which is reassuring. At this point will also try to deescalate some of the therapy by decreasing and weaning off her azithromycin. She does continue the Nucala every 30 days with good effect. No recent imaging to review. The patient will follow-up in 6 months. If she develops any issues prior to that she will call for an earlier assessment. [facility] Medical History (Updated 03/13/24 @ 21:38 by Erich Turner MD) Chest pain GERD (gastroesophageal reflux disease) Complex regional pain syndrome i of left lower limb Allergic rhinitis Hypoxemia COPD (chronic obstructive pulmonary disease) Asthma Marcus's thyroiditis Surgical History Hx of tympanostomy tubes Hx of colonoscopy Hx of appendectomy Hx of laparoscopy Hx of cholecystectomy Family History Maternal Grandfather Heart problem Father Heart problem Mother HTN (hypertension) Hypercholesterolemia Social History Household Members: Spouse Housing: House Do you presently have visiting nurse or other home services: No Alcohol intake: never Patient Tobacco Use Status: Former Tobacco user Cigarette Packs Per Day: 1.5 Cigarettes Per Day: 30 Years Smoked: 12 Advance Directives Date on File: 04/15/21 service: No Current occupational status: unemployed Review of Systems Const All systems reviewed & are unremarkable except as noted in HPI and below Denies fatigue and Denies fever(s) Eyes Reports no additional complaints ENT Reports nasal congestion (Mild intermittent) Card Reports no additional complaints, Reports chest pain and Reports dyspnea on exertion Resp Reports as per HPI, Reports cough, Denies hemoptysis, Reports dyspnea on exertion and Denies wheezing GI Reports dyspepsia and Reports heartburn Reports no additional complaints Musc Reports myalgias Skin/Breast Reports system reviewed and no additional complaints, except as documented Neuro Reports no additional complaints Psych Reports anxiety Endo Denies fatigue Aller/Immun Denies wheezing Physical Exam Vital Signs: Last Vital Signs Pulse 82 03/13/24 13:20 BP 100/68 03/13/24 13:20 Pulse Ox 99 03/13/24 13:20 Oxygen Delivery Method Room Air 03/13/24 13:20 BMI result Body Mass Index 32.5 Const General: comfortable, no acute distress and tired appearing HEENT Head: Yes normal to inspection Neck Neck: Yes supple Chest Chest palpation & inspection: normal inspection of the chest, localized rib tenderness with anteroposterior compression and tenderness Resp Effort & Inspection: normal respiratory effort Auscultation: no rales, no wheezes and diminished lung sounds Cardio Rate: regular rate Rhythm: regular rhythm Heart sounds: S1 normal heart sound present and S2 normal heart sound present GI Palpation (GI): Tenderness to palpation present (GI) in the epigastrum Auscultation: normal bowel sounds Extrem General: Yes no clubbing, cyanosis or edema Assessment & Plan Assessment & Plan (1) Asthma: Code(s): J45.909 - Unspecified asthma, uncomplicated Category: Medical Qualifiers: Asthma complication type: uncomplicated Asthma persistence: persistent Asthma severity: severe Qualified Code(s): J45.50 - Severe persistent asthma, uncomplicated (2) Allergic rhinitis: Code(s): J30.9 - Allergic rhinitis, unspecified Category: Medical Qualifiers: Allergic rhinitis seasonality: non-seasonal Allergic rhinitis trigger: other Qualified Code(s): J. - Other allergic rhinitis (3) GERD (gastroesophageal reflux disease): Code(s): K21.9 - Gastro-esophageal reflux disease without esophagitis Category: Medical Qualifiers: Esophagitis presence: without esophagitis Qualified Code(s): K21.9 - Gastro-esophageal reflux disease without esophagitis (4) Abnormal radionuclide bone scan: Comment: likely arthritis Code(s): R94.8 - Abnormal results of function studies of other organs and systems Category: Medical Plan continue Trelegy holding budesonide astelin nasal spray SHAY as needed. Continue Nucala wean off Azithromycin MWF reflux diet PPI Pepcid consider Rheumatology eval to assess abnormal bone scan Follow-up in 6 months Coding Level of Care Code Est Pt Level 4 (57679) Diagnoses Severe persistent asthma without complication J45.50 Asthma complication type: uncomplicated Asthma persistence: persistent Asthma severity: severe Non-seasonal allergic rhinitis due to other allergic trigger J30. Allergic rhinitis seasonality: non-seasonal Allergic rhinitis trigger: other Gastroesophageal reflux disease without esophagitis K21.9 Esophagitis presence: without esophagitis Abnormal radionuclide bone scan R94.8 Time Spent (min) 17
[2024-03-13 13:20] VITALS: BP 100/68; PULSE 82; O2SAT 99; BMI 32.5
== END 2024-03-13 13:43 | disposition home or self-care (01) ==
PROVIDERS: PCP Physician Assistant; Visit Provider Hospitalist
DX: J45.50 Severe persistent asthma, uncomplicated (principal); J30.89 Other allergic rhinitis; K21.9 Gastro-esophageal reflux disease without esophagitis; R94.8 Abnormal results of function studies of other organs and systems
CPT/HCPCS: 99214

== ENCOUNTER → 2024-03-13 13:11 | Outpatient (BNVA) | payer OTHER, SELFPAY | PROVIDERS: PCP Physician Assistant; Visit Provider Hospitalist ==

== ENCOUNTER 2025-05-28 14:19 | Inpatient (IN) | payer OTHER, SELFPAY ==
[2025-05-28] VITALS (18 sets, daily range): BP systolic 102–132; BP diastolic 46–76; PULSE 88–121; RESP 14–25; TEMP 36.7–38.9; O2SAT 91–94; BMI 34.1
--- NOTE | ~2025-05-28 | XR_ITS ---
EXAMINATION: XR CHEST CLINICAL INFORMATION: Pneumonia? COMPARISON: Chest radiograph on April 20, 2022 TECHNIQUE: Frontal view of the chest was obtained. FINDINGS: Low lung volumes. Patchy opacity over the left lung base. No pneumothorax. No pleural effusions seen on this frontal view. Cardiomediastinal silhouette is within normal limits. No acute osseous abnormality. XR/XR chest 1V IMPRESSION: Opacity over the left lung base appears to represent a combination of atelectasis and airspace disease. Electronically signed by: Davina Tian MD 05/28/2025 03:45 PM EST
--- NOTE | 2025-05-28 14:20 | ECG_ITS ---
Test Reason : CP Blood Pressure : */* mmHG Vent. Rate : 112 BPM Atrial Rate : 112 BPM P-R Int : 196 ms QRS Dur : 80 ms QT Int : 268 ms P-R-T Axes : 16 10 -88 degrees QTcB Int : 365 ms Sinus tachycardia Low voltage QRS ST & T wave abnormality, consider inferolateral ischemia Abnormal ECG When compared with ECG of 18-Nov-2021 18:14, T wave inversion now evident in Anterolateral leads Referred By: Korey Cartwright Electronically Signed By: KATRIN BECKHAM
--- NOTE | 2025-05-28 14:37 | ED.GENADULT ---
HPI - General Adult General Chief complaint: Dyspnea Stated complaint: chest pain, congestion Time Seen by Provider: 05/28/25 14:42 Source: patient and family (Mother) Mode of arrival: ambulatory Limitations: no limitations History of Present Illness ED Provider: DR. House HPI narrative: This is a 50-year-old female PMHx significant for asthma/COPD on home supplemental oxygen as needed patient has not used supplemental oxygen for a while, Marcus thyroiditis, anxiety, depression, pneumonia patient presented today with fever, chills, body ache, sore throat, coughing with yellow sputum, chest pain mostly with coughing but also with exertion. Patient reported exposure sick family member with respiratory symptoms. Related Data Home Medications ?Medication ?Instructions ?Recorded ?Confirmed acetaminophen 500 mg tablet 500 mg PO Q6H PRN pain 01/15/21 05/28/25 diclofenac sodium 1 % topical gel 4 g topical DAILY PRN Pain 01/15/21 05/28/25 morphine 30 mg immediate release 30 mg PO 4-5XD PRN Pain 06/28/21 05/28/25 tablet fluticasone fur. 200 mcg-umeclid 1 inh inhalation DAILY 08/09/21 05/28/25 62.5 mcg-vilant 25 mcg inhalat.powder (Trelegy Ellipta) levothyroxine 88 mcg tablet 88 mcg PO DAILY@0600 11/18/21 05/28/25 uywsgpp-prhyyxihiprle-tstuxezf 250 1 tab PO Q4-6H PRN Migraine 04/13/22 05/28/25 mg-250 mg-65 mg tablet (Excedrin Headache Migraine) mupirocin 2 % topical ointment 1 appl topical DAILY PRN Fungal 04/13/22 05/28/25 Infection/Rash mepolizumab 100 mg/mL subcutaneous 100 mg subcut QMONTH 09/08/22 05/28/25 auto-injector (Nucala) nebulizers 03/22/23 04/10/23 meclizine 12.5 mg tablet 12.5 mg PO BID PRN Dizziness 09/20/23 05/28/25 norgestrel 0.3 mg-ethinyl 1 tab PO DAILY 03/13/24 05/28/25 estradiol 30 mcg tablet ([place]sel[place] (28)) risperidone 1 mg tablet 1 mg PO BID 03/13/24 05/28/25 fluticasone propionate 110 2 puff inhalation BID 05/28/25 05/28/25 mcg/actuation HFA aerosol inhaler nystatin 100,000 unit/mL oral 1 ml PO BID PRN thrush 05/28/25 05/28/25 suspension omeprazole 40 mg capsule,delayed 40 mg PO BID@0630,1630 05/28/25 05/28/25 release risperidone 0.5 mg tablet 0.5 mg PO BEDTIME 05/28/25 05/28/25 Previous Rx's ?Medication ?Instructions ?Recorded benzonatate 200 mg capsule 200 mg PO BID PRN cough 30 days 03/02/23 #60 caps Allergies Allergy/AdvReac Type Severity Reaction Status Date / Time sulfamethoxazole (From Allergy Severe Shortness Verified 05/28/25 14:36 Bactrim) of Breath trimethoprim (From Bactrim) Allergy Severe Shortness Verified 05/28/25 14:36 of Breath wheat (WHEAT) Allergy Intermediate DIARRHEA Verified 05/28/25 14:36 latex AdvReac Rash Verified 05/28/25 14:36 Review of Systems Review of Systems: All other systems are reviewed and are negative Constitutional: Reports as per HPI and Reports no additional constitutional complaints Eyes: Reports as per HPI and Reports no additional eye complaints Reports system reviewed and no additional complaints, except as documented Cardiovascular: Reports as per HPI and Reports no additional cardiovascular complaints Respiratory: Reports as per HPI and Reports no additional respiratory complaints Gastrointestinal: Reports as per HPI and Reports no additional gastrointestinal complaints Genitourinary: Reports no additional female genitourinary complaints Musculoskeletal: Reports no additional musculoskeletal complaints Skin/Breast: Reports system reviewed and no additional complaints, except as docu Psychiatric: Reports no additional psychiatric complaints Endocrine: Reports no additional endocrine complaints Hematologic/Lymphatic: Reports no additional hematologic/lymphatic complaints Allergic/Immunologic: Reports no additional allergic/immunologic complaints Reports system reviewed and no additional complaints, except as documented and Reports Abnormal speech present [facility] Past Medical History Medical History Chest pain GERD (gastroesophageal reflux disease) Complex regional pain syndrome i of left lower limb Allergic rhinitis Hypoxemia COPD (chronic obstructive pulmonary disease) Asthma Marcus's thyroiditis Surgical History Hx of tympanostomy tubes Hx of colonoscopy Hx of appendectomy Hx of laparoscopy Hx of cholecystectomy Family History Family History Maternal Grandfather Heart problem Father Heart problem Mother HTN (hypertension) Hypercholesterolemia Social History Social History Household Members: Spouse Housing: House Do you presently have visiting nurse or other home services: No Alcohol intake: never Patient Tobacco Use Status: Former Tobacco user Cigarette Packs Per Day: 1.5 Cigarettes Per Day: 30 Years Smoked: 12 Advance Directives Date on File: 04/15/21 service: No Current occupational status: unemployed Physical Exam ED Vital Signs: Vital Signs - 24 hr 05/28/25 14:33 05/28/25 15:00 05/28/25 15:00 Temperature 98.3 F 102.1 F H Pulse Rate 121 H 102 H 105 H Respiratory Rate 24 H 20 23 H Blood Pressure 132/58 L 116/60 112/60 Pulse Oximetry 92 91 L 91 L Oxygen Delivery Method Room Air Room Air Room Air 05/28/25 15:03 05/28/25 15:27 05/28/25 15:44 Temperature Pulse Rate 102 H 108 H 103 H Respiratory Rate 21 H 20 24 H Blood Pressure 102/56 L 107/58 L Pulse Oximetry 93 93 Oxygen Delivery Method Room Air Room Air 05/28/25 15:45 05/28/25 16:00 Temperature Pulse Rate 104 H 100 Respiratory Rate 25 H 16 Blood Pressure 104/52 L 103/55 L Pulse Oximetry 92 93 Oxygen Delivery Method Room Air Room Air BMI result Body Mass Index 34.1 Vital signs have been reviewed and appear to be correct. Blood pressure elevated. Heart rate normal. Respiratory rate normal. Temperature normal. Oxygen saturation normal. Appearance: Alert. Oriented X3. No acute distress. Head: Normal external exam. Normocephalic. Atraumatic. No Simental signs noted. No raccoon eyes noted Eyes: PERRLA. EOMI. Conjunctiva and sclera normal. Eyelids normal. ENT: TM's Normal. Pharynx normal. Uvula midline. Moist mucous membranes. No trismus noted. No drooling noted. No muffled voice noted. Neck: Normal inspection. Neck supple. FROM. No adenopathy. Thyroid Normal. No meningeal signs. No neck mass noted. CVS: Normal heart rate and rhythm. Heart sound normal. No murmurs noted. Pulses normal throughout. Respiratory: No respiratory distress. Painless inspiration. Breath sounds normal. No wheezes/rales/rhonchi noted. Chest nontender. No accessory muscle usage noted or decreased air movement noted. Abdomen: Soft and nontender. Bowel sounds normal in all 4 quadrants. No distention noted. No organomegaly noted. No visible injury noted. Back: No CVA tenderness. Full range of motion noted. Skin: Skin warm and dry. Normal skin color. Normal skin turgor. No rashes/lesions/lacerations noted. Extremities: No lower extremity edema. Extremities exhibit normal range of motion. Extremities nontender. Neuro: Oriented X 3. Cranial nerve exam: II-XII are grossly intact No motor deficit. No sensory deficit. Reflexes normal. Course Course Course Narrative: RME: 50 year female history of pneumonia bronchitis minutes ED for shortness of breath, chest pain, coughing up yellow phlegm. Patient hypoxic tachycardic. Patient to be brought back to the ED. Reevaluation(s) Reevaluation #1: 50-year-old female called out COPD, interstitial lung disease presented with fever and pneumonia symptoms. Patient meets criteria for sepsis received ceftriaxone and doxycycline and fluids. Will admit. Time: 16:08 Medications Administered Generic Name Dose Route Start Last Admin Trade Name Freq PRN Reason Stop Dose Admin Benzonatate 100 mg 05/28/25 16:07 05/29/25 13:16 Benzonatate 100 Mg Capsule PO 100 mg TID PRN Administration Cough Levalbuterol HCl 2.5 mg/ 0 mg 05/28/25 18:00 05/29/25 11:23 Ipratropium [place] 0.5 mg INHALE 1 dose RQ6H KAIDEN Administration Enoxaparin Sodium 40 mg 05/28/25 16:15 05/29/25 04:11 Enoxaparin Sodium 40 Mg/0.4 Ml Syringe SUBCUT 40 mg Q12H KAIDEN Administration Doxycycline Hyclate 100 mg/ 250 mls @ 166.67 mls/hr 05/29/25 03:00 05/29/25 04:11 Sodium Chloride IV 06/05/25 02:59 Infused Q12H KAIDEN Infusion Levothyroxine Sodium 88 mcg 05/29/25 06:00 05/29/25 06:06 Levothyroxine Sodium 88 Mcg Tablet PO 88 mcg DAILY@0600 KAIDEN Administration Methylprednisolone Sodium Succinate 40 mg 05/28/25 21:00 05/29/25 07:50 Methylprednisolone Sod Succ 40 Mg/Ml Vial IVPUSH 40 mg Q6H KAIDEN Administration Morphine Sulfate 30 mg 05/28/25 17:24 05/29/25 07:50 Morphine Sulfate Immed Release 15 Mg Tablet PO 30 mg QID PRN Administration Pain Pantoprazole Sodium 40 mg 05/29/25 06:30 05/29/25 06:06 Pantoprazole Sodium 40 Mg/10 Ml Vial IVPUSH 40 mg DAILY@0630 KAIDEN Administration Potassium Chloride 40 meq 05/29/25 09:00 05/29/25 09:24 Potassium Chloride Er 20 Meq Tab.Er.Prt PO 05/29/25 21:01 40 meq BID KAIDEN Administration Risperidone 0.5 mg 05/28/25 21:00 05/28/25 20:34 Risperidone 0.5 Mg Tablet PO 0.5 mg BEDTIME KAIDEN Administration Risperidone 1 mg 05/28/25 21:00 05/29/25 07:50 Risperidone 1 Mg Tablet PO 1 mg BID KAIDEN Administration Sodium Chloride 3 ml 05/29/25 00:00 05/29/25 07:50 0.9 % Sodium Chloride Flush 3 Ml Syringe IVFLUSH 3 ml QSHIFT KAIDEN Administration Discontinued Medications Generic Name Dose Route Start Last Admin Trade Name Freq PRN Reason Stop Dose Admin Albuterol/Ipratropium 3 ml 05/28/25 14:54 05/28/25 15:02 Albuterol/Iprat 2.5/0.5mg 3 Ml Ampul.Neb INHALE 05/28/25 14:55 3 ml ONCE ONE Administration Ceftriaxone Sodium 1 gm/ 50 mls @ 100 mls/hr 05/28/25 14:48 05/28/25 15:27 Sodium Chloride IV 05/28/25 15:17 Infused ONCE ONE Infusion Doxycycline Hyclate 100 mg/ 250 mls @ 166.67 mls/hr 05/28/25 14:48 05/28/25 17:48 Sodium Chloride IV 05/28/25 16:17 Infused ONCE ONE Infusion Acetaminophen 1,000 mg in 100 mls @ 400 mls/hr 05/28/25 14:49 05/28/25 15:19 Ofirmev IV 05/28/25 15:03 Infused ONCE ONE Infusion Lactated Ringer's 1,000 mls @ 999 mls/hr 05/28/25 15:00 05/28/25 15:56 Lr IV 05/28/25 16:00 Infused .Q1H1M KAIDEN Infusion Methylprednisolone Sodium Succinate 60 mg 05/28/25 14:57 05/28/25 15:15 Methylprednisolone Sod Succ 125 Mg/2 Ml Vial IVPUSH 05/28/25 14:58 60 mg ONCE ONE Administration Medical Decision Making Differential Diagnosis Differential Diagnoses: The differential diagnosis associated with the presentation includes (Pneumonia, pneumothorax, pleural effusion, UTI, viral infection, sepsis, electrolyte derangement, severe anemia.) Admission/Observation Consideration of admission/observation: Escalation of care including admission/observation considered Consult Healthcare Provider Management of the patient was discussed with: Hospitalist (Dr. Nash) Lab Data MDM Lab Attestation statement: I reviewed the patient's lab results. 05/29/25 06:33 05/29/25 06:33 Labs: Lab Results 05/28/25 05/28/25 05/28/25 Range/Units 14:48 14:49 14:50 WBC 21.3 H (4.8-10.8) X10*3/uL RBC 4.76 (4.20-5.50) X10*6/uL Hgb 13.6 (12.0-16.0) g/dl Hct 40.4 (37.0-47.0) % MCV 84.9 (80.0-98.0) fL MCH 28.6 (27.0-33.0) pg MCHC 33.7 (31.0-35.0) g/dl RDW 13.0 (11.0-16.0) % Plt Count 287 (160-400) X10*3/uL MPV 10.1 (9.4-12.3) fL Immature Gran % (Auto) Cancelled Neut % (Auto) Cancelled Lymph % (Auto) Cancelled [place] % (Auto) Cancelled Eos % (Auto) Cancelled Baso % (Auto) Cancelled Lymph # (Auto) Cancelled [place] # (Auto) Cancelled Eos # (Auto) Cancelled Baso # (Auto) Cancelled Abs Immat Gran (auto) Cancelled Absolute Neuts (auto) Cancelled Absolute Nucleated RBC 0.000 (0.0-0.012) X10*3/uL Nucleated RBC % (auto) 0.0 (0.0-0.2) /100WBC Neutrophils % (Manual) 90 H (45-73) % Band Neutrophils % 5 (3-5) % Lymphocytes % (Manual) 2 L (20-40) % Monocytes % (Manual) 3 (2-11) % Abs Neuts (Manual) 20.2 H (2.0-8.3) X10*3/uL Lymphocytes # (Manual) 0.4 L (1.2-4.9) X10*3/uL Monocytes # (Manual) 0.6 (0.1-1.2) X10*3/uL Toxic Vacuolation PRESENT Platelet Estimate NORMAL (NORMAL) Plt Morphology Comment NORMAL RBC Morphology NORMAL Sodium 136 (135-145) mmol/L Potassium 3.6 (3.3-5.1) mmol/L Chloride 107 (96-108) mmol/L Carbon Dioxide 18 L (22-29) mmol/L Anion Gap 15 (12-20) BUN 6 L (9-16) mg/dL Creatinine 0.89 (0.5-1.4) mg/dL Estim Creat Clear Calc 81.3 Estimated GFR > 60 Random Glucose 119 H (60-115) mg/dL Lactic Acid 1.0 (0.5-2.0) mmol/L Calcium 8.8 D (8.4-10.2) mg/dL Total Bilirubin 0.5 (0.0-1.0) mg/dL AST 39 H (5-31) U/L ALT 32 H (0-31) U/L Alkaline Phosphatase 76 (39-117) U/L Troponin I High Sens < 2.7 (<3.5-17.0) ng/L NT-Pro-B Natriuret Pep 326.5 H (<300) pg/mL Total Protein 7.7 (6.5-8.0) g/dL Albumin 4.0 (3.5-5.0) g/dL Influenza Type A (PCR) NEGATIVE (Negative) Influenza Type B (PCR) NEGATIVE (Negative) RSV RNA Qual (PCR) NEGATIVE (Negative) SARS-CoV-2 RNA (RT-PCR) NEGATIVE (Negative) Independent Interpretation I performed an independent interpretation of an: Plain X-Ray (Chest:Opacity over the left lung base appears to represent a combination of atelectasis and airspace disease.) Radiology Impression Discussion of test interpretation with radiology: I have reviewed the radiologist's reading. Critical Care Time Critical Care Time Critical Care Time: Yes Total Critical Care Time: 60 Attestation: The patient was critically ill with a high probability of imminent or life-threatening deterioration. I spent greater than 30 minutes of discontinuous time evaluating the patient, delivering critical care at the bedside, discussing evaluating data with consultants. Critical care time does not include time spent performing separately billable procedures or teaching. Time spent performing critical care was 60 minutes. Discharge Plan Discharge Clinical Impression: Pneumonia Sepsis Qualifiers: Acute respiratory failure type: with hypoxia Patient Disposition: Admitted As Inpatient Interventions: Admission Worksheet (ED) Last Done: 05/29/25 00:22 Discharge Date/Time: 05/29/25 02:15
[2025-05-28] MEDS: Lactated Ringers 1,000 ML 999 ML IV (14:57)
[2025-05-28 15:00] LABS: Hematocrit 40.4 % (37.0-47.0); Hemoglobin 13.6 g/dl (12.0-16.0); Mean Corpuscular HGB Conc 33.7 g/dl (31.0-35.0); Mean Corpuscular Hemoglobin 28.6 pg (27.0-33.0); Mean Corpuscular Volume 84.9 fL (80.0-98.0); NRBC Abs Auto 0.000 X10*3/uL (0.0-0.012); NRBC Pct Auto 0.0 /100WBC (0.0-0.2); Platelet Count 287 X10*3/uL (160-400); Red Blood Count 4.76 X10*6/uL (4.20-5.50)
[2025-05-28] MEDS: Albuterol/Iprat 2.5/0.5MG 3 ML AMPUL.NEB INHALE (15:02)
[2025-05-28 15:13] LABS: WBC ABN SCTR FOR CBC 1
[2025-05-28 15:26] LABS: Alanine Aminotransferase 32 U/L (0-31); Albumin Level 4.0 g/dL (3.5-5.0); Alkaline Phosphatase 76 U/L (39-117); Anion Gap 15 (12-20); Aspartate Amino Transferase 39 U/L (5-31); Blood Urea Nitrogen 6 mg/dL (9-16); Calcium 8.8 mg/dL (8.4-10.2); Carbon Dioxide 18 mmol/L (22-29); Chloride 107 mmol/L (96-108); Creatinine Clr Calc Pharmacy 81.3; Estimated Glomerular Filt Rate > 60; Potassium 3.6 mmol/L (3.3-5.1); Sodium 136 mmol/L (135-145); Total Protein 7.7 g/dL (6.5-8.0)
[2025-05-28 15:37] LABS: Troponin-I High Sensitivity < 2.7 ng/L (<3.5-17.0)
[2025-05-28 15:39] LABS: Resp Syncy Virus RNA Qual PCR NEGATIVE (Negative); SARS COV2 PCR INHOUSE NEGATIVE (Negative)
[2025-05-28 15:41] LABS: NT Pro B Type Natriuretic Pept 326.5 pg/mL (<300)
[2025-05-28 15:50] LABS: Band Neutrophils Percent 5 % (3-5); Lymphocytes Percent Manual 2 % (20-40); Monocytes Percent Manual 3 % (2-11); Neutrophils Percent Manual 90 % (45-73)
--- NOTE | 2025-05-28 15:50 | PC.NURSE ---
pt comes to ED with URI symptoms for a week - she has a cough, chest congestion/pain, SOB. she states she has had pneumonia and bronchitis several times, has hx of asthma. brought back from triage as sepsis alert as pt was tachy and febrile. no N/V/D, abd pain labs and EKG done, IV started. per pt - no lab draws/BP on left arm. sinus tach on tele
[2025-05-28 15:58] LABS: RBC Morphology NORMAL
[2025-05-28 15:59] LABS: Toxic Vacuolation PRESENT
[2025-05-28 16:00] LABS: Lymphocytes Absolute Manual 0.4 X10*3/uL (1.2-4.9); Monocytes Absolute Manual 0.6 X10*3/uL (0.1-1.2); Neutrophils Absolute Manual 20.2 X10*3/uL (2.0-8.3); White Blood Count 21.3 X10*3/uL (4.8-10.8)
--- NOTE | 2025-05-28 16:55 | PHA.MEDREC ---
Addendum entered by Brandan [facility] 05/29/25 18:28: Verified with patient...she uses both Trelegy and Flovent inhalers. She also said she takes sodium bicarb 325 mg tablets 3 times a day. Addendum entered by Brandan [facility] 05/28/25 17:43: MED REC REVIEWED BY [facility] Original Note: Pharmacy Consult ? Medication Reconciliation Pharmacy has completed the medication reconciliation. Spoke with pt and she confirmed her medications. Pt confirmed she still has as needed: Benzonatate caps as needed for cough (LF 09/18 for 30 days QTY 60), Morphine 30mg 1 tab 4-5 times a day as needed for pain; LF 03/11 for 4 days QTY 10, Diclofenac Gel for pain, Meclizine for dizziness and Mupirocin cream as needed for Fungal/Rash; no claims were found for these and pt states she has had those meds for a while now and pt taking a Nucala injection once a month and states she is due for that tomorrow; pt confirmed she can have someone from home bring in med if needed.
--- NOTE | 2025-05-28 17:09 | PM.IMHP ---
History of Present Illness Date of Service: 05/28/25 Chief Complaint: shortness of breath and cough 50-year-old female who presented to hospital complaining of dyspnea and productive cough that began approximately 1 week ago. Patient mentioned that family members around her were sick recently. Cough has been associated with subjective fevers, nausea and generalized weakness. 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 In the ED, patient with pulse rate of 121, respiratory rate of 24, temperature 102.1 degrees, saturating 91%, labs WBC 21.3, 5 neutrophilic bands with toxic vacuolization, lactic acid 1.0 chest x-ray with opacity over the left lung base. Patient admitted for pneumonia Review of Systems Review of Systems: Fourteen point review of systems obtained, negative except as stated above. [facility] Medical History Chest pain GERD (gastroesophageal reflux disease) Complex regional pain syndrome i of left lower limb Allergic rhinitis Hypoxemia COPD (chronic obstructive pulmonary disease) Asthma Marcus's thyroiditis Family History Maternal Grandfather Heart problem Father Heart problem Mother HTN (hypertension) Hypercholesterolemia Surgical History Hx of tympanostomy tubes Hx of colonoscopy Hx of appendectomy Hx of laparoscopy Hx of cholecystectomy Social History Household Members: Spouse Housing: House Do you presently have visiting nurse or other home services: No Alcohol intake: never Patient Tobacco Use Status: Former Tobacco user Cigarette Packs Per Day: 1.5 Cigarettes Per Day: 30 Years Smoked: 12 Smoked in Last 30 Days: No Use of substances other than those prescribed or required for medical reasons: No Advance Directives: Yes Advance Directives on File: Yes Advance Directives Date on File: 04/15/21 service: No Current occupational status: unemployed Meds Allergies Allergy/AdvReac Type Severity Reaction Status Date / Time sulfamethoxazole (From Allergy Severe Shortness Verified 05/28/25 14:36 Bactrim) of Breath trimethoprim (From Bactrim) Allergy Severe Shortness Verified 05/28/25 14:36 of Breath wheat (WHEAT) Allergy Intermediate DIARRHEA Verified 05/28/25 14:36 latex AdvReac Rash Verified 05/28/25 14:36 Active Medications: Current Medications Acetaminophen (Acetaminophen 325 Mg Tablet) 650 mg PO Q6H PRN PRN Reason: Pain, Mild 1-3,fever,headache Benzonatate (Benzonatate 100 Mg Capsule) 100 mg PO TID PRN PRN Reason: Cough Calcium Carbonate (Calcium Carbonate 750 Mg Tab.Chew) 750 mg PO Q4H PRN PRN Reason: Heartburn Levalbuterol HCl 2.5 mg/ (Ipratropium [place] 0.5 mg) 0 mg INHALE Q6H [facility] Enoxaparin Sodium (Enoxaparin Sodium 40 Mg/0.4 Ml Syringe) 40 mg SUBCUT Q12H [facility] Ceftriaxone Sodium 1 gm/ (Sodium Chloride) 50 mls @ 100 mls/hr IV Q24H [facility] Doxycycline Hyclate 100 mg/ (Sodium Chloride) 250 mls @ 166.67 mls/hr IV Q12H [facility] Stop: 06/05/25 02:59 Magnesium Hydroxide (Milk Of Magnesia 30 Ml Oral.Susp) 30 ml PO DAILY PRN PRN Reason: Constipation Melatonin (Melatonin 3 Mg Tablet) 6 mg PO BEDTIME PRN PRN Reason: Insomnia Methylprednisolone Sodium Succinate (Methylprednisolone Sod Succ 40 Mg/Ml Vial) 40 mg IVPUSH Q6H [facility] Pantoprazole Sodium (Pantoprazole Sodium 40 Mg/10 Ml Vial) 40 mg IVPUSH DAILY@0630 [facility] Sodium Chloride (0.9 % Sodium Chloride Flush 3 Ml Syringe) 3 ml IVFLUSH QSHIFT [facility] Home Medications ?Medication ?Instructions ?Recorded ?Confirmed ?Last Taken ?Type acetaminophen 500 mg tablet 500 mg PO Q6H PRN pain 01/15/21 05/28/25 Unknown History diclofenac sodium 1 % topical gel 4 g topical DAILY PRN Pain 01/15/21 05/28/25 Unknown History morphine 30 mg immediate release 30 mg PO 4-5XD PRN Pain 06/28/21 05/28/25 Unknown History tablet fluticasone fur. 200 mcg-umeclid 1 inh inhalation DAILY 08/09/21 05/28/25 05/28/25 History 62.5 mcg-vilant 25 mcg inhalat.powder (Trelegy Ellipta) levothyroxine 88 mcg tablet 88 mcg PO DAILY@0600 11/18/21 05/28/25 05/28/25 History obuyxgq-wovwekajhwhnh-zsyyzqbw 250 1 tab PO Q4-6H PRN Migraine 04/13/22 05/28/25 Unknown History mg-250 mg-65 mg tablet (Excedrin Headache Migraine) mupirocin 2 % topical ointment 1 appl topical DAILY PRN Fungal 04/13/22 05/28/25 Unknown History Infection/Rash mepolizumab 100 mg/mL subcutaneous 100 mg subcut QMONTH 09/08/22 05/28/25 1 Month Ago History auto-injector (Nucala) ~04/28/25 nebulizers 03/22/23 04/10/23 Unknown History meclizine 12.5 mg tablet 12.5 mg PO BID PRN Dizziness 09/20/23 05/28/25 05/28/25 History norgestrel 0.3 mg-ethinyl 1 tab PO DAILY 03/13/24 05/28/25 05/28/25 History estradiol 30 mcg tablet (Linda (28)) risperidone 1 mg tablet 1 mg PO BID 03/13/24 05/28/25 05/28/25 History fluticasone propionate 110 2 puff inhalation BID 05/28/25 05/28/25 05/28/25 History mcg/actuation HFA aerosol inhaler nystatin 100,000 unit/mL oral 1 ml PO BID PRN thrush 05/28/25 05/28/25 Unknown History suspension omeprazole 40 mg capsule,delayed 40 mg PO BID@0630,1630 05/28/25 05/28/25 05/28/25 History release risperidone 0.5 mg tablet 0.5 mg PO BEDTIME 05/28/25 05/28/25 05/27/25 History Physical Exam Vital Signs and Narrative: Vital Signs: Last Vital Signs Temp 100.2 F 05/28/25 16:15 Pulse 95 05/28/25 16:59 Resp 14 05/28/25 16:59 BP 102/57 L 05/28/25 16:59 Pulse Ox 92 05/28/25 16:59 O2 Del Method Room Air 05/28/25 16:59 BMI result Body Mass Index 34.1 General: AxOx3, mild acute distress Head: AT/NC ENT: Moist mucous membranes Neck: supple CVS; increased rate and rhythm Lungs: Left lower lobe with rales, decreased pulmonary expansion Abd: Soft non tender, non distended Ext: No edema and no calf tenderness MSK: moving all 4 limbs Skin: No cyanosis or edema Psych: Cooperative with exam Neurology: no focal deficit Results Labs 05/28/25 14:48 05/28/25 14:48 Labs: Laboratory Results - last 24 hr 05/28/25 05/28/25 05/28/25 14:48 14:49 14:50 MCV 84.9 MCH 28.6 MCHC 33.7 RDW 13.0 Plt Count 287 MPV 10.1 Immature Gran % (Auto) Cancelled Neut % (Auto) Cancelled Lymph % (Auto) Cancelled [place] % (Auto) Cancelled Eos % (Auto) Cancelled Baso % (Auto) Cancelled Lymph # (Auto) Cancelled [place] # (Auto) Cancelled Eos # (Auto) Cancelled Baso # (Auto) Cancelled Abs Immat Gran (auto) Cancelled Absolute Neuts (auto) Cancelled Absolute Nucleated RBC 0.000 Nucleated RBC % (auto) 0.0 Neutrophils % (Manual) 90 H Band Neutrophils % 5 Lymphocytes % (Manual) 2 L Monocytes % (Manual) 3 Abs Neuts (Manual) 20.2 H Lymphocytes # (Manual) 0.4 L Monocytes # (Manual) 0.6 Toxic Vacuolation PRESENT Platelet Estimate NORMAL Plt Morphology Comment NORMAL RBC Morphology NORMAL Anion Gap 15 Estim Creat Clear Calc 81.3 Estimated GFR > 60 Random Glucose 119 H Lactic Acid 1.0 Calcium 8.8 D Total Bilirubin 0.5 AST 39 H ALT 32 H Alkaline Phosphatase 76 Troponin I High Sens < 2.7 NT-Pro-B Natriuret Pep 326.5 H Total Protein 7.7 Albumin 4.0 Influenza Type A (PCR) NEGATIVE Influenza Type B (PCR) NEGATIVE RSV RNA Qual (PCR) NEGATIVE SARS-CoV-2 RNA (RT-PCR) NEGATIVE Imaging Radiologist's Impressions: Impressions Chest X-Ray 05/28/25 15:30 IMPRESSION: Opacity over the left lung base appears to represent a combination of atelectasis and airspace disease. Electronically signed by: Davina Tian MD 05/28/2025 03:45 PM [facility] Assessment and Plan (1) Sepsis: Qualifiers: Acute respiratory failure type: with hypoxia Status: Acute (2) Pneumonia: Status: Acute Plan Assessment: 50-year-old female who presents to hospital complaining of worsening shortness of breath that began approximately 1 week ago, with productive sputum, associated with nausea, vomiting and subjective fevers. In the ED chest x-ray showing opacity of left lung. Given IV antibiotics, admitted for CAP. Sepsis secondary to pneumonia Acute hypoxic respiratory failure, likely secondary to pneumonia Leukocytosis with bandemia, likely secondary to 1. Suspected ILD -labs reviewed -chest x-ray with opacity of the left lung base, with chest CT done on 06/09/2022 showing nonspecific focal thickening of left major fissure and calcified granuloma of left lower lobe -blood cultures ordered, -influenza and COVID negative -we will order sputum culture as well as respiratory panel -continue with Rocephin and we will initiate doxycycline 100 mg b.i.d., as patient is on psychiatric medications and azithromycin may interfere with these. -we will initiate IV Solu-Medrol 40 mg q.6 hours -we will schedule and p.r.n. Xopenex with ipratropium in the setting of tachycardia -monitor and titrate for SpO2 greater than 90%. -incentive spirometer and flutter valve ordered -if no improvement, to consider pulmonology consult Tachycardia, likely multifactorial in the setting of hypoxia as well as fever -continue with Tylenol to alleviate with fever, continue treating pneumonia with antibiotics as mentioned above. Hypothyroidism, chronic -we will continue with home thyroid medication Chronic pain with opiate use -continue with p.r.n. medications for pain, we will restart medications once med records done. FEN: NI, replete as needed, regular GI PPX: Protonix 40 mg while patient is on high-dose steroids DVT PPX: Lovenox 40mg sq Code status: Full code Disposition: All questions and concerns with the patient were answered to satisfaction. All pertinent clinical documents, images and labs were reviewed. DISCLAIMER: This document was created using voice recognition software. Any mistakes in the prescription are unintentional. An attempt was made to focus for accuracy, but to expedite availability, some errors may persist. Please contact with any need for correction or further clarification Total time managing care of this patient today: 75 minutes. Quality Stroke Does the patient have a stroke diagnosis?: No VTE Prior VTE?: No VTE Risk Level:: Medical - moderate - high VTE Device Contraindication: N/A - Device Ordered VTE Drug Contraindication: N/A - Med Ordered
[2025-05-28 17:32] LABS: Appearance Urine Clear; Glucose Urine UA Negative (Negative); PH 8.0 (5.0-9.0); Specific Gravity - Urine 1.010 (1.005-1.025)
[2025-05-28] MEDS: levalbuterol HCL 2.5 MG, Ipratropium Bromide 0.5 MG INHALE (18:38)
[2025-05-28] MEDS: Morphine Sulfate Immed Release 15 MG TABLET 30 MG PO (19:52)
--- OUTSIDE RECORDS SUMMARY | 2025-05-28 21:30 | XMS_ITS | Clinical Summary ---
Author Organization [facility] Address [address] [place] [address] Care Team Providers Care Supervisor Shipping Name Role Phone Sreedhar Sharma Primary Care Provider [phone] Social History Tobacco Use Types Packs/Day Years Used Date Smoking Tobacco: Never Assessed Comments Unknown Sex and Gender Information Value Date Recorded Sex Assigned at Not on file Legal Sex Female 9:11 PM EST Gender Identity Not on file Sexual Orientation Not on file Obstetrics History Last Filed Vital Signs Vital Sign Reading Time Taken Comments Blood Pressure 110/60 08/14/2022 9:33 AM EST Sitting Right arm Pulse 66 08/14/2022 9:33 AM EST Temperature - - Respiratory Rate - - Oxygen Saturation - - Inhaled Oxygen Concentration - - Weight 65.8 kg (145 lb) 08/14/2022 9:33 AM EST Height 162.6 cm (5' 4 ) 08/14/2022 9:33 AM EST Body Mass Index 24.89 08/14/2022 9:33 AM EST Plan of Treatment Health Maintenance Due Date Last Done Comments Breast Cancer Screening 1974 Colorectal Cancer Screening: Colonoscopy 1974 DTaP,Tdap,and Td Vaccines (1 - Tdap) 1993 Hepatitis B Vaccines (1 of 3 - 19+ 3-dose series) 1993 Cervical Cancer Screening: P ap Smear 1995 HIV Screening 07/20/2023 Hepatitis C Screening 07/20/2023 Social Influencers of Health Screening 07/20/2023 Pneumococcal Vaccine: 50+ Ye ars (1 of 1 - PCV) 2024 Zoster Vaccines (1 of 2) 2024 Depression Screening 06/25/2024 COVID-19 Vaccine ( - 2024-2 6 season) 2025 Influenza Vaccine (#1) 2025 RSV Immunization Adult Patie nts (1 - 1-dose 75+ series) 2049 HIB Vaccines Aged Out No longer eligi ble based on patient's age to complete this topic HPV Vaccines Aged Out No longer eligi ble based on patient's age to complete this topic Hepatitis A Vaccines Aged Out No long er eligible based on patient's age to complete this topic IPV Vaccines Aged Out No longer eligi ble based on patient's age to complete this topic MMR Vaccines Aged Out No longer eligi ble based on patient's age to complete this topic Meningococcal ACWY Vaccine Aged Out N o longer eligible based on patient's age to complete this topic Meningococcal B Vaccine Aged Out No l onger eligible based on patient's age to complete this topic RSV Immunization Patients Un curry 20 months Aged Out No longer eligible b ased on patient's age to complete this topic Varicella Vaccines Aged Out No longer eligible based on patient's age to complete this topic Care Teams Supervisor Shipping Relationship Specialty Start Date End Date Sreedhar Sharma PA PCP - General 08/09/22
--- OUTSIDE RECORDS SUMMARY | 2025-05-28 21:30 | XMS_ITS | Clinical Summary ---
Author Organization [facility] Prior to 11/22/24 Address [address] [place] [address] Care Team Providers Care Complex Manager Name Role Phone Sreedhar Sharma PA-C Primary Care Provider [phone] Allergies Active Allergy Reactions Criticality Noted Date Comments Tramadol Diarrhea 08/10/2022 Medications Medication Sig Dispensed Refills Start Date End Date Status topiramate (TOPAMAX) 200 MG tablet Take 1 tablet (200 mg total) by mouth 2 (two) times a day. 0 Active levothyroxine (SYNTHROID) tablet 75 mcg Take 1 tablet (75 mcg total) by mouth daily. 0 Active omeprazole (PriLOSEC) 20 MG capsule Take 1 capsule (20 mg total) by mouth daily. 0 Active Morphine Sulfate ER (MS CONTIN) 30 MG TBCR Take 1 tablet (30 mg total) by mouth 4 (four) times a day. 0 Active oxazepam (SERAX) 15 MG capsule Take 1 capsule (15 mg total) by mouth every night at bedtime as needed for sleep or anxiety (Reports 3-4x daily for sleep). 0 Active budesonide (PULMICORT) 0.5 MG/2ML nebulizer solution Take 2 mL (0.5 mg total) by nebulization daily. 0 Active albuterol 108 (90 Base) MCG/ACT inhaler Inhale 2 puffs into the lungs every 6 (six) hours as needed for wheezing. 0 Active acetaminophen (TYLENOL) 325 MG tablet Take 3 tablets (975 mg total) by mouth every 8 (eight) hours. 120 tablet 0 08/10/2022 Active ibuprofen 600 MG tablet Take 1 tablet (600 mg total) by mouth every 6 (six) hours as needed. 30 tablet 0 08/10/2022 Active Active Problems Problem Noted Date Diagnosed Date Other fracture of T7-t8 thor acic vertebra, initial encounter for closed fracture 08/09/2022 Social History Tobacco Use Types Packs/Day Years Used Date Smoking Tobacco: Never Assessed Sex and Gender Information Value Date Recorded Sex Assigned at Female 08/09/2022 11:06 PM EST Gender Identity Not on file Sexual Orientation Not on file Job Start Date Occupation Industry Not on file Not on file Not on file Last Filed Vital Signs Vital Sign Reading Time Taken Comments Blood Pressure 110/60 08/14/2022 9:33 AM EST Pulse 66 08/14/2022 9:33 AM EST Temperature 36.7 C (98 F) 08/10/2022 3:36 PM EST Respiratory Rate 16 08/10/2022 3:36 PM EST Oxygen Saturation 98% 08/14/2022 9:33 AM EST Inhaled Oxygen Concentration - - Weight 65.8 kg (145 lb) 08/14/2022 9:33 AM EST Height 162.6 cm (5' 4 ) 08/14/2022 9:33 AM EST Body Mass Index 24.89 08/14/2022 9:33 AM EST Plan of Treatment Health Maintenance Due Date Last Done Comments Hepatitis B Vaccines (1 of 3 - 3-dose series) 1974 Hepatitis C Screening 1974 COVID-19 Vaccine (#1) 1974 Depression Screening 1986 BMI Counseling 1992 Preventative Health Evaluation 1992 DTap / Tdap / Td (1 - Tdap) 1993 Cervical Cancer Screening (P ap Smear) 1995 Colon Cancer Screening (Colonoscopy) 2019 Breast Cancer Screening (Mammogram) 2024 Shingrix-Zoster Vaccine (1 of 2) 2024 Influenza Vaccine (#1) 2025 Pneumococcal Vaccine Aged Out No long er eligible based on patient's age to complete this topic RSV Ped < 20 months Aged Out No longe r eligible based on patient's age to complete this topic Advance Directives For more information, please contact: [phone] Latest Code Status on File Code Status Date Activated Date Inactivated Comments Full Code 08/09/2022 10:28 PM 08/11/2022 1:02 AM Care Teams Complex Manager Relationship Specialty Start Date End Date Sreedhar Sharma PA-C [address] [place] [address] PCP - General Physician Trimming Operator 08/09/22
--- OUTSIDE RECORDS SUMMARY | 2025-05-28 21:30 | XMS_ITS | Clinical Summary ---
Author Organization 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 Operator Insulation Name Role Phone Sreedhar Sharma PA-C Primary Care Provider [phone] Allergies Active Allergy Reactions Criticality Noted Date Comments Tramadol Diarrhea 08/10/2022 Medications acetaminophen (TYLENOL) 325 MG tablet Take 975 mg by mouth every 8 hours 3 Active albuterol HFA (PROVENTIL HFA;VENTOLIN HFA) 108 (90 Base) MCG/ACT inhaler Inhale 2 puffs every 6 hours as needed Active budesonide (PULMICORT) 0.5 MG/2ML nebulizer solution 0.5 mg Active ibuprofen (ADVIL,MOTRIN) 600 MG tablet Take 600 mg by mouth every 6 hours as needed 3 Active omeprazole (PriLOSEC) [address] capsule Take 20 mg by mouth Active oxazepam (SERAX) 15 MG capsule Take 15 mg by mouth Active topiramate (TOPAMAX) 200 MG tablet Take 200 mg by mouth in the morning and 200 mg in the evening. Active morphine (MS CONTIN) 30 MG 12 hr tablet Take 30 mg by mouth Active risperiDONE (RisperDAL) 0.5 MG tablet TAKE ONE TABLET BY MOUTH EVERY DAY EITHER WITH THE MORNING OR EVENING DOSE OF 1MG. 5 Active montelukast (SINGULAIR) 10 MG tablet Take 10 mg by mouth every night Active SUMAtriptan (IMITREX) 25 MG tablet Take 25 mg by mouth 1 (one) time if needed for migraine May repeat dose once in 2 hours if no relief. Do not exceed 2 doses in 24 hours. Active sennosides-docus ate sodium (SENOKOT-S) 8.6-50 MG tablet Take 1 tablet by mouth 1 (one) time each day Active omeprazole (PriLOSEC) [address] capsule Take 40 mg by mouth 1 (one) time each day Do not crush or chew. Active famotidine (PEPCID) 20 MG tablet Take 20 mg by mouth in the morning and 20 mg in the evening. Active fluticasone HFA (FLOVENT HFA) 110 MCG/ACT inhaler INHALE 2 PUFFS TWO TIMES DAILY 5 Active sodium bicarbonate 650 MG tablet Take 650 mg by mouth in the morning and 650 mg in the evening and 650 mg before bedtime. Active levothyroxine (SYNTHROID, LEVOTHROID) 75 MCG tablet Take 1 tablet (75 mcg total) by mouth 5 Active Active Problems Problem Noted Date Diagnosed Date Metabolic acidosis, NAG, acidifying salts 2024 Other fracture of T7-T8 thor acic vertebra, initial encounter for closed fracture 08/09/2022 Encounters Date Type Department Care Team Description 04/02/2025 1:45 PM EDT Office Visit [facility] [address] [place] [address] Que Chopra MD Chronic metabolic acidosis (Primary Dx); Nephrolithiasis 03/27/2025 Orders Only [facility] [address] [place] [address] Que Cohpra MD Chronic metabolic acidosis from Last 3 Months Family History Medical History Relation Comments Kidney disease Father Relation Status Comments Father Alive Mother Alive Social History Tobacco Use Types Packs/Day Years Used Date Smoking Tobacco: Former Cigarettes Smokeless Tobacco: Former Tobacco Cessation:Counseling Given: Yes Alcohol Use Standard Drinks/Week Comments Not Currently 0 (1 standard drink = 0.6 oz pur e alcohol) Comments Unknown Sex and Gender Information Value Date Recorded Sex Assigned at Not on file Legal Sex Female 5:26 PM EST Gender Identity Not on file Sexual Orientation Not on file Last Filed Vital Signs Vital Sign Reading Time Taken Comments Blood Pressure 110/70 04/02/2025 2:01 PM EDT Pulse 71 04/02/2025 2:01 PM EDT Temperature - - Respiratory Rate - - Oxygen Saturation 98% 04/02/2025 2:01 PM EDT Inhaled Oxygen Concentration - - Weight 93.5 kg (206 lb 3.2 oz) 04/02/2025 2:01 P M EDT Height - - Body Mass Index - - Plan of Treatment Upcoming Encounters Date Type Department Care Team (Late st Contact Info) Description 07/09/2025 3:45 PM EST Office Visit [facility] [address] [place] [address] [facility] [place] [phone] Que Chopra MD [address] [facility] [address] [place] [id number] Health Maintenance Due Date Last Done Comments Breast Cancer Screening 1974 Hepatitis B Vaccine (1 of 3 - 19+ 3-dose series) 1993 Pneumococcal Vaccine: 50+ Ye ars (1 of 2 - PCV) 1993 Colorectal Cancer Screening: Annual FOBT 2023 Colorectal Cancer Screening: Colonoscopy 2023 Colorectal Cancer Screening: Sigmoidoscopy 2023 Influenza Vaccine (#1) 2025 5, 07/19/2023, 08/18/2019, Additional history exists Procedures Procedure Name Priority Date/Time Associated Diagnosis Comments PTH, INTACT Routine 03/24/2025 9:19 AM EDT CHLORIDE, URINE, RANDOM Routine 03/24/2025 9:19 AM EDT UREA NITROGEN, URINE Routine 03/24/2025 9:19 AM EDT POTASSIUM, URINE, RANDOM Routine 03/24/2025 9:19 AM EDT SODIUM, URINE, RANDOM Routine 03/24/2025 9:19 AM EDT LACTIC ACID, PLASMA Routine 03/24/2025 9 :19 AM EDT MAGNESIUM Routine 03/24/2025 9:19 AM EDT URIC ACID Routine 03/24/2025 9:19 AM EDT VITAMIN D 25 HYDROXY Routine 03/24/2025 9:19 AM EDT HEMOGLOBIN A1C Routine 03/24/2025 9:19 AM EDT URINE ALBUMIN / CREATININE RATIO Routine 03/24/2025 9:19 AM EDT PROTEIN / CREATININE RATIO, URINE Routine 03/24/2025 9:19 AM EDT RENAL FUNCTION PANEL Routine 03/24/2025 9:19 AM EDT URINALYSIS Routine 03/24/2025 9:19 AM EDT CBC AND DIFFERENTIAL Routine 03/24/2025 9:19 AM EDT from Last 3 Months Results * Urea nitrogen, urine (03/24/2025 9:19 AM EDT) Urea Nitrogen, Ur 193 Not Estab. mg/dL [employer] 03/24/2025 9:19 AM EDT 03/24/2025 us Que Chopra MD LAB URINE ORDERABLES Final Result [facility] [employer] [address] [place] [address] * (ABNORMAL) Protein, Total, Random Urine w/Creatinine (Protein/Creat Ratio) (03/24/2025 9:19 AM EDT) Creatinine, Ur 27.2 Not Estab. mg/dL [facility] [place] Protein, Ur <4.0 Not Estab. mg/dL [facility] Comment:Verified by repeat analysis Urine Protein/Creatinin e Ratio Comment(A ) 0 - 200 mg/g creat [facility] Comment: This result is below the assay's limit of quantitation indicating a dilute specimen, potentially due to diurnal variation. Consider recollection at a time likely to provide a more concentrated urine. 03/24/2025 9:19 AM EDT 03/24/2025 Que Chopra MD LAB URINE ORDERABLES Final Result Performing Organization Address City/[facility] Co de Phone Number [facility] [place] [address] [place] [address] * Urine Albumin / Creatinine Ratio (03/24/2025 9:19 AM EDT) Albumin, Urine <3.0 Not Estab. ug/mL [facility] Albumin/Creatin ine Ratio <11 0 - 29 mg/g creat [facility] Comment: Normal: 0 - 29 Moderately increased: 30 - 300 Severely increased: >300 03/24/2025 9:19 AM EDT 03/24/2025 Que Chopra MD LAB URINE ORDERABLES Final Result [facility] [place] [address] [place] [address] * Sodium, urine, random (03/24/2025 9:19 AM EDT) Sodium, 24H Ur <20 Not Estab. mmol/L [facility] 03/24/2025 9:19 AM EDT 03/24/2025 us Que Chopra MD LAB URINE ORDERABLES Final Result [facility] [address] [place] [address] * Potassium, urine, random (03/24/2025 9:19 AM EDT) Potassium, Ur 12.6 Not Estab. mmol/L [facility] 03/24/2025 9:19 AM EDT 03/24/2025 us Que Chopra MD LAB URINE ORDERABLES Final Result Performing Organization Address City/[facility]/ZIP Co de Phone Number [facility] [address] [place] [address] * Chloride, urine, random (03/24/2025 9:19 AM EDT) Chloride, Ur 22 Not Estab. mmol/L [facility] Comment:Verified by repeat analysis 03/24/2025 9:19 AM EDT 03/24/2025 us Que Chopra MD LAB URINE ORDERABLES Final Result Performing Organization Address City/[facility]/ZIP Co de Phone Number [facility] [address] [place] [address] * (ABNORMAL) Vitamin D 25 Hydroxy (03/24/2025 9:19 AM EDT) Vitamin D, 25-OH, Total 19.1(L) 30.0 - 100.0 ng/mL [facility] Comment: Vitamin D deficiency has been defined by the [place] of Medicine and an Endocrine Society practice guideline as a level of serum 25-OH vitamin D less than 20 ng/mL (1,2). The Endocrine Society went on to further define vitamin D insufficiency as a level between 21 and 29 ng/mL (2). 1. IOM ([place] of Medicine). 2010. Dietary reference intakes for calcium and D. [place]: The National Academies Press. 2. Asuncion MF, Jarrod HOYT, Suzy SAINI, et al. Evaluation, treatment, and prevention of vitamin D deficiency: an Endocrine Society clinical practice guideline. JCEM. 2010; 96(7):1911-30. 03/24/2025 9:19 AM EDT 03/24/2025 us Que Chopra MD LAB BLOOD ORDERABLES Final Result [facility] [address] [place] [phone] * Urinalysis (03/24/2025 9:19 AM EDT) Specific [place], Urine 1.006 1.005 - 1.030 [facility] pH Urine 6.5 5.0 - 7.5 [facility] Color, Urine Yellow Yellow [facility] Appearance Urine Clear Clear [facility] [place] WBC Esterase Urine Negative Negative [facility] [phone] Protein, Ur Negative Negative/Tra ce [facility] [phone] Glucose, Ur Negative Negative [facility] [phone] Ketones, Urine Negative Negative [facility] [place] Blood Urine Negative Negative [facility] Bilirubin Urine Negative Negative [facility] [place] Urobilinogen Urine 0.2 0.2 - 1.0 mg/dL [facility] [phone] Nitrite, Urine Negative Negative [facility] [place] Microscopic Examination Comment [facility] Comment:Microscopic not chantelle cated and not performed. 03/24/2025 9:19 AM EDT 03/24/2025 Que Chopra MD LAB URINE ORDERABLES Final Result [facility] [address] [place] [address] * CBC and Differential (03/24/2025 9:19 AM EDT) WBC 9.4 3.4 - 10.8 x10E3/uL [facility] RBC 4.68 3.77 - 5.28 x10E6/uL [facility] Hemoglobin 13.7 11.1 - 15.9 g/dL [facility] Hematocrit 41.6 34.0 - 46.6 % [facility] MCV 89 79 - 97 fL [facility] MCH 29.3 26.6 - 33.0 pg [facility] MCHC 32.9 31.5 - 35.7 g/dL [facility] RDW 12.4 11.7 - 15.4 % [facility] Platelets 297 150 - 450 x10E3/uL [facility] Neutrophils Relative 64 Not Estab. % [facility] Lymphocytes Relative 27 Not Estab. % [facility] Monocytes 8 Not Estab. % [facility] Eosinophils Relative 1 Not Estab. % [facility] Basophils Relative 0 Not Estab. % [facility] Neutrophils Absolute 6.0 1.4 - 7.0 x10E3/uL [facility] Lymphocytes Absolute 2.5 0.7 - 3.1 x10E3/uL [facility] Monocytes Absolute 0.8 0.1 - 0.9 x10E3/uL [facility] Eosinophils Absolute 0.1 0.0 - 0.4 x10E3/uL [facility] Basophils Absolute 0.0 0.0 - 0.2 x10E3/uL [facility] Immature Granulocytes 0 Not Estab. % [facility] Immature Grans (Absolute) 0.0 0.0 - 0.1 x10E3/uL [facility] 03/24/2025 9:19 AM EDT 03/24/2025 Que Chopra MD LAB BLOOD ORDERABLES Final Result [facility] [place] [address] [place] [address] * Uric Acid (03/24/2025 9:19 AM EDT) Pathologist [facility] Uric Acid 5.5 2.6 - 6.2 mg/dL [facility] [place] Comment:Therapeutic target f or gout patients: <6.0 03/24/2025 9:19 AM EDT 03/24/2025 Que Chopra MD LAB BLOOD ORDERABLES Final Result [facility] [address] [place] [address] * PTH, Intact (03/24/2025 9:19 AM EDT) Pathologist [facility] PTH 21 15 - 65 pg/mL [facility] 03/24/2025 9:19 AM EDT 03/24/2025 us Que Chopra MD LAB BLOOD ORDERABLES Final Result [facility] [address] [place] [address] * Magnesium (03/24/2025 9:19 AM EDT) Pathologist [facility] Magnesium 1.9 1.6 - 2.3 mg/dL [facility] 03/24/2025 9:19 AM EDT 03/24/2025 us Que Chopra MD LAB BLOOD ORDERABLES Final Result Performing Organization Address City/[facility]/ZIP Co de Phone Number [facility] [address] [place] [address] * Lactic acid, plasma (03/24/2025 9:19 AM EDT) Pathologist [facility] Lactic Acid 5.0 4.8 - 25.7 mg/dL [facility] 03/24/2025 9:19 AM EDT 03/24/2025 us Que Chopra MD LAB BLOOD ORDERABLES Final Result [facility] [address] [place] [phone] * Hemoglobin A1c (03/24/2025 9:19 AM EDT) Pathologist [facility] Hemoglobin A1C 5.5 4.8 - 5.6 % [facility] Comment: Prediabetes: 5.7 - 6.4 Diabetes: >6.4 Glycemic control for adults with diabetes: <7.0 03/24/2025 9:19 AM EDT 03/24/2025 Que Chopra MD LAB BLOOD ORDERABLES Final Result [facility] [address] [place] [address] * (ABNORMAL) Renal Function Panel (03/24/2025 9:19 AM EDT) Pathologist [facility] Glucose 83 70 - 99 mg/dL [facility] BUN 9 6 - 24 mg/dL [facility] Creatinine 0.79 0.57 - 1.00 mg/dL [facility] eGFR CKD-EPI CR 2020 91 >59 mL/min/1.7 3 [facility] BUN/Creatinine Ratio 11 9 - 23 [facility] Sodium 134 134 - 144 mmol/L [facility] Potassium 3.9 3.5 - 5.2 mmol/L [facility] Chloride 102 96 - 106 mmol/L [facility] Bicarbonate (CO2) 16(L) 20 - 29 mmol/L [facility] Calcium 9.1 8.7 - 10.2 mg/dL [facility] Albumin 4.0 3.9 - 4.9 g/dL [facility] Phosphorus 3.1 3.0 - 4.3 mg/dL [facility] 03/24/2025 9:19 AM EDT 03/24/2025 Que Chopra MD LAB BLOOD ORDERABLES Final Result [facility] [address] [place] [phone] from Last 3 Months Insurance Care Teams Batting Machine Operator Insulation Relationship Specialty Start Date End Date Sreedhar Sharma PA-C [facility] [place] [address] PCP - General Physician Veneer Jointer Helper 12/22/24
--- OUTSIDE RECORDS SUMMARY | 2025-05-28 21:30 | XMS_ITS | Patient Health Record ---
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 Tender Name Role Phone Sreedhar Sharma Primary Care Provider Floyd Eng Unavailable [phone] Allergies Allergen (clinical drug ingredient) Drug/Non Drug Allergy documented on EMR Reaction Allergy Type Onset Date Status Keflex hives Drug Allergy Active Latex rash/ Not when Others touch Drug Allergy Active Substance with sulfonamide structure and antibacterial mechanism of action (substance) Sulfa Antibiotics Unknown Drug Allergy Active Reason For Referral No Information Medications Medication SIG (Take, Route, Frequency, Duration) Notes Start Date End Date Status Topamax 100 MG 1 tablet Orally Twice a day Active Fasenra 30 MG/ML 1 null Subcutaneous fartun two months Active ProAir HFA Active Ativan PRN Not-Taking Azithromycin 250 MG 2 tablets on the first day, then 1 tablet daily for 4 days Orally Once a day; Duration: 5 day(s) 06/02/2021 Active Singulair Active Lidocaine PRN Active Levothyroxine Sodium 75 MCG 1 capsule Orally Active Zantac 300 MG 1 tablet at bedtime Orally Once a day Not-Taking Flector PRN Active RisperDAL 1 MG 1 tablet Orally Once a day 0.5 morning 1 at night Not-Taking Flovent HFA Active Spiriva Respimat Not -Taking Morphine Active Dilaudid PRN Active oxygen PRN Active Prednisone Active Excedrin Migraine PRN Ac tive Trelegy Ellipta Acti ve Oxazepam Active Immunizations Vaccine Route Administration Date Status Comme nts COVID-19 Moderna Vaccine Unknown 10/10/2020 Administere d 1st 09/12/2020 Social History Tobacco Use: Social History Observation Description Date Details (start date - stop date) Former Smoker NA - NA Tobacco Use/Smoking Question Answer Notes Are you a: former smoker Additional Findings: Tobacco Non-User Current no n-smoker Alcohol Screen Question Answer Notes Did you have a drink containing alcohol in the p ast year? Yes Points 0 Interpretation Negative Tobacco use other than smoking: Question Answer Notes Are you an other tobacco user? No Plan Of Treatment Pending Test Test Name Order Date 89745-Peml Destruction, 1-05/04/2016 83806-Owpc Destruction, 1-14 08/07/2016 [id number]-Jutwlshp Plate 03/05/2017 [id number]-Joijrgpp Plate 05/06/2019 [id number]-Gfjyimok Plate 01/01/2020 [id number]-Xrheotfo Plate 03/28/2022 40439- Debride <25 sq cm 01/01/2020 41503 I&D ABSCESS- SIMPLE,SINGLE 021 32934 I&D ABSCESS- SIMPLE,SINGLE 020 31323 I&D ABSCESS- SIMPLE,SINGLE 022 28097- I&D ABSCESS-COMPLICATED,MULTI 02/2021 Insurance Providers Payer Name Payer Address Payer Phone Subscriber Number Group Number Insured Name Patient Relationship to Insured Coverage Start Date Coverage End Date [facility] [address] [facility] [place] [address] [id number] Jo Ann Daley Self - patient is the insured Medical (General) History Medical History History ICD Code asthma Back,Hip,and Knee pain Gall bladder problems Headaches Migraines Nerve disease - RSD Reflux chronic sinusitis Thyroid disorder Surgical History Surgery Date(Month/Year) appendectomy gall bladder endometriosis colonoscopy 01/2020 Hospitalization History Reason Date(Month/Year) Urgent care [facility]-Allergic reaction/u nknown, maybe detergent 09/2017 ER [facility] - pt has cyst on ovary 8 ER [facility] - Stomach problems 10/2019 [facility] [place] breathing issues 12/2020, 01/20[place] [facility] [place] issues 03/2021 [facility] [place] -asthma Lungs 1 week 2021
[2025-05-29] VITALS (11 sets, daily range): BP systolic 100–119; BP diastolic 54–59; PULSE 50–81; RESP 16–20; TEMP 36.3–36.9; O2SAT 90–98; BMI 35.1
--- NOTE | 2025-05-29 00:22 | HO.NURTONUR ---
50y/o female, presented today with fever, chills, body ache, sore throat, coughing with yellow sputum, chest pain mostly with coughing but also with exertion. PT is being admitted for pneumonia, aaox4, nad, VSS, 20g Right forearm
[2025-05-29] MEDS: 0.9 % Sodium Chloride Flush 3 ML SYRINGE IVFLUSH ×3 (01:28→21:06)
[2025-05-29 07:23] LABS: Hematocrit 36.1 % (37.0-47.0); Hemoglobin 12.0 g/dl (12.0-16.0); Mean Corpuscular HGB Conc 33.2 g/dl (31.0-35.0); Mean Corpuscular Hemoglobin 28.2 pg (27.0-33.0); Mean Corpuscular Volume 84.7 fL (80.0-98.0); NRBC Abs Auto 0.000 X10*3/uL (0.0-0.012); NRBC Pct Auto 0.0 /100WBC (0.0-0.2); Platelet Count 291 X10*3/uL (160-400); Red Blood Count 4.26 X10*6/uL (4.20-5.50); White Blood Count 17.3 X10*3/uL (4.8-10.8)
[2025-05-29] MEDS: Morphine Sulfate Immed Release 15 MG TABLET 30 MG PO ×3 (07:50→21:04)
[2025-05-29 07:52] LABS: Anion Gap 11 (12-20); Blood Urea Nitrogen 6 mg/dL (9-16); Calcium 8.9 mg/dL (8.4-10.2); Carbon Dioxide 19 mmol/L (22-29); Chloride 111 mmol/L (96-108); Creatinine Clr Calc Pharmacy 105.0; Estimated Glomerular Filt Rate > 60; Magnesium 2.1 mg/dL (1.6-2.6); Potassium 2.9 mmol/L (3.3-5.1); Sodium 138 mmol/L (135-145)
[2025-05-29] MEDS: Potassium Chloride ER 20 MEQ TAB.ER.PRT 40 MEQ PO ×2 (09:24→21:00)
[2025-05-29 10:04] LABS: Chlamydia pneumoniae PCR Not Detected (Not Detect.); Coronavirus 229E PCR Not Detected (Not Detect.); Coronavirus HKU1 PCR Not Detected (Not Detect.); Coronavirus NL63 PCR Not Detected (Not Detect.); Coronavirus OC43 PCR Not Detected (Not Detect.); RSV PCR Not Detected (Not Detect.); Rhino/Enterovirus PCR Not Detected (Not Detect.)
[2025-05-29 10:32] LABS: Influenza A H1 PCR Not Detected (Not Detect.); Influenza A H1-2009 PCR Not Detected (Not Detect.); Influenza A H3 PCR Not Detected (Not Detect.); SARS-CoV-2 PCR Not Detected (Not Detect.)
[2025-05-29] MEDS: levalbuterol HCL 2.5 MG, Ipratropium Bromide 0.5 MG INHALE ×3 (11:23→23:10)
--- NOTE | 2025-05-29 11:35 | MHC.CM.PN ---
Pt. lives with her , PCP confirmed: MARITZA Pandey, HCP on file and confirmed: Jus. For DME, pt. has home O2 from [facility] and a nebulizer (needs a script for a new one). She will arrange a ride home at [place], DCP: home, self care, CM to follow for DC needs.
--- NOTE | 2025-05-29 11:46 | P.PNIM_ITS ---
Subjective Subjective Date of Service: 05/29/25 Interval History: Patient seen examined at bedside this morning, mentioned that her breathing has improved, on labs with hypokalemia, after being started on IV potassium, patient states that she developed pain and would not be able to tolerate IV fluids. Review of Systems Review of Systems: Yes all other systems are reviewed and are negative Physical Exam 2 Exam: Exam: General: AxOx3, mild acute distress Head: AT/NC ENT: Moist mucous membranes Neck: supple CVS; increased rate and rhythm Lungs: Left lower lobe with rales, improved expansion Abd: Soft non tender, non distended Ext: No edema and no calf tenderness MSK: moving all 4 limbs Skin: No cyanosis or edema Psych: Cooperative with exam Neurology: no focal deficit Vital Signs: Vital Signs: Last Vital Signs Temp 98.2 F 05/29/25 11:14 Pulse 59 05/29/25 11:25 Resp 20 05/29/25 11:25 BP 110/55 L 05/29/25 11:14 Pulse Ox 93 05/29/25 11:14 O2 Del Method Room Air 05/29/25 11:14 BMI result Body Mass Index 35.1 Objective Data Active Medications Acetaminophen (Acetaminophen 325 Mg Tablet) 650 mg PO Q6H PRN PRN Reason: Pain, Mild 1-3,fever,headache Benzonatate (Benzonatate 100 Mg Capsule) 100 mg PO TID PRN PRN Reason: Cough Last Admin: 05/29/25 01:35 Dose: 100 mg Documented By: RODRI Calcium Carbonate (Calcium Carbonate 750 Mg Tab.Chew) 750 mg PO Q4H PRN PRN Reason: Heartburn Levalbuterol HCl 2.5 mg/ (Ipratropium [place] 0.5 mg) 0 mg INHALE RQ6H [facility] Last Admin: 05/29/25 11:23 Dose: 1 dose Documented By: ERWIN Levalbuterol HCl 1.25 mg/ (Ipratropium [place] 0.5 mg) 0 mg INHALE Q6H PRN PRN Reason: Shortness of Breath/Wheezing Enoxaparin Sodium (Enoxaparin Sodium 40 Mg/0.4 Ml Syringe) 40 mg SUBCUT Q12H [facility] Last Admin: 05/29/25 04:11 Dose: 40 mg Documented By: RODRI Ceftriaxone Sodium 1 gm/ (Sodium Chloride) 50 mls @ 100 mls/hr IV Q24H [facility] Doxycycline Hyclate 100 mg/ (Sodium Chloride) 250 mls @ 166.67 mls/hr IV Q12H [facility] Stop: 06/05/25 02:59 Last Infusion: 05/29/25 04:11 Dose: Infused Documented By: ANTDICK Levothyroxine Sodium (Levothyroxine Sodium 88 Mcg Tablet) 88 mcg PO DAILY@0600 [facility] Last Admin: 05/29/25 06:06 Dose: 88 mcg Documented By: ANTDICK Magnesium Hydroxide (Milk Of Magnesia 30 Ml Oral.Susp) 30 ml PO DAILY PRN PRN Reason: Constipation Meclizine HCl (Meclizine Hcl 12.5 Mg Tablet) 12.5 mg PO BID PRN PRN Reason: Dizziness Melatonin (Melatonin 3 Mg Tablet) 6 mg PO BEDTIME PRN PRN Reason: Insomnia Methylprednisolone Sodium Succinate (Methylprednisolone Sod Succ 40 Mg/Ml Vial) 40 mg IVPUSH Q6H [facility] Last Admin: 05/29/25 07:50 Dose: 40 mg Documented By: ANA LILIA Morphine Sulfate (Morphine Sulfate Immed Release 15 Mg Tablet) 30 mg PO QID PRN PRN Reason: Pain Last Admin: 05/29/25 07:50 Dose: 30 mg Documented By: ANA LILIA Non-Formulary Medication (Norgestrel-Ethinyl Estradiol [[place] (28)]) 1 tab PO DAILY [facility] Pantoprazole Sodium (Pantoprazole Sodium 40 Mg/10 Ml Vial) 40 mg IVPUSH DAILY@0630 [facility] Last Admin: 05/29/25 06:06 Dose: 40 mg Documented By: RODRI Potassium Chloride (Potassium Chloride Er 20 Meq Tab.Er.Prt) 40 meq PO BID [facility] Stop: 05/29/25 21:01 Last Admin: 05/29/25 09:24 Dose: 40 meq Documented By: ANA LILIA Risperidone (Risperidone 0.5 Mg Tablet) 0.5 mg PO BEDTIME [facility] Last Admin: 05/28/25 20:34 Dose: 0.5 mg Documented By: AP-MATTE Risperidone (Risperidone 1 Mg Tablet) 1 mg PO BID [facility] Last Admin: 05/29/25 07:50 Dose: 1 mg Documented By: ANA LILIA Sodium Chloride (0.9 % Sodium Chloride Flush 3 Ml Syringe) 3 ml IVFLUSH QSHIFT [facility] Last Admin: 05/29/25 07:50 Dose: 3 ml Documented By: ANA LILIA Labs 05/29/25 06:33 05/29/25 06:33 Labs: Laboratory Results - last 24 hr 05/28/25 05/28/25 05/28/25 14:48 14:49 14:50 MCV 84.9 MCH 28.6 MCHC 33.7 RDW 13.0 Plt Count 287 MPV 10.1 Immature Gran % (Auto) Cancelled Neut % (Auto) Cancelled Lymph % (Auto) Cancelled [place] % (Auto) Cancelled Eos % (Auto) Cancelled Baso % (Auto) Cancelled Lymph # (Auto) Cancelled [place] # (Auto) Cancelled Eos # (Auto) Cancelled Baso # (Auto) Cancelled Abs Immat Gran (auto) Cancelled Absolute Neuts (auto) Cancelled Absolute Nucleated RBC 0.000 Nucleated RBC % (auto) 0.0 Neutrophils % (Manual) 90 H Band Neutrophils % 5 Lymphocytes % (Manual) 2 L Monocytes % (Manual) 3 Abs Neuts (Manual) 20.2 H Lymphocytes # (Manual) 0.4 L Monocytes # (Manual) 0.6 Toxic Vacuolation PRESENT Platelet Estimate NORMAL Plt Morphology Comment NORMAL RBC Morphology NORMAL Anion Gap 15 Estim Creat Clear Calc 81.3 Estimated GFR > 60 Random Glucose 119 H Lactic Acid 1.0 Calcium 8.8 D Magnesium Total Bilirubin 0.5 AST 39 H ALT 32 H Alkaline Phosphatase 76 Troponin I High Sens < 2.7 NT-Pro-B Natriuret Pep 326.5 H Total Protein 7.7 Albumin 4.0 Urine Color Urine Appearance Urine pH Ur Specific [place] Urine Protein Urine Glucose (UA) Urine Ketones Urine Blood Urine Nitrite Ur Leukocyte Esterase Respiratory Panel [place] Adenovirus (Rapid PCR) B.pert (TEM-PCR) B.parapertussis DNA PCR C. pneumoniae DNA (PCR) Coronavirus OC43 (PCR) Coronavirus HKU1 (PCR) Coronavirus 229E (PCR) Coronavirus NL63 (PCR) Human Metapneumovir PCR Influenza A (RT-PCR) Influenza A (H1) PCR Influ A (H1/09) PCR Influenza A (H3) PCR Influenza Type A (PCR) NEGATIVE Influenza B (RT-PCR) Influenza Type B (PCR) NEGATIVE M. pneumoniae (PCR) Parainfluenza 1 (PCR) Parainfluenza 2 (PCR) Parainfluenza 3 (PCR) Parainfluenza 4 (PCR) RSV (PCR) RSV RNA Qual (PCR) NEGATIVE Entero/Rhino (PCR) SARS-CoV-2 RNA (RT-PCR) NEGATIVE 05/28/25 05/28/25 05/29/25 17:10 17:25 06:33 MCV 84.7 MCH 28.2 MCHC 33.2 RDW 13.2 Plt Count 291 MPV 10.4 Immature Gran % (Auto) Neut % (Auto) Lymph % (Auto) [place] % (Auto) Eos % (Auto) Baso % (Auto) Lymph # (Auto) [place] # (Auto) Eos # (Auto) Baso # (Auto) Abs Immat Gran (auto) Absolute Neuts (auto) Absolute Nucleated RBC 0.000 Nucleated RBC % (auto) 0.0 Neutrophils % (Manual) Band Neutrophils % Lymphocytes % (Manual) Monocytes % (Manual) Abs Neuts (Manual) Lymphocytes # (Manual) Monocytes # (Manual) Toxic Vacuolation Platelet Estimate Plt Morphology Comment RBC Morphology Anion Gap 11 L Estim Creat Clear Calc 105.0 Estimated GFR > 60 Random Glucose 144 H Lactic Acid Calcium 8.9 Magnesium 2.1 Total Bilirubin AST ALT Alkaline Phosphatase Troponin I High Sens NT-Pro-B Natriuret Pep Total Protein Albumin Urine Color Yellow Urine Appearance Clear Urine pH 8.0 Ur Specific [place] 1.010 Urine Protein Negative Urine Glucose (UA) Negative Urine Ketones 15 Urine Blood Negative Urine Nitrite Negative Ur Leukocyte Esterase Negative Respiratory Panel [place] See Note Adenovirus (Rapid PCR) Not Detected B.pert (TEM-PCR) Not Detected B.parapertussis DNA PCR Not Detected C. pneumoniae DNA (PCR) Not Detected Coronavirus OC43 (PCR) Not Detected Coronavirus HKU1 (PCR) Not Detected Coronavirus 229E (PCR) Not Detected Coronavirus NL63 (PCR) Not Detected Human Metapneumovir PCR Not Detected Influenza A (RT-PCR) Not Detected Influenza A (H1) PCR Not Detected Influ A (H1/09) PCR Not Detected Influenza A (H3) PCR Not Detected Influenza Type A (PCR) Influenza B (RT-PCR) Not Detected Influenza Type B (PCR) M. pneumoniae (PCR) Not Detected Parainfluenza 1 (PCR) Not Detected Parainfluenza 2 (PCR) Not Detected Parainfluenza 3 (PCR) Not Detected Parainfluenza 4 (PCR) Not Detected RSV (PCR) Not Detected RSV RNA Qual (PCR) Entero/Rhino (PCR) Not Detected SARS-CoV-2 RNA (RT-PCR) Not Detected Microbiology Microbiology Results: Microbiology 05/28/25 20:30 Gram Stain - Final Sputum - Expectorated Assessment and Plan (1) Sepsis: Status: Acute Plan Assessment: 50-year-old female who presents to hospital complaining of worsening shortness of breath that began approximately 1 week ago, with productive sputum, associated with nausea, vomiting and subjective fevers. In the ED chest x-ray showing opacity of left lung. Given IV antibiotics, admitted for CAP. Sepsis secondary to pneumonia Acute hypoxic respiratory failure, likely secondary to pneumonia, improving Leukocytosis with bandemia, likely secondary to 1. Suspected ILD -labs reviewed -chest x-ray with opacity of the left lung base, with chest CT done on 06/09/2022 showing nonspecific focal thickening of left major fissure and calcified granuloma of left lower lobe -blood cultures ordered and pending -influenza and COVID negative -awaiting sputum culture -Respiratory panel negative -continue with Rocephin and doxycycline 100 mg b.i.d., as patient is on psychiatric medications and azithromycin may interfere with these. -Continue IV Solu-Medrol 40 mg q.6 hours -we will schedule and p.r.n. Xopenex with ipratropium in the setting of tachycardia -monitor and titrate for SpO2 greater than 90%. -incentive spirometer and flutter valve -if no improvement, to consider pulmonology consult Tachycardia, likely multifactorial in the setting of hypoxia as well as fever, resolved -continue with Tylenol to alleviate with fever, continue treating pneumonia with antibiotics as mentioned above. Hypothyroidism, chronic -we will continue with home thyroid medication Chronic pain with opiate use -continue with p.r.n. medications for pain Hypokalemia will give PO potassium, will recheck in pm FEN: NI, replete as needed, regular GI PPX: Protonix 40 mg while patient is on high-dose steroids DVT PPX: Lovenox 40mg sq Code status: Full code Disposition: All questions and concerns with the patient were answered to satisfaction. All pertinent clinical documents, images and labs were reviewed. DISCLAIMER: This document was created using voice recognition software. Any mistakes in the prescription are unintentional. An attempt was made to focus for accuracy, but to expedite availability, some errors may persist. Please contact with any need for correction or further clarification Total time managing care of this patient today: 55 minutes. Quality Stroke Does the patient have a stroke diagnosis?: No VTE Prior VTE?: No VTE Risk Level:: Medical - moderate - high VTE Device Contraindication: N/A - Device Ordered VTE Drug Contraindication: N/A - Med Ordered
[2025-05-29 14:40] LABS: Anion Gap 11 (12-20); Blood Urea Nitrogen 9 mg/dL (9-16); Calcium 8.8 mg/dL (8.4-10.2); Carbon Dioxide 17 mmol/L (22-29); Chloride 107 mmol/L (96-108); Creatinine Clr Calc Pharmacy 94.2; Estimated Glomerular Filt Rate > 60; Potassium 2.9 mmol/L (3.3-5.1); Sodium 132 mmol/L (135-145)
--- NOTE | 2025-05-29 16:23 | MHC.CM.PN ---
Per rounds, pt. is improving, anticipate 2 more days acute care for IV ABX tx.
[2025-05-29] MEDS: Fluticasone Propionate 100 MCG BLST.W.DEV 2 PUFF INHALE (19:21)
[2025-05-30] VITALS (12 sets, daily range): BP systolic 107–131; BP diastolic 55–72; PULSE 53–98; RESP 14–22; TEMP 36.2–37.3; O2SAT 89–96
[2025-05-30] MEDS: levalbuterol HCL 2.5 MG, Ipratropium Bromide 0.5 MG INHALE ×4 (05:04→23:31)
[2025-05-30] MEDS: Morphine Sulfate Immed Release 15 MG TABLET 30 MG PO ×3 (06:20→19:45)
[2025-05-30 07:20] LABS: Hematocrit 33.9 % (37.0-47.0); Hemoglobin 11.3 g/dl (12.0-16.0); Mean Corpuscular HGB Conc 33.3 g/dl (31.0-35.0); Mean Corpuscular Hemoglobin 28.5 pg (27.0-33.0); Mean Corpuscular Volume 85.4 fL (80.0-98.0); NRBC Abs Auto 0.000 X10*3/uL (0.0-0.012); NRBC Pct Auto 0.0 /100WBC (0.0-0.2); Platelet Count 285 X10*3/uL (160-400); Red Blood Count 3.97 X10*6/uL (4.20-5.50); White Blood Count 18.9 X10*3/uL (4.8-10.8)
[2025-05-30] MEDS: Fluticasone/Umeclidinium/Vilanterol 200/62.5/25 BLST.W.DEV 1 PUFF INHALE (07:35)
[2025-05-30] MEDS: Fluticasone Propionate 100 MCG BLST.W.DEV 2 PUFF INHALE ×2 (07:35→18:38)
[2025-05-30 08:00] LABS: Blood Urea Nitrogen 7 mg/dL (9-16); Calcium 8.7 mg/dL (8.4-10.2); Creatinine Clr Calc Pharmacy 109.7; Estimated Glomerular Filt Rate > 60; Magnesium 1.8 mg/dL (1.6-2.6)
[2025-05-30 08:15] LABS: Anion Gap 12 (12-20); Carbon Dioxide 17 mmol/L (22-29); Chloride 112 mmol/L (96-108); Potassium 3.7 mmol/L (3.3-5.1); Sodium 137 mmol/L (135-145)
--- NOTE | 2025-05-30 10:27 | P.PNIM_ITS ---
Subjective Subjective Date of Service: 05/30/25 Interval History: Patient seen and examined at bedside this morning, patient states that she is feeling better, however began with flushing yesterday evening, believes that it was after receiving doxycycline. Denies any shortness of breath at this time. Review of Systems Review of Systems: Yes all other systems are reviewed and are negative Physical Exam 2 Exam: Exam: General: AxOx3, no distress Head: AT/NC ENT: Moist mucous membranes Neck: supple CVS; regular rate and rhythm Lungs: Left lower lobe with rales, improved Abd: Soft non tender, non distended Ext: No edema and no calf tenderness MSK: moving all 4 limbs Skin: No cyanosis or edema, facial flushing Psych: Cooperative with exam Neurology: no focal deficit Vital Signs: Vital Signs: Last Vital Signs Temp 98.2 F 05/30/25 07:35 Pulse 80 05/30/25 07:36 Resp 16 05/30/25 07:36 BP 122/57 L 05/30/25 07:35 Pulse Ox 93 05/30/25 07:35 O2 Del Method Room Air 05/30/25 07:35 BMI result Body Mass Index 35.1 Objective Data Active Medications Acetaminophen (Acetaminophen 325 Mg Tablet) 650 mg PO Q6H PRN PRN Reason: Pain, Mild 1-3,fever,headache Benzonatate (Benzonatate 100 Mg Capsule) 100 mg PO TID PRN PRN Reason: Cough Last Admin: 05/30/25 09:37 Dose: 100 mg Documented By: MAICO Calcium Carbonate (Calcium Carbonate 750 Mg Tab.Chew) 750 mg PO Q4H PRN PRN Reason: Heartburn Levalbuterol HCl 2.5 mg/ (Ipratropium [place] 0.5 mg) 0 mg INHALE RQ6H [facility] Last Admin: 05/30/25 05:04 Dose: 2 dose Documented By: AYDIN Levalbuterol HCl 1.25 mg/ (Ipratropium [place] 0.5 mg) 0 mg INHALE Q6H PRN PRN Reason: Shortness of Breath/Wheezing Enoxaparin Sodium (Enoxaparin Sodium 40 Mg/0.4 Ml Syringe) 40 mg SUBCUT Q12H [facility] Last Admin: 05/30/25 03:26 Dose: 40 mg Documented By: GIOVANNY Fluticasone Propionate (Fluticasone Propionate 100 Mcg Blst.W.Dev) 2 puff INHALE RBID [facility] Last Admin: 05/30/25 07:35 Dose: 2 puff Documented By: ERWIN Fluticasone/Umeclidinium/Vilanterol (Fluticasone/Umeclidinium/Vilanterol 200/62.5/25 Blst.W.Dev) 1 puff INHALE RDAILY [facility] Last Admin: 05/30/25 07:35 Dose: 1 puff Documented By: ERWIN Ceftriaxone Sodium 1 gm/ (Sodium Chloride) 50 mls @ 100 mls/hr IV Q24H [facility] [place] Last Infusion: 05/29/25 14:21 Dose: Infused Documented By: ANA LILIA Doxycycline Hyclate 100 mg/ (Sodium Chloride) 250 mls @ 166.67 mls/hr IV Q12H [facility] Stop: 06/05/25 02:59 Last Infusion: 05/30/25 07:16 Dose: Infused Documented By: MAICO Levothyroxine Sodium (Levothyroxine Sodium 88 Mcg Tablet) 88 mcg PO DAILY@0600 [facility] Last Admin: 05/30/25 06:16 Dose: 88 mcg Documented By: GIOVANNY Magnesium Hydroxide (Milk Of Magnesia 30 Ml Oral.Susp) 30 ml PO DAILY PRN PRN Reason: Constipation Meclizine HCl (Meclizine Hcl 12.5 Mg Tablet) 12.5 mg PO BID PRN PRN Reason: Dizziness Melatonin (Melatonin 3 Mg Tablet) 6 mg PO BEDTIME PRN PRN Reason: Insomnia Methylprednisolone Sodium Succinate (Methylprednisolone Sod Succ 40 Mg/Ml Vial) 40 mg IVPUSH Q6H [facility] Last Admin: 05/30/25 09:37 Dose: 40 mg Documented By: MAICO Morphine Sulfate (Morphine Sulfate Immed Release 15 Mg Tablet) 30 mg PO QID PRN PRN Reason: Pain Last Admin: 05/30/25 06:20 Dose: 30 mg Documented By: GIOVANNY Non-Formulary Medication (Norgestrel-Ethinyl Estradiol [[place] (28)]) 1 tab PO DAILY [facility] Pantoprazole Sodium (Pantoprazole Sodium 40 Mg/10 Ml Vial) 40 mg IVPUSH DAILY@0630 [facility] Last Admin: 05/30/25 06:15 Dose: 40 mg Documented By: GIOVANNY Risperidone (Risperidone 0.5 Mg Tablet) 0.5 mg PO BEDTIME [facility] Last Admin: 05/29/25 21:03 Dose: 0.5 mg Documented By: GIOVANNY Risperidone (Risperidone 1 Mg Tablet) 1 mg PO BID [facility] [place] Last Admin: 05/30/25 09:37 Dose: 1 mg Documented By: MAICO Sodium Chloride (0.9 % Sodium Chloride Flush 3 Ml Syringe) 3 ml IVFLUSH QSHIFT [facility] Last Admin: 05/29/25 21:06 Dose: 3 ml Documented By: GIOVANNY Labs 05/30/25 07:09 05/30/25 07:09 Labs: Laboratory Results - last 24 hr 05/28/25 05/29/25 05/30/25 17:10 14:00 07:09 MCV 85.4 MCH 28.5 MCHC 33.3 RDW 13.4 Plt Count 285 MPV 10.4 Absolute Nucleated RBC 0.000 Nucleated RBC % (auto) 0.0 Anion Gap 11 L 12 Estim Creat Clear Calc 94.2 109.7 Estimated GFR > 60 > 60 Random Glucose 290 H 229 H Calcium 8.8 8.7 Magnesium 1.8 Respiratory Panel [place] See Note Adenovirus (Rapid PCR) Not Detected B.pert (TEM-PCR) Not Detected B.parapertussis DNA PCR Not Detected C. pneumoniae DNA (PCR) Not Detected Coronavirus OC43 (PCR) Not Detected Coronavirus HKU1 (PCR) Not Detected Coronavirus 229E (PCR) Not Detected Coronavirus NL63 (PCR) Not Detected Human Metapneumovir PCR Not Detected Influenza A (RT-PCR) Not Detected Influenza A (H1) PCR Not Detected Influ A (H1/09) PCR Not Detected Influenza A (H3) PCR Not Detected Influenza B (RT-PCR) Not Detected M. pneumoniae (PCR) Not Detected Parainfluenza 1 (PCR) Not Detected Parainfluenza 2 (PCR) Not Detected Parainfluenza 3 (PCR) Not Detected Parainfluenza 4 (PCR) Not Detected RSV (PCR) Not Detected Entero/Rhino (PCR) Not Detected SARS-CoV-2 RNA (RT-PCR) Not Detected Microbiology Microbiology Results: Microbiology 05/28/25 20:30 Gram Stain - Final Sputum - Expectorated Sputum Culture - Preliminary 05/28/25 14:56 Blood Culture - Preliminary Blood - Venous No growth after 24 hours. 05/28/25 14:48 Blood Culture - Preliminary Blood - Venous No growth after 24 hours. Assessment and Plan (1) Sepsis: Status: Acute Plan Assessment: 50-year-old female who presents to hospital complaining of worsening shortness of breath that began approximately 1 week ago, with productive sputum, associated with nausea, vomiting and subjective fevers. In the ED chest x-ray showing opacity of left lung. Given IV antibiotics, admitted for CAP. Sepsis secondary to pneumonia Acute hypoxic respiratory failure, likely secondary to pneumonia, improving Leukocytosis with bandemia, likely secondary to 1. Suspected ILD -labs reviewed -chest x-ray with opacity of the left lung base, with chest CT done on 06/09/2022 showing nonspecific focal thickening of left major fissure and calcified granuloma of left lower lobe -blood cultures ordered and pending -influenza and COVID negative -awaiting sputum culture -Respiratory panel negative -continue with Rocephin. will swich to azithromycin 500mg oral q3 days, due to patient developing flushing -Decrease IV Solu-Medrol 40 mg to q.8 hours -we will schedule and p.r.n. Xopenex with ipratropium in the setting of tachycardia -monitor and titrate for SpO2 greater than 90%. -incentive spirometer and flutter valve -if no improvement, to consider pulmonology consult Hypothyroidism, chronic -we will continue with home thyroid medication Chronic pain with opiate use -continue with p.r.n. medications for pain FEN: NI, replete as needed, regular GI PPX: Protonix 40 mg while patient is on high-dose steroids DVT PPX: Lovenox 40mg sq Code status: Full code Disposition: All questions and concerns with the patient were answered to satisfaction. All pertinent clinical documents, images and labs were reviewed. Total time managing care of this patient today: 55 minutes. Quality Stroke Does the patient have a stroke diagnosis?: No VTE Prior VTE?: No VTE Risk Level:: Medical - moderate - high VTE Device Contraindication: N/A - Device Ordered VTE Drug Contraindication: N/A - Med Ordered
[2025-05-30] MEDS: 0.9 % Sodium Chloride Flush 3 ML SYRINGE IVFLUSH ×2 (12:18→16:20)
[2025-05-30] MEDS: Milk of Magnesia 30 ML ORAL.SUSP PO (16:01)
[2025-05-31] VITALS (11 sets, daily range): BP systolic 119–153; BP diastolic 58–67; PULSE 58–89; RESP 16–20; TEMP 36.1–37.6; O2SAT 90–94
[2025-05-31] MEDS: 0.9 % Sodium Chloride Flush 3 ML SYRINGE IVFLUSH ×3 (01:22→16:00)
[2025-05-31] MEDS: levalbuterol HCL 2.5 MG, Ipratropium Bromide 0.5 MG INHALE ×3 (05:22→18:15)
[2025-05-31] MEDS: Morphine Sulfate Immed Release 15 MG TABLET 30 MG PO ×3 (05:44→17:45)
[2025-05-31 06:46] LABS: Hematocrit 35.8 % (37.0-47.0); Hemoglobin 12.0 g/dl (12.0-16.0); Mean Corpuscular HGB Conc 33.5 g/dl (31.0-35.0); Mean Corpuscular Hemoglobin 28.8 pg (27.0-33.0); Mean Corpuscular Volume 85.9 fL (80.0-98.0); NRBC Abs Auto 0.000 X10*3/uL (0.0-0.012); NRBC Pct Auto 0.0 /100WBC (0.0-0.2); Platelet Count 319 X10*3/uL (160-400); Red Blood Count 4.17 X10*6/uL (4.20-5.50); White Blood Count 13.8 X10*3/uL (4.8-10.8)
[2025-05-31 07:04] LABS: Anion Gap 12 (12-20); Blood Urea Nitrogen 7 mg/dL (9-16); Calcium 8.7 mg/dL (8.4-10.2); Carbon Dioxide 19 mmol/L (22-29); Chloride 112 mmol/L (96-108); Creatinine Clr Calc Pharmacy 109.7; Estimated Glomerular Filt Rate > 60; Magnesium 2.1 mg/dL (1.6-2.6); Potassium 3.9 mmol/L (3.3-5.1); Sodium 139 mmol/L (135-145)
[2025-05-31] MEDS: Fluticasone Propionate 100 MCG BLST.W.DEV 2 PUFF INHALE ×2 (07:35→19:30)
[2025-05-31] MEDS: Fluticasone/Umeclidinium/Vilanterol 200/62.5/25 BLST.W.DEV 1 PUFF INHALE (07:35)
--- NOTE | 2025-05-31 09:51 | P.PNIM_ITS ---
Subjective Subjective Date of Service: 05/31/25 Interval History: Patient seen examined at bedside this morning, mentioned that facial erythema has improved, however not feeling as well today, feeling weaker. Review of Systems Review of Systems: Yes all other systems are reviewed and are negative Physical Exam 2 Exam: Exam: General: AxOx3, no distress Head: AT/NC ENT: Moist mucous membranes Neck: supple CVS; regular rate and rhythm Lungs: Left lower lobe with rales Abd: Soft non tender, non distended Ext: No edema and no calf tenderness MSK: moving all 4 limbs Skin: No cyanosis or edema, facial flushing, improving Psych: Cooperative with exam Neurology: no focal deficit Vital Signs: Vital Signs: Last Vital Signs Temp 98.3 F 05/31/25 07:32 Pulse 72 05/31/25 07:36 Resp 18 05/31/25 07:36 BP 133/60 05/31/25 07:32 Pulse Ox 93 05/31/25 07:32 O2 Del Method Room Air 05/31/25 07:32 BMI result Body Mass Index 35.1 Objective Data Active Medications Acetaminophen (Acetaminophen 325 Mg Tablet) 650 mg PO Q6H PRN PRN Reason: Pain, Mild 1-3,fever,headache Last Admin: 05/30/25 16:04 Dose: 650 mg Documented By: MAICO Azithromycin (Azithromycin 500 Mg Tablet) 500 mg PO Q24H [facility] Stop: 06/02/25 10:29 Last Admin: 05/30/25 12:05 Dose: 500 mg Documented By: WES Benzonatate (Benzonatate 100 Mg Capsule) 100 mg PO TID PRN PRN Reason: Cough Last Admin: 05/30/25 16:01 Dose: 100 mg Documented By: MAICO Calcium Carbonate (Calcium Carbonate 750 Mg Tab.Chew) 750 mg PO Q4H PRN PRN Reason: Heartburn Levalbuterol HCl 2.5 mg/ (Ipratropium [place] 0.5 mg) 0 mg INHALE RQ6H [facility] Last Admin: 05/31/25 05:22 Dose: 2 dose Documented By: AYDIN Levalbuterol HCl 1.25 mg/ (Ipratropium [place] 0.5 mg) 0 mg INHALE Q6H PRN PRN Reason: Shortness of Breath/Wheezing Enoxaparin Sodium (Enoxaparin Sodium 40 Mg/0.4 Ml Syringe) 40 mg SUBCUT Q12H [facility] Last Admin: 05/31/25 03:48 Dose: 40 mg Documented By: VERONICA Fluticasone Propionate (Fluticasone Propionate 100 Mcg Blst.W.Dev) 2 puff INHALE RBID [facility] Last Admin: 05/31/25 07:35 Dose: 2 puff Documented By: HOME Fluticasone/Umeclidinium/Vilanterol (Fluticasone/Umeclidinium/Vilanterol 200/62.5/25 Blst.W.Dev) 1 puff INHALE RDAILY [facility] Last Admin: 05/31/25 07:35 Dose: 1 puff Documented By: HOME Ceftriaxone Sodium 1 gm/ (Sodium Chloride) 50 mls @ 100 mls/hr IV Q24H [facility] Last Infusion: 05/30/25 17:20 Dose: Infused Documented By: MAICO Levothyroxine Sodium (Levothyroxine Sodium 88 Mcg Tablet) 88 mcg PO DAILY@0600 [facility] Last Admin: 05/31/25 05:44 Dose: 88 mcg Documented By: VERONICA Magnesium Hydroxide (Milk Of Magnesia 30 Ml Oral.Susp) 30 ml PO DAILY PRN PRN Reason: Constipation Last Admin: 05/30/25 16:01 Dose: 30 ml Documented By: MAICO Meclizine HCl (Meclizine Hcl 12.5 Mg Tablet) 12.5 mg PO BID PRN PRN Reason: Dizziness Melatonin (Melatonin 3 Mg Tablet) 6 mg PO BEDTIME PRN PRN Reason: Insomnia Methylprednisolone Sodium Succinate (Methylprednisolone Sod Succ 40 Mg/Ml Vial) 40 mg IVPUSH Q8H [facility] Last Admin: 05/31/25 07:52 Dose: 40 mg Documented By: LENA Morphine Sulfate (Morphine Sulfate Immed Release 15 Mg Tablet) 30 mg PO QID PRN PRN Reason: Pain Last Admin: 05/31/25 05:44 Dose: 30 mg Documented By: VERONICA Pantoprazole Sodium (Pantoprazole Sodium 40 Mg/10 Ml Vial) 40 mg IVPUSH DAILY@0630 [facility] Last Admin: 05/31/25 05:44 Dose: 40 mg Documented By: VERONICA Risperidone (Risperidone 0.5 Mg Tablet) 0.5 mg PO BEDTIME [facility] Last Admin: 05/30/25 19:45 Dose: 0.5 mg Documented By: LEROY Risperidone (Risperidone 1 Mg Tablet) 1 mg PO BID [facility] Last Admin: 05/31/25 07:54 Dose: 1 mg Documented By: LENA Sodium Chloride (0.9 % Sodium Chloride Flush 3 Ml Syringe) 3 ml IVFLUSH QSHIFT [facility] Last Admin: 05/31/25 07:55 Dose: 3 ml Documented By: LENA Labs 05/31/25 06:35 05/31/25 06:35 Labs: Laboratory Results - last 24 hr 05/31/25 06:35 MCV 85.9 MCH 28.8 MCHC 33.5 RDW 13.7 Plt Count 319 MPV 10.2 Absolute Nucleated RBC 0.000 Nucleated RBC % (auto) 0.0 Anion Gap 12 Estim Creat Clear Calc 109.7 Estimated GFR > 60 Random Glucose 167 H Calcium 8.7 Magnesium 2.1 Microbiology Microbiology Results: Microbiology 05/28/25 14:56 Blood Culture - Preliminary Blood - Venous No growth after 48 hours. 05/28/25 14:48 Blood Culture - Preliminary Blood - Venous No growth after 48 hours. 05/28/25 20:30 Gram Stain - Final Sputum - Expectorated Sputum Culture - Preliminary Assessment and Plan (1) Sepsis: Status: Acute Plan Assessment: 50-year-old female who presents to hospital complaining of worsening shortness of breath that began approximately 1 week ago, with productive sputum, associated with nausea, vomiting and subjective fevers. In the ED chest x-ray showing opacity of left lung. Given IV antibiotics, admitted for CAP. Sepsis secondary to pneumonia Acute hypoxic respiratory failure, likely secondary to pneumonia, improved Leukocytosis, improved Suspected ILD -labs reviewed -chest x-ray with opacity of the left lung base, with chest CT done on 06/09/2022 showing nonspecific focal thickening of left major fissure and calcified granuloma of left lower lobe -Blood culture, influenza, COVID, respiratory panel negative -continue with Rocephin. continue azithromycin 500mg oral for 2 days, due to patient developing flushing while on doxy. -Decrease IV Solu-Medrol 40 mg to q.12 hours -we will schedule and p.r.n. Xopenex with ipratropium in the setting of tachycardia -monitor and titrate for SpO2 greater than 90%. -incentive spirometer and flutter valve Hypothyroidism, chronic -we will continue with home thyroid medication Chronic pain with opiate use -continue with p.r.n. medications for pain FEN: NI, replete as needed, regular GI PPX: Protonix 40 mg while patient is on high-dose steroids DVT PPX: Lovenox 40mg sq Code status: Full code Disposition: All questions and concerns with the patient were answered to satisfaction. All pertinent clinical documents, images and labs were reviewed. Likely DC javier as suspicion for allergy to ab. Total time managing care of this patient today: 55 minutes. Quality Stroke Does the patient have a stroke diagnosis?: No VTE Prior VTE?: No VTE Risk Level:: Medical - moderate - high VTE Device Contraindication: N/A - Device Ordered VTE Drug Contraindication: N/A - Med Ordered
[2025-05-31] MEDS: Butalb/Acetamin/Caff 50/325/40 TABLET 1 TAB PO (18:24)
[2025-06-01] VITALS: BP 115/62; PULSE 70; RESP 18; TEMP 36.4; O2SAT 92
[2025-06-01] MEDS: levalbuterol HCL 2.5 MG, Ipratropium Bromide 0.5 MG INHALE ×3 (00:01→11:42)
[2025-06-01 03:34] VITALS: BP 104/57; PULSE 79; RESP 18; TEMP 36.4; O2SAT 97
[2025-06-01] MEDS: Morphine Sulfate Immed Release 15 MG TABLET 30 MG PO ×2 (03:45→10:22)
[2025-06-01 04:59] VITALS: PULSE 79; RESP 18; O2SAT 96
[2025-06-01 07:06] VITALS: BP 135/60; PULSE 51; RESP 18; TEMP 36.3; O2SAT 94
--- NOTE | 2025-06-01 08:33 | PM.DS ---
DS: Providers Provider Date of Service: 06/01/25 Date of admission: 05/28/25 16:07 Date of discharge: 06/01/25 Primary care physician: MARITZA Pandey DS: Diagnosis Discharge Diagnosis (1) Sepsis: Status: Acute (2) Pneumonia: Status: Acute DS: Summary Hospital Course Hospital Course: 50-year-old female who presents to hospital complaining of worsening shortness of breath that began approximately 1 week ago, with productive sputum, associated with nausea, vomiting and subjective fevers. In the ED chest x-ray showing opacity of left lung. Given IV antibiotics, admitted for CAP. Treated with IV Rocephin and azithromycin, with subsequent improvement. On day of discharge, patient on room air, mentioned that she has feeling better denies any worsening shortness of breath. Sepsis secondary to pneumonia Acute hypoxic respiratory failure, likely secondary to pneumonia, resolved Suspected ILD -labs reviewed -chest x-ray with opacity of the left lung base, with chest CT done on 06/09/2022 showing nonspecific focal thickening of left major fissure and calcified granuloma of left lower lobe -Blood culture, influenza, COVID, respiratory panel negative -continue azithromycin 500mg oral for 2 days, initiate amoxicillin/potassium for four more days. -we will schedule and p.r.n. Xopenex with ipratropium in the setting of tachycardia -incentive spirometer and flutter valve Hypothyroidism, chronic -we will continue with home thyroid medication Chronic pain with opiate use -continue with p.r.n. medications for pain Time Attestation Discharge Coordination Time (in mins): 35 minutes Quality: Safe Use of Opioids Does Pt have an Active Cancer Diagnosis on the Problem List?: No Quality: Stroke Does the patient have a stroke diagnosis?: No Physical Exam Exam: Exam: General: AxOx3, No acute distress Head: AT/NC ENT: Moist mucous membranes Neck: supple CVS; RRR, S1 S2 normal Lungs: Clear bilateral breath sounds, no wheezes or crackles Abd: Soft non tender, non distended Ext: No edema and no calf tenderness MSK: moving all 4 limbs Skin: No cyanosis or edema Psych: Cooperative with exam Neurology: no focal deficit Vital Signs: Vital Signs: Last Vital Signs Temp 97.3 F 06/01/25 07:06 Pulse 51 06/01/25 07:06 Resp 18 06/01/25 07:06 BP 135/60 06/01/25 07:06 Pulse Ox 94 06/01/25 07:06 O2 Del Method Room Air 06/01/25 07:06 BMI result Body Mass Index 35.1 DS: Data Data Completed and Pending Labs on day of discharge: Preliminary micro results at discharge 05/28/25 14:56 Blood Culture - Preliminary Blood - Venous No growth after 48 hours. 05/28/25 14:48 Blood Culture - Preliminary Blood - Venous No growth after 48 hours. Discharge Plan Discharge Anticipated Discharge Date/Time: 06/01/25 13:48 Patient Disposition: Home, Self-Care Discharge Diagnosis: Sepsis Pneumonia Referrals: Sreedhar Sharma PA [Primary Care Provider, Internal Medicine] - 1 Week Discharge Medications: New azithromycin 500 mg Tablet 500 mg PO Q24H 2 Days Qty: 2 0RF amoxicillin-pot clavulanate 875-125 mg tablet 1 tab PO BID Qty: 8 0RF methylprednisolone [Medrol (Sacha)] 4 mg tablets,dose pack 4 mg PO DAILY Qty: 21 0RF Continued benzonatate 200 mg capsule 200 mg PO BID PRN (Reason: cough) 30 Days Qty: 60 6RF acetaminophen 500 mg tablet 500 mg PO Q6H PRN (Reason: pain) diclofenac sodium 1 % gel 4 g topical DAILY PRN (Reason: Pain) levothyroxine 88 mcg tablet 88 mcg PO DAILY@0600 [id number] [Excedrin Migraine] 250-250-65 mg Tablet 1 tab PO Q4-6H PRN (Reason: Migraine Headache) mupirocin 2 % ointment 1 appl topical DAILY PRN (Reason: Fungal Infection/Rash) meclizine 12.5 mg tablet 12.5 mg PO BID PRN (Reason: Dizziness) risperidone 0.5 mg tablet 0.5 mg PO BEDTIME fluticasone propionate 110 mcg/actuation HFA aerosol inhaler 2 puff INHALATION BID omeprazole 40 mg capsule,delayed release(DR/EC) 40 mg PO BID@0630,1630 nystatin 100,000 unit/mL suspension 1 ml PO BID PRN (Reason: thrush) Rx Instructions: swish and swallow sodium bicarbonate 325 mg Tablet 325 mg PO TID morphine 30 mg tablet 30 mg PO 4-5XD PRN (Reason: Pain) Trelegy Ellipta 200-62.5-25 mcg blister with device 1 inh inhalation DAILY Nucala 100 mg/mL auto-injector 100 mg subcut QMONTH (DME) nebulizers Misc See Rx Instructions .Route Rx Instructions: As directed risperidone 1 mg tablet 1 mg PO BID Linda (28) 0.3-30 mg-mcg tablet 1 tab PO DAILY Discharge Orders: Discharge Order (Routine); Ordered 06/01/25 Ordered By: Malcolm Evans Activity on Discharge: As tolerated Stand Alone Forms: Patient Portal Discharge page Print Language: Japanese Care Plan Goals: continue oral antibiotics and medrol dose sacha Health Concerns: Pneumonia Plan of Treatment: continue azithromycin and amoxicillin/pot twice a day continue with home inhalers follow up with PCP Assessment: 50-year-old female who presents to hospital complaining of worsening shortness of breath that began approximately 1 week ago, with productive sputum, associated with nausea, vomiting and subjective fevers. In the ED chest x-ray showing opacity of left lung. Given IV antibiotics, admitted for CAP. Treated with IV Rocephin and azithromycin, with subsequent improvement. Patient Instructions: Pneumonia (DC)
[2025-06-01] MEDS: 0.9 % Sodium Chloride Flush 3 ML SYRINGE IVFLUSH (08:40)
[2025-06-01] MEDS: Fluticasone/Umeclidinium/Vilanterol 200/62.5/25 BLST.W.DEV 1 PUFF INHALE (09:11)
[2025-06-01] MEDS: Fluticasone Propionate 100 MCG BLST.W.DEV 2 PUFF INHALE (09:11)
[2025-06-01 11:27] VITALS: BP 118/58; PULSE 55; RESP 18; TEMP 36.4; O2SAT 93
[2025-06-01 11:44] VITALS: PULSE 59; RESP 19; O2SAT 94
--- NOTE | 2025-06-01 14:08 | MHC.CM.PN ---
pt is dcd home self care
== END 2025-06-01 14:56 | disposition home or self-care (01) | DRG 720 ==
LOC: HO.ED 16:12 → HO.EDOVER 16:18 → HO.IMC 05-29 00:13 → HO.S3 05-31 22:46
PROVIDERS: Physician Assistant; Admitting Provider Student in an Organized Health Care Education/Training Program; Emergency Provider Emergency Medicine; PCP Physician Assistant; Visit Provider Student in an Organized Health Care Education/Training Program
DX: A41.9 Sepsis, unspecified organism (principal); J96.01 Acute respiratory failure with hypoxia; J18.9 Pneumonia, unspecified organism; E87.6 Hypokalemia; E06.3 Autoimmune thyroiditis; G89.29 Other chronic pain; Z20.822 Contact with and (suspected) exposure to COVID-19; Z79.890 Hormone replacement therapy; Z79.891 Long term (current) use of opiate analgesic; Z79.899 Other long term (current) drug therapy
CPT/HCPCS: 36415; 71045; 80048; 80053; 81003; 83605; 83735; 83880; 84484; 85007; 85025; 85027; 87040; 87070; 87205; 87633; 87637; 93005; 94640; 99285; J0131; J0696; J1271; J1650; J2470; J2919; J3480; J7120

== ENCOUNTER → 2025-05-28 14:20 | Outpatient (BNV) | payer OTHER, SELFPAY | PROVIDERS: Admitting Provider Student in an Organized Health Care Education/Training Program; Emergency Provider Emergency Medicine; PCP Physician Assistant; Visit Provider Internal Medicine | DX: R00.0 Tachycardia, unspecified (principal) | CPT/HCPCS: 93010 ==

== ENCOUNTER → 2025-05-28 14:36 | Outpatient (BNV) | payer OTHER, SELFPAY | PROVIDERS: Emergency Provider Emergency Medicine; PCP Physician Assistant; Visit Provider Radiology Body Imaging | DX: R91.8 Other nonspecific abnormal finding of lung field (principal) | CPT/HCPCS: 71045 ==

== ENCOUNTER → 2025-05-28 16:07 | Outpatient (BNV) | payer OTHER, SELFPAY | PROVIDERS: Admitting Provider Student in an Organized Health Care Education/Training Program; Emergency Provider Emergency Medicine; PCP Physician Assistant; Visit Provider Student in an Organized Health Care Education/Training Program | DX: A41.9 Sepsis, unspecified organism (principal) | CPT/HCPCS: 99223; 99233 ==